=== PATIENT | female | born 1980 | race Caucasian/White ===

== ENCOUNTER 2018-03-28 12:34 | Emergency (ER) | payer MEDICAID, SELFPAY ==
[2018-03-28 12:34] VITALS: BP 166/95; PULSE 84; RESP 18; TEMP 36.6; O2SAT 97; BMI 56.7
--- NOTE | 2018-03-28 13:16 | EKG12_ITS ---
Test Reason : WEAKNESS Blood Pressure : / mmHG Vent. Rate : 070 BPM Atrial Rate : 070 BPM P-R Int : 188 ms QRS Dur : 088 ms QT Int : 402 ms P-R-T Axes : 037 064 043 degrees QTc Int : 434 ms Normal sinus rhythm with sinus arrhythmia Low voltage QRS Borderline ECG Confirmed by KANE CLARKE, JANELL ([id number]), acquisition editor JULIA SEALS ([id number]) on 04/03/2018 10:05:56 AM Referred By: FOREIGN Confirmed By:JAENLL MIDDLETON MD
[2018-03-28 13:47] LABS: Absolute Lymphocyte Count 2.55 X10^3/ul (0.83-4.51); Absolute Neutrophil Count 7.7 X10^3/uL (2.0-7.7); Basophil# 0.05 X10^3/uL; Basophil% 0.4 % (0-1); Eosinophil# 0.13 X10^3/uL; Eosinophils% 1.2 % (0-5); Hematocrit 46.7 % (37-47); Hemoglobin 14.9 g/dl (12.0-15.0); Lymphocyte # 2.55 X10^3/ul (4.0); Lymphocyte % 22.9 % (19-41); Mean Corp Hgb Conc 31.9 g/gl (32-36); Mean Corpuscular Hgb 29.3 pg (27.0-32.0); Mean Corpuscular Volume 91.9 fL (81-99); Mean Platelet Vol. 10.3 fl (6.2-12.0); Monocyte# 0.58 X10^3/uL; Monocyte% 5.2 % (0-10); Neutrophil # 7.74 X10^3/uL (2.7-7.7); Neutrophil % 69.6 % (47-70); Platelet Count 269 K/mm3 (150-450); RBC Distribution Width CV 14.3 % (11.6-14.6); RBC Distribution Width SD 48.2 fl (35.1-43.9); Red Blood Count 5.08 M/mm3 (4.2-5.4); White Blood Count 11.1 K/mm3 (4.4-11.0)
[2018-03-28 13:49] LABS: POSITIVE COUNT NO; POSITIVE DIFFERENTIAL NO; POSITIVE MORPHOLOGY NO
[2018-03-28 14:04] LABS: D-Dimer Quantitative (DVT/PE) 0.52 FEU/ug/m (0.27-0.49)
--- NOTE | 2018-03-28 14:04 | CT_ITS ---
STUDY: CTA CHEST REASON FOR EXAM: Female, 37 years old. RADIATION DOSAGE (If Supplied By Facility): CTDIvol = ( 20.05 ) mGy, DLP = ( 677.05 ) mGycm TECHNIQUE: The examination was performed with the intravenous administration of 100 ml of Isovue 370 contrast material. Post-processing of the angiographic images was performed, with multiplanar reformation and 3D reconstruction. Individualized dose optimization techniques were used for this CT. COMPARISON: None. FINDINGS: Normal enhancement of the main pulmonary artery and right and left pulmonary arteries. Normal enhancement of the bilateral peripheral pulmonary arteries. There is no demonstrated pulmonary embolism. Normal thoracic aorta and visualized great vessels. There is no demonstrated aortic dissection. Normal heart and pericardium. Normal mediastinum. Normal hilar regions. Normal visualized trachea and bronchi. The lungs are well expanded. Normal pulmonary parenchyma. Normal pleura. Normal chest wall structures. Normal osseous structures. Normal visualized upper abdomen. CT/CTA Chest W/WO Contrast IMPRESSION: Normal CTA chest examination, without a demonstrated pulmonary embolism or arterial dissection. Electronically Signed: Jaspreet Beaver, at 16:38 EST Tel , Service support ,
--- NOTE | 2018-03-28 14:07 | ED.RN ---
notified Dr. Thomas of d-dimer 0.52
[2018-03-28 14:12] LABS: Anion Gap 9 (5-15); BUN 11 mg/dL (7-18); BUN/Creat Ratio 10.9 RATIO (10-20); Calcium,Total 8.6 mg/dL (8.5-10.1); Chloride 105 mmol/L (98-107); Creatinine, Serum 1.01 mg/dL (0.55-1.02); EST Glomerular Filtration Rate 65 mL/min (>60); Est Glom Filt Rate - Afr Amer 79 mL/min (>60); Estimated Creatinine Clearance 60.32 ml/min; Glucose 117 mg/dL (74-106); Potassium 3.6 mmol/L (3.5-5.1); Sodium Level 141 mmol/L (136-145)
[2018-03-28 14:15] LABS: BNP,B-Type NATRIURETIC PEPTIDE < 2.0 pg/mL (0-100)
--- NOTE | 2018-03-28 15:10 | ED.VISSUMM ---
- ER Visit Summary Date of Service: 03/28/18 Chief Complaint: [Shortness of breath and generalized weakness] History of Present Illness: The patient is a 37 F [presents to the emergency department with multiple vague complaints that have been going on for several weeks. Patient states that she recently moved back to [facility] [place] and she has run out of her thyroid medication 2 weeks ago. Patient has been quite irritable. Patient also has been complaining of some shortness of breath especially when laying flat. Patient complains of left-sided lung pain posteriorly is worse with deep breath. Patient tells me that she has a history of remote pulmonary embolism but is not on any blood thinners. Patient also without her Wellbutrin and trazodone and BuSpar. She does not have a primary care physician in [facility]. Patient states that she used to see an otolaryngology teacher at [facility] and she believes that she will be able to follow up with them again. Patient had been on levothyroxine but that was switched over to thyroid because they had a hard time normalizing her levels but patient believes it is due to the fact that she was not taking the levothyroxine when she was supposed to be.] Physical Examination: [HEENT-PERRLA, EOMI. Cranial nerves II through XII grossly intact. TMs clear. Mucous membranes moist. No adenopathy. Cardiovascular-regular rate and rhythm without murmur or ectopy Lungs-clear to auscultation, chest wall stable without crepitus or subcu emphysema Abdomen-normoactive bowel sounds, soft, nontender, no rebound or rigidity, no peritoneal signs. Extremities-intact ?4, normal range of motion, normal pulses, atraumatic] Test Results: [EKG obtained on arrival showed a sinus rhythm with a ventricular rate of 70 bpm with occasional PACs noted. CBC with differential obtained showed a white count of 11.1, hemoglobin 15, hematocrit 47, placed 269. Chemistry showed a sodium of 141, potassium 3.6, chloride 105, CO2 27, glucose 117, BUN 11, creatinine 1.01. D-dimer was 0.52. BNP was less than 2. CTA of the chest obtained was negative for PE or dissection.] Emergency Department Course and Treatment: [She was given a dose of levothyroxine 175 mcg.] Treatment Plan: [Will be given a prescription for her levothyroxine as she would prefer this over thyroid medication. Patient also will be given prescriptions for her Wellbutrin, trazodone, and BuSpar. Patient will be given referral to primary care physician locally.] Disposition: [Discharged home in stable condition] Impression: [Hypothyroidism Canary to medication noncompliance Medication refills] This note was generated with wumo dictation software. It may contain incorrect words, spelling, and punctuation that were not noted in review of the chart prior to signing ED Disposition - Plan for ED Patient: Referrals: Natasha Bhat MD [Primary Care Provider] -
--- NOTE | 2018-03-28 15:14 | ED.DCSUM_ITS ---
- ER Visit Summary Date of Service: 03/28/18 Chief Complaint: [Shortness of breath and generalized weakness] History of Present Illness: The patient is a 37 F [presents to the emergency department with multiple vague complaints that have been going on for several weeks. Patient states that she recently moved back to [facility] from [place] and she has run out of her thyroid medication 2 weeks ago. Patient has been quite irritable. Patient also has been complaining of some shortness of breath especially when laying flat. Patient complains of left-sided lung pain posteriorly is worse with deep breath. Patient tells me that she has a history of remote pulmonary embolism but is not on any blood thinners. Patient also without her Wellbutrin and trazodone and BuSpar. She does not have a primary care physician in [facility]. Patient states that she used to see an nurse wound at [facility] and she believes that she will be able to follow up with them again. Patient had been on levothyroxine but that was switched over to thyroid because they had a hard time normalizing her levels but patient believes it is due to the fact that she was not taking the levothyroxine when she was supposed to be.] Physical Examination: [HEENT-PERRLA, EOMI. Cranial nerves II through XII grossly intact. TMs clear. Mucous membranes moist. No adenopathy. Cardiovascular-regular rate and rhythm without murmur or ectopy Lungs-clear to auscultation, chest wall stable without crepitus or subcu emphysema Abdomen-normoactive bowel sounds, soft, nontender, no rebound or rigidity, no peritoneal signs. Extremities-intact ?4, normal range of motion, normal pulses, atraumatic] Test Results: [EKG obtained on arrival showed a sinus rhythm with a ventricular rate of 70 bpm with occasional PACs noted. CBC with differential obtained showed a white count of 11.1, hemoglobin 15, hematocrit 47, placed 269. Chemistry showed a sodium of 141, potassium 3.6, chloride 105, CO2 27, glucose 117, BUN 11, creatinine 1.01. D-dimer was 0.52. BNP was less than 2. CTA of the chest obtained was negative for PE or dissection.] Emergency Department Course and Treatment: [She was given a dose of levothyroxine 175 mcg.] Treatment Plan: [Will be given a prescription for her levothyroxine as she would prefer this over thyroid medication. Patient also will be given prescriptions for her Wellbutrin, trazodone, and BuSpar. Patient will be given referral to primary care physician locally.] Disposition: [Discharged home in stable condition] Impression: [Hypothyroidism Canary to medication noncompliance Medication refills] This note was generated with [employer] dictation software. It may contain incorrect words, spelling, and punctuation that were not noted in review of the chart prior to signing ED Disposition - Plan for ED Patient: Referrals: Natasha Bhat MD [Primary Care Provider] -
--- NOTE | 2018-03-28 15:14 | ED.DEP ---
ED Disposition - Plan for ED Patient: Instructions: ED Hypothyroidism Prescriptions: buPROPion SR [Wellbutrin SR (150mg tablets)] 150 mg PO DAILY #30 tablet.sa Levothyroxine [Synthroid] 175 mcg PO DAILY #30 tab traZODone [Desyrel] 100 mg PO DAILY #30 tab Buspirone HCl [Buspar] 30 mg PO BID #60 tab Referrals: Natasha Bhat MD [Primary Care Provider] - Cuba Smith III, MD [STAFF PHYSICIAN] - 3-5 Days
[2018-03-28 15:34] VITALS: BP 153/109; PULSE 71; RESP 18; O2SAT 97
[2018-03-28] MEDS: Levothyroxine 175 MCG Tablet PO (15:34)
== END 2018-03-28 15:35 | disposition home or self-care (01) ==
LOC: ED 13:39
PROVIDERS: Emergency Provider Emergency Medicine
DX: E03.9 Hypothyroidism, unspecified (principal); Z91.14 Patient's other noncompliance with medication regimen; Z76.0 Encounter for issue of repeat prescription; R06.02 Shortness of breath; R50.9 Fever, unspecified; R05 Cough; I49.1 Atrial premature depolarization; F43.10 Post-traumatic stress disorder, unspecified; F41.9 Anxiety disorder, unspecified; F32.9 Major depressive disorder, single episode, unspecified; Z86.711 Personal history of pulmonary embolism; Z79.899 Other long term (current) drug therapy
CPT/HCPCS: 71275; 80048; 83880; 84443; 85025; 85379; 93005; 99285; Q9967; A4216

== ENCOUNTER 2018-10-06 14:41 | Emergency (ER) | payer MEDICAID, SELFPAY ==
[2018-10-06 14:43] VITALS: BP 161/86; PULSE 82; RESP 16; TEMP 36.7; O2SAT 98; BMI 60.3
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
[2018-10-06] MEDS: Ketorolac 30 MG/ML Syringe IV (15:35)
[2018-10-06] MEDS: 0.9% Normal Saline 1,000 ML 1000 ML IV (15:35)
--- NOTE | 2018-10-06 15:51 | RAD_ITS ---
STUDY: X-RAY - RIGHT KNEE REASON FOR EXAM: Female, 38 years old. Pain. Injury. TECHNIQUE: 4 view(s) of the knee. COMPARISON: None. FINDINGS: Normal visualized distal femur. Normal visualized proximal tibia and fibula. Normal proximal tibiofibular articulation. There is no demonstrated fracture. Normal medial femorotibial compartment. Normal lateral femorotibial compartment. Normal patellofemoral articulation. There is no demonstrated joint effusion. The soft tissue structures are unremarkable. RAD/Knee 4 or More Views IMPRESSION: Normal x-ray examination of the knee. Electronically Signed: Baldomero Gan MD at 16:17 EDT , Service support ,
--- NOTE | 2018-10-06 15:51 | RAD_ITS ---
STUDY: X-RAY - RIGHT ANKLE REASON FOR EXAM: Female, 38 years old. Pain. Previous injury. TECHNIQUE: 3 view(s) of the ankle. COMPARISON: None. FINDINGS: Normal visualized distal tibia and fibula. Normal medial and lateral malleoli. Normal tibiotalar articulation and ankle mortise. Normal visualized talus and calcaneus. The visualized subtalar, talonavicular, calcaneocuboid and tarsal articulations are normal. There is no demonstrated fracture. The soft tissue structures are unremarkable. RAD/Ankle min 3 Views IMPRESSION: No fractures or dislocations are seen. No significant degenerative changes. Electronically Signed: Baldomero Gan MD at 16:16 EDT , Service support ,
--- NOTE | 2018-10-06 15:51 | RAD_ITS ---
STUDY: X-RAY - UNILATERAL RIBS ( LEFT ) WITH CHEST REASON FOR EXAM: Female, 38 years old. Pain. Injury. TECHNIQUE - RIBS: 4 view(s) of the ribs. TECHNIQUE - CHEST: Single AP portable view of the chest. COMPARISON: 11/29/2016. FINDINGS - RIBS: Normal visualized ribs without a demonstrated fracture. FINDINGS - CHEST: The lungs are clear and expanded. There is no demonstrated pleural abnormality. Normal size heart. Normal mediastinum and cm. Normal visualized pulmonary arteries. Normal visualized aortic arch and descending thoracic aorta. There is mild dextroscoliosis of the thoracic spine. Normal visualized ribs, clavicles, and shoulders. There is no demonstrated abnormality of the visualized soft tissue structures of the upper abdomen. RAD/Ribs Uni Min 3V w/PA Chest IMPRESSION: RIBS: Normal x-ray examination of the ribs. CHEST: Normal x-ray examination of the chest. Electronically Signed: Baldomero Gan MD at 16:20 EDT , Service support ,
[2018-10-06 15:53] LABS: Absolute Lymphocyte Count 3.75 X10^3/uL (0.83-4.51); Absolute Neutrophil Count 11.8 X10^3/uL (2.0-7.7); Basophil# 0.11 X10^3/uL; Basophil% 0.6 % (0-1); Eosinophil# 0.14 X10^3/uL; Eosinophils% 0.8 % (0-5); Hematocrit 47.7 % (37-47); Hemoglobin 15.1 g/dL (12.0-15.0); Lymphocyte # 3.75 X10^3/ul (4.0); Mean Corp Hgb Conc 31.7 g/dL (32-36); Mean Corpuscular Hgb 29.3 pg (27.0-32.0); Mean Corpuscular Volume 92.4 fL (81-99); Mean Platelet Vol. 10.1 fl (6.2-12.0); Monocyte# 1.08 X10^3/uL; Monocyte% 6.3 % (0-10); NRBC Flagged by Analyzer 0 % (0-5); Neutrophil # 11.78 X10^3/uL (2.7-7.7); Neutrophil % 69.4 % (47-70); Platelet Count 305 K/mm3 (150-450); RBC Distribution Width CV 13.6 % (11.6-14.6); RBC Distribution Width SD 46.2 fl (35.1-43.9); Red Blood Count 5.16 M/mm3 (4.2-5.4)
[2018-10-06 16:09] LABS: Color, Urine Yellow (Yellow); Glucose, Dipstick Normal (Normal); Ketone-Dipstick 5 mg/dl (Negative); Leukocyte Esterase-Dipstick 500 /ul (Negative); Nitrite-Dipstick Positive (Negative); Occult Blood-Urine 10 /ul (Negative); Protein-Dipstick 15 mg/dl (Negative); Specific Gravity, Urine 1.025 (1.002-1.030); Urine Bilirubin Dipstick Negative (Negative); Urine Clarity Cloudy (Clear); Urine Urobilinogen Normal (Normal)
[2018-10-06 16:16] LABS: Anion Gap 4 (5-15); BUN 17 mg/dL (7-18); BUN/Creat Ratio 18.7 RATIO (10-20); Calcium,Total 9.4 mg/dL (8.5-10.1); Chloride 106 mmol/L (98-107); Creatinine, Serum 0.91 mg/dL (0.55-1.02); EST Glomerular Filtration Rate 73 mL/min (>60); Est Glom Filt Rate - Afr Amer 89 mL/min (>60); Glucose 91 mg/dL (74-106); Internal QC Validated? YES +Cl - CLEAR BKGD; Potassium 4.1 mmol/L (3.5-5.1); Pregnancy, Serum, hCG Quali. NEGATIVE Negative; Sodium Level 141 mmol/L (136-145)
[2018-10-06] MEDS: Levothyroxine 100 MCG Tablet 200 MCG PO (16:36)
[2018-10-06] MEDS: 0.9% Normal Saline 1,000 ML 150 ML IV (16:37)
[2018-10-06 16:39] LABS: Amphetamine Urine VISTA POSITIVE (<1000 ng/mL); Barbiturate Urine VISTA NEGATIVE (< 200 ng/mL); Benzodiazepine Urine VISTA NEGATIVE (< 200 ng/mL); Cocaine Urine VISTA NEGATIVE (< 300 ng/mL); Ecstacy Urine VISTA NEGATIVE (< 500 ng/mL); Methadone Urine VISTA NEGATIVE (< 300 ng/mL); PCP Urine VISTA NEGATIVE (< 25 ng/mL); THC Urine VISTA POSITIVE (< 50 ng/mL); Vista UDS pH Range 5
[2018-10-06 17:06] LABS: Bacteria 4+ /hpf (None Seen); Mucous, Urine 1+ /hpf (<or=2+); Red Blood Cells-Urine 5-10 SEEN /hpf (0-5); Squamous Epithelial Cells - UA 5-10 SEEN /hpf (5-10); White Blood Cells >100 SEEN /hpf (0-5)
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
[2018-10-06] MEDS: Ceftriaxone 1 GM/50 ML BAG IV (17:30)
[2018-10-06 17:33] VITALS: BP 180/100; PULSE 74; RESP 18; O2SAT 99
[2018-10-06 18:10] VITALS: BP 178/97; PULSE 74; RESP 18; O2SAT 99
== END 2018-10-06 18:57 | disposition home or self-care (01) ==
PROVIDERS: Emergency Provider Emergency Medicine
DX: S93.401A Sprain of unspecified ligament of right ankle, initial encounter (principal); E03.9 Hypothyroidism, unspecified; Z91.14 Patient's other noncompliance with medication regimen; N30.90 Cystitis, unspecified without hematuria; S09.90XA Unspecified injury of head, initial encounter; S29.9XXA Unspecified injury of thorax, initial encounter; M25.561 Pain in right knee; Y09 Assault by unspecified means; Y93.9 Activity, unspecified; Y92.9 Unspecified place or not applicable; F32.9 Major depressive disorder, single episode, unspecified; F41.9 Anxiety disorder, unspecified; Z79.899 Other long term (current) drug therapy; Z87.891 Personal history of nicotine dependence
CPT/HCPCS: 70450; 71101; 73564; 73610; 80048; 80307; 81001; 84443; 84703; 85025; 96361; 96365; 96375; 99283; J7030

== ENCOUNTER 2018-10-10 08:30 | Outpatient (RCR) | payer MEDICAID, SELFPAY ==
--- NOTE | 2018-10-10 09:10 | BH.SGPN.GN ---
Behaviors/Verbalizations/Mental Status: [] Eye contact is good. Motor activity is appropriate. Appearance is casual. Speech is Appropriate. Mood is depressed. Affect is flat. Thoughts are linear and logical. No evidence of psychosis. Reviewed daily check in sheet and pt reports 4/5 for suicidal ideations and 1/5 for intent. Therapist to meet with pt to further discuss. Client Response/Progress/Benefit: [] Pt participated at times during group discussion. Today was her first group in IOP. Shared that she is in IOP to work on her depression and anxiety mainly related to recent stressors. Shared that she can relate to the struggles that peers spoke about. Group welcomed her and provided support and encouragement which she benefited from. Will continue in IOP to maintain safety, prevent decompensation, medication mgmt, and to stabilize mood. Narrative Note: []
--- NOTE | 2018-10-10 10:07 | BH.SGPN.GN ---
Behaviors/Verbalizations/Mental Status: []Client alert and oriented, casually dressed and groomed. Eye contact good. Motor activity appropriate. Speech within normal limits. Affect congruent, mood anxious. Thoughts linear, logical, no signs of hallucinations or delusions. Client Response/Progress/Benefit: []Pt receptive to session, provided input and actively listening throughout discussion on stress. Able to brainstorm with the group positive and negative aspects of stress on physical and mental health. She participated in identifying current stressors impacting mental health. Pt's current stressors include: physical health, needing a job, family relationships, her children, poor self-care, not feeling safe at times, and counseling. Pt noted that her most significant stressors are currently physical health, needing a job, and family problems. Appeared to benefit from gaining awareness of own current stressors and learning about the impact stress has on overall wellbeing. Pt's first day in IOP, appeared to connect with others and engaged throughout. Recommend continued IOP tx to improve anxiety and depression symptom management, increase healthy coping, and prevent decompensation. Narrative Note: []
--- NOTE | 2018-10-10 11:09 | BH.SGPN.GN ---
Behaviors/Verbalizations/Mental Status: [Client alert and oriented, casual appearance and appropriate grooming. Eye contact fair to good. Motor activity appropriate. Speech within normal limits. Affect congruent, mood anxious. Thoughts linear, logical, no signs of hallucinations or delusions.] Client Response/Progress/Benefit: [Pt engaged in session as evidenced by pt listening and taking notes, participating in activity, and providing input throughout session. This is progress as it is only pt first day in IOP tx. She worked with the group to complete the challenge activity and did well to remain engaged while being challenged to manage in the moment stressors. Pt was able to identify connections between activity and managing stress in daily life. Pt reported that engaging in the activity despite frustration aided in reducing overall agitation levels. Pt actively listening during discussion about the 4 A's of managing stress. Expressed wanting to utilize alter in order to begin ?actually asking for help with my mental health?. Pt seemed to benefit from increased awareness of the impact of stress on mental health and increasing repertoire of stress management strategies. Pt to continue in IOP to prevent decompensation, continue promote stability, and decrease symptoms of depression.] Narrative Note: []
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
--- NOTE | 2018-10-11 11:08 | BH.DR.ITP ---
Initial Treatment Plan - Patient Information Visit Information: ADMISSION DATE: EXPECTED LOS: 4-6 weeks - Problems/Symptoms Problem #1:: Depression Symptom:: sadness, anhedonia, passive SI, low energy Problem #2:: Psychosis Symptom:: Paranoia, doesnt feel safe Problem #3:: OCD Symptom:: Checking, showering rituals
--- NOTE | 2018-10-12 09:00 | BH.SGPN.GN ---
Behaviors/Verbalizations/Mental Status: [] Eye contact is good. Motor activity is appropriate. Appearance is casual. Speech is Appropriate. Mood is anxious. Affect is congruent. Thoughts are linear and logical. No evidence of psychosis. Reviewed daily check in sheet and pt reports 4/5 for suicidal thoughts and 1/5 for intent. Will complete f2f assessment after group to further evaluate Client Response/Progress/Benefit: [] Pt participated at times. Attentive. The was pt's first group and she briefly introduced herself. Wants to work on her depression and anxiety. States that she is happy to be in the program and can relate to the struggles that other members reported. No progress as this was pt's first day. Will continue in IOP to maintain safety, stabilize mood, prevent decompensation, and improve functioning. Narrative Note: []
--- NOTE | 2018-10-12 14:00 | BH.MDN ---
Multi-Disciplinary Note - Note 60-min Individual Time Started:: 11:05 Date: 10/12/18 Purpose of session/treatment goals addressed:: Reviewed current symptoms and progress in IOP. Pt presented to this therapist and requested session due to increased anxiety and irritability. Reports overwhelming stimuli in group. Eye Contact:: Good Motor Activity:: Appropriate Appearance:: Disheveled Speech:: Rapid Mood:: Anxious, Irritable Affect:: Congruent Thoughts:: Linear, Logical, No evidence of hallucinations/delusions noted Staff Interventions:: Allowed pt to vent. Utilized ME techniques to elicit change behaviors. Provided education on importance of self-care. Provided handouts on mindfulness skills. Client Response:: Pt reports that it was overwhelming in group today. Reports that she did not get much sleep last night and today is very hypervigilant. Was in a hurry this AM, overslept, and didn't have time to fully prepare which appears to have increased stress, irritability, and anxiety. Normalized her emotions. Numerous psychosocial stressors which she vented about including her son who recently left rehab prior to completion, housing situation, and her future. Once she was finsihed venting she reported feeling better and more calm. Insight that she is trying to do to much too soon. Addressed her self-report of suicidal thoughts this AM. Completed CSSR-sreener version in which she is low risk. She identified desire or wishes to be however denies any thoughts of killing herself in the past month. She reports she will often think about stopping her medications (thyroid) with the hopes of dying however again this is not lethal, immenint, and she is currently taking her medications. No hx of attempts. Denies any intent. Furture-oriented (getting a job, moving). Protective factors are her children. Does not present as imminent danger due to no ideations, plan, intent, or hx of attempts. No criteria for involuntary admission or pink slipp. Risks/Concerns:: refer above CSSR completed with low risk Progress Toward Goals/Plan:: Limited progress as this is 2nd day in IOP. Numerous psychosocial stressors which impact MH. Prescibed medications yesterday however has not started. Anxiety continues to be significant and impacting daily functioning. Hypervigilant which is impacting stress, sleep, and daily functioning. Will continue in IOP to maintain safety, stablize mood, and prevent decompensation. Time Stopped:: 12:00
--- NOTE | 2018-10-16 15:55 | BH.COMM_ITS ---
Communication Note - Communication with Client Communication Note: Transportation arrived to pick pt up this AM. Pt informed them that she had arranged for other mode of transportation to [facility]. Pt never showed to [facility].
--- NOTE | 2018-10-16 15:55 | BH.COMM ---
Communication Note - Communication with Client Communication Note: Transportation arrived to pick pt up this AM. Pt informed them that she had arranged for other mode of transportation to [facility]. Pt never showed to [facility].
== END 2018-10-21 23:59 ==
LOC: BHIOP 08:30
PROVIDERS: Referring Provider Psychiatry & Neurology Psychiatry; Visit Provider Psychiatry & Neurology Psychiatry
DX: F31.5 Bipolar disorder, current episode depressed, severe, with psychotic features (principal); F42.9 Obsessive-compulsive disorder, unspecified; F43.10 Post-traumatic stress disorder, unspecified; F12.90 Cannabis use, unspecified, uncomplicated; F10.21 Alcohol dependence, in remission
CPT/HCPCS: 90792; H0035; H2012; H2020; 90832; 90837

== ENCOUNTER 2018-11-21 17:56 | Emergency (ER) | payer MEDICAID, SELFPAY ==
[2018-11-21 17:57] VITALS: BP 153/89; PULSE 94; RESP 22; TEMP 36.8; O2SAT 97; BMI 63.3
--- NOTE | 2018-11-21 18:36 | EKG12_ITS ---
Test Reason : CP Blood Pressure : / mmHG Vent. Rate : 087 BPM Atrial Rate : 087 BPM P-R Int : 174 ms QRS Dur : 090 ms QT Int : 380 ms P-R-T Axes : 043 049 053 degrees QTc Int : 457 ms Normal sinus rhythm Normal ECG Confirmed by GHISLAINE REGAN ([id number]), film and video editor BRIDGETT OCHOA ([id number]) on 11/27/2018 12:11:39 PM Referred By: DANIELE Confirmed By:GHISLAINE REGAN
--- NOTE | 2018-11-21 18:36 | RAD_ITS ---
STUDY: X-RAY CHEST REASON FOR EXAM: Female, 38 years old. Chest pain, dyspnea TECHNIQUE: Frontal and lateral views COMPARISON: October 06, 2018 FINDINGS: The lungs are clear and expanded. There is no demonstrated pleural abnormality. Normal size heart. Normal mediastinum and cm. Normal visualized pulmonary arteries. Normal visualized aortic arch and descending thoracic aorta. Mild degenerative changes of the thoracic spine. Normal visualized ribs, clavicles, and shoulders. There is no demonstrated abnormality of the visualized soft tissue structures of the upper abdomen. RAD/Chest PA and Lateral IMPRESSION: Normal x-ray examination of the chest. Electronically Signed: Raji Leon DO at 19:18 EDT Tel [phone], Service support ,
[2018-11-21 18:55] LABS: Absolute Lymphocyte Count 2.46 X10^3/uL (0.83-4.51); Absolute Neutrophil Count 9.6 X10^3/uL (2.0-7.7); Basophil# 0.08 X10^3/uL; Basophil% 0.6 % (0-1); Eosinophil# 0.11 X10^3/uL; Eosinophils% 0.8 % (0-5); Hematocrit 42.4 % (37-47); Hemoglobin 13.3 g/dL (12.0-15.0); Lymphocyte # 2.46 X10^3/ul (4.0); Mean Corp Hgb Conc 31.4 g/dL (32-36); Mean Corpuscular Hgb 28.5 pg (27.0-32.0); Mean Platelet Vol. 10.3 fl (6.2-12.0); Monocyte# 0.69 X10^3/uL; Monocyte% 5.3 % (0-10); NRBC Flagged by Analyzer 0 % (0-5); Neutrophil # 9.56 X10^3/uL (2.7-7.7); Neutrophil % 73.7 % (47-70); Platelet Count 300 K/mm3 (150-450); RBC Distribution Width CV 13.6 % (11.6-14.6); RBC Distribution Width SD 45.1 fl (35.1-43.9); Red Blood Count 4.66 M/mm3 (4.2-5.4)
[2018-11-21 19:07] LABS: Internal QC Validated? YES +Cl - CLEAR BKGD; Pregnancy, Serum, hCG Quali. NEGATIVE Negative
[2018-11-21 19:09] VITALS: BP 139/95; PULSE 79; RESP 18; O2SAT 96
[2018-11-21 19:11] LABS: Anion Gap 6 (5-15); BUN 18 mg/dL (7-18); BUN/Creat Ratio 18.1 RATIO (10-20); Calcium,Total 8.8 mg/dL (8.5-10.1); Chloride 107 mmol/L (98-107); EST Glomerular Filtration Rate 66 mL/min (>60); Est Glom Filt Rate - Afr Amer 80 mL/min (>60); Estimated Creatinine Clearance 60.33 ml/min; Glucose 143 mg/dL (74-106); Potassium 3.6 mmol/L (3.5-5.1); Sodium Level 140 mmol/L (136-145)
--- NOTE | 2018-11-21 19:40 | CT_ITS ---
STUDY: CTA CHEST REASON FOR EXAM: Female, 38 years old. Chest pain RADIATION DOSAGE (If Supplied By Facility): CTDIvol = ( 17.2 ) mGy, DLP = ( 1618.76 ) mGycm TECHNIQUE: The examination was performed with the intravenous administration of IV Isovue 370 100. Post-processing of the angiographic images was performed, with multiplanar reformation and 3D reconstruction. Individualized dose optimization techniques were used for this CT. COMPARISON: None. FINDINGS: Normal enhancement of the main pulmonary artery and right and left pulmonary arteries. Normal enhancement of the bilateral peripheral pulmonary arteries. There is no demonstrated pulmonary embolism. Normal thoracic aorta and visualized great vessels. There is no demonstrated aortic dissection. Normal heart and pericardium. Normal mediastinum. Normal hilar regions. Normal visualized trachea and bronchi. The lungs are well expanded. Normal pulmonary parenchyma. Normal pleura. Normal chest wall structures. Mild degenerative vertebral changes and scoliosis. Normal visualized upper abdomen. CT/CTA Chest W/WO Contrast IMPRESSION: No demonstrated pulmonary embolism or arterial dissection. Electronically Signed: Raji Leon DO at 20:47 EDT Tel [phone], Service support ,
[2018-11-21] MEDS: Ketorolac 30 MG/ML Syringe IV (19:53)
[2018-11-21 20:02] VITALS: BP 139/92; PULSE 70; RESP 19; O2SAT 95
[2018-11-21 20:05] LABS: Bacteria 0 SEEN /hpf (None Seen)
[2018-11-21 20:08] LABS: Color, Urine Yellow (Yellow); Glucose, Dipstick Normal (Normal); Ketone-Dipstick 5 mg/dl (Negative); Leukocyte Esterase-Dipstick 25 /ul (Negative); Nitrite-Dipstick Negative (Negative); Occult Blood-Urine 150 /ul (Negative); Protein-Dipstick 15 mg/dl (Negative); Urine Bilirubin Dipstick Negative (Negative); Urine Clarity Sl. Cloudy (Clear); Urine Urobilinogen 4 mg/dl (Normal)
[2018-11-21 20:34] LABS: Mucous, Urine RARE /hpf (<or=2+); Red Blood Cells-Urine 10-25 SEEN /hpf (0-5); Squamous Epithelial Cells - UA 0-5 SEEN /hpf (5-10); White Blood Cells 0-5 SEEN /hpf (0-5)
[2018-11-21] MEDS: Acetaminophen 500 MG Tablet 1000 MG PO (20:46)
[2018-11-21] MEDS: Ondansetron 4 MG/2 ML Vial IV (20:47)
--- NOTE | 2018-11-21 21:02 | ED.DCSUM_ITS ---
- ER Visit Summary Date of Service: 11/21/18 Chief Complaint: Chest pain History of Present Illness: The patient is a 38 F who tells me that yesterday she began to have a continuous waxing and waning sharp pain in the left mid chest. She notes nausea headache chills and a rash on her abdomen and leg. She states that her significant other also has a rash very similar to this. She has a history of hypothyroidism. Physical Examination: Afebrile vital signs are stable Gen: Well-nourished well-developed Head: Normocephalic atraumatic Eyes: Perrl EOMI ENT: TMs clear no rhinorrhea moist mucous membranes Neck: Supple no lymphadenopathy no JVD nontender CVS: Regular rate rhythm no murmurs normal S1-S2 Respiratory: No distress clear to auscultation bilaterally chest nontender Abdomen: Soft nontender nondistended normal bowel sounds no masses Back: Nontender Extremity: Nontender no edema Skin: Normal color is a very faint papular rash without erythema located in the abdomen. I do not see any rash on thigh. Neuro: alert orientated ?3 CN II-XII intact normal strength sensation Psych: Normal affect normal mood Test Results: White count 13 glucose 143. Urinalysis 10-25 red blood cells. Troponin negative. EKG sinus at a rate of 87 without ectopy. Chest x-ray negative. Patient also had a CT Ariane of the chest showed no evidence of PE or dissection. Emergency Department Course and Treatment: Patient received Toradol Zofran. At this point I do not see evidence of acute coronary syndrome, dissection, pulmonary embolism, pneumonia or other emergent conditions. Patient be discharged home with supportive care instructions to follow-up I will write for prescription of Zofran. I think at this point given numerous constitutional symptoms this could be viral in nature with Impression: 1. Acute chest pain This note was generated with [employer] dictation software. It may contain incorrect words, spelling, and punctuation that were not noted in review of the chart prior to signing ED Disposition - Plan for ED Patient: Disposition: Home or Assisted Living Instructions: CHEST PAIN, Uncertain Cause Prescriptions: Ondansetron [Zofran Odt] 4 mg PO Q8H PRN PRN #10 tab PRN Reason: Nausea Prescription Printed Referrals: Natasha Bhat MD [Primary Care Provider] - 3-5 Days if not improving
[2018-11-21 21:23] VITALS: BP 139/70; PULSE 71; RESP 16; O2SAT 99
== END 2018-11-21 21:32 | disposition home or self-care (01) ==
PROVIDERS: Emergency Provider Emergency Medicine
DX: R07.9 Chest pain, unspecified (principal); R11.0 Nausea; R68.83 Chills (without fever); R51 Headache; R23.8 Other skin changes; E66.9 Obesity, unspecified; E03.9 Hypothyroidism, unspecified; Z79.899 Other long term (current) drug therapy; Z87.891 Personal history of nicotine dependence
CPT/HCPCS: 71046; 71275; 80048; 81001; 84484; 84703; 85025; 93005; 96374; 96375; 99284; Q9967; A4216; J2405

== ENCOUNTER → 2019-03-22 11:58 | Outpatient (CLI) | payer MEDICAID, SELFPAY ==
--- NOTE | 2019-03-22 13:29 | EKG12_ITS ---
Test Reason : CHF Blood Pressure : / mmHG Vent. Rate : 067 BPM Atrial Rate : 067 BPM P-R Int : 184 ms QRS Dur : 092 ms QT Int : 408 ms P-R-T Axes : 031 050 036 degrees QTc Int : 431 ms Normal sinus rhythm with sinus arrhythmia Low voltage QRS Borderline ECG Confirmed by AMBIKA CLARKE, INNA ([id number]), photographic editor JULIA SEALS ([id number] on 03/23/2019 4:12:51 PM Referred By: GEOVANY ACEVEDO Confirmed By:MIAH APPLE MD
[2019-03-22 13:43] LABS: Absolute Lymphocyte Count 2.25 X10^3/uL (0.83-4.51); Absolute Neutrophil Count 8.9 X10^3/uL (2.0-7.7); Basophil# 0.08 X10^3/uL; Basophil% 0.7 % (0-1); Eosinophil# 0.17 X10^3/uL; Eosinophils% 1.4 % (0-5); Hematocrit 42.5 % (37-47); Hemoglobin 12.8 g/dL (12.0-15.0); Lymphocyte # 2.25 X10^3/ul (4.0); Lymphocyte % 18.6 % (19-41); Mean Corp Hgb Conc 30.1 g/dL (32-36); Mean Corpuscular Hgb 28.1 pg (27.0-32.0); Mean Corpuscular Volume 93.4 fL (81-99); Mean Platelet Vol. 10.5 fl (6.2-12.0); Monocyte# 0.61 X10^3/uL; NRBC Flagged by Analyzer 0 % (0-5); Neutrophil # 8.86 X10^3/uL (2.7-7.7); Neutrophil % 73.3 % (47-70); Platelet Count 259 K/mm3 (150-450); RBC Distribution Width CV 14.5 % (11.6-14.6); RBC Distribution Width SD 50.3 fl (35.1-43.9); Red Blood Count 4.55 M/mm3 (4.2-5.4); White Blood Count 12.1 K/mm3 (4.4-11.0)
[2019-03-22 14:06] LABS: Hemoglobin A1c 6.3 % (4.2-6.3)
[2019-03-22 14:09] LABS: ALB/GLOB Ratio 0.8 RATIO (0.9-2.4); AST(SGOT) 20 U/L (15-37); Alanine Aminotransfer ALT/SGPT 29 U/L (13-56); Albumin, Serum 3.2 g/dL (3.2-5.0); Alkaline Phosphatase 89 U/L (45-117); Anion Gap 4 (5-15); BUN 14 mg/dL (7-18); BUN/Creat Ratio 17.7 RATIO (10-20); Calcium,Total 8.1 mg/dL (8.5-10.1); Chloride 106 mmol/L (98-107); Cholesterol 185 mg/dL (200); Creatinine, Serum 0.79 mg/dL (0.55-1.02); EST Glomerular Filtration Rate 86 mL/min (>60); Est Glom Filt Rate - Afr Amer 104 mL/min (>60); Globulin 3.8 g/dL (2.2-4.2); Glucose 93 mg/dL (74-106); High Density Lipoprotein 39 mg/dL; Potassium 3.6 mmol/L (3.5-5.1); Sodium Level 140 mmol/L (136-145); T4 Free Direct 0.53 ng/dL (0.76-1.46); Triglycerides 110 mg/dL; Very Low Density Lipoprotein 22 mg/dL (5-40)
== END ==
DX: I10 Essential (primary) hypertension (principal); E03.9 Hypothyroidism, unspecified; Z13.6 Encounter for screening for cardiovascular disorders
CPT/HCPCS: 36415; 80053; 80061; 83036; 84439; 84443; 85025; 93005

== ENCOUNTER → 2019-04-17 12:31 | Outpatient (CLI) | payer MEDICAID, SELFPAY | DX: E03.9 Hypothyroidism, unspecified (principal) | CPT/HCPCS: 36415; 84443 ==

== ENCOUNTER 2019-10-31 16:24 | Emergency (ER) | payer MEDICAID, SELFPAY ==
[2019-10-31 16:26] VITALS: BP 154/88; PULSE 96; RESP 18; TEMP 36.4; O2SAT 99; BMI 70.6
--- NOTE | 2019-10-31 16:41 | US_ITS ---
STUDY: VENOUS DOPPLER ULTRASOUND - RIGHT LOWER EXTREMITY REASON FOR EXAM: Female, 39 years old. RT LEG SWELLING TECHNIQUE: Ultrasound evaluation of the deep vein system to include salamanca-scale imaging and compression was performed. Salamanca-scale imaging and Doppler sonographic evaluation, including duplex spectral analysis and qualitative color flow sonography, was performed. COMPARISON: None. FINDINGS: Common Femoral Vein: Normal compression, spontaneity and augmentation. Normal color Doppler. Common Femoral Vein/Greater Saphenous Junction: Normal compression, spontaneity and augmentation. Normal color Doppler. Deep Femoral Vein: Normal compression, spontaneity and augmentation. Normal color Doppler. Femoral Proximal: Normal compression, spontaneity and augmentation. Normal color Doppler. Femoral Middle: Normal compression, spontaneity and augmentation. Normal color Doppler. Femoral Distal: Normal compression, spontaneity and augmentation. Normal color Doppler. Popliteal Vein: Normal compression, spontaneity and augmentation. Normal color Doppler. Posterior Tibial Vein: Normal compression, spontaneity and augmentation. Normal color Doppler. Peroneal Vein: Normal compression, spontaneity and augmentation. Normal color Doppler. US/Venous Duplex Imag/Limited/Uni IMPRESSION: Normal venous Doppler ultrasound of the lower extremity. Electronically Signed: Campbell Echeverria MD at 18:20 EDT , Service support ,
[2019-10-31 17:21] LABS: Anion Gap 6 (5-15); BUN 15 mg/dL (7-18); BUN/Creat Ratio 18.1 RATIO (10-20); Calcium,Total 9.2 mg/dL (8.5-10.1); Chloride 108 mmol/L (98-107); Creatinine, Serum 0.83 mg/dL (0.55-1.02); EST Glomerular Filtration Rate 81 mL/min (>60); Est Glom Filt Rate - Afr Amer 99 mL/min (>60); Estimated Creatinine Clearance 71.97 ml/min; Glucose 114 mg/dL (74-106); Potassium 3.9 mmol/L (3.5-5.1); Sodium Level 141 mmol/L (136-145)
--- NOTE | 2019-10-31 18:41 | ED.DEP ---
ED Disposition - Plan for ED Patient: Instructions: ED Peripheral Edema, Bilateral Prescriptions: Potassium Chloride [K-Dur] 20 meq PO DAILY #10 tab Prescription Printed Furosemide [Lasix] 20 mg PO DAILY #10 tab Prescription Printed Referrals: Loren Allison MD [STAFF PHYSICIAN] -
--- NOTE | 2019-10-31 18:43 | ED.VISSUMM ---
- ER Visit Summary Date of Service: 10/31/19 Chief Complaint: Edema History of Present Illness: The patient is a 39 F presenting with bilateral lower extremity edema. She states that her right leg is worse than the left. This has been ongoing since August. She was concerned today because her right leg is more swollen than the left. She is unable to get into her primary care physician until November. Denies chest pain or shortness of breath. She has anxiety. She denies suicidal ideation. Physical Examination: Vitals are stable. Patient is afebrile. Alert no acute distress. Pulse ox 99% on room air HEENT exam is unremarkable. Neck is supple. Lungs are clear and equal bilaterally. Heart is regular rate and rhythm. Extremities bilateral lower extremity edema, right greater than left. Normal distal pulses. No erythema or warmth. Skin is warm and dry. No focal neurologic deficit. Remainder of exam is unremarkable. Emergency Department Course and Treatment: Venous Doppler right lower extremity shows Normal venous Doppler ultrasound of the lower extremity. Chemistries unremarkable. Patient is given short course of Lasix and K-Dur. She is advised to follow-up with her primary care physician. Advised return to the ED for worsening complaints. Disposition: Discharge home Impression: Peripheral edema This note was generated with [employer] dictation software. It may contain incorrect words, spelling, and punctuation that were not noted in review of the chart prior to signing ED Disposition - Plan for ED Patient: Instructions: ED Peripheral Edema, Bilateral Prescriptions: Potassium Chloride [K-Dur] 20 meq PO DAILY #10 tab Prescription Printed Furosemide [Lasix] 20 mg PO DAILY #10 tab Prescription Printed Referrals: Loren Allison MD [STAFF PHYSICIAN] -
[2019-10-31 18:59] VITALS: BP 145/90; PULSE 84; PULSE 85; RESP 16
== END 2019-10-31 19:01 | disposition home or self-care (01) ==
PROVIDERS: Emergency Provider Emergency Medicine
DX: R60.0 Localized edema (principal); F41.9 Anxiety disorder, unspecified; E03.9 Hypothyroidism, unspecified; Z79.899 Other long term (current) drug therapy
CPT/HCPCS: 80048; 93971; 99282

== ENCOUNTER → 2019-12-14 16:50 | Outpatient (CLI) | payer MEDICAID, SELFPAY | PROVIDERS: Referring Provider Family Medicine; Visit Provider Family Medicine | DX: K52.9 Noninfective gastroenteritis and colitis, unspecified (principal); Z20.828 Contact with and (suspected) exposure to other viral communicable diseases | CPT/HCPCS: 87635; C9803; U0003 ==

== ENCOUNTER → 2020-01-15 14:59 | Outpatient (CLI) | payer MEDICAID, SELFPAY ==
[2020-01-15 13:58] VITALS: BMI 70.2
[2020-01-15 15:14] LABS: Red Blood Cells-Urine 0 SEEN /hpf (0-5)
[2020-01-15 16:50] LABS: Color, Urine Yellow (Yellow); Glucose, Dipstick Normal (Normal); Ketone-Dipstick 5 mg/dl (Negative); Leukocyte Esterase-Dipstick 25 /ul (Negative); Nitrite-Dipstick Negative (Negative); Occult Blood-Urine 10 /ul (Negative); Protein-Dipstick 15 mg/dl (Negative); Specific Gravity, Urine 1.025 (1.002-1.030); Urine Bilirubin Dipstick Negative (Negative); Urine Clarity Clear (Clear); Urine Urobilinogen 1 mg/dl (Normal)
[2020-01-15 16:57] LABS: Bacteria 3+ /hpf (None Seen); Mucous, Urine 4+ /hpf (<or=2+); Squamous Epithelial Cells - UA 5-10 SEEN /hpf (5-10); White Blood Cells 0-5 SEEN /hpf (0-5)
[2020-01-15 16:58] LABS: Absolute Lymphocyte Count 2.88 X10^3/uL (0.83-4.51); Absolute Neutrophil Count 9.2 X10^3/uL (2.0-7.7); Basophil# 0.07 X10^3/uL; Basophil% 0.5 % (0-1); Eosinophil# 0.18 X10^3/uL; Eosinophils% 1.4 % (0-5); Hematocrit 43.7 % (37-47); Hemoglobin 13.1 g/dL (12.0-15.0); Lymphocyte # 2.88 X10^3/ul (4.0); Lymphocyte % 21.7 % (19-41); Mean Corpuscular Hgb 27.1 pg (27.0-32.0); Mean Corpuscular Volume 90.5 fL (81-99); Mean Platelet Vol. 10.2 fl (6.2-12.0); Monocyte# 0.87 X10^3/uL; Monocyte% 6.6 % (0-10); NRBC Flagged by Analyzer 0 % (0-5); Neutrophil # 9.16 X10^3/uL (2.7-7.7); Neutrophil % 68.9 % (47-70); Platelet Count 358 K/mm3 (150-450); RBC Distribution Width CV 13.8 % (11.6-14.6); RBC Distribution Width SD 45.8 fl (35.1-43.9); Red Blood Count 4.83 M/mm3 (4.2-5.4); White Blood Count 13.3 K/mm3 (4.4-11.0)
[2020-01-15 17:07] LABS: Vitamin B12 266 pg/mL (211-911)
[2020-01-15 17:08] LABS: Hemoglobin A1c 6.6 % (3.8-5.6)
[2020-01-15 17:15] LABS: Microalbumin,Random Urine 22.4 mg/L (NO RANGE EST.); Microalbumin:Creatinine Ratio 7.6 mg/g CRE (<30 mg/g CRE)
[2020-01-15 17:16] LABS: ALB/GLOB Ratio 0.8 RATIO (0.9-2.4); AST(SGOT) 19 U/L (15-37); Alanine Aminotransfer ALT/SGPT 33 U/L (13-56); Albumin, Serum 3.4 g/dL (3.2-5.0); Alkaline Phosphatase 102 U/L (45-117); Anion Gap 7 (5-15); BUN 17 mg/dL (7-18); BUN/Creat Ratio 18.6 RATIO (10-20); Calcium,Total 8.8 mg/dL (8.5-10.1); Chloride 105 mmol/L (98-107); Cholesterol 198 mg/dL (200); Creatinine, Serum 0.92 mg/dL (0.55-1.02); EST Glomerular Filtration Rate 73 mL/min (>60); Est Glom Filt Rate - Afr Amer 88 mL/min (>60); Globulin 4.2 g/dL (2.2-4.2); Glucose 111 mg/dL (74-106); High Density Lipoprotein 33 mg/dL; Potassium 3.8 mmol/L (3.5-5.1); Protein, Total 7.6 g/dL (6.4-8.2); Sodium Level 139 mmol/L (136-145); Triglycerides 432 mg/dL
== END ==
PROVIDERS: PCP Internal Medicine; Referring Provider Internal Medicine; Visit Provider Internal Medicine
DX: E03.9 Hypothyroidism, unspecified (principal); I10 Essential (primary) hypertension; E78.5 Hyperlipidemia, unspecified; F32.9 Major depressive disorder, single episode, unspecified; F41.9 Anxiety disorder, unspecified; E11.9 Type 2 diabetes mellitus without complications
CPT/HCPCS: 36415; 80053; 80061; 81001; 82043; 82570; 82607; 83036; 84443; 85025

== ENCOUNTER → 2020-01-25 | Outpatient (CLI) | payer MEDICAID, SELFPAY | END | disposition home or self-care (01) | LOC: LABSPEC 14:07 | PROVIDERS: PCP Internal Medicine; Referring Provider Nurse Practitioner Family; Visit Provider Nurse Practitioner Family | DX: Z20.828 Contact with and (suspected) exposure to other viral communicable diseases (principal) | CPT/HCPCS: 87635; U0003 ==

== ENCOUNTER 2020-08-04 09:00 | Outpatient (RCR) | payer MEDICAID, SELFPAY ==
[2020-07-16 16:39] VITALS: BMI 68.2
--- NOTE | 2020-08-04 11:15 | BH.SGPN.GN ---
Behaviors/Verbalizations/Mental Status: []Client alert and oriented, disheveled appearance. Eye contact good. Motor activity appropriate. Speech within normal limits. Affect constricted, mood anxious. Thoughts linear, logical, no signs of hallucinations or delusions Client Response/Progress/Benefit: []Client responded well to session, taking notes and contributing throughout. Group discussed the different categories of coping skills which included distraction, emotional release, grounding, self-love, and thought challenging. Client participated in creating a coping skills ?menu? from the five categories of coping skills. Client's coping skill menu included: journaling, walking, listening to music, meditating in nature, and using positive affirmations. Appeared to benefit from increasing repertoire of healthy coping skills. Will continue tx to prevent decompensation, increase healthy supports, and gain healthy coping skills. Narrative Note: []
--- NOTE | 2020-08-04 14:26 | BH.MTP_ITS ---
[facility] Treatment Plan - Patient Information Program Physician:: Dr. Caity Cross Primary Therapist:: LEIGH ANN Stephens - Psychiatric Diagnoses Psychiatric Diagnoses:: 1. Bipolar 1 disorder, most recent episode mixed, severe without psychosis (F 31.63). 2. OCD. 3. PTSD. 4. Marijuana use disorder. 5. History of alcohol use disorder. 6. History of polysubstance use disorder. 7. History of bulimia. 8. Borderline personality disorder Diagnosis Code(s):: F31.63 - Estimated LOS Estimated LOS (in weeks):: 6 Problem/Goal #1 - Problem/Goal #1 Stated Goal:: Client will improve mood stability, and decrease isolation and agitation due to Bipolar Disorder through Intensive Outpatient Program. Description of Barriers: Pt's distorted thoughts, hx of poor follow-through, limited support, and limited internal healthy coping skills. Functional Impact: The patient is a 39-year-old single female who was referred to [facility] by her primary care physician for worsening mental health sx. Patient has a history of bipolar disorder, anxiety, OCD, PTSD, polysubstance abuse, and borderline personality disorder. She states that had been sober from all substances except alcohol for 2 years. Reports drinking alcohol 2-3x per week. Client previously started the [facility] program in 2019 but did not complete the program. At time of admission, pt reports that her primary stressors include feeling isolated and lonely due to recent break-up and limited healthy supports, financial stress, anger and sadness related to her son recently overdosing, difficulties in maintaining sobriety, mood dysregulation, and ongoing medical issues causing chronic pain. Pt currently endorsing sx of depression including loneliness, isolation, negative thinking, and guilt. Additionally, endorsing mood swings, irritability, panic, and ruminating thoughts. Goal Relevant Strengths/Supports: Pt reports motivation to change, is intelligent, flexible, open to treatment. - Objectives Objective #1 Stated Objective: Client will learn and utilize 2-3 healthy coping strategies to improve mood stability and better manage mental health symptoms. Interventions: Therapist will help client develop insight into mental health warning signs and triggers for mood dysregulation, as well as help her find strategies to better manage mood and prevent escalation of depressive symptoms. Discharge Criteria: Client will have met this goal when she can use at least 2 healthy coping strategies that effectively regulate mood and manage depressive symptoms. Target Date: 09/15/20 Review Date: 09/01/20 Objective #2 Stated Objective: Pt will decrease depressive and irritability symptoms AEB pt?s score on the DSM 5 cross-cutting measure and improve pt?s daily functioning. Interventions: Through groups and individual therapy, pt will be provided with education on cognitive distortions, mistaken beliefs, and identifying and combating negative self-talk. Therapist will assist pt with getting back into the activities she once enjoyed as well as increasing healthy coping strategies. Discharge Criteria: Pt will have met this goal when pt?s score on the DSM 5 cross cutting measure for depression and irritability has been decreased and per pt?s report daily functioning has improved. Target Date: 09/15/20 Review Date: 09/01/20 Problem/Goal #2 - Problem/Goal #2 Stated Goal:: Stabilize anxiety levels while increasing ability to function on daily basis. Description of Barriers: Pt's distorted thoughts, hx of poor follow-through, limited support, and limited internal healthy coping skills. Functional Impact: The patient is a 39-year-old single female who was referred to [facility] by her primary care physician for worsening mental health sx. Patient has a history of bipolar disorder, anxiety, OCD, PTSD, polysubstance abuse, and borderline personality disorder. She states that had been sober from all substances except alcohol for 2 years. Reports drinking alcohol 2-3x per week. Client previously started the [facility] program in 2019 but did not co mplete the program. At time of admission, pt reports that her primary stressors include feeling isolated and lonely due to recent break-up and limited healthy supports, financial stress, anger and sadness related to her son recently overdosing, difficulties in maintaining sobriety, mood dysregulation, and ongoing medical issues causing chronic pain. Pt currently endorsing sx of depression including loneliness, isolation, negative thinking, and guilt. Additionally, endorsing mood swings, irritability, panic, and ruminating thoughts. Goal Relevant Strengths/Supports: Pt reports motivation to change, is intelligent, flexible, open to treatment. - Objectives Objective #1 Stated Objective: Client will learn and implement 2-3 calming skills to reduce overall anxiety and manage anxiety symptoms. Interventions: Therapist will teach client calming/relaxation skills and how to apply these skills to everyday life to prevent panic escalation. Discharge Criteria: Client will have achieved this goal when can verbalize at least 2 calming strategies and have practiced techniques to help reduce anxiety. Target Date: 09/15/20 Review Date: 09/01/20 Objective #2 Stated Objective: Client will identify 2-3 cognitive distortions or mistaken beliefs that lead to rumination and learn 2-3 ways to manage these thoughts to reduce anxiety. Interventions: Therapist will provide education on the most common cognitive distortions and teach client the connection between thoughts, emotions, and feelings. Therapist will assist client in identifying, challenging, and repl acing dysfunctional thoughts with positive, more realistic thoughts. Therapist will use CBT and DBT techniques to help client gain awareness of thinking errors and learn how to more effectively handle negative thoughts. Therapist will also help client increase his distress tolerance skills. Discharge Criteria: client will have accomplished this goal when can identify at least 2 cognitive distortions and at least 2 coping skills to manage negative thoughts. Target Date: 09/15/20 Review Date: 09/01/20
--- NOTE | 2020-08-05 09:02 | BH.SGPN.GN ---
Behaviors/Verbalizations/Mental Status: [] Pt eye contact good, casually dressed, motor activity appropriate, speech normal rate and tone, mood anxious, congruent affect, thoughts linear and intact, no evidence of delusions or hallucinations. Reviewed client?s symptom tracker, no signs of suicidal ideation, plan, or intent as of today. Client Response/Progress/Benefit: [] Patient responded well to session as evidenced by sharing thoughts and feelings and was not interviewed others. Patient stated yesterday she had a really good time at IOP. Patient reported when she got home it was back to reality. Patient stated she got into an argument with some family that increase her stress level significantly. Patient reported she did spend time rolling coins and spent time on her front porch as well as to cope with her stress. Patient reported additional positive as focusing on her goal of her nutrition tracker. Patient identified feeling anxious and unbalanced. Patient seen to benefit from support from peers and expressing thoughts and feelings. Patient to continue IOP to increase healthy coping, challenged her thoughts, and prevent decompensation. Narrative Note: []
--- NOTE | 2020-08-05 10:08 | BH.SGPN.GN ---
Behaviors/Verbalizations/Mental Status: []Client alert and oriented, casual dress, hygiene tended to. Eye contact good. Motor activity appropriate. Speech within normal limits. Affect congruent, mood anxious and depressed. Thoughts linear, logical, no signs of hallucinations or delusions. Client Response/Progress/Benefit: [] Engaged participant AEB pt providing input throughout session and listening attentively to others. Engaged during psychoeducation portion reviewing fixed mindset. Pt worked with group to identify how a fixed mindset can impact our mental health which included: keeping people stuck, reinforcing fear of failure, giving up, and negative self-talk. Able to identify personal examples of fixed thoughts which included ?I haven?t succeeded yet, so someone else would do it better? and ?This is just how life is and I should just suck it up?. Client shared that she believes these fixed thoughts in part because they are messages she has been told by others for much of her life. Seemed to benefit from group by increasing awareness of how one's mindset impacts mental health. Pt will continue IOP tx this week to reinforce healthy coping skills and continue to improve mental health sx management. Narrative Note: []
--- NOTE | 2020-08-05 11:13 | BH.SGPN.GN ---
Behaviors/Verbalizations/Mental Status: []Client alert and oriented, casually dressed and groomed. Eye contact good. Motor activity appropriate. Speech within normal limits. Affect congruent. mood euthymic. Thoughts linear, logical, no signs of hallucinations or delusions. Client Response/Progress/Benefit: []Client responded well to session, making connections during activity and able to reframe fixed thinking. Client took her fixed thought of ?I?m bipolar and I?ll never get better? and discussed how this thought impacts her mental health. Client was able to use reframing techniques to create a more growth mindset thought of ?with time, skills, and knowledge, it can get better.? Client appeared to benefit from gaining awareness of her fixed thought patterns and practicing reframing techniques with peers. Client started IOP tx yesterday, so no progress to document at this time. Will continue IOP tx to prevent decompensation, gain healthy coping skills, and improve daily functioning. Narrative Note: []
--- NOTE | 2020-08-06 10:15 | BH.SGPN.GN ---
Behaviors/Verbalizations/Mental Status: []Eye contact is good. Motor activity is appropriate. Appearance is casual. Speech is Appropriate. Mood is agitated, depressed. Affect is congruent. Thoughts are linear and logical. No evidence of psychosis. Client Response/Progress/Benefit: []Pt was an active participant in group discussion AEB taking notes and providing input throughout. Attentive during psychoeducation reviewing internal and external obstacles, expressed connecting with externalization and provided examples of how she has avoided addressing internal barriers in the past. Participated in the reflection activity in which clients estephanie pictures depicting their current and desired reality and shared with the group. Current reality involved feeling she is still in the midst of a chaotic storm but is finally taking steps to get out of the storm. Shared she is able to picture where she wants to be but is unable to get there yet. Indicated that her desired reality involves being more stable in her physical, emotional, and mental wellness. As well as learn healthier coping and boundary setting skills. Benefited from group by increasing current awareness and expectations for progress. Will continue in IOP to improve mood stability, continue to promote healthy change behaviors, and further improve thought challenge skills. Narrative Note: []
--- NOTE | 2020-08-06 11:15 | BH.SGPN.GN ---
Behaviors/Verbalizations/Mental Status: []Client alert and oriented, casually dressed and groomed. Eye contact good. Motor activity appropriate. Speech within normal limits. Affect congruent. Mood dysthymic and anxious. Thoughts linear, logical, no signs of hallucinations or delusions. Client Response/Progress/Benefit: []Client engaged during activity and provided ideas on how to cope with internal barriers that keep clients stuck from moving towards goals. Client able to identify barriers to desired reality. Client reported she wants to work on overcoming barrier of catastrophizing. Client reported she will start to overcome this barrier by identifying evidence against anxious thoughts. Additionally stated she wants to work on setting boundaries to decrease financial instability. Benefited from group by identifying obstacles and solutions to desired reality. Will continue IOP tx to prevent decompensation, challenge negative thoughts and increase healthy coping skills. Narrative Note: []
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
--- NOTE | 2020-08-06 12:36 | BH.DR.ITP ---
Initial Treatment Plan Patient Information Visit Information: ADMISSION DATE: EXPECTED LOS: 4-6 weeks Problems/Symptoms Problem #1:: Erratic moods Symptom:: Sadness, depression, irritability, anger outbursts, hopelessness, worthlessness, anhedonia, guilt, passive suicidal ideation, passive thoughts of Problem #2:: Anxiety Symptom:: Worry, rumination, panic feelings, flashbacks, nightmares, avoidance
--- NOTE | 2020-08-07 09:00 | BH.SGPN.GN ---
Behaviors/Verbalizations/Mental Status: [] Eye contact is good. Motor activity is appropriate. Appearance is casual. Speech is Appropriate. Mood is anxious. Affect is congruent. Thoughts are linear and logical. No evidence of psychosis. Reviewed daily check in sheet and no reports of suicidal ideations or intent. Client Response/Progress/Benefit: [] Pt was active participant in group discussion on the role of enchantment in mental health. Mental health win is that she walked yesterday which was her goal. She is also working on improving her nutrition and trying to making healthy changes in her routine hoping this will improve her mental and physical health. She had been crying extensively while alone at night for the past week (6-8 hours) however reports decreased crying. Feels more motivated. Medication compliant. Started new medication. Progress noted per pt report. Benefited from group support, encouragement, and feedback. Will continue in IOP to maintain safety, improve functioning, and stabilize mood. Narrative Note: []
--- NOTE | 2020-08-07 10:15 | BH.SGPN.GN ---
Behaviors/Verbalizations/Mental Status: []Client alert and oriented, casual dress, hygiene tended to. Eye contact fair. Motor activity appropriate. Speech within normal limits. Affect congruent. Mood euthymic. Thoughts linear, logical, no signs of hallucinations or delusions. Client Response/Progress/Benefit: []Pt responded well to session AEB engaging in group discussion and listened attentively to others. Pt assisted group with identifying benefits of emotional health which included: improved relationships, increased patience, improved regulation, and improved communication. Pt engaged in discussion about barriers of improving emotional wellness. Pt stated I've never had emotional stability because even though I want to get better, I keep myself from getting better. Seemed to benefit from increased awareness of importance of improving emotional wellness. Pt to continue IOP to continue use of healthy coping, challenge distorted thoughts and prevent decompensation. Narrative Note: []
--- NOTE | 2020-08-07 11:16 | BH.SGPN.GN ---
Behaviors/Verbalizations/Mental Status: []Client alert and oriented, casually dressed and groomed. Eye contact good. Motor activity appropriate. Speech within normal limits. Affect congruent, mood anxious and depressed. Thoughts linear, logical, no signs of hallucinations or delusions. Client Response/Progress/Benefit: []Client responded well to session, AEB contributing, asking questions, and taking notes throughout. Client engaged in the discussion reviewing the ?10 [place] TIPS for Emotional Wellness?. Discussed feeling she has never truly been emotionally stable in her life. Client worked within a smaller group to identify how each tip could aid in supporting personal emotional wellness and come up with ways to practice each of the tips reviewed. Client shared connecting with the emotional wellness trait of choose to be a good friend to yourself as she has struggled with doing so in the past. Client expressed she would like to further work on this emotion wellness trait in order to improve her sense of self-worth, reduce depression, and continue to make progress in improving mental health stability. Expressed she can practice doing so by continuing to work on setting healthy boundaries and making self-care a priority. Client to continue IOP tx to prevent decompensation, improve sx management, and promote application of healthy coping skills. Narrative Note: []
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
--- NOTE | 2020-08-15 10:19 | BH.DS ---
Discharge Summary - Demographics Date of Admission:: 08/04/20 Discharge Date: 08/15/20 Presenting Problems at Admission:: The patient is a 39-year-old single female who was referred to [facility] by her primary care physician for worsening mental health sx. Patient has a history of bipolar disorder, anxiety, OCD, PTSD, polysubstance abuse, and borderline personality disorder. She states that had been sober from all substances except alcohol for 2 years. Reports drinking alcohol 2-3x per week. Client previously started the [facility] program in 2019 but did not complete the program. At time of admission, pt reports that her primary stressors include feeling isolated and lonely due to recent break-up and limited healthy supports, financial stress, anger and sadness related to her son recently overdosing, difficulties in maintaining sobriety, mood dysregulation, and ongoing medical issues causing chronic pain. Pt currently endorsing sx of depression including loneliness, isolation, negative thinking, and guilt. Additionally, endorsing mood swings, irritability, panic, and ruminating thoughts. Discharge Diagnoses:: 1. Bipolar 1 disorder, most recent episode mixed, severe without psychosis (F 31.63). 2. OCD. 3. PTSD. 4. Marijuana use disorder. 5. History of alcohol use disorder. 6. History of polysubstance use disorder. 7. History of bulimia. 8. Borderline personality disorder Reason for Discharge:: Inconsistent attendance, multiple cancellations and no show appointments. Last attended session was 08/07/20. Pt no call/no showed twice for hospital transportation. Did not return calls to discuss obstacles to participation. - Treatment Progress During Treatment & Response: No progress noted. Only attended 1 week of [facility]. Due to inconsistent attendance was not able to complete treatment goals. Issues Still to be Addressed:: Depression, erratic moods, ruminations causing increased anxiety and panic, unhealthy coping skills, anger, reduce isolation, as well as increase support. Discharge Recommendations/Instructions:: Recommended to follow up with outpatient psychiatrist at [facility]. Pt has been encouraged to continue following up with therapy on an outpatient level as well. AA encouraged. Discharge Handout: Complete Discharge Handout with client on aftercare options and continuity of care.
== END 2020-08-15 10:23 | disposition home or self-care (01) ==
LOC: BHIOP 09:00
PROVIDERS: PCP Internal Medicine; Referring Provider Psychiatry & Neurology Psychiatry; Visit Provider Psychiatry & Neurology Psychiatry
DX: F31.63 Bipolar disorder, current episode mixed, severe, without psychotic features (principal); F42.9 Obsessive-compulsive disorder, unspecified; F43.10 Post-traumatic stress disorder, unspecified; F12.90 Cannabis use, unspecified, uncomplicated; F60.3 Borderline personality disorder
CPT/HCPCS: 90792; H2012; H2020; S9480; 90834

== ENCOUNTER → 2020-09-18 11:19 | Outpatient (CLI) | payer MEDICAID, SELFPAY ==
[2020-09-18 10:24] VITALS: BMI 67.1
[2020-09-18 12:15] LABS: Absolute Lymphocyte Count 2.66 X10^3/uL (0.83-4.51); Absolute Neutrophil Count 8.5 X10^3/uL (2.0-7.7); Basophil# 0.09 X10^3/uL; Basophil% 0.7 % (0-1); Eosinophil# 0.14 X10^3/uL; Eosinophils% 1.2 % (0-5); Hematocrit 42.2 % (37-47); Hemoglobin 12.9 g/dL (12.0-15.0); Lymphocyte # 2.66 X10^3/ul (0.83-4.51); Lymphocyte % 21.9 % (19-41); Mean Corp Hgb Conc 30.6 g/dL (32-36); Mean Corpuscular Volume 91.5 fL (81-99); Mean Platelet Vol. 10.3 fl (6.2-12.0); Monocyte# 0.66 X10^3/uL; Monocyte% 5.4 % (0-10); NRBC Flagged by Analyzer 0 % (0-5); Neutrophil # 8.45 X10^3/uL (2.7-7.7); Neutrophil % 69.6 % (47-70); Platelet Count 368 K/mm3 (150-450); RBC Distribution Width CV 14.4 % (11.6-14.6); RBC Distribution Width SD 48.5 fl (35.1-43.9); Red Blood Count 4.61 M/mm3 (4.2-5.4); White Blood Count 12.1 K/mm3 (4.4-11.0)
[2020-09-18 12:57] LABS: ALB/GLOB Ratio 0.8 RATIO (0.9-2.4); AST(SGOT) 30 U/L (15-37); Alanine Aminotransfer ALT/SGPT 45 U/L (13-56); Albumin, Serum 3.1 g/dL (3.2-5.0); Alkaline Phosphatase 88 U/L (45-117); Anion Gap 8 (5-15); BUN 17 mg/dL (7-18); BUN/Creat Ratio 22.5 RATIO (10-20); Calcium,Total 8.5 mg/dL (8.5-10.1); Chloride 106 mmol/L (98-107); Cholesterol 215 mg/dL (200); Creatinine, Serum 0.76 mg/dL (0.55-1.02); EST Glomerular Filtration Rate 90 mL/min (>60); Est Glom Filt Rate - Afr Amer 109 mL/min (>60); Globulin 3.8 g/dL (2.2-4.2); Glucose 137 mg/dL (74-106); High Density Lipoprotein 34 mg/dL; Potassium 3.9 mmol/L (3.5-5.1); Protein, Total 6.9 g/dL (6.4-8.2); Sodium Level 141 mmol/L (136-145); T4 Free Direct 0.74 ng/dL (0.76-1.46); Thyroid Stim Hormone (TSH) 9.79 uIU/mL (0.358-3.74); Triglycerides 266 mg/dL; Very Low Density Lipoprotein 53 mg/dL (5-40)
== END ==
PROVIDERS: PCP Internal Medicine; Referring Provider Nurse Practitioner Family; Visit Provider Nurse Practitioner Family
DX: E03.9 Hypothyroidism, unspecified (principal); E11.9 Type 2 diabetes mellitus without complications; F32.9 Major depressive disorder, single episode, unspecified; F41.9 Anxiety disorder, unspecified
CPT/HCPCS: 36415; 80053; 80061; 84439; 84443; 85025

== ENCOUNTER → 2020-11-06 10:04 | Outpatient (CLI) | payer MEDICAID, SELFPAY ==
[2020-11-06 13:00] LABS: T4 Free Direct 0.69 ng/dL (0.76-1.46)
== END ==
PROVIDERS: PCP Internal Medicine; Referring Provider Physician Assistant; Visit Provider Physician Assistant
DX: E03.9 Hypothyroidism, unspecified (principal); F31.9 Bipolar disorder, unspecified; F41.9 Anxiety disorder, unspecified
CPT/HCPCS: 36415; 84439; 84443

== ENCOUNTER → 2021-06-15 | Outpatient (CLI) | payer MEDICAID, SELFPAY ==
[2021-06-15 12:52] LABS: Anion Gap 4 (5-15); BUN 14 mg/dL (7-18); BUN/Creat Ratio 18.5 RATIO (10-20); Calcium,Total 9.4 mg/dL (8.5-10.1); Chloride 104 mmol/L (98-107); Creatinine, Serum 0.76 mg/dL (0.55-1.02); EST Glomerular Filtration Rate 90 mL/min (>60); Est Glom Filt Rate - Afr Amer 109 mL/min (>60); Glucose 123 mg/dL (74-106); Potassium 4.6 mmol/L (3.5-5.1); Sodium Level 136 mmol/L (136-145); T4 Free Direct 1.01 ng/dL (0.76-1.46)
[2021-06-15 13:24] LABS: Hemoglobin A1c 6.3 % (3.8-5.6)
== END | disposition home or self-care (01) ==
LOC: BIMLAB 11:10
PROVIDERS: PCP Internal Medicine; Referring Provider Physician Assistant; Visit Provider Physician Assistant
DX: F41.9 Anxiety disorder, unspecified (principal); F31.9 Bipolar disorder, unspecified; E11.9 Type 2 diabetes mellitus without complications; F32.9 Major depressive disorder, single episode, unspecified; E03.9 Hypothyroidism, unspecified
CPT/HCPCS: 36415; 80048; 83036; 84439; 84443

== ENCOUNTER → 2022-03-31 | Outpatient (CLI) | payer MEDICAID, SELFPAY ==
[2022-03-31 17:19] LABS: Anion Gap 6 (5-15); BUN 10 mg/dL (7-18); BUN/Creat Ratio 11.4 RATIO (10-20); Chloride 102 mmol/L (98-107); Creatinine, Serum 0.88 mg/dL (0.55-1.02); EST Glomerular Filtration Rate 75 mL/min (>60); Est Glom Filt Rate - Afr Amer 91 mL/min (>60); Glucose 121 mg/dL (74-106); Sodium Level 138 mmol/L (136-145)
== END | disposition home or self-care (01) ==
LOC: BIMLAB 15:54
PROVIDERS: Physician Assistant; PCP Internal Medicine; Referring Provider Internal Medicine; Visit Provider Internal Medicine
DX: I10 Essential (primary) hypertension (principal); E03.9 Hypothyroidism, unspecified
CPT/HCPCS: 36415; 80048; 84443

== ENCOUNTER 2022-05-30 13:53 | Inpatient (IN) | payer MEDICAID, SELFPAY ==
[2022-05-30 13:54] VITALS: BP 156/115; BP 156/116; PULSE 104; RESP 22; TEMP 36.3; BMI 59.0
--- NOTE | 2022-05-30 14:10 | EX.ED.SAOD ---
HPI History of Present Illness Chief Complaint: ETOH Intox Detail of Chief Complaint: Requesting detox from alcohol Informant: patient Narrative Narrative: Patient presents to the emergency department with request for detox for alcohol. Patient states that she is abusing alcohol for the last month and a half since her friend of an overdose. Patient drinks maybe every other day and normally drinks tequila up to 1/5 a day. Last drink was a few hours ago. Patient states that she drank three fourths of 1/5 of tequila today. Patient also relapsed and used crack cocaine. Patient smokes marijuana daily. She is feeling depressed. Denies feeling suicidal. Patient also currently being evaluated for weight loss bariatric surgery which she has scheduled. Patient would like to be able to pass her drug test. [facility] Medical History (Updated 05/30/22 @ 14:[address] Jorje Thomas, ) Anxiety Bipolar 1 disorder, mixed, severe Bipolar disorder Borderline personality disorder Cannabis use disorder, mild, abuse Depression Diabetes Goiter H/O emotional problems History of alcohol use disorder History of bulimia Hives Hypertension Mass of chest Migraine Muscle spasm OCD (obsessive compulsive disorder) PTSD (post-traumatic stress disorder) Recurrent infections Seasonal allergies Thyroid disease Home Medications blood sugar diagnostic (FreeStyle Lite Strips) #100 ea 01/15/20 [Rx Last Taken Unknown] blood-glucose meter (FreeStyle Lite Meter kit) #1 ea 01/15/20 [Rx Last Taken Unknown] lancets 28 gauge (FreeStyle Lancets) #200 ea 01/15/20 [Rx Last Taken Unknown] diclofenac sodium 1 % topical gel 4 g topical ONCE joint pain #100 grams 09/18/20 [Rx Last Taken Unknown] doxycycline hyclate 100 mg capsule 100 mg PO BID #60 caps 11/06/20 [Rx Last Taken Unknown] clindamycin phosphate 1 % topical gel 1 applic topical BID skin #60 grams 07/06/21 [Rx Last Taken Unknown] metformin 500 mg tablet 500 mg PO DAILY #90 tabs 07/06/21 [Rx Last Taken Unknown] omeprazole 20 mg capsule,delayed release 20 mg PO DAILY #90 caps 07/06/21 [Rx Last Taken Unknown] levothyroxine 200 mcg tablet 200 mcg PO DAILY #90 tabs 04/06/22 [Rx Last Taken Unknown] levothyroxine 25 mcg tablet 25 mcg PO DAILY #90 tabs 04/06/22 [Rx Last Taken Unknown] lisinopril 20 mg-hydrochlorothiazide 25 mg tablet 1 tab PO DAILY #90 tabs 04/06/22 [Rx Last Taken Unknown] semaglutide 0.25 mg or 0.5 mg (2 mg/3 mL) subcutaneous pen injector (Ozempic) 0.25 mg (0.4 mL) subcut QWEEK #3 mL 04/30/22 [Rx Last Taken Unknown] Allergy/AdvReac Type Severity Reaction Status Date / Time walnut Allergy Angioedema Verified 04/06/22 13:55 Yeast Allergy Unknown Verified 04/06/22 13:55 Family History Other Anxiety Cancer Depression Diabetes Mental disorder Myocardial infarction Surgical History H/O thyroidectomy History of D&C History of dental surgery Social History Smoking Status: Former smoker alcohol intake: current alcohol intake frequency: holidays/special occasions only substance use type: marijuana what type of physical activity do you participate in: other details: work/ house work frequency: 5-6 times per week ROS ROS ED Review of Systems ROS Unobtainable: other Constitutional Constitutional ED: Reports lethargy; Denies chills, fever(s), sweats or weight loss Eyes Eyes: Denies blurry vision, change in vision or diplopia ENT ENT ED: Denies rhinorrhea or sore throat Cardiovascular Cardiovascular: Denies chest pain, orthopnea or racing heartbeat Respiratory/Chest Respiratory/Chest: Denies cough, dyspnea, dyspnea on exertion, orthopnea or sputum Gastrointestinal Gastrointestinal: Reports nausea; Denies abdominal pain, diarrhea or vomiting Genitourinary Genitourinary ED: Denies dysuria, hematuria or urinary frequency Musculoskeletal Musculoskeletal: Denies arthralgias, back pain, myalgias or neck pain Integumentary Denies abscess, Abrasions or rash Neurologic Neurologic: Denies headache(s) or weakness Psychiatric Psychiatric: Denies anxiety, depression or suicidal thoughts Endocrine Endocrinology: Denies polydipsia, polyphagia or polyuria Hematologic/Lymphatic Hematologic/Lymphatic: Denies easy bleeding, easy bruising or lymphadenopathy Allergic/Immunologic Allergic/Immunologic ED: Denies mouth swelling, tongue swelling or urticaria EXAM Physical Exam Const Vital Signs: 05/30/22 13:54 05/30/22 13:54 Temperature 97.4 F L 97.4 F L Temperature Source Temporal Temporal Pulse Rate 104 H 104 H Respiratory Rate 22 H 22 H Blood Pressure 156/116 H 156/115 H Blood Pressure Mean 129 128 Positive well nourished and well developed General Appearance ED: well developed and NAD HEENT Reports TM's clear and moist mucous membranes normocephalic and atraumatic; Negative for trauma or tenderness Tympanic Membrane ED: Yes TM's clear Eyes PERRL and EOMs intact bilaterally General Eye ED: Negative for pale conjunctiva or scleral icterus Neck no lymphadenopathy, supple and no JVD General: Negative for tenderness Chest Wall inspection of chest normal and palpation of chest normal Chest: Negative for tenderness Resp normal respiratory effort and clear to auscultation bilaterally Effort and Inspection: Negative for respiratory distress or pain with movement Auscultation: Negative for rhonchi, wheezes or diminished lung sounds Cardio regular rate, regular rhythm, S1 normal heart sound, S2 normal heart sound and no murmurs Peripheral Pulses: pulses 2+ throughout GI normal to inspection, nondistended, normoactive bowel sounds, soft to palpation, non-tender, non-distended and no masses Back/Spine no CVA tenderness and no thoracic nor lumbar tenderness Extremity normal to inspection General Extremety ED: Negative for edema General Extremity: Negative for edema Neuro oriented x3, CN's II-XII intact bilaterally, no sensory deficits noted and gait normal Sensorium / Orientation: awake, alert, oriented to person, oriented to place and oriented to time Motor Exam: strength 5/5 throughout and strength abnormal Psych mental status grossly normal Skin no rashes or lesions noted and no wounds MDM MDM MDM Narrative Medical decision making narrative: Patient presents requesting detox from alcohol. Patient had basic labs ordered including LFTs as well as alcohol level and urine tox screen. Case will be discussed with hospitalist to evaluate patient for admission. Lab Data Attestation: I reviewed the patient's lab results. Discharge Plan Triage Chief Complaint: ETOH Intox ED Provider: Jorje Thomas Dx/Rx/DC Orders Clinical Impression: Alcohol intoxication, Admitted to alcohol detoxification center Prescriptions: No Action (DME) blood-glucose meter [FreeStyle Lite Meter] Kit See Rx Instructions .MEDSUPPLY Qty: 1 0RF Rx Instructions: As directed, check blood glucose daily for type 2 DM (DME) lancets [FreeStyle Lancets] 28 gauge misc See Rx Instructions .MEDSUPPLY Qty: 200 3RF Rx Instructions: check blood glucose daily for type 2 DM (DME) FreeStyle Lite Strips Strip See Rx Instructions .MEDSUPPLY Qty: 100 3RF Rx Instructions: check blood glucose daily for type 2 DM diclofenac sodium 1 % gel 4 g topical ONCE MDD 16 grams Qty: 100 0RF Rx Instructions: apply to single knee, ankle, foot; for foot includes sole/toes/top of foot doxycycline hyclate 100 mg capsule 100 mg PO BID Qty: 60 1RF metformin 500 mg tablet 500 mg PO DAILY Qty: 90 3RF omeprazole 20 mg capsule,delayed release(DR/EC) 20 mg PO DAILY Qty: 90 0RF clindamycin phosphate 1 % gel 1 applic topical BID Qty: 60 0RF levothyroxine 200 mcg tablet 200 mcg PO DAILY Qty: 90 1RF levothyroxine 25 mcg tablet 25 mcg PO DAILY Qty: 90 2RF Rx Instructions: take in conjunction for 225 mg lisinopril-hydrochlorothiazide 20-25 mg tablet 1 tab PO DAILY Qty: 90 1RF Ozempic 0.25 mg or 0.5 mg (2 mg/3 mL) pen injector 0.25 mg subcut QWEEK Qty: 3 1RF Rx Instructions: for 4 weeks Primary Care Provider: Helio Em Referrals: Helio Em MD [Primary Care Provider] - Disposition Disposition: Acute Care Hospital [facility]
[2022-05-30] MEDS: 0.9% Normal Saline 1,000 ML 150 ML IV (14:33)
[2022-05-30] MEDS: Ondansetron 4 MG/2 ML Vial IV (14:34)
[2022-05-30 14:38] LABS: Absolute Lymphocyte Count 2.92 X10^3/uL (0.83-4.51); Absolute Neutrophil Count 15.5 X10^3/uL (2.0-7.7); Basophil# 0.13 X10^3/uL; Basophil% 0.7 % (0-1); Eosinophil# 0.16 X10^3/uL; Eosinophils% 0.8 % (0-5); Hematocrit 50.5 % (37-47); Hemoglobin 15.8 g/dL (12.0-15.0); Lymphocyte # 2.92 X10^3/ul (0.83-4.51); Lymphocyte % 14.7 % (19-41); Mean Corp Hgb Conc 31.3 g/dL (32-36); Mean Corpuscular Hgb 27.8 pg (27.0-32.0); Mean Corpuscular Volume 88.9 fL (81-99); Monocyte# 0.98 X10^3/uL; Monocyte% 4.9 % (0-10); NRBC Flagged by Analyzer 0 % (0-5); Neutrophil # 15.49 X10^3/uL (2.7-7.7); Neutrophil % 78.1 % (47-70); Platelet Count 369 K/mm3 (150-450); Red Blood Count 5.68 M/mm3 (4.2-5.4); White Blood Count 19.8 K/mm3 (4.4-11.0)
[2022-05-30 14:39] VITALS: PULSE 110; RESP 16; TEMP 36.6; O2SAT 98
--- NOTE | 2022-05-30 15:02 | HP.PCM_ITS ---
HPI - General General Date of Admission: 05/30/22 Date of Service: 05/30/22 Chief Complaint: Alcohol withdrawal HPI Narrative The patient is a 41 y/o F w/ PMHx: Morbid Obesity, Former tobacco use, Anxiety and Depression/Bipolar disorder/PTSD/Borderline personality disorder, Allergic rhinitis, Diabetes mellitus type II, Hx thyroidectomy with goiter w/ Hypothyroidism, HTN, EtOH Abuse who presents to the [facility] ED on 05/30/22 with history of ongoing alcohol abuse for at least 1.5 to 2 months since her friend passed from an overdose usually up to 1/5 of tequila potentially day with her last drink 2 to 3 hours prior to ED presentation as well as admitted recent relapse and usage of crack cocaine and daily cannabis usage secondary to depression with denied SI with desired clean and sober status prompting ED evaluation. She also admits that in order to be able to evaluated for weight loss bariatric surgery she has to have a negative urine drug screen. She reports that the most issue she has is discontinuing cannabis usage as she smokes nearly daily. Work-up in the ED includes T97.4, heart rate 104, BP 156/116, respiratory rate 22, 98% room air, CBC with WC 19.8, hemoglobin 15.8, platelet 369 with left shift, CMP pending, ethyl alcohol, UDS, testing upon requested evaluation of patient. She denies any current withdrawal symptoms. Current vital signs include T98.3, heart rate 78, BP 130/78, respiratory rate 18, 98% on room air. [facility] Medical History (Updated 05/30/22 @ 15:[address] Cynthia Shah MD) Anxiety and depression Bipolar disorder Borderline personality disorder Cannabis use disorder, mild, abuse Goiter History of bulimia Hypertension Hypothyroidism Mass of chest Migraine Morbid obesity OCD (obsessive compulsive disorder) Polysubstance abuse PTSD (post-traumatic stress disorder) Seasonal allergies Type 2 diabetes mellitus Home Medications blood sugar diagnostic (FreeStyle Lite Strips) #100 ea 01/15/20 [Rx Last Taken Unknown] blood-glucose meter (FreeStyle Lite Meter kit) #1 ea 01/15/20 [Rx Last Taken Unknown] lancets 28 gauge (FreeStyle Lancets) #200 ea 01/15/20 [Rx Last Taken Unknown] diclofenac sodium 1 % topical gel 4 g topical ONCE joint pain #100 grams 09/18/20 [Rx Last Taken Unknown] doxycycline hyclate 100 mg capsule 100 mg PO BID #60 caps 11/06/20 [Rx Last Taken Unknown] clindamycin phosphate 1 % topical gel 1 applic topical BID skin #60 grams 07/06/21 [Rx Last Taken Unknown] levothyroxine 200 mcg tablet 200 mcg PO DAILY #90 tabs 04/06/22 [Rx Last Taken Unknown] lisinopril 20 mg-hydrochlorothiazide 25 mg tablet 1 tab PO DAILY #90 tabs 04/06/22 [Rx Last Taken Unknown] Allergy/AdvReac Type Severity Reaction Status Date / Time walnut Allergy Angioedema Verified 04/06/22 13:55 Yeast Allergy Unknown Verified 04/06/22 13:55 Family History (Updated 05/30/22 @ 16:[address] Cynthia Shah MD) Mother Hypertension Aunt Cancer Other Anxiety Depression Diabetes Mental disorder Myocardial infarction Surgical History H/O thyroidectomy History of D&C History of dental surgery Social History (Updated 05/30/22 @ 16:[address] Cynthia Shah MD) do you think of yourself as: straight/heterosexual current gender identity: female Smoking Status: Current every day smoker tobacco type: cigars alcohol intake: current alcohol intake frequency: 3 or more drinks per day substance use type: marijuana and crack/cocaine what type of physical activity do you participate in: other details: work/ house work frequency: 5-6 times per week ROS ROS Narrative Admission Review of Systems: CONSTITUTIONAL: No weight loss, fever, chills, + weakness or fatigue. HEENT: Eyes: No visual loss, blurred vision, double vision or yellow sclerae. Ears, Nose, Throat: No hearing loss, sneezing, congestion, runny nose or sore throat. SKIN: No rash or itching, lesions, wounds. CARDIOVASCULAR: No chest pain, chest pressure or chest discomfort, palpitations, edema, orthopnea, syncopal events. RESPIRATORY: No shortness of breath, cough or sputum, wheezing, hemoptysis. GASTROINTESTINAL: No anorexia, nausea, vomiting or diarrhea, abdominal pain, melena, BRBPR. GENITOURINARY: No dysuria, frequency, urgency or retention. NEUROLOGICAL: No headache, dizziness, syncope, paralysis, ataxia, numbness or tingling in the extremities, focal weakness, change in bowel or bladder control, seizure. MUSCULOSKELETAL: + muscle, back pain, joint pain or stiffness. HEMATOLOGIC: No anemia, bleeding or bruising. LYMPHATICS: No enlarged nodes. No history of splenectomy. PSYCHIATRIC: + history of depression or anxiety. ENDOCRINOLOGIC: No reports of sweating, cold or heat intolerance. No polyuria or polydipsia. ALLERGIES: + Hx angioedema. Vital Signs Vital Signs Vital Signs: 05/30/22 13:54 05/30/22 13:54 05/30/22 14:39 Temperature 97.4 F L 97.4 F L 97.9 F Temperature Source Temporal Temporal Oral Pulse Rate 104 H 104 H 110 H Respiratory Rate 22 H 22 H 16 Blood Pressure 156/116 H 156/115 H Blood Pressure Mean 129 128 Pulse Ox 98 Oxygen Delivery Method Room Air Weight Weight: 344 lb Body Mass Index (BMI) 59.0 Physical Exam Narrative Physical Examination: General: Awake, alert, oriented x 3 and cooperative, seated upright in the ED bed, fatigued, currently no withdrawal symptoms as recent intake but seems very eager for sobriety and clean status Skin: Normal color, normal turgor, no icterus, no cyanosis. HEENT: AT/NC, EOMI, PERRLA, MMM, no carotid bruits or JVD noted; however thic kened neck makes evaluation difficult. Lungs: Mildly diminished greater races, appropriate effort, no rales, ronchi or wheezing. Heart: Currently regular rate and rhythm; no gallop, rub audible. Abdomen: Soft, morbidly obese, NTTP, difficult to discern distention and HSM given habitus, distant bowel sounds. Extremities: No cyanosis, clubbing, or edema. Neurological: Patient awake, alert, oriented as noted cognitive function intact; pupils equally reactive to light and accommodation, cranial nerves II-XII grossly normal, moving all 4 extremities, no focal deficits, strength preserved. Psychiatric: Affect appears mildly fatigued otherwise normal, no acute evidence of depressive or anxiety feelings but does have underlying history. Results Lab / Micro Data Result Diagrams: 05/30/22 14:25 05/30/22 14:25 Labs: Laboratory Results - last 24 hr 05/30/22 14:25: WBC 19.8 H, RBC 5.68 H, Hgb 15.8 H, Hct 50.5 H, MCV 88.9, MCH 27.8, MCHC 31.3 L, RDW Std Deviation 49.0 H, RDW Coeff of Daphney 15.0 H, Plt Count 369, MPV 10.0, Immature Gran % (Auto) 0.800, Neut % (Auto) 78.1 H, Lymph % (Auto) 14.7 L, [place] % (Auto) 4.9, Eos % (Auto) 0.8, Baso % (Auto) 0.7, Absolute Neuts (auto) 15.5 H, Absolute Lymphs (auto) 2.92, Nucleated RBC % 0 Assessment & Plan Assessment/Plan (1) Admitted to alcohol detoxification center: PLAN: Plan The patient is a 41 y/o F w/ PMHx: Morbid Obesity, Former tobacco use, Anxiety and Depression/Bipolar disorder/PTSD/Borderline personality disorder, Allergic rhinitis, Diabetes mellitus type II, Hx thyroidectomy with goiter w/ Hypothyroidism, HTN, EtOH Abuse who presents to the [facility] ED on 05/30/22 with history of ongoing alcohol abuse for at least 1.5 to 2 months since her friend passed from an overdose usually up to 1/5 of tequila potentially day with her last drink 2 to 3 hours prior to ED presentation as well as admitted recent relapse and usage of crack cocaine and daily cannabis usage secondary to depression with denied SI with desired clean and sober status prompting ED evaluation. #1. Acute EtOH Withdrawal: Will admit to MS, routine labs obtained in the ED upon presentation and pending upon requested evaluation of patient. Given interest in sobriety, will initiate and continue on protocol with taper course of Phenobarbital, scheduled gabapentin for seizure prophylaxis, as needed Catapres, Bentyl, Vistaril, IV fluids, IV antiemetics, Tylenol as needed for pain. Will consult Case management for assistance for transition to next level of rehabilitation care. Mag, phos pending. Maintain on CIWA protocol concurrently. #2. Polysubstance Abuse: UDS pending upon evaluation however patient admits to not only alcohol abuse but recent relapse with crack cocaine usage, encouraged clean status, will obtain HIV and hepatitis panel to be cautious, case management consulted as noted. #3. Diabetes mellitus type II: Hold oral home regimen, ADA diet, accu checks w/ ISS. #4. Hypertension: Continue home regimen including lisinopril- hydrochlorothiazide, PRN hydralazine. #5. Anxiety and depression/bipolar disorder/PTSD/borderline personality disorder: Current list with no psychiatric medications noted, clarifying, from p radha reports has failed several interventions as well as medications. Case management consulted, pending. #6. Morbid Obesity: Weight loss and lifestyle changes encouraged. #7. Former tobacco use: Encourage continued tobacco cessation. #8. History thyroidectomy with goiter with resulting hypothyroidism: We will continue patient home levothyroxine regimen. #9. DVT prophylaxis: Encourage ambulation, given presentation for withdrawal lower risk. #10. CODE STATUS: Full code. Admission Evaluation Time spent evaluating chart, patient history, patient evaluation, care planning and discussion with specialists: 60 minutes. Charges/Coding Visit Charges Inpatient E&M: 65166 Init Hosp L2
[2022-05-30 15:06] LABS: ALB/GLOB Ratio 0.8 RATIO (0.9-2.4); AST(SGOT) 59 U/L (15-37); Alanine Aminotransfer ALT/SGPT 42 U/L (13-56); Albumin, Serum 3.9 g/dL (3.2-5.0); Alkaline Phosphatase 106 U/L (45-117); Anion Gap 12 (5-15); BUN 16 mg/dL (7-18); Calcium,Total 9.5 mg/dL (8.5-10.1); Chloride 101 mmol/L (98-107); Creatinine, Serum 0.76 mg/dL (0.55-1.02); EST Glomerular Filtration Rate 89 mL/min (>60); Est Glom Filt Rate - Afr Amer 107 mL/min (>60); Estimated Creatinine Clearance 84.12 ml/min; Globulin 4.6 g/dL (2.2-4.2); Glucose 99 mg/dL (74-106); Potassium 4.4 mmol/L (3.5-5.1); Protein, Total 8.5 g/dL (6.4-8.2); Sodium Level 136 mmol/L (136-145)
[2022-05-30 15:08] LABS: Alcohol, Blood (Medical)-Serum < 3.0 mg/dL
--- NOTE | 2022-05-30 15:16 | NURSING ---
MED SURG WHITE CALL INTOXICATION, REQUESTING DETOX FROM ALCOHOL
[2022-05-30 15:19] VITALS: BP 158/74; PULSE 105; RESP 18; TEMP 36.4; O2SAT 96
[2022-05-30 15:19] LABS: Internal QC Validated? YES +Cl - CLEAR BKGD; Pregnancy, Serum, hCG Quali. NEGATIVE Negative
[2022-05-30 15:21] VITALS: BP 138/78; PULSE 78; RESP 18; TEMP 36.8; O2SAT 98
[2022-05-30 15:45] LABS: Magnesium 2.6 mg/dL (1.6-2.6); Phosphorus 4.7 mg/dL (2.5-4.9)
[2022-05-30 15:51] LABS: Amphetamine Urine VISTA NEGATIVE (<1000 ng/mL); Barbiturate Urine VISTA NEGATIVE (< 200 ng/mL); Benzodiazepine Urine VISTA NEGATIVE (< 200 ng/mL); Cocaine Urine VISTA POSITIVE (< 300 ng/mL); Ecstacy Urine VISTA NEGATIVE (< 500 ng/mL); Methadone Urine VISTA NEGATIVE (< 300 ng/mL); PCP Urine VISTA NEGATIVE (< 25 ng/mL); THC Urine VISTA POSITIVE (< 50 ng/mL); Vista UDS pH Range 6
[2022-05-30 16:23] VITALS: BMI 59.0
[2022-05-30 16:48] VITALS: BP 123/60; PULSE 83; RESP 18; TEMP 36.8; O2SAT 96
[2022-05-30 17:36] LABS: Bedside Glucose 96 mg/dL (74-106)
[2022-05-30] MEDS: Lactated Ringers 1,000 ML 125 ML IV (18:12)
[2022-05-30] MEDS: Phenobarbital 32.4 MG Tablet 97.2 MG PO (18:13)
[2022-05-30] MEDS: Ibuprofen 600 MG Tablet PO (18:13)
[2022-05-30] MEDS: Ondansetron 8 MG Tablet PO (18:14)
[2022-05-30 19:07] LABS: HIV - WCH Non-Reactive (Nonreactive); Hepatitis B Surface Antibody Reactive; Hepatitis B Surface Antigen Non-Reactive (Nonreactive); Hepatitis C Antibody Non-Reactive (Nonreactive)
[2022-05-30] MEDS: traZODone 100 MG Tablet PO (19:43)
[2022-05-30] MEDS: hydrOXYzine PAM 25 MG Capsule 50 MG PO (19:43)
[2022-05-30] MEDS: Mag Hydrox/Al Hydrox/Simeth 30 ML UDC PO (19:43)
[2022-05-30 22:00] VITALS: BP 95/55; PULSE 76; RESP 16; TEMP 37.1; O2SAT 93
--- NOTE | 2022-05-30 22:02 | NURSING ---
Patient was snoring just now when this RN entered the room. She awakened easily upon calling. This RN checks HS blood sugar and was wnl. Patient immediately fell back asleep and started snoring. Will wait to give 2200 dose of phenobarb at this time d/t drowsiness.
[2022-05-30 22:20] LABS: Bedside Glucose 105 mg/dL (74-106)
[2022-05-30] MEDS: Doxycycline 100 MG CAPSULE PO (23:43)
[2022-05-31] VITALS (8 sets, daily range): BP systolic 80–116; BP diastolic 34–70; PULSE 69–94; RESP 16–18; TEMP 36.3–37.2; O2SAT 94–100
[2022-05-31] MEDS: Levothyroxine 100 MCG Tablet 200 MCG PO (07:18)
[2022-05-31] MEDS: Phenobarbital 32.4 MG Tablet 97.2 MG PO ×2 (07:18→09:54)
[2022-05-31] MEDS: Thiamine Hydrochloride 100 MG Tablet PO (07:19)
[2022-05-31] MEDS: Folic Acid 1 MG Tablet PO (07:19)
[2022-05-31] MEDS: Ondansetron 8 MG Tablet PO (07:40)
[2022-05-31] MEDS: Acetaminophen 325 MG Tablet 650 MG PO (07:40)
[2022-05-31 07:56] LABS: Bedside Glucose 122 mg/dL (74-106)
[2022-05-31] MEDS: Pantoprazole Sodium 20 MG Tablet PO (09:55)
[2022-05-31] MEDS: Doxycycline 100 MG CAPSULE PO ×2 (09:55→23:20)
[2022-05-31] MEDS: hydroCHLOROthiazide 12.5mg 12.5 MG PO (09:55)
[2022-05-31] MEDS: Lisinopril 20 MG Tablet PO (09:55)
[2022-05-31] MEDS: Insulin Lispro 100 UNIT/ML INSULN.PEN SC (11:00)
[2022-05-31 11:30] LABS: Bedside Glucose 165 mg/dL (74-106)
--- NOTE | 2022-05-31 11:52 | ADDICTION ---
This contract writer met with PT to conduct ASAM, MSE, AUDIT, DUDIT assessments and to plan for d/c. PT A+Ox4 and participated actively. All assessments completed and placed in PT's chart. PT plans to f/u with [facility] at [facility] for follow-up in patient treatment services on Tuesday. [facility] will transport to treatment.
[2022-05-31 16:16] LABS: Bedside Glucose 92 mg/dL (74-106)
--- NOTE | 2022-05-31 16:44 | CHAPLAIN ---
Type of Pastoral Visit _x__ Initial Visit ___ Follow-up Visit ___ On-call Visit ___ General Patient Visit ___ Spiritual Assessment ___ Family Conference ___ Bereavement ___ Rapid Response ___ Code Blue ___ Other (describe below) Pastoral Care Referral From _x__ Patient ___ Family ___ Nurse ___ Physician ___ Viscosity Tester ___ Mds Rn ___ Other (describe below) Sacrament/Intervention _x__ Active listening ___ Anointing ___ Sabianist _x__ Bereavement ___ Communion _x__ Allyson exploration ___ _x__ Life review _x__ Prayer ___ Reconciliation ___ Sacrament of Sick _x__ Supportive presence ___ Wedding ___ Other (describe below) Pastoral Comments patient was welcoming and this visit was more extensive into several areas as patient talks about her life and situation; pt has had a new grief in recent weeks as a dear friend of an overdose; pt talks through some of the grief and pain she is feeling; pt has two sons and she has good relationships with both but she currently lives alone and recognizes that this is not always healthy for her; 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
--- NOTE | 2022-05-31 19:25 | PN.HOSP_ITS ---
Subjective Subjective Was seen and examined today, according to nursing, she has been lethargic today and her phenobarb dose was held today due to concerns because she was lethargic. I have made the decision this afternoon to reduce her phenobarbital to a lower dosage and continue to observe her for withdrawal symptoms. According to a ddiction family welfare social work professor, patient is set up to go to an inpatient detox program on Tuesday of this week. Objective Data Objective Data Vital Signs: Vital Signs Temp Pulse Resp BP Pulse Ox O2 Del Method 97.4 F L 80 16 101/59 L 100 Room Air 05/31/22 17:55 05/31/22 17:55 05/31/22 17:55 05/31/22 17:55 05/31/22 17:55 05/31/22 17:55 Oxygen Delivery Method Room Air Weight: 156.036 kg Body Mass Index (BMI) 59.0 Intake & Output: Intake and Output for Last 24 Hours 05/29/22 05/30/22 05/31/22 23:59 23:59 23:59 Intake Total 1405 / 1405 2277.08 / 2277.08 Balance 1405 / 1405 2277.08 / 2277.08 Lab / Micro Data Result Diagrams: 05/30/22 14:25 05/30/22 14:25 Labs: Laboratory Results - last 24 hr 05/30/22 21:58: POC Glucose 105 05/31/22 07:20: POC Glucose 122 H 05/31/22 10:56: POC Glucose 165 H 05/31/22 15:54: POC Glucose 92 Physical Exam Const alert, oriented x3 and no apparent distress General Appearance: cooperative, well kempt and well developed Orientation / Consciousness: awake, oriented to person, oriented to place and oriented to time HEENT normocephalic, head/scalp atraumatic and moist oral mucous membranes Eyes PERRL, EOMs intact bilaterally and conjunctivae normal Neck supple, no JVD, thyroid normal and no carotid bruits General: trachea midline Resp normal respiratory effort, no retractions, no use of accessory muscles and clear to auscultation bilaterally Auscultation: Negative for rales, rhonchi or wheezes Cardio regular rate, regular rhythm, S1 normal heart sound, S2 normal heart sound, no murmurs, no rub and no gallops GI normal to inspection, nondistended, normoactive bowel sounds, soft to palpation, non-tender and non-distended Extremity no clubbing, cyanosis or edema Skin no rashes or lesions noted General Skin Exam: no breakdown Neuro oriented x3, CN's II-XII intact bilaterally, moves all extremities, no focal motor deficits and no sensory deficits noted Sensorium / Orientation: awake, alert, oriented to person, oriented to place and oriented to time Speech: speech normal Psych affect normal Psych Narrative: Patient does not appear anxious or nervous at this time Assessment & Plan Assessment/Plan (1) Admitted to alcohol detoxification center: PLAN: Plan 1. Acute alcohol withdrawal-again I have made the decision to reduce her dose of phenobarbital and continue to observe her for signs of severe withdrawal. Again patient will be going into an inpatient detox program on Tuesday of this week. #2 hypothyroidism-patient will continue on Synthroid #3 chronic alcoholism-complicates care, medical course, recovery, and prognosis #4 essential hypertension-I have elected to hold the patient's blood pressure medicine for now due to her hypotension today, I will reevaluate her tomorrow and may resume at least her CELSO inhibitor if her blood pressure stabilizes. #5 type 2 diabetes-patient's blood pressure will be monitored, sliding scale insulin will be given as needed #6 bipolar disorder-complicates care, medical course, recovery, and prognosis #7 polysubstance abuse-patient's tox screen was positive for cocaine and cannabinoids, complicates care, medical course, recovery, and prognosis Total clinical time spent by myself addressing the patient's medical issues, reviewing all her data, and collaborating with the patient's care team: 35 minutes Charges/Coding Visit Charges Inpatient E&M: 31448 Subs Hosp L2
[2022-05-31] MEDS: hydrOXYzine PAM 25 MG Capsule 50 MG PO (19:28)
[2022-05-31] MEDS: traZODone 100 MG Tablet PO (23:20)
[2022-05-31 23:40] LABS: Bedside Glucose 131 mg/dL (74-106)
[2022-06-01 04:00] VITALS: BP 120/67; PULSE 69; RESP 18; TEMP 36.6; O2SAT 96
[2022-06-01] MEDS: Levothyroxine 100 MCG Tablet 200 MCG PO (05:02)
[2022-06-01] MEDS: Ibuprofen 600 MG Tablet PO ×2 (05:18→21:50)
[2022-06-01 05:36] LABS: Bedside Glucose 142 mg/dL (74-106)
[2022-06-01 08:58] VITALS: BP 97/48; PULSE 82; RESP 18; TEMP 36.9; O2SAT 95
[2022-06-01] MEDS: Folic Acid 1 MG Tablet PO (09:06)
[2022-06-01] MEDS: Doxycycline 100 MG CAPSULE PO ×2 (09:06→21:46)
[2022-06-01] MEDS: Pantoprazole Sodium 20 MG Tablet PO (09:06)
[2022-06-01] MEDS: Thiamine Hydrochloride 100 MG Tablet PO (09:06)
--- NOTE | 2022-06-01 10:00 | NURSING ---
talked with [employer], product management manager security [place] and primary RN regarding pt's concern that an employee may have snuck visitors including pt's son in to visit pt last night. Aware per that visitors were seen on camera entering through unlocked front doors at 7:30p and seen leaving at 8:12p. aware per primary RN son was planning to bring clothes for patient today in preparation for discharge 06/02. aware primary RN to call son with update/ reminder that visitors are not permitted with [facility] patients.
[2022-06-01 11:02] VITALS: O2SAT 93
[2022-06-01 11:50] LABS: Bedside Glucose 94 mg/dL (74-106)
[2022-06-01 15:47] VITALS: BP 108/44; PULSE 80; RESP 18; TEMP 36.8; O2SAT 98
[2022-06-01 17:20] LABS: Bedside Glucose 141 mg/dL (74-106)
--- NOTE | 2022-06-01 20:48 | PN.HOSP_ITS ---
Subjective Subjective Patient was seen and examined today, she states she feels less sleepy since her phenobarb dose was decreased. Patient's nicotine patch came off in the shower and she requested a new one to be placed, I ordered 1 tonight. Patient is due to be discharged tomorrow to an inpatient detox service, she has no complaints of any anxiety or nervousness at this time. Objective Data Objective Data Vital Signs: Vital Signs Temp Pulse Resp BP Pulse Ox O2 Del Method 98.2 F 80 18 108/44 L 98 Room Air 06/01/22 15:47 06/01/22 15:47 06/01/22 15:47 06/01/22 15:47 06/01/22 15:47 06/01/22 15:47 Oxygen Delivery Method Room Air Weight: 156.036 kg Body Mass Index (BMI) 59.0 Intake & Output: Intake and Output for Last 24 Hours 05/30/22 05/31/22 06/01/22 23:59 23:59 23:59 Intake Total 1405 / 1405 2277.08 / 2277.08 Balance 1405 / 1405 2277.08 / 2277.08 Lab / Micro Data Result Diagrams: 05/30/22 14:25 05/30/22 14:25 Labs: Laboratory Results - last 24 hr 05/31/22 23:19: POC Glucose 131 H 06/01/22 05:08: POC Glucose 142 H 06/01/22 11:25: POC Glucose 94 06/01/22 17:01: POC Glucose 141 H Physical Exam Const alert, oriented x3, no apparent distress and healthy appearing General Appearance: cooperative, well kempt and well developed Orientation / Consciousness: awake, oriented to person, oriented to place and oriented to time HEENT normocephalic and moist oral mucous membranes Eyes PERRL, EOMs intact bilaterally and conjunctivae normal Neck supple, no JVD, thyroid normal and no carotid bruits General: trachea midline Resp normal respiratory effort and clear to auscultation bilaterally Auscultation: Negative for rales, rhonchi or wheezes Cardio regular rate, regular rhythm, no murmurs, no rub and no gallops GI normal to inspection, nondistended, normoactive bowel sounds, soft to palpation, non-tender and non-distended Extremity no clubbing, cyanosis or edema Skin no rashes or lesions noted General Skin Exam: no breakdown Neuro oriented x3, CN's II-XII intact bilaterally, no focal motor deficits and no sensory deficits noted Sensorium / Orientation: awake and alert Speech: speech normal Psych affect normal Assessment & Plan Assessment/Plan (1) Alcohol intoxication: (2) Admitted to alcohol detoxification center: PLAN: Plan 1. Acute alcohol withdrawal-patient has no serious signs of alcohol withdrawal at this time, again patient will be going into an inpatient detox program on Tuesday of this week. #2 hypothyroidism-patient will continue on Synthroid #3 chronic alcoholism-complicates care, medical course, recovery, and prognosis #4 essential hypertension-I have elected to hold the patient's blood pressure medicine for now due to her hypotension today, I will reevaluate her tomorrow an d may resume at least her CELSO inhibitor if her blood pressure stabilizes. #5 type 2 diabetes-patient's blood pressure will be monitored, sliding scale insulin will be given as needed #6 bipolar disorder-complicates care, medical course, recovery, and prognosis #7 polysubstance abuse-patient's tox screen was positive for cocaine and cannabinoids, complicates care, medical course, recovery, and prognosis Total clinical time spent by myself addressing the patient's medical issues, reviewing all her data, and collaborating with the patient's care team: 35 minutes Charges/Coding Visit Charges Inpatient E&M: 93231 Subs Hosp L2
[2022-06-01 21:39] VITALS: BP 114/58; PULSE 75; RESP 14; TEMP 36.4; O2SAT 97
[2022-06-01] MEDS: hydrOXYzine PAM 25 MG Capsule 50 MG PO (21:46)
[2022-06-01] MEDS: traZODone 100 MG Tablet PO (21:46)
[2022-06-01] MEDS: Insulin Lispro 100 UNIT/ML INSULN.PEN SC (21:46)
[2022-06-01 23:05] LABS: Bedside Glucose 180 mg/dL (74-106)
[2022-06-02 03:50] VITALS: BP 109/65; PULSE 66; RESP 14; TEMP 36.6; O2SAT 99
[2022-06-02] MEDS: Levothyroxine 100 MCG Tablet 200 MCG PO (06:25)
[2022-06-02] MEDS: Acetaminophen 325 MG Tablet 650 MG PO (06:25)
[2022-06-02 06:56] LABS: Bedside Glucose 118 mg/dL (74-106)
[2022-06-02 07:08] VITALS: O2SAT 99
--- NOTE | 2022-06-02 07:47 | DCINST_ITS ---
Discharge Instructions Diet Discharge Diet: No restrictions Activity Discharge Activity: Return to Normal Activity Weight Bearing Status: Full weight bearing Follow Up Care Test Results: Test results from this visit will be discussed in further detail at your follow- up appointment, if applicable. Discharge Plan Admission Admit Date/Time: 05/30/22 15:03 Primary Reason for Your Visit: alcohol detox Attending Provider: Steven Elder Primary Care Provider: Helio Em Consulting Providers: Cynthia Shah Discharge Orders/Prescriptions Prescriptions: New nicotine [Nicoderm CQ] 7 mg/24 hr patch 24 hour 1 patch transdermal Q24H Qty: 14 0RF Continued (DME) blood-glucose meter [FreeStyle Lite Meter] Kit See Rx Instructions .MEDSUPPLY Qty: 1 0RF Rx Instructions: As directed, check blood glucose daily for type 2 DM (DME) lancets [FreeStyle Lancets] 28 gauge misc See Rx Instructions .MEDSUPPLY Qty: 200 3RF Rx Instructions: check blood glucose daily for type 2 DM (DME) FreeStyle Lite Strips Strip See Rx Instructions .MEDSUPPLY Qty: 100 3RF Rx Instructions: check blood glucose daily for type 2 DM diclofenac sodium 1 % gel 4 g topical ONCE MDD 16 grams Qty: 100 0RF Rx Instructions: apply to single knee, ankle, foot; for foot includes sole/toes/top of foot doxycycline hyclate 100 mg capsule 100 mg PO BID Qty: 60 1RF clindamycin phosphate 1 % gel 1 applic topical BID Qty: 60 0RF levothyroxine 200 mcg tablet 200 mcg PO DAILY Qty: 90 1RF lisinopril-hydrochlorothiazide 20-25 mg tablet 1 tab PO DAILY Qty: 90 1RF Referrals / Follow Up: Helio Em MD [Primary Care Provider] - Disposition Disposition (needs filled in before D/C Order can be placed): Inpatient Rehab Unit/Facility
--- NOTE | 2022-06-02 09:22 | DS.PCM_ITS ---
Providers Date of Admission: 05/30/22 Date of Discharge: 06/02/22 Primary Care Physician: Dr. Helio Em MD Reason For Visit: EtOH DETOX/WITHDRAWAL Diagnosis Discharge Diagnosis (1) Admitted to alcohol detoxification center: Status: Acute Plan 1. Acute alcohol withdrawal-again I have made the decision to reduce her dose of phenobarbital and continue to observe her for signs of severe withdrawal. Again patient will be going into an inpatient detox program on Tuesday of this week. #2 hypothyroidism-patient will continue on Synthroid #3 chronic alcoholism-complicates care, medical course, recovery, and prognosis #4 essential hypertension-I have elected to hold the patient's blood pressure medicine for now due to her hypotension today, I will reevaluate her tomorrow and may resume at least her CELSO inhibitor if her blood pressure stabilizes. #5 type 2 diabetes-patient's blood pressure will be monitored, sliding scale insulin will be given as needed #6 bipolar disorder-complicates care, medical course, recovery, and prognosis #7 polysubstance abuse-patient's tox screen was positive for cocaine and cannabinoids, complicates care, medical course, recovery, and prognosis #8 morbid obesity-complicates care, medical course, recovery, and prognosis Total clinical time spent by myself addressing the patient's medical issues, reviewing all her data, and collaborating with the patient's care team: 35 minutes Medications at Discharge Home Medications blood sugar diagnostic (FreeStyle Lite Strips) #100 ea 01/15/20 blood-glucose meter (FreeStyle Lite Meter kit) #1 ea 01/15/20 lancets 28 gauge (FreeStyle Lancets) #200 ea 01/15/20 diclofenac sodium 1 % topical gel 4 g topical ONCE joint pain #100 grams 09/18/20 doxycycline hyclate 100 mg capsule 100 mg PO BID #60 caps 11/06/20 clindamycin phosphate 1 % topical gel 1 applic topical BID skin #60 grams 07/06/21 levothyroxine 200 mcg tablet 200 mcg PO DAILY #90 tabs 04/06/22 lisinopril 20 mg-hydrochlorothiazide 25 mg tablet 1 tab PO DAILY #90 tabs 04/06/22 cariprazine 1.5 mg capsule (Vraylar) 1.5 mg PO DAILY #90 caps 06/02/22 nicotine 7 mg/24 hr daily transdermal patch (Nicoderm CQ) 1 patch transdermal Q24H #14 ea 06/02/22 dulaglutide 0.75 mg/0.5 mL subcutaneous pen injector (Trulicity) 0.75 mg (0.5 mL) subcut QWEEK #2 mL 06/04/22 Hospital Course Operations None Procedures None Summary of Care Provided Minutes Spent on Discharge: 31 Hospital Course: This 41-year-old white female was seen in the emergency room at [facility] desiring services for alcohol detox, patient's other medical problems include hypertension bipolar disorder, patient was admitted to [place] [address], she was seen by addiction social science instructor and arrangements were made for her to go to an inpatient detox center. Patient had no serious withdrawal symptoms during her hospital stay and there were no DTs. On 06/02/2022, patient was seen and examined: On examination she appeared in good health and spirits, she does not appear to be in any distress. Patient is morbidly obese. Vital signs as documented. Skin warm and dry and without overt rashes. Neck without JVD, thyroid appears normal, trachea is midline, neck is supple. Lungs clear, normal air movement was noted. Heart exam notable for regular rhythm, normal sounds and absence of murmurs, rubs or gallops. Abdomen unremarkable and without evidence of organomegaly, masses, or abdominal aortic enlargement, bowel sounds are present in all 4 quadrants, no abdominal tendernes s was noted. Extremities nonedematous, no cyanosis was noted, no clubbing was noted. Neuro: Cranial nerves II through XII are grossly intact, no focal motor deficits were noted, sensation to light touch and pinprick is intact, motor exam 5/5 throughout. Psych: Patient is alert and oriented x3, she does not appear anxious or depressed, she does not appear agitated. Weight / BMI Weight Weight: 156.036 kg Body Mass Index (BMI) 59.0 ABG / Lab / Microbiology Data Result Diagrams: 05/30/22 14:25 05/30/22 14:25 Laboratory: Laboratory Results - last 24 hr 06/01/22 11:25: POC Glucose 94 06/01/22 17:01: POC Glucose 141 H 06/01/22 21:44: POC Glucose 180 H 06/02/22 06:27: POC Glucose 118 H D/C Instructions Discharge Diet: No restrictions Weight Bearing Status: Full weight bearing Meaningful Use Info Meaningful Use Diagnoses (Choose all that apply): None applicable Discharge Plan Admission Admit Date/Time: 05/30/22 15:03 Primary Reason for Your Visit: alcohol detox Attending Provider: Steven Elder Primary Care Provider: Helio Em Consulting Providers: Cynthia Shah Discharge Orders/Prescriptions Prescriptions: New nicotine [Nicoderm CQ] 7 mg/24 hr patch 24 hour 1 patch transdermal Q24H Qty: 14 0RF Continued (DME) blood-glucose meter [FreeStyle Lite Meter] Kit See Rx Instructions .MEDSUPPLY Qty: 1 0RF Rx Instructions: As directed, check blood glucose daily for type 2 DM (DME) lancets [FreeStyle Lancets] 28 gauge misc See Rx Instructions .MEDSUPPLY Qty: 200 3RF Rx Instructions: check blood glucose daily for type 2 DM (DME) FreeStyle Lite Strips Strip See Rx Instructions .MEDSUPPLY Qty: 100 3RF Rx Instructions: check blood glucose daily for type 2 DM diclofenac sodium 1 % gel 4 g topical ONCE MDD 16 grams Qty: 100 0RF Rx Instructions: apply to single knee, ankle, foot; for foot includes sole/toes/top of foot doxycycline hyclate 100 mg capsule 100 mg PO BID Qty: 60 1RF clindamycin phosphate 1 % gel 1 applic topical BID Qty: 60 0RF levothyroxine 200 mcg tablet 200 mcg PO DAILY Qty: 90 1RF lisinopril-hydrochlorothiazide 20-25 mg tablet 1 tab PO DAILY Qty: 90 1RF No Action Vraylar 1.5 mg capsule 1.5 mg PO DAILY Qty: 90 3RF Trulicity 0.75 mg/0.5 mL pen injector 0.75 mg subcut QWEEK Qty: 2 1RF Referrals / Follow Up: Helio Em MD [Primary Care Provider] - Disposition Disposition (needs filled in before D/C Order can be placed): Inpatient Rehab Unit/Facility Charges/Coding Visit Charges Inpatient E&M: 78612 Disch Hosp >30min
[2022-06-02] MEDS: Pantoprazole Sodium 20 MG Tablet PO (09:38)
[2022-06-02] MEDS: Folic Acid 1 MG Tablet PO (09:38)
[2022-06-02] MEDS: Thiamine Hydrochloride 100 MG Tablet PO (09:38)
[2022-06-02] MEDS: Doxycycline 100 MG CAPSULE PO (09:38)
[2022-06-02 09:47] VITALS: BP 110/66; PULSE 77; RESP 18; TEMP 36.6; O2SAT 98
--- NOTE | 2022-06-02 10:49 | PHA.DC.MR ---
Pharmacy Service has performed discharge medication reconciliation for this patient. The patient's discharge medication list was reviewed for discrepancies and discrepancies were resolved. Home Medications blood sugar diagnostic (FreeStyle Lite Strips) #100 ea 01/15/20 blood-glucose meter (FreeStyle Lite Meter kit) #1 ea 01/15/20 lancets 28 gauge (FreeStyle Lancets) #200 ea 01/15/20 diclofenac sodium 1 % topical gel 4 g topical ONCE joint pain #100 grams 09/18/20 doxycycline hyclate 100 mg capsule 100 mg PO BID #60 caps 11/06/20 clindamycin phosphate 1 % topical gel 1 applic topical BID skin #60 grams 07/06/21 levothyroxine 200 mcg tablet 200 mcg PO DAILY #90 tabs 04/06/22 lisinopril 20 mg-hydrochlorothiazide 25 mg tablet 1 tab PO DAILY #90 tabs 04/06/22 nicotine 7 mg/24 hr daily transdermal patch (Nicoderm CQ) 1 patch transdermal Q24H #14 ea 06/02/22
== END 2022-06-02 10:45 | DRG 774 ==
LOC: ED 14:54 → MS3 15:25
PROVIDERS: Admitting Provider Family Medicine; Emergency Provider Emergency Medicine; PCP Internal Medicine; Visit Provider Internal Medicine
DX: F10.139 Alcohol abuse with withdrawal, unspecified (principal); F14.90 Cocaine use, unspecified, uncomplicated; Z68.43 Body mass index [BMI] 50.0-59.9, adult; F31.9 Bipolar disorder, unspecified; E11.9 Type 2 diabetes mellitus without complications; E66.01 Morbid (severe) obesity due to excess calories; F10.129 Alcohol abuse with intoxication, unspecified; F60.3 Borderline personality disorder; I10 Essential (primary) hypertension; F12.10 Cannabis abuse, uncomplicated; E89.0 Postprocedural hypothyroidism; Z87.891 Personal history of nicotine dependence; F43.10 Post-traumatic stress disorder, unspecified; Y90.9 Presence of alcohol in blood, level not specified
CPT/HCPCS: 80053; 80307; 82077; 82962; 83735; 84100; 84703; 85025; 86703; 86706; 86803; 87340; 97802; 99284; J7030; J7120; A4216; J2405

== ENCOUNTER 2022-07-29 15:56 | Emergency (ER) | payer MEDICAID, SELFPAY ==
[2022-07-29 15:57] VITALS: BP 151/93; PULSE 105; RESP 24; TEMP 35.7; O2SAT 97; BMI 61.1
--- NOTE | 2022-07-29 16:15 | ED.VIS.FEGU ---
HPI HPI - Female History of Present Illness Chief Complaint: Abd Pain Detail of Chief Complaint: Flank and suprapubic pain medication. Healthy dysuria. Informant: patient Pain Current Severity: Moderate Maximum Severity: Moderate Bleeding Issue: Negative for Vaginal bleeding Associated Symptoms Associated Symptoms: Positive for Dysuria, Frequency and Urgency; Negative for Hematuria Narrative Narrative: 41-year-old female extensive past medical history of bipolar, PTSD, polysubstance abuse, diabetes and hypothyroidism secondary to thyroidectomy. States she had a 4-day history of right flank pain with dysuria. Denies any documented fever or chills. No melena. She is never had a kidney stone. She denies any prior abdominal or gynecological surgeries. Denies any gross hematuria. No abdominal trauma. Prior similar symptoms: Yes Recent Illness/Hospitalization: No PFSH PFSH Medical History Anxiety and depression Bipolar disorder Borderline personality disorder Cannabis use disorder, mild, abuse Goiter History of bulimia Hypertension Hypothyroidism Mass of chest Migraine Morbid obesity OCD (obsessive compulsive disorder) Polysubstance abuse PTSD (post-traumatic stress disorder) Seasonal allergies Type 2 diabetes mellitus Home Medications blood sugar diagnostic (FreeStyle Lite Strips) #100 ea 01/15/20 [Rx Last Taken Unknown] blood-glucose meter (FreeStyle Lite Meter kit) #1 ea 01/15/20 [Rx Last Taken Unknown] lancets 28 gauge (FreeStyle Lancets) #200 ea 01/15/20 [Rx Last Taken Unknown] diclofenac sodium 1 % topical gel 4 g topical ONCE joint pain #100 grams 09/18/20 [Rx Last Taken Unknown] doxycycline hyclate 100 mg capsule 100 mg PO BID #60 caps 11/06/20 [Rx Last Taken Unknown] clindamycin phosphate 1 % topical gel 1 applic topical BID skin #60 grams 07/06/21 [Rx Last Taken Unknown] levothyroxine 200 mcg tablet 200 mcg PO DAILY #90 tabs 04/06/22 [Rx Last Taken Unknown] lisinopril 20 mg-hydrochlorothiazide 25 mg tablet 1 tab PO DAILY #90 tabs 04/06/22 [Rx Last Taken Unknown] cariprazine 1.5 mg capsule (Vraylar) 1.5 mg PO DAILY #90 caps 06/02/22 [Rx Last Taken Unknown] nicotine 7 mg/24 hr daily transdermal patch (Nicoderm CQ) 1 patch transdermal Q24H #14 ea 06/02/22 [Rx Last Taken Unknown] dulaglutide 0.75 mg/0.5 mL subcutaneous pen injector (Trulicity) 0.75 mg (0.5 mL) subcut QWEEK #2 mL 06/04/22 [Rx Last Taken Unknown] aripiprazole 5 mg tablet (Abilify) 5 mg PO QHS #30 tabs 07/28/22 [Rx Last Taken Unknown] cholecalciferol (vitamin D3) 10 mcg (400 unit) capsule 10 mcg PO DAILY #30 caps 07/28/22 [Rx Last Taken Unknown] hydroxyzine HCl 25 mg tablet 25 mg PO BID PRN PRN anxiety #30 tabs 07/28/22 [Rx Last Taken Unknown] prazosin 1 mg capsule 1 mg PO QHS #30 caps 07/28/22 [Rx Last Taken Unknown] spironolactone 100 mg tablet 100 mg PO DAILY #1 TAB 07/28/22 [Rx Last Taken Unknown] cephalexin 500 mg capsule 500 mg PO Q6 7 days #28 CAPSULES 07/29/22 [Rx Last Taken Unknown] Allergy/AdvReac Type Severity Reaction Status Date / Time walnut Allergy Angioedema Verified 07/29/22 15:57 Yeast Allergy Unknown Verified 07/29/22 15:57 Family History Mother Hypertension Aunt Cancer Other Anxiety Depression Diabetes Mental disorder Myocardial infarction Surgical History H/O thyroidectomy History of D&C History of dental surgery Social History Smoking Status: Current every day smoker tobacco type: e-cigarettes alcohol intake: current alcohol intake frequency: 3 or more drinks per day substance use type: marijuana and crack/cocaine what type of physical activity do you participate in: other details: work/ house work frequency: 5-6 times per week ROS ROS ED ROS Narrative Dysuria. Frequency. Cardiac flank pain. Review of Systems ROS Unobtainable: Denies due to encephalopathy Constitutional Constitutional ED: Denies chills or fever(s) Eyes Eyes: Denies blurry vision ENT ENT ED: Denies ear pain Cardiovascular Cardiovascular: Denies chest pain Respiratory/Chest Respiratory/Chest: Denies cough or dyspnea Gastrointestinal Gastrointestinal: Reports abdominal pain; Denies constipation, diarrhea, melena, nausea or vomiting Genitourinary Genitourinary ED: Reports dysuria and urinary frequency; Denies hematuria Musculoskeletal Musculoskeletal: Denies arthralgias Integumentary Denies abscess Neurologic Neurologic: Denies headache(s) Psychiatric Psychiatric: Denies anxiety Endocrine Endocrinology: Denies heat intolerance Hematologic/Lymphatic Hematologic/Lymphatic: Denies easy bleeding or easy bruising Allergic/Immunologic Allergic/Immunologic ED: Denies mouth swelling EXAM Physical Exam Narrative Exam Narrative: 21 old female vital signs are stable and afebrile. The patient does not look septic at time. She is complaining of pain. Vital signs are stable and afebrile. HEENT exam unremarkable. Neck nontender. Lungs are clear. Heart regular rhythm rate about 100 no murmur. Abdomen morbidly obese and soft. Nondistended normal bowel sounds really no peritoneal signs. Mild suprapubic discomfort. No McBurney's point or right upper quadrant tenderness. No hernia. No mass. No obstruction. Moving all 4 extremities. Nontender no edema. Back nontender. No CVA tenderness. She is awake and alert. Patient is emotionally upset animated. Const Vital Signs: 07/29/22 15:57 Temperature 96.3 F L Temperature Source Temporal Pulse Rate 105 H Respiratory Rate 24 H Blood Pressure 151/93 H Blood Pressure Mean 112 Pulse Ox 97 Oxygen Delivery Method Room Air Positive well nourished, well developed and obese; Negative for cachectic, contractures or unkempt General Appearance ED: well developed and other Complaining of pain. ; Negative for unkempt, cachectic, contractures, NAD or pallor Nutritional Appearance: obese; Negative for cachectic HEENT Reports moist mucous membranes Negative for trauma or tenderness Eyes EOMs intact bilaterally General Eye ED: Negative for pale conjunctiva, scleral icterus or other Neck no lymphadenopathy, supple and no JVD General: Negative for other Thyroid: Negative for tender Lymph Lymphatic: Negative for other Chest Wall inspection of chest normal and palpation of chest normal Chest: Negative for other Resp normal respiratory effort and clear to auscultation bilaterally Effort and Inspection: Negative for pain with movement Auscultation: Negative for rales or rhonchi Cardio regular rate, regular rhythm, S1 normal heart sound, no murmurs and no JVD GI normal to inspection, nondistended, normoactive bowel sounds, soft to palpation, non-distended and no masses; Negative for non-tender GI Narrative: Mild suprapubic tenderness only. No peritoneal signs. Auscultation: normoactive bowel sounds Palpation: tender; Negative for guarding, rigid or mass Back/Spine no CVA tenderness General Back: Negative for CVA tenderness Cervical Spine: Negative for cervical spine tenderness Thoracic Spine / Upper Back: Negative for thoracic spinal tenderness Lumbar Spine / Lower Back: Negative for lumbar spinal tenderness Sacrum: Negative for other Extremity normal to inspection and full ROM General Extremety ED: Negative for edema or tenderness General Extremity: Negative for edema Neuro CN's II-XII intact bilaterally Sensorium / Orientation: alert, oriented to person, oriented to place and oriented to time; Negative for confused, lethargic or stuporous Motor Exam: strength 5/5 throughout Psych mental status grossly normal Appearance: Negative for unkempt Attitude: No agitated Speech: No other Mood & Affect: Negative for depressed, anxious or tearful Skin no rashes or lesions noted and no wounds General Skin Exam: Negative for jaundice or pallor Rashes: No rashes noted Trauma: Negative for other MDM MDM MDM Narrative Medical decision making narrative: 41-year-old female complaining of dysuria I believe this to be a UTI possibly at least as #1 on my differential diagnosis. Make sure she is nontender left . I do not believe it to be a kidney stone. Does not appear to be appendicitis or gallbladder. Clinically is not a bowel obstruction. Screening labs will be obtained along with urinalysis. She will be treated with Toradol for pain initially. Repeat exam patient is resting comfortably in bed 625. Abdomen is benign. She and I went over her test results. This appears to be secondary to UTI. Possibly early pyelonephritis but she does not have any CVA tenderness. She and I discussed inpatient versus outpatient treatment. She is comfortable with outpatient treatment. She will be started on Keflex 500 mg 4 times a day for 7 days. Urine culture sent. Follow-up with her primary care physician Dr. Em. Return if worse. History & Record Review Discussion w/independent historian: Patient Lab Data Attestation: I reviewed the patient's lab results. Lab results narrative: CBC shows white count 23,100. H&H of 15 and 48. Platelets are 426. Electrolytes show a gap of 9. Normal BUN and creatinine. Leukos 159. Liver enzymes are normal. test is negative. Urinalysis shows nitrites, 100 cells 1+. Consistent with UTI. Urine culture will be sent. Labs: Laboratory Results - last 24 hr 07/29/22 07/29/22 07/29/22 16:10 16:10 16:10 WBC 23.1 H RBC 5.45 H Hgb 15.3 H Hct 48.3 H MCV 88.6 MCH 28.1 MCHC 31.7 L RDW Std Deviation 45.8 H RDW Coeff of Daphney 14.4 Plt Count 426 MPV 10.0 Immature Gran % (Auto) 1.200 H Neut % (Auto) 74.0 H Lymph % (Auto) 18.2 L [place] % (Auto) 5.3 Eos % (Auto) 0.7 Baso % (Auto) 0.6 Absolute Neuts (auto) 17.1 H Absolute Lymphs (auto) 4.20 Nucleated RBC % 0 Sodium 137 Potassium 4.5 Chloride 103 Carbon Dioxide 25.0 Anion Gap 9 BUN 13 Creatinine 0.97 Estim Creat Clear Calc 65.91 Est GFR (MDRD) Af Amer 81 Est GFR (MDRD) Non-Af 67 BUN/Creatinine Ratio 13.4 Glucose 159 H Calcium 10.2 H Total Bilirubin 0.90 AST 25 ALT 30 Alkaline Phosphatase 93 Total Protein 8.0 Albumin 3.2 Globulin 4.8 H Albumin/Globulin Ratio 0.7 L Serum , Qual NEGATIVE Urine Color Urine Clarity Urine pH Ur Specific Howard Urine Protein Urine Glucose (UA) Urine Ketones Urine Occult Blood Urine Nitrite Urine Bilirubin Urine Urobilinogen Ur Leukocyte Esterase Urine RBC Urine WBC Ur Squamous Epith Cells Urine Bacteria Urine Mucus 07/29/22 16:32 WBC RBC Hgb Hct MCV MCH MCHC RDW Std Deviation RDW Coeff of Daphney Plt Count MPV Immature Gran % (Auto) Neut % (Auto) Lymph % (Auto) [place] % (Auto) Eos % (Auto) Baso % (Auto) Absolute Neuts (auto) Absolute Lymphs (auto) Nucleated RBC % Sodium Potassium Chloride Carbon Dioxide Anion Gap BUN Creatinine Estim Creat Clear Calc Est GFR (MDRD) Af Amer Est GFR (MDRD) Non-Af BUN/Creatinine Ratio Glucose Calcium Total Bilirubin AST ALT Alkaline Phosphatase Total Protein Albumin Globulin Albumin/Globulin Ratio Serum , Qual Urine Color Yellow Urine Clarity Turbid Urine pH 5.0 Ur Specific Howard 1.025 Urine Protein 500 H Urine Glucose (UA) Normal Urine Ketones 5 H Urine Occult Blood 250 H Urine Nitrite Positive H Urine Bilirubin Negative Urine Urobilinogen Normal Ur Leukocyte Esterase 500 H Urine RBC 0 SEEN Urine WBC >100 SEEN Ur Squamous Epith Cells 0 SEEN Urine Bacteria 1+ Urine Mucus 0 SEEN Discharge Plan Triage Chief Complaint: Abd Pain Other Complaint: Flank Pain Complaint Nausea/Vomiting ED Provider: Juan Hartman Dx/Rx/DC Orders Clinical Impression: Urinary tract infection, Leukocytosis, History of diabetes mellitus Instructions: Urinary Tract Infections in Women Prescriptions: New cephalexin 500 mg capsule 500 mg PO Q6 7 Days Qty: 28 0RF No Action (DME) blood-glucose meter [FreeStyle Lite Meter] Kit See Rx Instructions .MEDSUPPLY Qty: 1 0RF Rx Instructions: As directed, check blood glucose daily for type 2 DM (DME) lancets [FreeStyle Lancets] 28 gauge misc See Rx Instructions .MEDSUPPLY Qty: 200 3RF Rx Instructions: check blood glucose daily for type 2 DM (DME) FreeStyle Lite Strips Strip See Rx Instructions .MEDSUPPLY Qty: 100 3RF Rx Instructions: check blood glucose daily for type 2 DM diclofenac sodium 1 % gel 4 g topical ONCE MDD 16 grams Qty: 100 0RF Rx Instructions: apply to single knee, ankle, foot; for foot includes sole/toes/top of foot doxycycline hyclate 100 mg capsule 100 mg PO BID Qty: 60 1RF clindamycin phosphate 1 % gel 1 applic topical BID Qty: 60 0RF levothyroxine 200 mcg tablet 200 mcg PO DAILY Qty: 90 1RF lisinopril-hydrochlorothiazide 20-25 mg tablet 1 tab PO DAILY Qty: 90 1RF nicotine [Nicoderm CQ] 7 mg/24 hr patch 24 hour 1 patch transdermal Q24H Qty: 14 0RF Vraylar 1.5 mg capsule 1.5 mg PO DAILY Qty: 90 3RF Trulicity 0.75 mg/0.5 mL pen injector 0.75 mg subcut QWEEK Qty: 2 1RF spironolactone 100 mg tablet 100 mg PO DAILY Qty: 1 0RF cholecalciferol (vitamin D3) 10 mcg (400 unit) capsule 10 mcg PO DAILY Qty: 30 0RF prazosin 1 mg capsule 1 mg PO QHS Qty: 30 0RF aripiprazole [Abilify] 5 mg tablet 5 mg PO QHS Qty: 30 0RF hydroxyzine HCl 25 mg tablet 25 mg PO BID PRN (Reason: PRN anxiety) Qty: 30 0RF Rx Instructions: PRN anxiety Primary Care Provider: Helio Em Referrals: Helio Em MD [Primary Care Provider] - 3-5 Days Activity Restrictions/Additional Instructions: You have a urinary tract infection. Plenty of fluids and rest. Cranberry juice. The antibiotic Keflex 1 pill 4 times a day for the next 7 days. We sent a urine culture to ensure that the antibiotic matches up with the infection we are treating. Follow-up with your doctor within the next 3 to 5 days to ensure you are improving. Return if you are feeling worse. Motrin and Tylenol for pain. Disposition Disposition: Home, Self Care
[2022-07-29] MEDS: Ketorolac 30 MG/ML Syringe IV (16:29)
[2022-07-29 16:33] LABS: Absolute Neutrophil Count 17.1 X10^3/uL (2.0-7.7); Basophil# 0.13 X10^3/uL; Basophil% 0.6 % (0-1); Eosinophil# 0.17 X10^3/uL; Eosinophils% 0.7 % (0-5); Hematocrit 48.3 % (37-47); Hemoglobin 15.3 g/dL (12.0-15.0); Lymphocyte % 18.2 % (19-41); Mean Corp Hgb Conc 31.7 g/dL (32-36); Mean Corpuscular Hgb 28.1 pg (27.0-32.0); Mean Corpuscular Volume 88.6 fL (81-99); Monocyte# 1.23 X10^3/uL; Monocyte% 5.3 % (0-10); NRBC Flagged by Analyzer 0 % (0-5); Neutrophil # 17.09 X10^3/uL (2.7-7.7); Platelet Count 426 K/mm3 (150-450); RBC Distribution Width CV 14.4 % (11.6-14.6); RBC Distribution Width SD 45.8 fl (35.1-43.9); Red Blood Count 5.45 M/mm3 (4.2-5.4); White Blood Count 23.1 K/mm3 (4.4-11.0)
[2022-07-29 16:35] LABS: Mucous, Urine 0 SEEN /hpf (<or=2+); Red Blood Cells-Urine 0 SEEN /hpf (0-5); Squamous Epithelial Cells - UA 0 SEEN /hpf (5-10)
[2022-07-29 16:37] LABS: Internal QC Validated? YES +Cl - CLEAR BKGD; Pregnancy, Serum, hCG Quali. NEGATIVE Negative
[2022-07-29 16:45] LABS: ALB/GLOB Ratio 0.7 RATIO (0.9-2.4); AST(SGOT) 25 U/L (15-37); Alanine Aminotransfer ALT/SGPT 30 U/L (13-56); Albumin, Serum 3.2 g/dL (3.2-5.0); Alkaline Phosphatase 93 U/L (45-117); Anion Gap 9 (5-15); BUN 13 mg/dL (7-18); BUN/Creat Ratio 13.4 RATIO (10-20); Calcium,Total 10.2 mg/dL (8.5-10.1); Chloride 103 mmol/L (98-107); Creatinine, Serum 0.97 mg/dL (0.55-1.02); EST Glomerular Filtration Rate 67 mL/min (>60); Est Glom Filt Rate - Afr Amer 81 mL/min (>60); Estimated Creatinine Clearance 65.91 ml/min; Globulin 4.8 g/dL (2.2-4.2); Glucose 159 mg/dL (74-106); Potassium 4.5 mmol/L (3.5-5.1); Sodium Level 137 mmol/L (136-145)
[2022-07-29 17:04] LABS: Color, Urine Yellow (Yellow); Glucose, Dipstick Normal (Normal); Ketone-Dipstick 5 mg/dl (Negative); Leukocyte Esterase-Dipstick 500 /ul (Negative); Nitrite-Dipstick Positive (Negative); Occult Blood-Urine 250 /ul (Negative); Protein-Dipstick 500 mg/dl (Negative); Specific Gravity, Urine 1.025 (1.002-1.030); Urine Bilirubin Dipstick Negative (Negative); Urine Clarity Turbid (Clear); Urine Urobilinogen Normal (Normal)
[2022-07-29 17:19] LABS: Bacteria 1+ /hpf (None Seen)
[2022-07-29 17:20] LABS: White Blood Cells >100 SEEN /hpf (0-5)
[2022-07-29] MEDS: Cephalexin 250 MG Capsule 500 MG PO (18:40)
== END 2022-07-29 18:59 | disposition home or self-care (01) ==
PROVIDERS: Emergency Provider Emergency Medicine; PCP Internal Medicine; Visit Provider Emergency Medicine
DX: N39.0 Urinary tract infection, site not specified (principal); E11.9 Type 2 diabetes mellitus without complications; I10 Essential (primary) hypertension; Z79.899 Other long term (current) drug therapy; Z79.85 Long-term (current) use of injectable non-insulin antidiabetic drugs
CPT/HCPCS: 80053; 81001; 84703; 85025; 87077; 87086; 87088; 87186; 96374; 99282; A4216

== ENCOUNTER → 2022-10-01 | Outpatient (CLI) | payer MEDICAID, SELFPAY ==
[2022-10-01 12:10] LABS: Absolute Lymphocyte Count 2.71 X10^3/uL (0.83-4.51); Absolute Neutrophil Count 10.7 X10^3/uL (2.0-7.7); Basophil% 0.7 % (0-1); Eosinophils% 1.4 % (0-5); Hematocrit 44.7 % (37-47); Hemoglobin 13.5 g/dL (12.0-15.0); Lymphocyte # 2.71 X10^3/ul (0.83-4.51); Lymphocyte % 18.8 % (19-41); Mean Corp Hgb Conc 30.2 g/dL (32-36); Mean Corpuscular Hgb 27.6 pg (27.0-32.0); Mean Corpuscular Volume 91.2 fL (81-99); Mean Platelet Vol. 10.4 fl (6.2-12.0); Monocyte% 4.2 % (0-10); NRBC Flagged by Analyzer 0 % (0-5); Neutrophil # 10.67 X10^3/uL (2.7-7.7); Neutrophil % 73.9 % (47-70); Platelet Count 345 K/mm3 (150-450); RBC Distribution Width CV 14.4 % (11.6-14.6); RBC Distribution Width SD 47.7 fl (35.1-43.9); White Blood Count 14.4 K/mm3 (4.4-11.0)
[2022-10-01 12:30] LABS: ALB/GLOB Ratio 0.7 RATIO (0.9-2.4); AST(SGOT) 12 U/L (15-37); Alanine Aminotransfer ALT/SGPT 19 U/L (13-56); Albumin, Serum 2.9 g/dL (3.2-5.0); Alkaline Phosphatase 86 U/L (45-117); Anion Gap 2 (5-15); BUN 15 mg/dL (7-18); BUN/Creat Ratio 19.6 RATIO (10-20); Calcium,Total 8.8 mg/dL (8.5-10.1); Chloride 103 mmol/L (98-107); Creatinine, Serum 0.77 mg/dL (0.55-1.02); EST Glomerular Filtration Rate 88 mL/min (>60); Est Glom Filt Rate - Afr Amer 106 mL/min (>60); Globulin 4.2 g/dL (2.2-4.2); Glucose 209 mg/dL (74-106); Potassium 4.3 mmol/L (3.5-5.1); Protein, Total 7.1 g/dL (6.4-8.2); Sodium Level 135 mmol/L (136-145); Thyroid Stim Hormone (TSH) 5.28 uIU/mL (0.358-3.74)
== END | disposition home or self-care (01) ==
LOC: BIMLAB 10:07
PROVIDERS: PCP Internal Medicine; Referring Provider Internal Medicine; Visit Provider Internal Medicine
DX: L73.2 Hidradenitis suppurativa (principal); E03.9 Hypothyroidism, unspecified; F41.9 Anxiety disorder, unspecified; F32.9 Major depressive disorder, single episode, unspecified
CPT/HCPCS: 36415; 80053; 84443; 85025

== ENCOUNTER 2022-12-04 02:06 | Observation (INO) | payer MEDICAID, SELFPAY ==
[2022-12-04] VITALS (10 sets, daily range): BP systolic 102–158; BP diastolic 61–103; PULSE 70–93; RESP 14–22; TEMP 36.6–37.1; O2SAT 95–98; BMI 65.5; BMI 65.2
--- NOTE | 2022-12-04 02:36 | EKG12_ITS ---
Test Reason : CP Blood Pressure : / mmHG Vent. Rate : 093 BPM Atrial Rate : 093 BPM P-R Int : 182 ms QRS Dur : 086 ms QT Int : 358 ms P-R-T Axes : 050 028 046 degrees QTc Int : 445 ms Normal sinus rhythm Low voltage QRS Borderline ECG Confirmed by KANE CLARKE, JANELL ([id number]), scientific editor BRIDGETT OCHOA ([id number]) on 12/07/2022 7:54:03 AM Referred By: MARIXA Confirmed By:JANELL MIDDLETON MD
[2022-12-04 02:42] LABS: Absolute Lymphocyte Count 2.77 X10^3/uL (0.83-4.51); Absolute Neutrophil Count 14.1 X10^3/uL (2.0-7.7); Basophil# 0.12 X10^3/uL; Basophil% 0.7 % (0-1); Eosinophil# 0.06 X10^3/uL; Eosinophils% 0.3 % (0-5); Hematocrit 45.4 % (37-47); Hemoglobin 13.6 g/dL (12.0-15.0); Lymphocyte # 2.77 X10^3/ul (0.83-4.51); Lymphocyte % 15.3 % (19-41); Mean Corpuscular Hgb 27.1 pg (27.0-32.0); Mean Corpuscular Volume 90.4 fL (81-99); Mean Platelet Vol. 10.2 fl (6.2-12.0); Monocyte# 0.87 X10^3/uL; Monocyte% 4.8 % (0-10); NRBC Flagged by Analyzer 0 % (0-5); Neutrophil # 14.08 X10^3/uL (2.7-7.7); Neutrophil % 77.8 % (47-70); Platelet Count 363 K/mm3 (150-450); RBC Distribution Width CV 14.3 % (11.6-14.6); RBC Distribution Width SD 47.3 fl (35.1-43.9); Red Blood Count 5.02 M/mm3 (4.2-5.4); White Blood Count 18.1 K/mm3 (4.4-11.0)
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
[2022-12-04 02:59] LABS: Anion Gap 5 (5-15); BUN 16 mg/dL (7-18); BUN/Creat Ratio 21.1 RATIO (10-20); Calcium,Total 8.8 mg/dL (8.5-10.1); Chloride 106 mmol/L (98-107); Creatinine, Serum 0.76 mg/dL (0.55-1.02); EST Glomerular Filtration Rate 89 mL/min (>60); Est Glom Filt Rate - Afr Amer 108 mL/min (>60); Estimated Creatinine Clearance 83.27 ml/min; Glucose 146 mg/dL (74-106); Magnesium 2.3 mg/dL (1.6-2.6); Potassium 4.5 mmol/L (3.5-5.1); Sodium Level 135 mmol/L (136-145); Troponin-I HS 6 pg/mL (3.0-54.0)
[2022-12-04] MEDS: LORazepam 2 MG/ML Syringe 1 MG IV (02:59)
[2022-12-04] MEDS: Aspirin 325 MG Tablet PO (02:59)
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
[2022-12-04 04:24] LABS: Alcohol, Blood (Medical)-Serum < 3.0 mg/dL
[2022-12-04 04:52] LABS: Bacteria 0 SEEN /hpf (None Seen); Mucous, Urine 0 SEEN /hpf (<or=2+); Red Blood Cells-Urine 0 SEEN /hpf (0-5); White Blood Cells 0 SEEN /hpf (0-5)
[2022-12-04 04:53] LABS: Glucose, Dipstick Normal (Normal); Ketone-Dipstick Negative (Negative); Leukocyte Esterase-Dipstick Negative /ul (Negative); Nitrite-Dipstick Negative (Negative); Occult Blood-Urine Negative /ul (Negative); Protein-Dipstick Negative (Negative); Urine Bilirubin Dipstick Negative (Negative); Urine Urobilinogen Normal (Normal); Urine pH 6.5 (5.0 - 8.0)
[2022-12-04 05:05] LABS: Color, Urine Yellow (Yellow)
[2022-12-04 05:06] LABS: Urine Clarity Clear (Clear)
[2022-12-04 05:08] LABS: Squamous Epithelial Cells - UA 0-5 SEEN /hpf (5-10)
[2022-12-04 05:27] LABS: Amphetamine Urine VISTA NEGATIVE (<1000 ng/mL); Barbiturate Urine VISTA NEGATIVE (< 200 ng/mL); Benzodiazepine Urine VISTA NEGATIVE (< 200 ng/mL); Cocaine Urine VISTA POSITIVE (< 300 ng/mL); Ecstacy Urine VISTA NEGATIVE (< 500 ng/mL); Methadone Urine VISTA NEGATIVE (< 300 ng/mL); PCP Urine VISTA NEGATIVE (< 25 ng/mL); THC Urine VISTA POSITIVE (< 50 ng/mL); Vista UDS pH Range 7
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
[2022-12-04] MEDS: hydrOXYzine PAM 25 MG Capsule 50 MG PO ×2 (06:34→15:08)
[2022-12-04] MEDS: Phenobarbital 32.4 MG Tablet 64.7999999999999972 MG PO ×5 (06:34→21:47)
[2022-12-04] MEDS: Ondansetron 8 MG Tablet PO (06:34)
[2022-12-04 07:04] LABS: Absolute Lymphocyte Count 3.14 X10^3/uL (0.83-4.51); Absolute Neutrophil Count 11.9 X10^3/uL (2.0-7.7); Basophil# 0.07 X10^3/uL; Basophil% 0.4 % (0-1); Eosinophil# 0.17 X10^3/uL; Hematocrit 40.1 % (37-47); Hemoglobin 12.4 g/dL (12.0-15.0); Lymphocyte # 3.14 X10^3/ul (0.83-4.51); Lymphocyte % 19.2 % (19-41); Mean Corp Hgb Conc 30.9 g/dL (32-36); Mean Corpuscular Hgb 27.1 pg (27.0-32.0); Mean Corpuscular Volume 87.6 fL (81-99); Mean Platelet Vol. 10.1 fl (6.2-12.0); Monocyte# 0.99 X10^3/uL; NRBC Flagged by Analyzer 0 % (0-5); Neutrophil # 11.88 X10^3/uL (2.7-7.7); Neutrophil % 72.7 % (47-70); Platelet Count 334 K/mm3 (150-450); RBC Distribution Width CV 14.5 % (11.6-14.6); RBC Distribution Width SD 45.9 fl (35.1-43.9); Red Blood Count 4.58 M/mm3 (4.2-5.4); White Blood Count 16.4 K/mm3 (4.4-11.0)
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
[2022-12-04 07:44] LABS: Anion Gap 7 (5-15); BUN 14 mg/dL (7-18); Calcium,Total 8.7 mg/dL (8.5-10.1); Chloride 107 mmol/L (98-107); Creatinine, Serum 0.58 mg/dL (0.55-1.02); EST Glomerular Filtration Rate 120 mL/min (>60); Est Glom Filt Rate - Afr Amer 145 mL/min (>60); Estimated Creatinine Clearance 109.11 ml/min; Glucose 130 mg/dL (74-106); Potassium 3.8 mmol/L (3.5-5.1); Sodium Level 140 mmol/L (136-145)
[2022-12-04] MEDS: Thiamine Hydrochloride 100 MG Tablet PO (08:05)
[2022-12-04] MEDS: Folic Acid 1 MG Tablet PO (08:05)
[2022-12-04] MEDS: Influenza Virus Vac Quad 23-24 60 MCG/0.5 ML SYRINGE IM (11:23)
--- NOTE | 2022-12-04 12:23 | ADDICTION ---
Client is a 42 year female who presented to the ER 12/04 for c/o chest pain. While client was in the ER she requested ETOH detox. Client reported to this leader writer she believed her chest pain/anxiety was caused by using crack that evening. Client admits to daily use of Twisted Tea (16 oz) 3-4 daily and occasional crack use. She completed residential treatment at [facility] the end of June. She returned to drinking within a few days of being d/c'd. She reports she was going to outpatient treatment but does not feel comfortable at [facility]-feels she is triggered and doesn't like the groups. Discussed [facility] [place]-client indicates she does not like [facility]. This leader writer attempted to explore further local options with client. She is willing to attend individual sessions at [facility]. She fell asleep during the conversation and started to snore. Client was informed staff will meet with client Wednesday 12/06 to assist with scheduling individual session/assessment at [facility]. Discharge plan placed in front of chart-will need completed.
--- NOTE | 2022-12-04 14:17 | CASEMGMT ---
Social Work SW attempted to meet with patient to complete SDoH. Patient requesting SW come back later as she is too tired to participate currently. Mehnaz Klein MSW, [place]
[2022-12-04] MEDS: Acetaminophen 325 MG Tablet 650 MG PO (15:09)
--- NOTE | 2022-12-04 16:14 | CASEMGMT ---
Social Work SW met with patient and reintroduced self and role as [facility] SW. Patient agreeable to speak with SW although patient is tired and struggling to stay awake during interaction. Patient reports she lives in a home she rents with no concerns, no food concerns nor safety concerns. Patient reports she does not have a vehicle but her friends assist with transportation as needed. Patient denied a need for additional transportation resources but was receptive towards [facility] resource list. Mehnaz Klein [employer] SERVICE [employer] EQUIPMENT OPERATOR, [place]IGH [place]
[2022-12-05 02:13] VITALS: BP 91/56; PULSE 90; RESP 16; TEMP 36.4; O2SAT 98
[2022-12-05] MEDS: Phenobarbital 32.4 MG Tablet 64.7999999999999972 MG PO ×6 (02:15→22:30)
[2022-12-05 06:06] LABS: Absolute Lymphocyte Count 2.66 X10^3/uL (0.83-4.51); Absolute Neutrophil Count 9.9 X10^3/uL (2.0-7.7); Basophil# 0.11 X10^3/uL; Basophil% 0.8 % (0-1); Eosinophil# 0.71 X10^3/uL; Hematocrit 43.8 % (37-47); Lymphocyte # 2.66 X10^3/ul (0.83-4.51); Lymphocyte % 18.6 % (19-41); Mean Corp Hgb Conc 29.7 g/dL (32-36); Mean Corpuscular Hgb 27.1 pg (27.0-32.0); Mean Corpuscular Volume 91.4 fL (81-99); Mean Platelet Vol. 10.3 fl (6.2-12.0); Monocyte# 0.78 X10^3/uL; Monocyte% 5.5 % (0-10); NRBC Flagged by Analyzer 0 % (0-5); Neutrophil # 9.91 X10^3/uL (2.7-7.7); Neutrophil % 69.1 % (47-70); Platelet Count 318 K/mm3 (150-450); RBC Distribution Width CV 14.6 % (11.6-14.6); RBC Distribution Width SD 48.8 fl (35.1-43.9); Red Blood Count 4.79 M/mm3 (4.2-5.4); White Blood Count 14.3 K/mm3 (4.4-11.0)
[2022-12-05 06:27] VITALS: BP 106/61; PULSE 97; RESP 18; TEMP 36.9; O2SAT 99
[2022-12-05] MEDS: Acetaminophen 325 MG Tablet 650 MG PO (06:28)
[2022-12-05] MEDS: Gabapentin 300 MG Capsule PO (06:28)
[2022-12-05 07:37] VITALS: O2SAT 92
[2022-12-05 08:00] VITALS: BP 128/67; PULSE 80; RESP 18; TEMP 36.8; O2SAT 98
[2022-12-05] MEDS: Thiamine Hydrochloride 100 MG Tablet PO (08:22)
[2022-12-05] MEDS: Folic Acid 1 MG Tablet PO (08:22)
--- NOTE | 2022-12-05 10:47 | PCM.PN.HOSP ---
Reason for Visit Reason for Visit: Alcohol detox Subjective Subjective No issues overnight. Patient states he is feeling well and not having any significant withdrawal symptoms. She states she has not decided whether or not she wants to go to an inpatient detox program or outpatient. Objective Data Objective Data Vital Signs: Vital Signs Temp Pulse Resp BP Pulse Ox O2 Del Method 98.5 F 97 18 106/61 92 Room Air 12/05/22 06:27 12/05/22 06:27 12/05/22 06:27 12/05/22 06:27 12/05/22 07:37 12/05/22 07:37 Oxygen Delivery Method Room Air Weight: 173.2 kg Body Mass Index (BMI) 65.2 Intake & Output: Intake and Output for Last 24 Hours 12/03/22 12/04/22 12/05/22 23:59 23:59 23:59 Intake Total 2000 / 2200 800 / 800 Balance 1999 / 2200 800 / 800 Lab / Micro Data 12/05/22 05:00 12/04/22 06:42 Labs: Laboratory Results - last 24 hr 12/05/22 05:00: WBC 14.3 H, RBC 4.79, Hgb 13.0, Hct 43.8, MCV 91.4, MCH 27.1, MCHC 29.7 L, RDW Std Deviation 48.8 H, RDW Coeff of Daphney 14.6, Plt Count 318, MPV 10.3, Immature Gran % (Auto) 1.000 H, Neut % (Auto) 69.1, Lymph % (Auto) 18.6 L, [place] % (Auto) 5.5, Eos % (Auto) 5.0, Baso % (Auto) 0.8, Absolute Neuts (auto) 9.9 H, Absolute Lymphs (auto) 2.66, Nucleated RBC % 0 Physical Exam Narrative Physical exam: General: Super-morbidly obese. Head: Normocephalic, atraumatic, no tenderness Eyes: Vision is grossly intact. EOMI ENT, no trauma, moist mucous membranes, no rhinorrhea Neck: Nontender, No thyromegaly. CVS: Regular rate and rhythm. S1-S2 present. No murmur, gallop or rub. Respiratory : clear to auscultation bilaterally, chest wall nontender Abdomen: Soft, nontender, nondistended, normal bowel sounds, no masses : Deferred Back: Nontender, no CVA tenderness, no midline spinal tenderness, deformities, step-offs Extremities: Nontender full range of motion, no trauma Skin: Normal color, no trauma, abrasions Neuro: Alert, oriented, cranial nerves II through XII grossly intact. Psychiatry: Normal mood. Normal affect. Not depressed. Not anxious. Const alert, oriented x3, no apparent distress and well nourished; Negative for average body habitus or healthy appearing Constitutional Narrative: Morbidly obese, middle-aged, white female, lying in bed, appears comfortable nontoxic, nursing at bedside HEENT head/scalp atraumatic Head and Scalp: normocephalic Neuro oriented x3, moves all extremities and no focal motor deficits Speech: speech normal Psych affect normal Psych Narrative: Eye contact is good patient is pleasant and interacts appropriately Assessment & Plan Assessment/Plan (1) Admitted to alcohol detoxification center: (2) Alcohol abuse: PLAN: Plan Alcohol abuse with pending alcohol withdrawal -Drinks 1-6 tall boys a day in addition to hard liquor which depends on the amount she can afford -Last admission here for detox was in May 2022 -Continue phenobarb taper -Continue thiamine and folate -Continue supportive medications -180 consultation--> patient was sleeping yesterday Leukocytosis -Suspect reactive -We will repeat CBC in a.m. Polysubstance abuse -Toxicology screen was also positive for cocaine and THC -Alcohol level was negative -Recommend complete cessation of substances -It appears that cocaine and marijuana have been problematic for her previously as well DM-2 -Hold home Trulicity -SSI -Accu-Cheks as ordered -Cardiac/carb controlled diet Hypertension -Continue home lisinopril hydrochlorothiazide -Continue home Azasan and Bipolar disorder/PTSD/borderline personality disorder/depression/anxiety -Continue all home medications Hypothyroidism -Continue home levothyroxine -Status post thyroidectomy for goiter DVT prophylaxis -Lovenox 40 twice daily with complicated medical history CODE STATUS Full code Charges/Coding Visit Charges Inpatient E&M: 91144 Subs Hosp L1
[2022-12-05 16:24] VITALS: BP 122/75; PULSE 78; RESP 18; TEMP 37.2; O2SAT 98
[2022-12-05 20:30] VITALS: BP 140/70; PULSE 80; RESP 18; TEMP 37.1; O2SAT 95
[2022-12-06] MEDS: Phenobarbital 32.4 MG Tablet 64.7999999999999972 MG PO ×4 (02:40→13:52)
[2022-12-06 02:43] VITALS: BP 152/84; PULSE 80; RESP 18; TEMP 36.9; O2SAT 97
[2022-12-06] MEDS: Acetaminophen 325 MG Tablet 650 MG PO (06:30)
[2022-12-06] MEDS: Thiamine Hydrochloride 100 MG Tablet PO (07:50)
[2022-12-06] MEDS: Folic Acid 1 MG Tablet PO (07:50)
[2022-12-06 08:09] VITALS: O2SAT 93
[2022-12-06 08:15] VITALS: BP 106/77; PULSE 86; RESP 16; TEMP 36.9; O2SAT 100
--- NOTE | 2022-12-06 11:06 | PN_ITS ---
Subjective Subjective Patient seen and examined. She had no active complaints. Review of systems is otherwise negative. He has remained hemodyncmai Objective Data Objective Data Vital Signs: Vital Signs Temp Pulse Resp BP Pulse Ox O2 Del Method 98.4 F 86 16 106/77 100 Room Air 12/06/22 08:15 12/06/22 08:15 12/06/22 08:15 12/06/22 08:15 12/06/22 08:15 12/06/22 08:15 Oxygen Delivery Method Room Air Weight: 381 lb 13.45 oz Body Mass Index (BMI) 65.2 Intake & Output: Intake and Output for Last 24 Hours 12/04/22 12/05/22 12/06/22 23:59 23:59 23:59 Intake Total 2000 / 2200 2800 / 3400 600 / 600 Balance 2000 / 2200 2800 / 3400 600 / 600 Lab / Micro Data 12/05/22 05:00 12/04/22 06:42
--- NOTE | 2022-12-06 11:06 | PCM.PROGNOTE ---
Subjective Subjective Patient seen and examined. She had no active complaints. Review of systems is otherwise negative. She has remained hemodynamically stable. Objective Data Objective Data Vital Signs: Vital Signs Temp Pulse Resp BP Pulse Ox O2 Del Method 98.4 F 86 16 106/77 100 Room Air 12/06/22 08:15 12/06/22 08:15 12/06/22 08:15 12/06/22 08:15 12/06/22 08:15 12/06/22 08:15 Oxygen Delivery Method Room Air Weight: 381 lb 13.45 oz Body Mass Index (BMI) 65.2 Intake & Output: Intake and Output for Last 24 Hours 12/04/22 12/05/22 12/06/22 23:59 23:59 23:59 Intake Total 1999 / 2200 2800 / 3400 600 / 600 Balance 1999 / 2200 2800 / 3400 600 / 600 Lab / Micro Data 12/05/22 05:00 12/04/22 06:42 Physical Exam Const alert, oriented x3, no apparent distress and well nourished Constitutional Narrative: super morbid obesity General Appearance: cooperative and well developed HEENT normocephalic, head/scalp atraumatic, moist oral mucous membranes and oropharynx normal Eyes PERRL and EOMs intact bilaterally Neck no lymphadenopathy and supple Lymph Lymphatic: no lymphadenopathy noted and no lymphedema noted Resp normal respiratory effort, normal air movement and clear to auscultation bilaterally Cardio regular rate, regular rhythm, S1 normal heart sound, S2 normal heart sound and no murmurs GI normal to inspection, nondistended, normoactive bowel sounds, soft to palpation, non-tender and non-distended Extremity normal capillary refill, no clubbing, cyanosis or edema and no calf tenderness General Extremity: no tenderness to palpation of joints or extremities Skin General Skin Exam: no breakdown Neuro CN's II-XII intact bilaterally, no focal motor deficits and deep tendon reflexes 2+ bilaterally Motor Exam: strength 5/5 throughout and general weakness Psych thought process normal and affect normal Appearance: appropriate Assessment & Plan Assessment/Plan (1) Alcohol abuse: PLAN: Plan #Alcohol use disorder with desire for detoxification on alcohol withdrawal protocol with phenobarbital on thiamine, folic acid and multivite adjunctive meds for symptomatic relief monitor CIWA score #Nicotine dependence: counseled to quit. Nicotine patch 2mg daily. #Super morbid obesity: BMI is 65.2. Complicates acute care, expected recovery and prognosis. DVT prophylaxis: lovenox Disposition:for DC tomorrow when medically stable. Charges/Coding Visit Charges Inpatient E&M: 94346 Subs Hosp L2
--- NOTE | 2022-12-06 11:13 | ADDICTION ---
Pt plans to follow up with Jihan. She reports that she will go in for a walk-in assessment.
[2022-12-06 12:02] VITALS: BP 163/105; PULSE 79; RESP 20; TEMP 36.8; O2SAT 97
[2022-12-06 13:59] VITALS: BP 130/83; PULSE 91; RESP 16; TEMP 36.6; O2SAT 99
[2022-12-06 14:01] VITALS: BP 130/83; PULSE 91; RESP 16; TEMP 36.6; O2SAT 99
[2022-12-06] MEDS: hydrOXYzine PAM 25 MG Capsule 50 MG PO (14:49)
--- NOTE | 2022-12-06 15:27 | NURSING ---
pt stated she doesn't feel safe here and wants to leave. pt signed ama papers
--- NOTE | 2022-12-06 16:11 | DS.PCM_ITS ---
Providers Date of Admission: 12/04/22 Date of Discharge: 12/06/22 Primary Care Physician: Dr. Helio Em MD Reason For Visit: DESIRE FOR ALCOHOL DETOXIFICATION Diagnosis Discharge Diagnosis (1) Alcohol abuse: Status: Acute Code(s): F10.10 - Alcohol abuse, uncomplicated Plan #Alcohol use disorder with desire for detoxification * on alcohol withdrawal protocol with phenobarbital * on thiamine, folic acid and multivite * adjunctive meds for symptomatic relief * monitor CIWA score * #Nicotine dependence: counseled to quit. Nicotine patch 2mg daily. #Super morbid obesity: BMI is 65.2. Complicates acute care, expected recovery and prognosis. DVT prophylaxis: lovenox Disposition:for DC tomorrow when medically stable. Medications at Discharge Home Medications blood sugar diagnostic (FreeStyle Lite Strips) #100 ea 01/15/20 blood-glucose meter (FreeStyle Lite Meter kit) #1 ea 01/15/20 lancets 28 gauge (FreeStyle Lancets) #200 ea 01/15/20 diclofenac sodium 1 % topical gel 4 g topical ONCE joint pain #100 grams 09/18/20 hydroxyzine HCl 25 mg tablet 25 mg PO BID PRN PRN anxiety #30 tabs 07/28/22 levothyroxine 200 mcg tablet 200 mcg PO DAILY thyroid #90 tabs 09/14/22 cariprazine 1.5 mg capsule (Vraylar) 1.5 mg PO DAILY antidepressant #90 caps 10/01/22 cephalexin 500 mg capsule 500 mg PO TID #21 caps 10/01/22 clindamycin phosphate 1 % topical gel 1 applic topical BID skin #60 grams 10/01/22 doxycycline monohydrate 100 mg capsule 100 mg PO BID #14 caps 10/01/22 dulaglutide 1.5 mg/0.5 mL subcutaneous pen injector 1.5 mg (0.5 mL) subcut QWEEK 3 months #6.5 mL 10/01/22 lisinopril 20 mg-hydrochlorothiazide 25 mg tablet 1 tab PO DAILY blood pressure #90 tabs 10/01/22 ondansetron 8 mg disintegrating tablet 8 mg PO Q8H 10/01/22 prazosin 1 mg capsule 1 mg PO QHS #90 caps 10/01/22 cholecalciferol (vitamin D3) 10 mcg (400 unit) capsule 10 mcg PO DAILY supplement #90 caps 10/05/22 mecobalamin (vitamin B12) 500 mcg chewable tablet 500 mcg PO DAILY supplement #90 tabs 10/05/22 Hospital Course Operations None Procedures None Summary of Care Provided Minutes Spent on Discharge: 55 Hospital Course: Patient is a 42-year-old female with an extensive past medical history as outlined which includes morbid obesity. She was admitted through the ED on 12/04/2022 with a complaint of chest pain. She also had a history of alcohol use disorder and wanted to undergo detox from alcohol. Chest pain work-up in the ED was negative. He was being discharged from the ED but requested admission for alcohol detox. She drank about 1-6 tall boys of beer daily and also drank a pint of liquor daily. She had been drinking since the age of 13 to 14 years. She was admitted and managed for alcohol use disorder with request for detoxification. She was placed on alcohol withdrawal protocol. She tolerated the alcohol detox protocol with phenobarbital. She tolerated 2 days of the detox process and signed out on 12/06/2022. She was initially agreeable to staying for 1 more day but this hospitalist was subsequently notified that patient had signed out AMA. Patient seen and examined prior to discharge. She had no complaints. Review of systems was otherwise negative. Labs and vitals reviewed. Home meds reviewed and reconciled. Physical Exam Const alert, oriented x3, no apparent distress and well nourished; Negative for average body habitus or healthy appearing Constitutional Narrative: super morbid obesity General Appearance: cooperative, comfortable and well developed HEENT normocephalic, head/scalp atraumatic, hearing grossly normal bilaterally, moist oral mucous membranes and oropharynx normal Mouth: oral and palatal mucosa normal Eyes PERRL and EOMs intact bilaterally Neck no lymphadenopathy and supple Lymph Lymphatic: no lymphadenopathy noted and no lymphedema noted Resp normal respiratory effort, normal air movement and clear to auscultation bilaterally Cardio regular rate, regular rhythm, S1 normal heart sound, S2 normal heart sound and no murmurs GI normal to inspection, nondistended, normoactive bowel sounds, soft to palpation, non-tender and non-distended Extremity normal to inspection, full ROM, normal capillary refill, no clubbing, cyanosis or edema and no calf tenderness General Extremity: no tenderness to palpation of joints or extremities Skin no rashes or lesions noted General Skin Exam: no breakdown Neuro oriented x3, CN's II-XII intact bilaterally, moves all extremities, no focal motor deficits and deep tendon reflexes 2+ bilaterally Speech: speech normal Motor Exam: strength 5/5 throughout and general weakness Psych thought process normal and affect normal Psych Narrative: Eye contact is good patient is pleasant and interacts appropriately Appearance: appropriate Weight / BMI Weight Weight: 381 lb 13.45 oz Body Mass Index (BMI) 65.2 ABG / Lab / Microbiology Data 12/05/22 05:00 12/04/22 06:42 D/C Instructions Discharge Diet: No restrictions Discharge Activity: Return to Normal Activity Weight Bearing Status: Weight bearing as tolerated Call your doctor if you observe: Fever of 101 or Higher, Shortness of breath and Swelling in the ankles Meaningful Use Info Meaningful Use Diagnoses (Choose all that apply): None applicable Discharge Plan Admission Admit Date/Time: 12/04/22 05:08 Primary Reason for Your Visit: chest pain, acute alcohol detox Attending Provider: Lenore Song Primary Care Provider: Helio Em Consulting Providers: Cesar Jamison; Luda Hyde Discharge Orders/Prescriptions Prescriptions: No Action (DME) blood-glucose meter [FreeStyle Lite Meter] Kit See Rx Instructions .MEDSUPPLY Qty: 1 0RF Rx Instructions: As directed, check blood glucose daily for type 2 DM (DME) lancets [FreeStyle Lancets] 28 gauge misc See Rx Instructions .MEDSUPPLY Qty: 200 3RF Rx Instructions: check blood glucose daily for type 2 DM (DME) FreeStyle Lite Strips Strip See Rx Instructions .MEDSUPPLY Qty: 100 3RF Rx Instructions: check blood glucose daily for type 2 DM diclofenac sodium 1 % gel 4 g topical ONCE MDD 16 grams Qty: 100 0RF Rx Instructions: apply to single knee, ankle, foot; for foot includes sole/toes/top of foot ondansetron 8 mg tablet,disintegrating 8 mg PO Q8H Vraylar 1.5 mg capsule 1.5 mg PO DAILY Qty: 90 3RF lisinopril-hydrochlorothiazide 20-25 mg tablet 1 tab PO DAILY Qty: 90 1RF prazosin 1 mg capsule 1 mg PO QHS Qty: 90 1RF Trulicity 1.5 mg/0.5 mL pen injector 1.5 mg subcut QWEEK 90 Days Qty: 6.5 1RF clindamycin phosphate 1 % gel 1 applic topical BID Qty: 60 3RF cephalexin 500 mg capsule 500 mg PO TID Qty: 21 0RF doxycycline monohydrate 100 mg capsule 100 mg PO BID Qty: 14 0RF hydroxyzine HCl 25 mg tablet 25 mg PO BID PRN (Reason: PRN anxiety) Qty: 30 0RF Rx Instructions: PRN anxiety levothyroxine 200 mcg tablet 200 mcg PO DAILY Qty: 90 1RF cholecalciferol (vitamin D3) 10 mcg (400 unit) capsule 10 mcg PO DAILY Qty: 90 3RF mecobalamin (vitamin B12) 500 mcg tablet,chewable 500 mcg PO DAILY Qty: 90 3RF Referrals / Follow Up: Helio Em MD [Primary Care Provider] - Disposition Disposition (needs filled in before D/C Order can be placed): Against Medical Advice Charges/Coding Visit Charges Inpatient E&M: 68420 Disch Hosp >30min
== END 2022-12-06 15:32 | disposition left against medical advice (07) | DRG 770 ==
LOC: ED 05:07 → MS3 05:50
PROVIDERS: Internal Medicine; Admitting Provider Hospitalist; Emergency Provider Emergency Medicine; PCP Internal Medicine; Visit Provider Student in an Organized Health Care Education/Training Program
DX: F10.239 Alcohol dependence with withdrawal, unspecified (principal); F14.19 Cocaine abuse with unspecified cocaine-induced disorder; F31.9 Bipolar disorder, unspecified; F60.3 Borderline personality disorder; Z68.44 Body mass index [BMI] 60.0-69.9, adult; E66.01 Morbid (severe) obesity due to excess calories; E11.9 Type 2 diabetes mellitus without complications; E04.9 Nontoxic goiter, unspecified; E89.0 Postprocedural hypothyroidism; I10 Essential (primary) hypertension; F41.9 Anxiety disorder, unspecified; F17.210 Nicotine dependence, cigarettes, uncomplicated; F43.10 Post-traumatic stress disorder, unspecified; V89.2XXS Person injured in unspecified motor-vehicle accident, traffic, sequela; Y90.9 Presence of alcohol in blood, level not specified; F17.290 Nicotine dependence, other tobacco product, uncomplicated; R07.9 Chest pain, unspecified; F12.10 Cannabis abuse, uncomplicated; Z23 Encounter for immunization
CPT/HCPCS: 90686; 36415; 71046; 80048; 80307; 80320; 81001; 83735; 84484; 85025; 93005; 96374; 99221; 99285; A4216; G0378; G0480

== ENCOUNTER → 2022-12-20 | Outpatient (CLI) | payer MEDICAID, SELFPAY ==
[2022-12-20 12:59] LABS: Thyroid Stim Hormone (TSH) 8.55 uIU/mL (0.358-3.74)
[2022-12-20 13:50] LABS: Hemoglobin A1c 6.9 % (3.8-5.6)
[2022-12-20 14:45] LABS: Vitamin B12 260 pg/mL (211-911); Vitamin D,25 Hydroxy 20.7 ng/mL
== END | disposition home or self-care (01) ==
LOC: BIMLAB 11:19
PROVIDERS: Internal Medicine; PCP Internal Medicine; Visit Provider Internal Medicine
DX: F31.9 Bipolar disorder, unspecified (principal); E11.9 Type 2 diabetes mellitus without complications; E03.9 Hypothyroidism, unspecified; E56.9 Vitamin deficiency, unspecified
CPT/HCPCS: 36415; 82306; 82607; 83036; 84443

== ENCOUNTER 2023-07-05 22:30 | Emergency (ER) | payer MEDICAID, SELFPAY ==
[2023-07-05 22:30] VITALS: BP 141/108; PULSE 95; RESP 18; TEMP 35.7; O2SAT 96
--- NOTE | 2023-07-05 23:09 | RAD_ITS ---
EXAM: XR CHEST, 2 VIEWS CLINICAL INDICATION: cough sob TECHNIQUE: Frontal and lateral views of the chest. COMPARISON: No relevant prior studies available. FINDINGS: LUNGS AND PLEURAL SPACES: Unremarkable. No consolidation or edema. No pneumothorax. No effusion. HEART: Unremarkable. Cardiac silhouette not enlarged. MEDIASTINUM: Central airways and mediastinal contour are unremarkable. BONES/JOINTS: Unremarkable. No acute fracture. SOFT TISSUES: Unremarkable. RAD/Chest PA and Lateral IMPRESSION: No radiographic evidence of acute cardiopulmonary disease. Electronically Signed: Campos Bhardwaj MD at 23:53 EDT ,
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
[2023-07-05 23:32] VITALS: BMI 59.8
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
[2023-07-06 01:02] LABS: ALB/GLOB Ratio 0.9 RATIO (0.9-2.4); AST(SGOT) 16 U/L (15-37); Alanine Aminotransfer ALT/SGPT 23 U/L (13-56); Albumin, Serum 3.5 g/dL (3.2-5.0); Alkaline Phosphatase 91 U/L (45-117); Anion Gap 5 (5-15); BUN 19 mg/dL (7-18); BUN/Creat Ratio 22.5 RATIO (10-20); CPK Total, Creatine Kinase 122 U/L (26-192); Calcium,Total 9.3 mg/dL (8.5-10.1); Chloride 105 mmol/L (98-107); Creatinine, Serum 0.85 mg/dL (0.55-1.02); EST Glomerular Filtration Rate 78 mL/min (>60); Est Glom Filt Rate - Afr Amer 95 mL/min (>60); Estimated Creatinine Clearance 130.75 ml/min; Globulin 3.9 g/dL (2.2-4.2); Glucose 116 mg/dL (74-106); Potassium 4.2 mmol/L (3.5-5.1); Protein, Total 7.4 g/dL (6.4-8.2); Sodium Level 138 mmol/L (136-145)
[2023-07-06 01:12] LABS: Internal QC Validated? YES +Cl - CLEAR BKGD; Monotest Negative (Negative)
[2023-07-06 01:13] LABS: Record Kit Lot#, Mono 13241033
[2023-07-06 01:18] LABS: Absolute Lymphocyte Count 4.15 X10^3/uL (0.83-4.51); Absolute Neutrophil Count 15.6 X10^3/uL (2.0-7.7); Basophil# 0.16 X10^3/uL; Basophil% 0.7 % (0-1); Eosinophil# 0.23 X10^3/uL; Eosinophils% 1.1 % (0-5); Hematocrit 46.3 % (37-47); Hemoglobin 14.4 g/dL (12.0-15.0); Lymphocyte # 4.15 X10^3/ul (0.83-4.51); Lymphocyte % 19.2 % (19-41); Mean Corp Hgb Conc 31.1 g/dL (32-36); Mean Corpuscular Hgb 27.4 pg (27.0-32.0); Mean Corpuscular Volume 88.2 fL (81-99); Mean Platelet Vol. 10.1 fl (6.2-12.0); Monocyte# 1.26 X10^3/uL; Monocyte% 5.8 % (0-10); NRBC Flagged by Analyzer 0 % (0-5); Neutrophil # 15.63 X10^3/uL (2.7-7.7); Neutrophil % 72.2 % (47-70); POSITIVE MORPHOLOGY YES; Platelet Count 398 K/mm3 (150-450); RBC Distribution Width SD 44.9 fl (35.1-43.9); Red Blood Count 5.25 M/mm3 (4.2-5.4); White Blood Count 21.6 K/mm3 (4.4-11.0)
[2023-07-06 01:19] LABS: Differential Indicated SCAN CRITERIA MET
[2023-07-06 01:20] LABS: Differential Comment SCANNED
[2023-07-06] MEDS: 0.9% Normal Saline (500mL Bag) 500 ML 999 ML IV (02:20)
[2023-07-06 02:30] VITALS: BP 136/83; PULSE 82; RESP 17; O2SAT 98
[2023-07-06] MEDS: Vancomycin HCl 2,000 MG in 0.9% Normal Saline (500mL Bag) 500 ML 250 MG IV (02:37)
[2023-07-06 02:40] LABS: Color, Urine Brown (Yellow); Glucose, Dipstick Normal (Normal); Ketone-Dipstick 5 mg/dl (Negative); Leukocyte Esterase-Dipstick 100 /ul (Negative); Nitrite-Dipstick Positive (Negative); Occult Blood-Urine 250 /ul (Negative); Protein-Dipstick 100 mg/dl (Negative); Specific Gravity, Urine 1.025 (1.002-1.030); Urine Clarity Turbid (Clear); Urine Urobilinogen 4 mg/dl (Normal)
[2023-07-06 02:46] LABS: Bacteria 2+ /hpf (None Seen); Red Blood Cells-Urine 25-50 SEEN /hpf (0-5); Squamous Epithelial Cells - UA 10-25 SEEN /hpf (5-10); Urine Bilirubin Dipstick 1 mg/dL (Negative); White Blood Cells 25-50 SEEN /hpf (0-5)
[2023-07-06 02:47] LABS: Coarse Granular Cast 0-5 SEEN /lpf (0-5 /lpf); Fine Granular Cast- Urine 0-5 SEEN /lpf (0-5); Hyaline Cast 5-10 SEEN /lpf (0-5); Mucous, Urine 3+ /hpf (<or=2+)
[2023-07-06 04:02] LABS: Amphetamine Urine VISTA POSITIVE (<1000 ng/mL); Barbiturate Urine VISTA NEGATIVE (< 200 ng/mL); Benzodiazepine Urine VISTA NEGATIVE (< 200 ng/mL); Cocaine Urine VISTA POSITIVE (< 300 ng/mL); Ecstacy Urine VISTA NEGATIVE (< 500 ng/mL); Methadone Urine VISTA NEGATIVE (< 300 ng/mL); PCP Urine VISTA NEGATIVE (< 25 ng/mL); THC Urine VISTA POSITIVE (< 50 ng/mL); Vista UDS pH Range 5
[2023-07-06 05:23] VITALS: BP 131/79; PULSE 78; RESP 16; TEMP 36.6; O2SAT 95
== END 2023-07-06 05:26 | disposition home or self-care (01) ==
PROVIDERS: Emergency Provider Emergency Medicine; PCP Internal Medicine; Visit Provider Emergency Medicine
DX: L73.2 Hidradenitis suppurativa (principal); F14.19 Cocaine abuse with unspecified cocaine-induced disorder; F15.10 Other stimulant abuse, uncomplicated; E11.9 Type 2 diabetes mellitus without complications; N39.0 Urinary tract infection, site not specified; I10 Essential (primary) hypertension; E03.9 Hypothyroidism, unspecified; Z79.899 Other long term (current) drug therapy; F17.210 Nicotine dependence, cigarettes, uncomplicated; F17.290 Nicotine dependence, other tobacco product, uncomplicated
CPT/HCPCS: 71046; 80053; 80307; 81001; 82550; 85025; 86308; 87040; 87086; 87088; 87186; 87631; 96365; 96366; 99282; J7040; J7050; A4216

== ENCOUNTER 2023-07-21 18:29 | Emergency (ER) | payer MEDICAID, SELFPAY ==
[2023-07-21 18:29] VITALS: BP 153/95; PULSE 84; RESP 17; TEMP 36.7; O2SAT 98
--- NOTE | 2023-07-21 19:02 | RAD_ITS ---
INDICATION: injury EXAMINATION/TECHNIQUE: X-RAY - XR Chest 2 Views COMPARISON: July 05, 2023. FINDINGS: LINES/DEVICES: None. LUNGS: No consolidation, edema or effusion. No pneumothorax. MEDIASTINUM AND CARDIOVASCULAR STRUCTURES: Cardiac silhouette not enlarged. . BONES AND SOFT TISSUES: Unremarkable. Left neck surgical changes. RAD/Chest PA and Lateral IMPRESSION: No radiographic evidence of acute cardiopulmonary disease. Electronically Signed: Bill Broderick MD at 19:45 EDT ,
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
[2023-07-21] MEDS: Albuterol Sulfate 8 gm Inhaler (60 puffs) 2 PUFF INHALATION (19:26)
[2023-07-21 19:27] VITALS: PULSE 82
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
[2023-07-21 20:19] VITALS: BP 145/80; PULSE 77; RESP 16; TEMP 36.8; O2SAT 98
[2023-07-21 20:26] LABS: Bedside Glucose 118 mg/dL (74-106)
[2023-07-21 20:29] VITALS: BP 132/65; PULSE 66; RESP 18; O2SAT 99
== END 2023-07-21 21:24 | disposition home or self-care (01) ==
PROVIDERS: Emergency Provider Emergency Medicine; PCP Internal Medicine; Visit Provider Emergency Medicine
DX: R06.02 Shortness of breath (principal); F31.9 Bipolar disorder, unspecified; E11.9 Type 2 diabetes mellitus without complications; J45.909 Unspecified asthma, uncomplicated; S29.009A Unspecified injury of muscle and tendon of unspecified wall of thorax, initial encounter; I10 Essential (primary) hypertension; E03.9 Hypothyroidism, unspecified; Z79.899 Other long term (current) drug therapy; F41.8 Other specified anxiety disorders; F17.210 Nicotine dependence, cigarettes, uncomplicated; F17.290 Nicotine dependence, other tobacco product, uncomplicated; X58.XXXA Exposure to other specified factors, initial encounter
CPT/HCPCS: 71046; 82962; 94640; 99283

== ENCOUNTER 2023-07-28 22:04 | Emergency (ER) | payer MEDICAID, SELFPAY ==
[2023-07-28 22:07] VITALS: BP 188/111; PULSE 118; RESP 22; TEMP 36.1; O2SAT 99; BMI 63.8
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
[2023-07-28 22:41] VITALS: BP 188/97; PULSE 84; RESP 18; TEMP 37; O2SAT 99
== END 2023-07-28 22:41 | disposition home or self-care (01) ==
PROVIDERS: Emergency Provider Emergency Medicine; PCP Internal Medicine; Visit Provider Emergency Medicine
DX: F41.9 Anxiety disorder, unspecified (principal); E11.9 Type 2 diabetes mellitus without complications; I10 Essential (primary) hypertension; Z79.899 Other long term (current) drug therapy; F17.210 Nicotine dependence, cigarettes, uncomplicated; F17.290 Nicotine dependence, other tobacco product, uncomplicated
CPT/HCPCS: 99282

== ENCOUNTER 2023-08-02 05:34 | Emergency (ER) | payer MEDICAID, SELFPAY ==
[2023-08-02 05:36] VITALS: BP 149/99; PULSE 80; RESP 16; TEMP 35.8; O2SAT 96; BMI 26.0
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
== END 2023-08-02 06:23 | disposition home or self-care (01) ==
PROVIDERS: Emergency Provider Emergency Medicine; PCP Internal Medicine; Visit Provider Emergency Medicine
DX: F41.0 Panic disorder [episodic paroxysmal anxiety] (principal); F31.9 Bipolar disorder, unspecified; E11.9 Type 2 diabetes mellitus without complications; F17.200 Nicotine dependence, unspecified, uncomplicated; E03.9 Hypothyroidism, unspecified; Z79.899 Other long term (current) drug therapy
CPT/HCPCS: 99282

== ENCOUNTER 2023-08-03 05:04 | Emergency (ER) | payer MEDICAID, SELFPAY ==
[2023-08-03 05:05] VITALS: BP 140/78; PULSE 73; RESP 18; TEMP 36.5; O2SAT 99; BMI 63.7
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
[2023-08-03] MEDS: DiphenhydrAMINE 25 MG Capsule 50 MG PO (05:45)
[2023-08-03] MEDS: LORazepam 1 MG Tablet PO (05:46)
[2023-08-03] MEDS: Famotidine 20 MG Tablet 40 MG PO (05:46)
[2023-08-03 06:00] VITALS: BP 130/78; PULSE 73; RESP 18; TEMP 36.6; O2SAT 99
== END 2023-08-03 06:00 | disposition home or self-care (01) ==
PROVIDERS: Emergency Provider Emergency Medicine; PCP Internal Medicine; Visit Provider Emergency Medicine
DX: F41.9 Anxiety disorder, unspecified (principal); F31.9 Bipolar disorder, unspecified; E11.9 Type 2 diabetes mellitus without complications; L73.2 Hidradenitis suppurativa; F17.200 Nicotine dependence, unspecified, uncomplicated; T78.40XA Allergy, unspecified, initial encounter; E03.9 Hypothyroidism, unspecified; I10 Essential (primary) hypertension
CPT/HCPCS: 99284

== ENCOUNTER 2023-11-06 20:03 | Emergency (ER) | payer MEDICAID, SELFPAY ==
[2023-11-06 20:04] VITALS: BP 138/85; PULSE 95; RESP 16; TEMP 36.8; O2SAT 98; BMI 61.2
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
[2023-11-06 21:04] LABS: Mucous, Urine 0 SEEN /hpf (<or=2+); Red Blood Cells-Urine 0 SEEN /hpf (0-5)
[2023-11-06 21:14] LABS: Color, Urine Yellow (Yellow); Glucose, Dipstick Normal (Normal); Ketone-Dipstick Negative (Negative); Leukocyte Esterase-Dipstick 100 /ul (Negative); Nitrite-Dipstick Negative (Negative); Occult Blood-Urine 10 /ul (Negative); Protein-Dipstick 30 mg/dl (Negative); Specific Gravity, Urine 1.015 (1.002-1.030); Urine Bilirubin Dipstick Negative (Negative); Urine Clarity Cloudy (Clear); Urine Urobilinogen 1 mg/dl (Normal)
[2023-11-06 21:24] LABS: Bacteria 3+ /hpf (None Seen); Squamous Epithelial Cells - UA 10-25 SEEN /hpf (5-10); White Blood Cells 5-10 SEEN /hpf (0-5)
[2023-11-06 22:03] VITALS: BP 131/67; PULSE 68; RESP 18; O2SAT 97
--- NOTE | 2023-11-06 22:52 | ED.RN ---
she needed to leave due to ride being here and did not want to wait.
== END 2023-11-06 22:54 | disposition home or self-care (01) ==
PROVIDERS: Emergency Provider Emergency Medicine; Visit Provider Emergency Medicine
DX: N30.00 Acute cystitis without hematuria (principal); F31.9 Bipolar disorder, unspecified; E11.9 Type 2 diabetes mellitus without complications; Z91.148 Patient's other noncompliance with medication regimen for other reason; F17.200 Nicotine dependence, unspecified, uncomplicated; I10 Essential (primary) hypertension; Z79.890 Hormone replacement therapy; E03.9 Hypothyroidism, unspecified; F41.8 Other specified anxiety disorders; Z76.0 Encounter for issue of repeat prescription
CPT/HCPCS: 81001; 87077; 87086; 87088; 87186; 99283

== ENCOUNTER 2023-12-27 06:12 | Emergency (ER) | payer MEDICAID, SELFPAY ==
[2023-12-27 06:13] VITALS: BP 151/92; PULSE 84; RESP 20; TEMP 36.6; O2SAT 96; BMI 65.8
--- NOTE | 2023-12-27 06:32 | EKG12_ITS ---
Test Reason : CP Blood Pressure : */* mmHG Vent. Rate : 86 BPM Atrial Rate : 86 BPM P-R Int : 186 ms QRS Dur : 90 ms QT Int : 390 ms P-R-T Axes : 50 37 42 degrees QTcB Int : 466 ms Normal sinus rhythm Normal ECG Confirmed by Campos Weldon ([id number]), market editor MARK GUILLEN ([id number]) on 12/28/2023 11:38:39 AM Referred By: TL Confirmed By: Campos Weldon
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
[2023-12-27 06:47] LABS: Absolute Lymphocyte Count 3.91 X10^3/uL (0.83-4.51); Basophil# 0.15 X10^3/uL; Basophil% 0.9 % (0-1); Eosinophil# 0.16 X10^3/uL; Eosinophils% 0.9 % (0-5); Hematocrit 41.8 % (37-47); Hemoglobin 13.3 g/dL (12.0-15.0); Lymphocyte # 3.91 X10^3/ul (0.83-4.51); Lymphocyte % 22.4 % (19-41); Mean Corp Hgb Conc 31.8 g/dL (32-36); Mean Corpuscular Hgb 27.1 pg (27.0-32.0); Mean Corpuscular Volume 85.3 fL (81-99); Mean Platelet Vol. 9.8 fl (6.2-12.0); Monocyte# 1.06 X10^3/uL; Monocyte% 6.1 % (0-10); NRBC Flagged by Analyzer 0 % (0-5); Neutrophil # 12.01 X10^3/uL (2.7-7.7); Platelet Count 387 K/mm3 (150-450); RBC Distribution Width CV 13.8 % (11.6-14.6); RBC Distribution Width SD 42.5 fl (35.1-43.9); White Blood Count 17.4 K/mm3 (4.4-11.0)
[2023-12-27 07:06] LABS: Internal QC Validated? YES +Cl - CLEAR BKGD; Pregnancy, Urine Negative Negative
[2023-12-27 07:08] LABS: Alcohol, Blood (Medical)-Serum < 3.0 mg/dL
--- NOTE | 2023-12-27 07:10 | RAD_ITS ---
EXAM: XR CHEST, 2 VIEWS CLINICAL INDICATION: chest pain TECHNIQUE: Frontal and lateral views of the chest. COMPARISON: 07/21/2023. FINDINGS: LUNGS AND PLEURAL SPACES: Unremarkable. No consolidation or edema. No pneumothorax. No effusion. HEART: Unremarkable. Cardiac silhouette not enlarged. MEDIASTINUM: Central airways and mediastinal contour are unremarkable. BONES/JOINTS: Unremarkable. No acute fracture. SOFT TISSUES: Unremarkable. RAD/Chest PA and Lateral IMPRESSION: No acute cardiopulmonary abnormality. Electronically Signed: Campos Bhardwaj MD at 7:41 EST ,
[2023-12-27 07:14] LABS: Anion Gap 9 (5-15); BUN 15 mg/dL (7-18); Chloride 105 mmol/L (98-107); Creatinine, Serum 0.88 mg/dL (0.55-1.02); EST Glomerular Filtration Rate 74 mL/min (>60); Est Glom Filt Rate - Afr Amer 90 mL/min (>60); Estimated Creatinine Clearance 124.12 ml/min; Glucose 125 mg/dL (74-106); Potassium 3.9 mmol/L (3.5-5.1); Sodium Level 141 mmol/L (136-145); Troponin-I HS 5 pg/mL (3.0-54.0)
[2023-12-27] MEDS: hydrOXYzine PAM 25 MG Capsule 50 MG PO (07:25)
[2023-12-27 07:34] VITALS: BP 150/80; PULSE 77; RESP 19; TEMP 36.8; O2SAT 97
[2023-12-27 08:00] LABS: Amphetamine Urine VISTA POSITIVE (<1000 ng/mL); Barbiturate Urine VISTA NEGATIVE (< 200 ng/mL); Benzodiazepine Urine VISTA NEGATIVE (< 200 ng/mL); Cocaine Urine VISTA NEGATIVE (< 300 ng/mL); Ecstacy Urine VISTA POSITIVE (< 500 ng/mL); Methadone Urine VISTA NEGATIVE (< 300 ng/mL); PCP Urine VISTA NEGATIVE (< 25 ng/mL); THC Urine VISTA POSITIVE (< 50 ng/mL); Vista UDS pH Range 5
== END 2023-12-27 07:37 | disposition home or self-care (01) ==
PROVIDERS: Emergency Provider Emergency Medicine; Visit Provider Emergency Medicine
DX: R07.9 Chest pain, unspecified (principal); F31.9 Bipolar disorder, unspecified; I10 Essential (primary) hypertension; Z76.0 Encounter for issue of repeat prescription; Z79.890 Hormone replacement therapy; L73.2 Hidradenitis suppurativa; F17.290 Nicotine dependence, other tobacco product, uncomplicated; E03.9 Hypothyroidism, unspecified; Z79.899 Other long term (current) drug therapy; F41.8 Other specified anxiety disorders
CPT/HCPCS: 71046; 80048; 80307; 81025; 82077; 84484; 85025; 93005; 99283

== ENCOUNTER → 2024-01-03 | Outpatient (CLI) | payer MEDICAID, SELFPAY ==
[2024-01-03 13:00] LABS: Erythrocyte Sedimentation Rate 30 mm/hr (0-30)
[2024-01-03 13:24] LABS: ALB/GLOB Ratio 0.8 RATIO (0.9-2.4); AST(SGOT) 17 U/L (15-37); Alanine Aminotransfer ALT/SGPT 24 U/L (13-56); Albumin, Serum 3.1 g/dL (3.2-5.0); Alkaline Phosphatase 97 U/L (45-117); Anion Gap 7 (5-15); BUN 20 mg/dL (7-18); BUN/Creat Ratio 23.3 RATIO (10-20); Calcium,Total 8.6 mg/dL (8.5-10.1); Chloride 105 mmol/L (98-107); Cholesterol 206 mg/dL (200); Creatinine, Serum 0.86 mg/dL (0.55-1.02); EST Glomerular Filtration Rate 76 mL/min (>60); Est Glom Filt Rate - Afr Amer 93 mL/min (>60); Ferritin 20 ng/mL (8-252); Globulin 3.9 g/dL (2.2-4.2); Glucose 138 mg/dL (74-106); High Density Lipoprotein 47 mg/dL; Sodium Level 136 mmol/L (136-145); Triglycerides 254 mg/dL; Very Low Density Lipoprotein 51 mg/dL (5-40)
[2024-01-03 13:29] LABS: Microalbumin,Random Urine 9.7 mg/L (NO RANGE EST.)
[2024-01-03 13:49] LABS: Vitamin B12 237 pg/mL (211-911); Vitamin D,25 Hydroxy 16.6 ng/mL
[2024-01-04 14:10] LABS: CCP IgG Antibodies 8 units (0-19)
[2024-01-04 15:09] LABS: ANTINUCLEAR ANTIBODIES DIRECT Negative (Negative)
== END | disposition home or self-care (01) ==
LOC: VSLAB 11:35
PROVIDERS: PCP Family Medicine; Visit Provider Family Medicine
DX: E11.69 Type 2 diabetes mellitus with other specified complication (principal); R20.0 Anesthesia of skin; M19.90 Unspecified osteoarthritis, unspecified site
CPT/HCPCS: 36415; 80053; 80061; 82043; 82306; 82607; 82728; 83735; 84443; 85652; 86038; 86140; 86200

== ENCOUNTER 2024-01-23 11:10 | Emergency (ER) | payer MEDICAID, SELFPAY ==
[2024-01-23 11:11] VITALS: BP 148/92; PULSE 90; RESP 18; TEMP 36.8; O2SAT 97; BMI 59.8
[2024-01-23 11:21] VITALS: O2SAT 91
--- NOTE | 2024-01-23 12:32 | RAD_ITS ---
EXAM: XR CHEST, 2 VIEWS CLINICAL INDICATION: cough TECHNIQUE: Frontal and lateral views of the chest. COMPARISON: XR Chest dated 12/27/2023 FINDINGS: LUNGS AND PLEURAL SPACES: Normal. No consolidation or edema. No pneumothorax. No effusion. HEART: Normal heart size. MEDIASTINUM: No mediastinal or hilar mass. BONES/JOINTS: No acute abnormality. RAD/Chest PA and Lateral IMPRESSION: No acute cardiopulmonary abnormality. No interval change. Electronically Signed: Alex Macias MD at 13:13 EST ,
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
[2024-01-23] MEDS: predniSONE 20 MG Tablet 60 MG PO (12:47)
[2024-01-23] MEDS: Ipratropium/Albuterol Sulfate 3 ML AMPUL.NEB INHALATION (13:13)
[2024-01-23 13:17] VITALS: PULSE 85; RESP 16; O2SAT 98
== END 2024-01-23 14:40 | disposition home or self-care (01) ==
PROVIDERS: Emergency Provider Emergency Medicine; PCP Family Medicine; Visit Provider Emergency Medicine
DX: J06.9 Acute upper respiratory infection, unspecified (principal); F31.9 Bipolar disorder, unspecified; E11.9 Type 2 diabetes mellitus without complications; I10 Essential (primary) hypertension; Z79.899 Other long term (current) drug therapy; E03.9 Hypothyroidism, unspecified; Z79.890 Hormone replacement therapy; F41.8 Other specified anxiety disorders; F17.200 Nicotine dependence, unspecified, uncomplicated
CPT/HCPCS: 71046; 87631; 94640; 99284

== ENCOUNTER 2024-04-21 22:05 | Emergency (ER) | payer MEDICAID, SELFPAY ==
[2024-04-21 22:06] VITALS: BP 125/100; PULSE 81; RESP 15; TEMP 35.5; O2SAT 100; BMI 64.0
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
--- NOTE | 2024-04-21 23:12 | ED.RN ---
Pt comes to desk and states she has to work in the morning so she is not going to wait. Left without testing or I&D.
== END 2024-04-21 23:15 | disposition left against medical advice (07) ==
LOC: ED 22:22
PROVIDERS: Emergency Provider Emergency Medicine; PCP Family Medicine; Visit Provider Emergency Medicine
DX: R10.9 Unspecified abdominal pain (principal); F31.9 Bipolar disorder, unspecified; E11.9 Type 2 diabetes mellitus without complications; L02.211 Cutaneous abscess of abdominal wall; I10 Essential (primary) hypertension; L73.2 Hidradenitis suppurativa; R10.2 Pelvic and perineal pain; F41.9 Anxiety disorder, unspecified; E03.9 Hypothyroidism, unspecified; Z79.899 Other long term (current) drug therapy; Z79.890 Hormone replacement therapy; F17.200 Nicotine dependence, unspecified, uncomplicated
CPT/HCPCS: 99282

== ENCOUNTER → 2024-10-16 | Outpatient (CLI) | payer MEDICAID, SELFPAY ==
[2024-10-16 12:40] LABS: Hematocrit 45.4 % (37-47); Hemoglobin 14.1 g/dL (12.0-15.0); Immature Granulocytes Count 0.070 X10^3/uL (0.0-0.0); Mean Corp Hgb Conc 31.1 g/dL (32-36); Mean Corpuscular Volume 83.3 fL (81-99); Mean Platelet Vol. 10.3 fl (6.2-12.0); NRBC Flagged by Analyzer 0 % (0-5); Platelet Count 427 K/mm3 (150-450); RBC Distribution Width CV 14.5 % (11.6-14.6); RBC Distribution Width SD 43.6 fl (35.1-43.9); Red Blood Count 5.45 M/mm3 (4.2-5.4); White Blood Count 14.0 K/mm3 (4.4-11.0)
[2024-10-16 13:42] LABS: AST(SGOT) 21 U/L (<=31); Alanine Aminotransfer ALT/SGPT 22 U/L (<=34); Albumin, Serum 4.2 g/dL (3.5-5.0); Alkaline Phosphatase 95 U/L (35-104); Anion Gap 15 (5-15); BUN 13 mg/dL (4-19); BUN/Creat Ratio 17.7 RATIO (10-20); CRP 21.10 mg/L (0.0-3.0); Calcium,Total 9.3 mg/dL (7.6-11.0); Carbon Dioxide 22.3 mmol/L (21.0-32.0); Chloride 103 mmol/L (98-108); Cholesterol 215 mg/dL (<=200); Globulin 3.4 g/dL (2.2-4.2); Glucose 116 mg/dL (70-99); Low Density Lipoprotein Calc. 141 mg/dL; Magnesium 2.1 mg/dL (1.5-2.2); Potassium 4.0 mmol/L (3.3-5.1); Triglycerides 166 mg/dL; Very Low Density Lipoprotein 33 mg/dL (5-40); Vitamin B12 437 pg/mL (180-914); Vitamin D,25 Hydroxy 31.4 ng/mL (30-100); cholesterol:hdl ratio screen 5.23
--- OUTSIDE RECORDS SUMMARY | 2024-10-16 19:38 | XMS RPT_ITS | CCD ---
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 mecobalamin (vitamin B12) 1,000 1,000 mcg PO DAILY 12/24/22 Unknown History mcg chewable tablet levothyroxine 200 mcg tablet 200 mcg PO DAILY thyroid #30 tabs 06/23/23 Unknown Rx lisinopril 10 mg tablet 10 mg PO DAILY blood pressure 07/06/23 Unknown History sulfamethoxazole 800 1 tab PO BID #20 TABLETS 07/06/23 Unknown Rx mg-trimethoprim 160 mg tablet Allergy/AdvReac Type Severity Reaction Status Date / Time walnut Allergy Angioedema Verified 07/05/23 22:36 Yeast Allergy Unknown Verified 07/05/23 22:36 Family History Mother Hypertension Aunt Cancer Other Anxiety Depression Diabetes Mental disorder Myocardial infarction Surgical History History of dental surgery History of D C H/O thyroidectomy Social History Smoking Status: Current every day smoker tobacco type: cigarettes and e-cigarettes alcohol intake: current alcohol intake frequency: 3 or more drinks per day substance use type: marijuana and crack/cocaine what type of physical activity do you participate in: other details: work/ house work frequency: 5-6 times per week ROS ROS ED Constitutional Constitutional ED: Reports fatigue; Denies chills or fever(s) Eyes Eyes: Denies change in vision or diplopia ENT ENT ED: Reports nasal congestion, rhinorrhea and sore throat Cardiovascular Cardiovascular: Denies chest pain or palpitations Respiratory/Chest Respiratory/Chest: Reports cough, dyspnea and wheezing; Denies sputum Gastrointestinal Gastrointestinal: Denies abdominal pain, diarrhea, nausea or vomiting Genitourinary Genitourinary ED: Denies dysuria or hematuria Musculoskeletal Musculoskeletal: Reports back pain and myalgias; Denies neck pain Integumentary Reports wounds; Denies abscess or rash Neurologic Neurologic: Denies paresthesias or weakness Psychiatric Psychiatric: Reports anxiety; Denies suicidal thoughts EXAM Physical Exam Const Vital Signs: 07/05/23 22:30 07/06/23 00:13 07/06/23 02:30 Temperature 96.3 F L Temperature Source Temporal Pulse Rate 95 82 Respiratory Rate 18 17 Respiratory Effort Normal Non-Labored Respiratory Pattern Normal Blood Pressure 141/108 H 136/83 H Blood Pressure Mean 119 100 Pulse Ox 96 98 (more content not included)... Normal [facility] [place] 07-05-2023 INTERNAL QC OK? Normal [facility] Comment on above: Result Comment: This specimen has been REJECTED due to Laboratory criteria: Hemolyzed. [email or web address] has been notified of need of recollection. 07/05/23 2348 Rachel Howard Performed By: #### L 700.5500, L100.0100, L500.4050 #### [facility] [address] [place], [address] MONO Normal Negative [facility] Comment on above: Result Comment: This specimen has been REJECTED due to Laboratory criteria: Hemolyzed. [email or web address] has been notified of need of recollection. 07/05/23 2348 Rachel Howard Performed By: #### L 700.5500, L100.0100, L500.4050 #### [facility] [address] [place], [address] RECORD KIT LOT# Normal [facility] Comment on above: Result Comment: This specimen has been REJECTED due to Laboratory criteria: Hemolyzed. [email or web address] has been notified of need of recollection. 07/05/238 Rachel Howard Performed By: #### L 700.5500, L100.0100, L500.4050 #### [facility] [address] [place], [address] CVFLURVon 05-01-2023 FLU A PCR Negative Normal Negative [facility] ([place]) Comment on above: Result Comment: Note s [id number] Performed By: ###Rasheed CALLE #### [facility] [address] [place] [address] FLU B PCR Negative Normal Negative [facility] ([place]) Comment on above: Result Comment: Note s [id number] Performed By: #### Mishel CALLE #### [facility] [address] [place] [address] RSV PCR Negative Normal Negative [facility] ([place]) Comment on above: Result Comment: Note s [id number] Performed By: #### Mishel CALLE #### [facility] [address] [place], [place] [address] SARS-CoV-2 (COVID-19) RNA WES+probe Ql (Unsp spec) Negative Normal Negative [facility] ([place]) Comment on above: Result Comment: Note s [id number] This test has been authorized by FDA under an EUA for use by authorized laboratories and has not been FDA cleared or approved. Results from the Xpert Xpress SARS-CoV-2/Flu/RSV or Xpert Xpress SARS-CoV-2 only test should be correlated with the clinical history, epidemiological data, and other data available to the clinician evaluating the patient. Performance of the Xpert Xpress SARS-CoV-2/Flu/RSV or Xpert Xpress SARS-CoV-2 only test has only been established in nasopharyngeal swab specimens. Erroneous test results might occur from improper specimen collection; failure to follow the recommended sample collection, handling, and storage procedures; technical error; or sample mix-up.False negative results may occur if virus is present at levels below the analytical limit of detection. Viral nucleic acid may persist in vivo, independent of virus viability. Detection of analyte target(s) does not imply that the corresponding virus(es) are infectious or are the causative agents for clinical symptoms.Recent patient exposure to FluMist or other live attenuated influenza vaccines may cause inaccurate positive results. Performed By: #### D RUGU #### [facility] [address] [place] [address] DRUGSon 05-01-2023 Acetaminophen [Mass/Vol] ug/mL Low 10.0-20.0 [facility] ([place]) Comment on above: Performed By: #### D RUGS ####[address] [address] Ethanol Level <10.0 Normal [facility] ([place]) Comment on above: Performed By: #### D RUGS ####[place] [id number] [place] [address] Salicylate Lvl (ds) <3.0 Low 10.0-25.0 [facility] ([place]) Comment on above: Performed By: #### D RUGS ####[address] [address] Serum Drugs screened: See Below Normal [facility] ([place]) Comment on above: Result Comment: This drug screen is a presumptive screening only. No confirmation will be performed unless requested. Drugs included in the ER serum drug screen are: Threshold Ethanol 10.0 mg/dL Salicylate 2.0 mg/dl Acetaminophen 2.0 mcg/mL Testing has been performed FOR MEDICAL PURPOSES ONLY. Performed By: #### D DELORES ####[address] [address] .Auto Diffon 04-30-2023 Basophil, Absolute 0.2 10 3/mcL Normal 0.0-0.3 [facility] ([place]) Comment on above: Performed By: #### C MP, ANEU, LIP, CBC, MDW, GFR, ADIFF ####[address] [address] Basophils/100 WBC (Bld) 1.2 % Normal 0.0-2.5 [facility] ([place]) Comment on above: Performed By: #### C MP, ANEU, LIP, CBC, MDW, GFR, ADIFF ####[address] [address] Eosinophil, Absolute 0.2 10 3/mcL Normal 0.0-0.7 [facility] ([place]) Comment on above: Performed By: #### C MP, ANEU, LIP, CBC, MDW, GFR, ADIFF ####[address] [address] Eosinophils/100 WBC (Bld) 1.4 % Normal 0.0-6.0 [facility] ([place]) Comment on above: Performed By: #### C MP, ANEU, LIP, CBC, MDW, GFR, ADIFF ####[address] [address] Lymphocyte, Absolute 2.9 10 3/mcL Normal 0.9-4.3 [facility] ([place]) Comment on above: Performed By: #### C MP, ANEU, LIP, CBC, MDW, GFR, ADIFF ####[address] [address] Lymphocytes/100 WBC (Bld) 21.5 % Normal 20.0-40.0 [facility] ([place]) Comment on above: Performed By: #### C MP, ANEU, LIP, CBC, MDW, GFR, ADIFF ####[address] [address] Monocyte, Absolute 0.9 10 3/mcL Normal 0.1-1.4 [facility] ([place]) Comment on above: Performed By: #### C MP, ANEU, LIP, CBC, MDW, GFR, ADIFF ####[address] [address] Monocytes/100 WBC (Bld) 6.4 % Normal 2.0-13.0 [facility] ([place]) Comment on above: Performed By: #### C MP, ANEU, LIP, CBC, MDW, GFR, ADIFF ####[address] [address] Neutrophils/100 WBC (Bld) 69.5 % Normal 50.0-75.0 [facility] ([place]) Comment on above: Performed By: #### C MP, ANEU, LIP, CBC, MDW, GFR, ADIFF ####[place] [address] .GFRon 04-30-2023 GFR >60 Normal [facility] ([place]) Comment on above: Result Comment: GFR Population mean for , Non- Americans Ages 20-29 = 116 mL/min/1.73 sq.m. Ages 30-39 = 107 mL/min/1.73 sq.m. Ages 40-49 = 99 mL/min/1.73 sq.m. Ages 50-59 = 93 mL/min/1.73 sq.m. Ages 60-69 = 85 mL/min/1.73 sq.m. Ages 70+ = 75 mL/min/1.73 sq.m. Chronic Kidney Disease: Less than 60 mL/min/1.73 square meters End Stage Renal Disease: Less than 15 mL/min/1.73 square meters Performed By: #### C MP, ANEU, LIP, CBC, MDW, GFR, ADIFF ####[address] [address] GFR Non- >60 Normal [facility] ([place]) Comment on above: Result Comment: GFR Population mean for , Non- Americans Ages 20-29 = 116 mL/min/1.73 sq.m. Ages 30-39 = 107 mL/min/1.73 sq.m. Ages 40-49 = 99 mL/min/1.73 sq.m. Ages 50-59 = 93 mL/min/1.73 sq.m. Ages 60-69 = 85 mL/min/1.73 sq.m. Ages 70+ = 75 mL/min/1.73 sq.m. Chronic Kidney Disease: Less than 60 mL/min/1.73 square meters End Stage Renal Disease: Less than 15 mL/min/1.73 square meters Performed By: #### C MP, ANEU, LIP, CBC, MDW, GFR, ADIFF ####[place] [address] .MDWon 04-30-2023 Monocyte Distribution Width 17.44 Normal 0.00-20.00 [facility] ([place]) Comment on above: Result Comment: For ED adult patients suspected of sepsis, MDW<=20.0 does not rule out sepsis or risk of sepsis Performed By: #### C MP, ANEU, LIP, CBC, MDW, GFR, ADIFF ####[place] [address] .NEUABSon 04-30-2023 Neutrophil, Absolute 9.5 10 3/mcL High 2.3-8.1 [facility] ([place]) Comment on above: Performed By: #### C MP, ANEU, LIP, CBC, MDW, GFR, ADIFF ####[place] [address] CBCon 04-30-2023 Erythrocyte distribution width (RBC) [Ratio] 15.5 % Normal 11.5-15.5 [facility] ([place]) Comment on above: Performed By: #### C MP, ANEU, LIP, CBC, MDW, GFR, ADIFF ####[place] [address] Hematocrit (Bld) [Volume fraction] 41.9 % Normal 34.0-46.0 [facility] ([place]) Comment on above: Performed By: #### C MP, ANEU, LIP, CBC, MDW, GFR, ADIFF ####[place] [address] Hgb 13.6 G/dL Normal 12.0-16.0 [facility] ([place]) Comment on above: Performed By: #### C MP, ANEU, LIP, CBC, MDW, GFR, ADIFF ####[place] [address] MCH (RBC) [Entitic mass] 28.2 pg Normal 27.0-33.0 [facility] ([place]) Comment on above: Performed By: #### C MP, ANEU, LIP, CBC, MDW, GFR, ADIFF ####[place] [address] MCHC 32.6 G/dL Normal 32.0-36.0 [facility] ([place]) Comment on above: Performed By: #### C MP, ANEU, LIP, CBC, MDW, GFR, ADIFF ####[place] [address] MCV (RBC) [Entitic vol] 86.6 fL Normal 80.0-99.0 [facility] ([place]) Comment on above: Performed By: #### C MP, ANEU, LIP, CBC, MDW, GFR, ADIFF ####[place] [address] Platelet 342 10 3/mcL Normal 150-450 [facility] ([place]) Comment on above: Performed By: #### C MP, ANEU, LIP, CBC, MDW, GFR, ADIFF ####[place] [address] Platelet mean volume (Bld) [Entitic vol] 8.5 fL Normal 6.6-10.5 [facility] ([place]) Comment on above: Performed By: #### C MP, ANEU, LIP, CBC, MDW, GFR, ADIFF ####[place] [address] RBC 4.84 10 6/mcL Normal 4.10-5.30 [facility] ([place]) Comment on above: Performed By: #### C MP, ANEU, LIP, CBC, MDW, GFR, ADIFF ####[address] [address] WBC 13.7 10 3/mcL High 4.5-10.8 [facility] ([place]) Comment on above: Performed By: #### C MP, ANEU, LIP, CBC, MDW, GFR, ADIFF ####[address] [address] CMPon 04-30-2023 Albumin Level 3.7 G/dL Normal 3.2-4.8 [facility] ([place]) Comment on above: Performed By: #### C MP, ANEU, LIP, CBC, MDW, GFR, ADIFF ####[place] [id number] Albumin/Globulin [Mass ratio] 1.1 {ratio} Normal 0.9-1.6 [facility] ([place]) Comment on above: Performed By: #### C MP, ANEU, LIP, CBC, MDW, GFR, ADIFF ####[place] [address] ALP [Catalytic activity/Vol] 90 U/L Normal 38-126 [facility] ([place]) Comment on above: Performed By: #### C MP, ANEU, LIP, CBC, MDW, GFR, ADIFF ####[address] [address] ALT [Catalytic activity/Vol] 65 U/L High 10-49 [facility] ([place]) Comment on above: Performed By: #### C MP, ANEU, LIP, CBC, MDW, GFR, ADIFF ####[address] [address] AST [Catalytic activity/Vol] 61 U/L High 8-34 [facility] ([place]) Comment on above: Performed By: #### C MP, ANEU, LIP, CBC, MDW, GFR, ADIFF ####[address] [address] Bili Total 0.80 mg/dL Normal 0.20-1.20 [facility] ([place]) Comment on above: Result Comment: Use of this assay is not recommended for patients undergoing treatment with eltrombopag due to the potential for falsely elevated results. Performed By: #### C MP, ANEU, LIP, CBC, MDW, GFR, ADIFF ####[address] [address] BUN/Creatinine Ratio 10.7 ratio Normal 10.0-22.0 [facility] ([place]) Comment on above: Performed By: #### C MP, ANEU, LIP, CBC, MDW, GFR, ADIFF ####[place] [id number] Calcium [Mass/Vol] 9.3 mg/dL Normal 8.7-10.4 [facility] ([place]) Comment on above: Performed By: #### C MP, ANEU, LIP, CBC, MDW, GFR, ADIFF ####[place] [id number] Chloride [Moles/Vol] 105 mmol/L Normal 98-110 [facility] ([place]) Comment on above: Performed By: #### C MP, ANEU, LIP, CBC, MDW, GFR, ADIFF ####[place] [id number] CO2 [Moles/Vol] 30 mmol/L Normal 22-32 [facility] ([place]) Comment on above: Performed By: #### C MP, ANEU, LIP, CBC, MDW, GFR, ADIFF ####[place] [id number] Creatinine [Mass/Vol] 0.75 mg/dL Normal 0.50-1.20 [facility] ([place]) Comment on above: Performed By: #### C MP, ANEU, LIP, CBC, MDW, GFR, ADIFF ####[place] [id number] Electrolyte Balance 6.0 mEq/L Normal 4.0-15.0 [facility] ([place]) Comment on above: Performed By: #### C MP, ANEU, LIP, CBC, MDW, GFR, ADIFF ####[address] [address] Globulin 3.3 G/dL Normal 1.5-3.8 [facility] ([place]) Comment on above: Performed By: #### C MP, ANEU, LIP, CBC, MDW, GFR, ADIFF ####[address] [address] Glucose [Mass/Vol] 107 mg/dL Normal 70-110 [facility] ([place]) Comment on above: Performed By: #### C MP, ANEU, LIP, CBC, MDW, GFR, ADIFF ####[address] [address] Potassium [Moles/Vol] 3.6 mmol/L Normal 3.5-5.0 [facility] ([place]) Comment on above: Performed By: #### C MP, ANEU, LIP, CBC, MDW, GFR, ADIFF ####[address] [address] Sodium [Moles/Vol] 141 mmol/L Normal 136-145 [facility] ([place]) Comment on above: Performed By: #### C MP, ANEU, LIP, CBC, MDW, GFR, ADIFF ####[address] [address] Total Protein 7.0 G/dL Normal 5.7-8.2 [facility] ([place]) Comment on above: Result Comment: No te - New Reference Range in effect 19 Performed By: #### C MP, ANEU, LIP, CBC, MDW, GFR, ADIFF ####[address] [address] Urea nitrogen [Mass/Vol] 8.0 mg/dL Normal 8.0-22.0 [facility] ([place]) Comment on above: Performed By: #### C MP, ANEU, LIP, CBC, MDW, GFR, ADIFF ####[address] [address] DRUGUon 04-30-2023 Amphetamine (u) Positive Abnormal Negative [facility] ([place]) Comment on above: Performed By: #### D RUGU #### [address] [address] Cannabinoid (u) Positive Abnormal Negative [facility] ([place]) Comment on above: Performed By: #### Mishel RUGU #### [facility] [address] [place], [place] [id number] Barbiturate (u) Negative Normal Negative [facility] ([place]) Comment on above: Performed By: #### Mishel RUGU #### [address] [address] Benzodiazepine (u) Negative Normal Negative [facility] ([place]) Comment on above: Performed By: #### Mishel RUGU #### [address] [address] Cocaine Ql (U) Negative Normal Negative [facility] ([place]) Comment on above: Performed By: #### Mishel RUGU #### [place] [id number] Fentanyl (u) Negative Normal Negative [facility] ([place]) Comment on above: Result Comment: Test ing has been performed FOR MEDICAL PURPOSES ONLY. Performed By: #### Mishel RUGU #### [place] [address] Methadone Ql (U) Negative Normal Negative [facility] ([place]) Comment on above: Performed By: #### Mishel RUGU #### [place] [id number] Opiate (u) Negative Normal Negative [facility] ([place]) Comment on above: Performed By: #### Mishel RUGU #### [address] [address] Oxycodone (u) Negative Normal Negative [facility] ([place]) Comment on above: Result Comment: Test ing has been performed FOR MEDICAL PURPOSES ONLY. Performed By: #### Mishel RUGU #### [address] [address] PCP (u) Negative Normal Negative [facility] ([place]) Comment on above: Performed By: #### D RUGU #### [address] [address] Propoxyphene (u) Negative Normal Negative [facility] ([place]) Comment on above: Performed By: #### Mishel RUGU #### [place] [id number] U pH Drug Scrn 7.0 Normal 5.0-8.0 [facility] ([place]) Comment on above: Performed By: #### D LUC #### [place] [id number] Urine Drugs screened: See Below Normal [facility] ([place]) Comment on above: Result Comment: This drug screen is a presumptive screening only. No confirmation will be performed unless requested. Drugs screened include: Threshold Amphetamines/Methamphetamines 1,000 ng/mL Barbiturates 200 ng/mL Benzodiazepine metabolites 200 ng/mL Cannabinoids (THC metabolites) 50 ng/mL Benzoylecognine (Cocaine metab) 300 ng/mL Opiates 300 ng/mL Phencyclidine (PCP) 25 ng/mL Methadone 300 ng/mL Propoxyphene 300 ng/mL Fentanyl 1.0 ng/mL Oxycodone 100 ng/mL Testing has been performed FOR MEDICAL PURPOSES ONLY. Performed By: #### D LUC #### [place] [address] LABORATORYOrdered By: Sawyer Cohen on 04-30-2023 Acetaminophen [Mass/Vol] mcg/mL Low 10.0 - 20.0 mcg/mL AH ADM SS Ethanol [Mass/Vol] mg/dL Invalid Interpretation Code AH ADM SS Salicylates [Mass/Vol] mg/dL Low 10.0 - 25.0 mg/dL AH ADM SS Serum Drugs screened: See Below 7 (04/30/23 9:55 PM) Normal AH Chemistry S Comment on above: Interpretive Data: T his drug screen is a presumptive screening only. No confirmation will be performed unless requested. Drugs included in the ER serum drug screen are: Threshold Ethanol 10.0 mg/dL Salicylate 2.0 mg/dl Acetaminophen 2.0 mcg/mL Testing has been performed FOR MEDICAL PURPOSES ONLY. LABORATORYOrdered By: Chely Ley on 04-30-2023 FLUAV RNA WES+probe Ql (Resp) Negative 11 (04/30/23 9:22 PM) Normal Negative AH Auto Viro/Sero SS Comment on above: Result Comment: [place] [id number] FLUBV RNA WES+probe Ql (Resp) Negative 12 (04/30/23 9:22 PM) Normal Negative AH Auto Viro/Sero SS Comment on above: Result [place]: [place] [id number] RSV PCR Negative 13 (04/30/23 9:22 PM) Normal Negative AH Auto Viro/Sero SS Comment on above: Result Comment: [place] [id number] SARS-CoV-2 (COVID-19) RNA WES+probe Ql (Resp) Negative 9, 10 (04/30/23 9:22 PM) Normal Negative AH Auto Viro/Sero SS Comment on above: Result Comment: Note s [id number] Interpretive Data: T his test has been authorized by FDA under an EUA for use by authorized laboratories and has not been FDA cleared or approved. Results from the Xpert Xpress SARS-CoV-2/Flu/RSV or Xpert Xpress SARS-CoV-2 only test should be correlated with the clinical history, epidemiological data, and other data available to the clinician evaluating the patient. Performance of the Xpert Xpress SARS-CoV-2/Flu/RSV or Xpert Xpress SARS-CoV-2 only test has only been established in nasopharyngeal swab specimens. Erroneous test results might occur from improper specimen collection; failure to follow the recommended sample collection, handling, and storage procedures; technical error; or sample mix-up.False negative results may occur if virus is present at levels below the analytical limit of detection. Viral nucleic acid may persist in vivo, independent of virus viability. Detection of analyte target(s) does not imply that the corresponding virus(es) are infectious or are the causative agents for clinical symptoms.Recent patient exposure to FluMist or other live attenuated influenza vaccines may cause inaccurate positive results. LABORATORYOrdered By: Amanda Lemos on 04-30-2023 Amphetamines Screen Ql (U) Positive *ABN* (04/30/23 7:42 PM) Invalid Interpretation Code Negative AH ADM SS Barbiturates Screen Ql (U) Negative *NA* (04/30/23 7:42 PM) Invalid Interpretation Code Negative AH ADM SS Benzodiazepines Ql (U) Negative *NA* (04/30/23 7:42 PM) Invalid Interpretation Code Negative AH ADM SS Benzoylecgonine Screen Ql (U) Negative *NA* (04/30/23 7:42 PM) Invalid Interpretation Code Negative AH ADM SS Cannabinoids Screen Ql (U) Positive *ABN* (04/30/23 7:42 PM) Invalid Interpretation Code Negative AH ADM SS fentaNYL Screen Ql (U) Negative 2 *NA* (04/30/23 7:42 PM) Invalid Interpretation Code Negative AH ADM SS Comment on above: Interpretive Data: T esting has been performed FOR MEDICAL PURPOSES ONLY. Methadone Screen Ql (U) Negative *NA* (04/30/23 7:42 PM) Invalid Interpretation Code Negative AH ADM SS Opiates Screen Ql (U) Negative *NA* (04/30/23 7:42 PM) Invalid Interpretation Code Negative AH ADM SS oxyCODONE Ql (U) Negative 3 *NA* (04/30/23 7:42 PM) Invalid Interpretation Code Negative AH ADM SS Comment on above: Interpretive Data: T esting has been performed FOR MEDICAL PURPOSES ONLY. pH (U) 7.0 [pH] Normal 5.0 - 8.0 AH Chemistry S Phencyclidine Ql (U) Negative *NA* (04/30/23 7:42 PM) Invalid Interpretation Code Negative AH ADM SS Propoxyphene Screen Ql (U) Negative *NA* (04/30/23 7:42 PM) Invalid Interpretation Code Negative AH ADM SS Urine Drugs screened: See Below 8 (04/30/23 7:42 PM) Normal Chemistry S Comment on above: Interpretive Data: T his drug screen is a presumptive screening only. No confirmation will be performed unless requested. Drugs screened include: Threshold Amphetamines/Methamphetamines 1,000 ng/mL Barbiturates 200 ng/mL Benzodiazepine metabolites 200 ng/mL Cannabinoids (THC metabolites) 50 ng/mL Benzoylecognine (Cocaine metab) 300 ng/mL Opiates 300 ng/mL Phencyclidine (PCP) 25 ng/mL Methadone 300 ng/mL Propoxyphene 300 ng/mL Fentanyl 1.0 ng/mL Oxycodone 100 ng/mL Testing has been performed FOR MEDICAL PURPOSES ONLY. LABORATORYOrdered By: SYSTEM SYSTEM on 04-30-2023 Albumin BCP dye [Mass/Vol] 3.7 G/dL Normal 3.2 - 4.8 G/dL AH ADM SS Albumin/Globulin [Mass ratio] 1.1 {ratio} Normal 0.9 - 1.6 ratio AH ADM SS ALP [Catalytic activity/Vol] 90 U/L Normal 38 - 126 U/L AH ADM SS ALT No additional P-5'-P [Catalytic activity/Vol] 65 U/L High 10 - 49 U/L AH ADM SS AST [Catalytic activity/Vol] 61 U/L High 8 - 34 U/L AH ADM SS Basophils (Bld) [#/Vol] 0.2 103/mcL Normal 0.0 - 0.3 10^3/mcL AH Workflow SS Basophils/100 WBC (Bld) 1.2 % Normal 0.0 - 2.5 % AH Workflow SS Bilirubin [Mass/Vol] 0.80 mg/dL Normal 0.20 - 1.20 mg/dL ADM SS Comment on above: Interpretive Data: U se of this assay is not recommended for patients undergoing treatment with eltrombopag due to the potential for falsely elevated results. Calcium [Mass/Vol] 9.3 mg/dL Normal 8.7 - 10. 4 mg/dL AH ADM SS Chloride [Moles/Vol] 105 mmol/L Normal 98 - 11 0 mEq/L ADM SS CO2 [Moles/Vol] 30 mmol/L Normal 22 - 32 mEq/L ADM SS Creatinine [Mass/Vol] 0.75 mg/dL Normal 0.50 - 1.20 mg/dL AH ADM SS Electrolyte Balance 6.0 mEq/L Normal 4.0 - 15 .0 mEq/L AH ADM SS Eosinophils (Bld) [#/Vol] 0.2 103/mcL Normal 0.0 - 0.7 10^3/mcL AH Workflow SS Eosinophils/100 WBC (Bld) 1.4 % Normal 0.0 - 6.0 % Workflow SS Erythrocyte distribution width (RBC) [Ratio] 15.5 % Normal 11.5 - 15.5 % Workflow SS GFR/1.73 sq M.predicted among blacks MDRD (S/P/Bld) [Vol rate/Area] ml/min/1.73sqm Invalid Interpretation Code ADM SS Comment on above: Interpretive Data: GFR Population mean for , Non- Americans Ages 20-29 = 116 mL/min/1.73 sq.m. Ages 30-39 = 107 mL/min/1.73 sq.m. Ages 40-49 = 99 mL/min/1.73 sq.m. Ages 50-59 = 93 mL/min/1.73 sq.m. Ages 60-69 = 85 mL/min/1.73 sq.m. Ages 70+ = 75 mL/min/1.73 sq.m. Chronic Kidney Disease: Less than 60 mL/min/1.73 square meters End Stage Renal Disease: Less than 15 mL/min/1.73 square meters GFR/1.73 sq M.predicted among non-blacks MDRD (S/P/Bld) [Vol rate/Area] ml/min/1.73sqm Invalid Interpretation Code ADM SS Comment on above: Interpretive Data: GFR Population mean for , Non- Americans Ages 20-29 = 116 mL/min/1.73 sq.m. Ages 30-39 = 107 mL/min/1.73 sq.m. Ages 40-49 = 99 mL/min/1.73 sq.m. Ages 50-59 = 93 mL/min/1.73 sq.m. Ages 60-69 = 85 mL/min/1.73 sq.m. Ages 70+ = 75 mL/min/1.73 sq.m. Chronic Kidney Disease: Less than 60 mL/min/1.73 square meters End Stage Renal Disease: Less than 15 mL/min/1.73 square meters Globulin 3.3 G/dL Normal 1.5 - 3.8 G/dL ADM SS Glucose [Mass/Vol] 107 mg/dL Normal 70 - 110 mg/dL ADM SS Hematocrit (Bld) [Volume fraction] 41.9 % Normal 34.0 - 46.0 % Workflow SS Hemoglobin (Bld) [Mass/Vol] 13.6 G/dL Normal 12.0 - 16.0 G/dL Workflow SS Lipase [Catalytic activity/Vol] 33 U/L Normal 12 - 53 U/L ADM Comment on above: Interpretive Data: * *Note - New Reference Range in effect 19 Lymphocytes (Bld) [#/Vol] 2.9 103/mcL Normal 0.9 - 4.3 10^3/mcL Workflow SS Lymphocytes/100 WBC (Bld) 21.5 % Normal 20.0 - 40.0 % Workflow SS MCH (RBC) [Entitic mass] 28.2 pg Normal 27.0 - 33.0 pg Workflow SS MCHC 32.6 G/dL Normal 32.0 - 36.0 G/dL Workflow SS MCV (RBC) [Entitic vol] 86.6 fL Normal 80.0 - 99.0 fL AH Workflow SS Monocyte distribution width Auto (Bld) [Entitic vol] 17.44 1 Normal 0.00 - 20.00 AH Workflow SS Comment on above: Result Comment: For ED adult patients suspected of sepsis, MDW<=20.0 does not rule out sepsis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 information without the specific, written, and informed release of the individual to whom it pertains or as otherwise permitted by state law. A general authorization for the release of medical or other information is not sufficient for the purpose of the release of HIV test results or diagnoses. Performed By: #### 5 195-3, 36434-7, 48898-7 #### [facility] CLIA [id number] [address] [place] [address] [place] HSV PCR, MISCELLANEOUS SPECI MEN TYPESon 06-22-2022 HERPES SIMPLEX VIRUS SOURCE Serum Normal [facility] Comment on above: Order Comment: Speci men Type: BLOOD SPECIMEN Ordering Facility: [facility] Address: [address] [place] [address] Performed By: #### P CRHSV #### [facility] CLIA [id number] [address] [place] [address] HSV 1 SUBTYPE BY PCR Not detected Normal [facility] Comment on above: Order Comment: Speci men Type: BLOOD SPECIMEN Ordering Facility: [facility] Address: [address] [place] [address] Performed By: #### P CRHSV #### [facility] CLIA [id number] [address] [place] [address] HSV 2 SUBTYPE BY PCR Not detected Normal [facility] Comment on above: Order Comment: Speci men Type: BLOOD SPECIMEN Ordering Facility: [facility] Address: [address] [place] [address] Result Comment: INTE RPRETIVE INFORMATION: HSV-1 and HSV-2 Subtype by PCR A negative result does not rule out the presence of PCR inhibitors in the patient specimen or test-specific nucleic acid in concentrations below the level of detection by this test. This test was developed and its performance characteristics determined by [employer]. It has not been cleared or approved by the [place] Food and Drug Administration. This test was performed in a CLIA certified laboratory and is intended for clinical purposes. Performed by [facility], [address] [place] [id number] [email or web address] Serenity Lucas MD, PHD, Lab. Director Performed By: #### P CRHSV #### [facility] CLIA [id number] [address] [place] [address] RPR Ser Qlon 06-22-2022 Reagin Ab RPR Ql (S) Non-Reactive Normal Nonreactive [facility] Comment on above: Order Comment: Speci men Type: BLOOD SPECIMEN Ordering Facility: [facility] Address: [address] [place] [address] Result Comment: Rapi d plasma reagin (RPR) test detects non-treponemal antibodies. RPR may be reactive in a variety of infectious and non-infectious conditions. Correlation with clinical picture and with treponemal antibody results is required for final interpretation. Performed By: #### 2 0507-0 #### [facility] CLIA [id number] [address] [place] [address] [place] HPV W/GENOTYPE THIN PREPon 0 06-21-2022 HPV 16 Ag Ql (Unsp spec) Negative Normal Negative for HPV DNA high risk type 16 by PCR [facility] Comment on above: Order Comment: Speci men Type: FLUID SPECIMEN Ordering Facility: [facility] Address: [address] [place] [address] Performed By: #### H PVHRT #### [facility] CLIA [id number] [address] [place] [address] [place] HPV 18 Ag Ql (Unsp spec) Negative Normal Negative for HPV DNA high risk type 18 by PCR [facility] Comment on above: Order Comment: Speci men Type: FLUID SPECIMEN Ordering Facility: [facility] Address: [address] [place] [address], [place] [address] Performed By: #### H PVHRT #### [facility] CLIA [id number] [address] [place] [address] [place] HPV 31+33+35+39+45+51+52+ 56+58+59+66+68 DNA WES+probe Ql (Cvx) Negative for HPV DNA high risk types: 31,33,35,39,45,51,52,56 ,58,59,66,68 by PCR. Normal Negative for HPV DNA high risk types: 31,33,35,39,4 5,51,52,56,58 ,59,66,68 by PCR. [facility] Comment on above: Order Comment: Speci men Type: FLUID SPECIMEN Ordering Facility: [facility] Address: [address] [place] [address], [place] [address] Performed By: #### H PVHRT #### [facility] CLIA [id number] [address] [place] [address] [place] PAP TESTon 06-21-2022 CASE REPORT Normal [facility] Comment on above: Order Comment: Speci men Type: FLUID SPECIMEN Ordering Facility: [facility] Address: [address] [place] [address] Result Comment: Gyne cologic Cytology Report Case: [id number] Authorizing Provider: Rocío Lyon CNP Collected: 06/21/2022 02:00 PM Ordering Location: [facility] Received: 06/23/2022 03:05 PM First Screen: Danya Smith, CT, ASCP Specimen: Pap Test, ThinPrep, Cervix Performed By: #### L [id number] #### [facility] CLIA [id number] [address] [id number] [address] [place] CLINICAL HISTORY, CYTOLOGY, BILL DISTRIBUTOR Routine Exam Normal [facility] Comment on above: Order Comment: Speci men Type: FLUID SPECIMEN Ordering Facility: [facility] Address: [address] [place] [address], [place] [address] Performed By: #### L [id number] #### [facility] CLIA [id number] [facility] [place] [id number] [place] CYTOLOGY INTERPRETATION PAP Normal [facility] Comment on above: Order Comment: Speci men Type: FLUID SPECIMEN Ordering Facility: [facility] Address: [address] [place] [address], [place] [address] Result Comment: Nega tive for Intraepithelial lesion or malignancy. Performed By: #### L [id number] #### [facility] CLIA [id number] [address] [place] [address] STATES [place] [facility] FINAL DIAGNOSIS A - Cervix Normal [facility] Comment on above: Order Comment: Speci men Type: FLUID SPECIMEN Ordering Facility: [facility] Address: [address] [place] [address], [place] [address] Result Comment: Sati sfactory for interpretation Negative for Intraepithelial lesion or malignancy. Predominance of coccobacilli consistent with shift in vaginal shereen Performed By: #### L [id number] #### [facility] CLIA [id number] [facility] [place] [id number] [place] FINAL PERFORMING LAB Normal [facility] Comment on above: Order Comment: Speci men Type: FLUID SPECIMEN Ordering Facility: [facility] Address: [address] [facility], [place] [address] Result Comment: Tech nical component, quality control specialist screening performed at [facility], [address] [place] [facility] [address] CLIA# [id number] Diagnostic interpretation performed at [facility], [address] [place] [address] CLIA# [id number] Childhood Teacher: Yrn Zamora M.D. Performed By: #### L [id number] #### [facility] CLIA [id number] [address] [place] [address] [place] HPV REFLEX Auto HPV Normal [facility] Comment on above: Order Comment: Speci men Type: FLUID SPECIMEN Ordering Facility: [facility] Address: [address] [place] [address] Performed By: #### L [id number] #### [facility] CLIA [id number] [address] [place] [address] [place] LMP 05/22/2022 Normal [facility] Comment on above: Order Comment: Speci men Type: FLUID SPECIMEN Ordering Facility: [facility] Address: [address] [place] [address] Performed By: #### L [id number] #### [facility] CLIA [id number] [address] [place] [address] [place] PAP DISCLAIMER COMMENT The Pap Smear is a screening test for cervical cancer. False negative results occur with all screening tests, emphasizing the need for rescreening at recommended intervals, and clinical correlation. Normal [facility] Comment on above: Order Comment: Speci men Type: FLUID SPECIMEN Ordering Facility: [facility] Address: [address] [place] [address] Performed By: #### L [id number] #### [facility] CLIA [id number] [address] [place] [address] [place] Office Visiton 04-08-2022 Follow-up visit [id number] Mansoor Carrasco i 1980 F Date Provider Department Center 04/08/2022 [id number]-PMYHYIDKFMEHRAN BUSH [facility] None Family History Problem Relation Age of Onset Hypertension Mother Family Status - Relation Status Age at Mother Alive Father Alive Level of Service:02624 ME OFFICE/OUTPATIENT NEW MODERATE MDM 45-59 MINUTES Reason for Visit and Comments: New Patient [542] Pre-op Exam [857450] Sleep Apnea [348] Normal [facility] Progress Noteon 04-08-2022 Progress Note [facility]- Pulmonary and Sleep Medicine NEW PATIENT VISIT-PULMONARY 04/08/2022 REFERRING PHYSICIAN: Otilio Cheng APRN - [employer] [address] [facility] [place] [address] CHIEF COMPLAINT/REASON FOR REFERRAL: Chief Complaint Patient presents with New Patient Pre-op Exam Sleep Apnea Assessment and Plan: Prebariatric surgery assessment Dyspnea on exertion History of tobacco use disorder Sleep disordered breathing BMI 61 Given significant tobacco smoking history and reports of dyspnea, will assess with PFTs--pre and postbronchodilator However, dyspnea is likely MAC multifactorial with deconditioning and obesity being big contributors For likely sleep disordered breathing with her symptoms of frequent nocturnal awakenings and gasp/snort arousals and witnessed apneic episodes and STOP-BANG score of 5, pretest probability is high. We will proceed with in lab polysomnography. Polysomnography ordered as a split-night study and the patient is to be initiated on PAP therapy if AHI is greater than 15. Otherwise, patient's ARISCAT score is 15 and she overall falls into the low risk category of perioperative pulmonary complications. She is cleared to proceed to surgery after her polysomnogram is performed. Orders Placed This Encounter Procedures Complete PFT pre and post bronchodilator Polysomnography Mehran Bush MD Pulmonary, Critical Care, and Sleep Medicine Portions of the information within this encounter were entered using an electronic dictation system. Best attempts were made to edit/proofread the information prior to note completion. Despite the review of information, some errors may remain. If there are questions related to the information contained within the note please contact the signing physician directly. History of Present Illness: Marielle Carrasco is a 41 y.o. female who presents today for pre-bariatric surgery evaluation and assessment for sleep difficulties. The patient has a medical history notable for BMI 61, hypertension, GERD, hypothyroidism after thyroidectomy in 2008 and now on synthroid replacement. She has a significant smoking history, smoking 3-5 cigars per day for 25 years. She also smokes marijuana dialy. She also picked vaping, she estimates once a week, mainly vaping THC, but stopped that. Currently she has stopped all substance use 2 weeks ago. She does note chronic dyspnea, mainly with exertion. She reports occasional wheezing. She is not currently prescribed any inhalers. She has not had any hospitalizations for respiratory issues. No prior formal diagnoses of COPD or asthma or any other respiratory condition. Grade of dyspnea Description of breathlessness mMRC grade 0 I only get breathless with strenuous exercise mMRC grade 1 I get short of breath when hurrying on level ground or walking up a slight hill mMRC grade 2 On level ground, I walk slower than people of the same age because of breathlessness, or I have to stop for breath when walking at my own pace on level ground mMRC grade 3 I stop for breath after walking about 100 yards or after a few minutes on level ground mMRC grade 4 I am too breathless to leave the house or I am breathless when dressing Regarding her sleep, the patient reports that her primary issue is loud snoring and all sleep positions with frequent awakenings at night. She says she wakes up often snorting/gasping and feeling like she cannot breathe. She also wakes up for nocturia at least twice nightly. This results in daytime fatigue and sleepiness. She occasionally has morning headaches and consistently has morning dry mouth. She is on treatment for hypertension. She does not take any sleep aids to help fall asleep or stay asleep. She estimates 112 ounce can of soda per day for caffeine intake. No coffee or energy drinks.. She drinks 2 alcoholic drinks per month. She has had prior thyroidectomy 2008. Otherwise no upper airway surgeries. She has never previously had a sleep study. Sleep history is otherwise negative for restless legs, sleep paralysis, cataplexy, hypnagogic/hypnopompic hallucinations, or any signs of parasomnias. STOP-BAN (loud snoring, daytime fatigue, witnessed apneas, hypertension, BMI greater than 35) [place] Sleepiness Scale How likely are you to doze off or fall asleep in the following situations? 0 = never, 1 = slight chance, 2 = moderate chance, 3 = high chance Sitting and reading 0 Watching TV 1 Sitting inactive in a public place 0 As a passenger in a car for an hour without a break 1 Lying down to rest in the afternoon when circumstances permit 1 Sitting and talking to someone 0 Sitting quietly after lunch without alcohol 1 In a car, while stopped in traffic for a few minutes 0 Total 4 PastMedical History Past Medical History: Diagnosis Date Circulation problem GERD (gastroesophageal reflux disease) HTN (hypertension) Hypothyroid Joint pain, kn (more content not included)... Normal [facility] 36on 03-26-2022 36 DOS 03/26/2022 @ 10:40 GWENDOLYN w / Dr. Brumfield. Informed pt's preparations for surgery in [place], answered all questions. Normal [facility] Laboratory - Chemistry and C hemistry - challengeOrdered By: Miya Cowart on 03-26-2022 Beta HCG ( test) Ql Negative Negative [facility] Comment on above: Please note: Very di lute urine specimens, as indicated by a low specific gravity, may not contain sales representative leather goods levels of hCG. If is still suspected, a first morning urine specimen should be collected 48 hours later and tested. Beta HCG ( test) Ql (U) is the most common reason for HCG in urine, although choriocarcinoma, hydatidiform mole, and certain nontrophoblastic malignancies also result in detectable urinary HCG levels. Sensitivity = 20mIU/mL. [facility] No Panel InformationOrdered By: Miya Cowart on 03-26-2022 [facility] 36on 03-25-2022 36 Authorization for Testing Initiated. Company Name & Number Contacted for Auth: [employer] Name of Turning Sander Operator: ONLINE PORTAL Name of Procedure: EGD W/BX Cpt Code: 34087 Diagnosis Code: DYSPEPSIA Location of Procedure: [facility] Is Auth Required: NO Call Reference #: NA Pending Case #: NA Clinical Reviewer: NA Additional Info if given: NA Approved Case reference: NA Date Range for Approved Auth: NA Normal [facility] 36on 03-22-2022 36 Pt read Tube[employer]one message. Pt to follow up with PCP regarding TSH, lipids. Pt to add 500 mcg vitamin B12 every day and 4,000 international units vitamin D every day. Med list updated. Will recheck levels once pt is established. Normal [facility] 36 Noted thank you. Normal [facility] 36 NICOTINE RESULT: Component Ref Range & Units 6 d ago NICOTINE, BLOOD ng/mL <2 COTININE, BLOOD ng/mL 16 5-OS-EDODGTST, BLOOD ng/mL 4 Comment: Spoke to pt. She quit nicotine 25 days ago, but during that time would still have a cigarette on occasion. She is also exposed to a lot of second hand smoke. Reviewed importance of cessation. Advised to contact PCP for potential meds to help w nicotine cessation. Will need another level in 4 weeks. Voiced understanding. Normal [facility] ECG 12 lead - CLINIC PERFORM EDon 03-22-2022 Sinus Rhythm Low voltage in precordial leads. ABNORMAL [facility] Office Visiton 03-22-2022 Follow-up visit [id number] Mansoor Carrasco i 1980 F Date Provider Department Center 03/22/2022 [id number] WATTERS [facility] [address] Family History Problem Relation Age of Onset Hypertension Mother Family Status - Relation Status Age at Mother Alive Father Alive Level of Service:31893 ME OFFICE/OUTPATIENT NEW LOW MDM 30-44 MINUTES Reason for Visit and Comments: New Patient [542] Cardiac Clearance [882] - Bariatric clearance-Dr Brumfield Normal [facility] PATINSon 03-22-2022 PATINS Follow up with PCP about your blood pressure Low risk for surgery Normal [facility] Progress Noteon 03-22-2022 Progress Note Agree with weight lo ss efforts Normal [facility] Progress Note Poorly controlled. Advised to follow up with PCP office, consider increasing her hydrochlorothiazide/lis inopril medication with lab follow up - Discussed lifestyle changes, smoking cessation, weight loss Normal [facility] Progress Note [facility] [address] [facility] [address] Dept: [phone] Dept Loc: [phone] Visit type: New patient Reason for Visit: New Patient and Cardiac Clearance (Bariatric clearance-Dr Brumfield) Assessment and Plan 1. Pre-op examination Assessment & Plan: Pre-Operative Risk assessment using 2014 ACC/AHA guidelines Emergent procedure No Active Cardiac Condition none (decompensated HF, Arrhythmia, DE <3 weeks, severe valve disease) Risk Level of Procedure Intermediate Revised Cardiac Risk Index Risk factors: No Measurement of Exercise Tolerance before Surgery: >4 METS? Yes According to the 2014 ACC/AHA pre-operative risk assessment guidelines Marielle Carrasco is a low risk for major cardiac complications during an intermediate procedure and may continue as planned without further cardiac testing. The patient was advised that although they are low risk for cardiac complication that no one has 0% risk. 2. Morbid obesity due to excess calories (HCC) Assessment & Plan: Agree with weight loss efforts Orders: - Ambulatory referral to Cardiology - ECG 12 lead - CLINIC PERFORMED 3. Primary hypertension Assessment & Plan: Poorly controlled. Advised to follow up with PCP office, consider increasing her hydrochlorothiazide/lis inopril medication with lab follow up - Discussed lifestyle changes, smoking cessation, weight loss Follow up if symptoms worsen or fail to improve. Subjective HPI 41 yo who presents for cardiac risk assessment prior to bariatric surgery. She denies any history of myocardial infarction, congestive heart failure, cardiac arrhythmia, CVA or TIA, diabetes with insulin use, or CKD. Overall she denies any specific cardiovascular complaints. She smokes cigars almost daily as well as occasional marijuana. She does state that she is having some increased headaches recently. She does not check her blood pressure routinely at home. She states she can climb a flight of stairs without any chest pain, excessive breathlessness, palpitations, syncope. She does occasional low-level exercise with walking, she denies any cardiovascular complaints during this exercise. She had thyroidectomy in 2008 without any complications from surgery or general anesthesia. Review of Systems All other review of systems negative except per HPI. No Known Allergies Current Outpatient Medications Medication Instructions BENZAC AC WASH 10 % external wash Begin washing the body once daily cetirizine (ZYRTEC) 10 mg, Oral, Daily PRN clindamycin (Clindagel) 1 % gel 1 application, Topical, 2 times daily doxycycline (Monodox) 100 MG capsule 2 times daily PRN Emollient (Cetaphil) cream Apply to the body after every shower hydroCHLOROthiazide (HYDRODIURIL) 12.5 mg, Oral, Daily PRN levothyroxine (SYNTHROID, LEVOXYL) 175 mcg, Oral, Daily lisinopril-hydroCHLOROt hiazide 20-12.5 MG tablet 1 tablet, Oral, Daily Past Medical History: Diagnosis Date Circulation problem GERD (gastroesophageal reflux disease) HTN (hypertension) Hypothyroid Joint pain, knee Morbid obesity due to excess calories (HCC) 12/26/2020 Pre-diabetes Snoring SOBOE (shortness of breath on exertion) Social History Tobacco Use Smoking status: Some Days Types: Cigars Smokeless tobacco: Never Substance Use Topics Alcohol use: Not Currently Alcohol/week: 1.0 standard drink Types: 1 Standard drinks or equivalent per week Comment: intermittently Past Surgical History: Procedure Laterality Date DILATION AND CURETTAGE OF UTERUS 2011 [facility] THYROIDECTOMY 2008 [facility] Family History Problem Relation Name Age of Onset Hypertension Mother Objective BP (!) 168/62 (BP Location: Right arm, Patient Position: Sitting, BP Cuff Size: Adult) Pulse 84 Ht 5' 4 (1.626 m) Wt (!) 357 lb (162 kg) SpO2 97% BMI 61.28 kg/m? Constitutional: [see vitals above] patient with no acute distress, resting comfortably, well groomed, appears stated age ENMT: External ears and nose normal appearing, no xanthomas, normal lips Neck: No JVD, JVP ~5 cmH2O, s/p thyroidectomy -- well healed scar over anterior neck Respiratory: Normal effort, lungs CTAB CV: Normal rate, regular rhythm, normal S1/S2, no S3/S4, no murmurs, trace to 1+ edema in left LE, no varicose veins Skin: Warm, dry, intact, + major scars (anterior neck) -- well healed Psych: Oriented to person, place, and time, normal mood and affect, appropriate insight Data Reviewed and Summarized Review of tests/labs done/ordered within my specialty: EKG in office: NSR, no q-waves Review of tests/labs done/ordered outside my specialty: Independent interpretation of tests: Serenity Watters MD Department of Cardiovascular Disease, Division of Heart Failure [facility] [place] 9:53 AM 03/22/22 Normal [facility] US Abdomenon 02-17-2022 Normal sonographic appearance of the gallbladder. Fatty infiltration of the liver. Suboptimal visualization of the distal pancreas due to overlying bowel gas. Small left renal cyst. Report Dictated on Electronically Signed By: Serenity Cadet Electronically Signed Date/Time: 02/17/2022 11:57 AM [facility] [email or web address] Patient Name: MARIELLE CARRASCO Exam Date/Time: 02/17/2022 09:59 Procedure: US ABDOMEN COMPLETE Ordering Provider: CHENG LEISA Reason For Exam: ABDOMEN ULTRASOUND (COMPLETE) CLINICAL INDICATION: Abdominal pain Multiple sonographic images of the abdomen were obtained. COMPARISON: None FINDINGS: The gallbladder is unremarkable in appearance. No gallstones, gallbladder wall thickening, or pericholecystic fluid is identified. Sonographic Velasco's sign is negative. The liver is normal in size. Parenchymal echotexture is diffusely increased. No focal hepatic lesions are seen. There is no intrahepatic or extrahepatic biliary dilatation. The common bile duct is normal, measuring 3 mm. The pancreas appears grossly normal, however the distal pancreas is not well visualized due to overlying bowel gas. The spleen measures 11.7 cm in longitudinal dimension, without focal lesion. The right kidney measures 12.1 cm in longitudinal dimension. Parenchymal echotexture is normal. No focal lesions are seen. There is no evidence of hydronephrosis or renal calculus. The left kidney measures 11.5 cm in longitudinal dimension. Parenchymal echotexture is normal. There is a 1.2 cm cyst within the interpolar region of the left kidney. There is no evidence of hydronephrosis or renal calculus. No mass or fluid collection is seen adjacent to the kidneys. Limited views of the IVC and aorta are unremarkable. [facility] Serenity Cadet MD - 02/17/2022 Patient Name: MARIELLE CARRASCO Exam Date/Time: 02/17/2022 09:59 Procedure: US ABDOMEN COMPLETE Ordering Provider: CHENG LEISA Reason For Exam: ABDOMEN ULTRASOUND (COMPLETE) CLINICAL INDICATION: Abdominal pain Multiple sonographic images of the abdomen were obtained. COMPARISON: None FINDINGS: The gallbladder is unremarkable in appearance. No gallstones, gallbladder wall thickening, or pericholecystic fluid is identified. Sonographic Velasco's sign is negative. The liver is normal in size. Parenchymal echotexture is diffusely increased. No focal hepatic lesions are seen. There is no intrahepatic or extrahepatic biliary dilatation. The common bile duct is normal, measuring 3 mm. The pancreas appears grossly normal, however the distal pancreas is not well visualized due to overlying bowel gas. The spleen measures 11.7 cm in longitudinal dimension, without focal lesion. The right kidney measures 12.1 cm in longitudinal dimension. Parenchymal echotexture is normal. No focal lesions are seen. There is no evidence of hydronephrosis or renal calculus. The left kidney measures 11.5 cm in longitudinal dimension. Parenchymal echotexture is normal. There is a 1.2 cm cyst within the interpolar region of the left kidney. There is no evidence of hydronephrosis or renal calculus. No mass or fluid collection is seen adjacent to the kidneys. Limited views of the IVC and aorta are unremarkable. IMPRESSION: Normal sonographic appearance of the gallbladder. Fatty infiltration of the liver. Suboptimal visualization of the distal pancreas due to overlying bowel gas. Small left renal cyst. Report Dictated on Electronically Signed By: Serenity Cadet Electronically Signed Date/Time: 02/17/2022 11:57 AM EST [facility] Study observation (narrative) [facility] US AbdomenOrdered By: Yovani Cadet on 02-17-2022 [facility] XR Abdomen and RF Gastrointe stinal tract upper W contrast Paul 02-17-2022 Unremarkable UGI series. Report Dictated on Electronically Signed By: Len Lane Electronically Signed Date/Time: 02/17/2022 2:37 PM [facility] [email or web address] Patient Name: MARIELLE CARRASCO Exam Date/Time: 02/17/2022 09:50 Procedure: FL UPPER GI WITH KUB Ordering Provider: CHENG LEISA Reason For Exam: AIR CONTRAST UGI SERIES CLINICAL INDICATIONS: Heartburn COMPARISON: None FLUOROSCOPY TIME: 3 minutes and 32 seconds FLUOROSCOPIC EXPOSURES: 20 spot fluoroscopic images and 9 fluoroscopic cine loops. TECHNIQUE: Biphasic exam was performed with barium and air. FINDINGS: Barium and air are administered. The esophagus is studied in the upright as well as the horizontal positions. The esophagus is normal in course and caliber. There is no hiatal hernia. No free gastroesophageal reflux is seen at this time. Barium flows freely from the esophagus into the stomach. The stomach and duodenum show normal mucosal pattern, with no discrete ulcer or mass. Barium tablet passed freely into the stomach. The visualized proximal jejunum is unremarkable. [facility] [employer] Len Lane MD - 02/17/2022 Patient Name: MARIELLE CARRASCO Exam Date/Time: 02/17/2022 09:50 Procedure: FL UPPER GI WITH KUB Ordering Provider: CHENG LEISA Reason For Exam: AIR CONTRAST UGI SERIES CLINICAL INDICATIONS: Heartburn COMPARISON: None FLUOROSCOPY TIME: 3 minutes and 32 seconds FLUOROSCOPIC EXPOSURES: 20 spot fluoroscopic images and 9 fluoroscopic cine loops. TECHNIQUE: Biphasic exam was performed with barium and air. FINDINGS: Barium and air are administered. The esophagus is studied in the upright as well as the horizontal positions. The esophagus is normal in course and caliber. There is no hiatal hernia. No free gastroesophageal reflux is seen at this time. Barium flows freely from the esophagus into the stomach. The stomach and duodenum show normal mucosal pattern, with no discrete ulcer or mass. Barium tablet passed freely into the stomach. The visualized proximal jejunum is unremarkable. IMPRESSION: Unremarkable UGI series. Report Dictated on Electronically Signed By: Len Lane Electronically Signed Date/Time: 02/17/2022 2:37 PM EST [facility] Radiology Study observation (narrative) [facility] XR Abdomen and RF Gastrointe stinal tract upper W contrast POOrdered By: Len Lane on 02-17-2022 [facility] Work Phone: Free T4on 03-08-2019 Free T4 [Mass/Vol] 0.24 ng/dL Low 0.93-1.7 [facility] Comment on above: Performed By: #### L 304.0140, L304.0162 #### [facility] [address] [place] [id number] TSHon 03-08-2019 TSH Qn 30.85 uIU/mL High 0.27-4.20 [facility] Comment on above: Performed By: #### L 304.0140, L304.0162 #### [facility] [address] [place] [id number] Vital Signs Date Time Vital Sign Value Performing Clinician Facility 05-01-2023 01:09-0500 Diastolic Blood Pressure Non-Invasive 104 mm[Hg] GHISLAINE JOHNSON MD [facility] 05-01-2023 01:09-0500 Heart rate 100 /min GHISLAINE JOHNSON MD [facility] 05-01-2023 01:09-0500 Respiratory rate 20 /min GHISLAINE JOHNSON MD [facility] 05-01-2023 01:09-0500 Systolic Blood Pressure Non-Invasive 157 mm[Hg] GHISLAINE JOHNSON MD [facility] 05-01-2023 00:09-0500 Body weight 166.9 kg GHISLAINE JOHNSON MD [address] [place] [address] 04-30-2023 18:20-0500 Diastolic Blood Pressure Non-Invasive 88 mm[Hg] GHISLAINE JOHNSON MD [address] [place] [address] 04-30-2023 18:20-0500 Heart rate 74 /min GHISLAINE JOHNSON MD [address] [place] [address] 04-30-2023 18:20-0500 Respiratory rate 17 /min GHISLAINE JOHNSON MD [facility] 04-30-2023 18:20-0500 Systolic Blood Pressure Non-Invasive 164 mm[Hg] GHISLAINE JOHNSON MD [facility] 04-30-2023 17:25-0500 Diastolic Blood Pressure Non-Invasive 114 mm[Hg] GHISLAINE JOHNSON MD [address] [place] [address] 04-30-2023 17:25-0500 Heart rate 95 /min GHISLAINE JOHNSON MD [address] [place] [address] 04-30-2023 17:25-0500 Respiratory rate 20 /min GHISLAINE JOHNSON MD [address] [place] [address] 04-30-2023 17:25-0500 Systolic Blood Pressure Non-Invasive 160 mm[Hg] GHISLAINE JOHNSON MD [address] [place] [address] 04-30-2023 17:11-0500 Body temperature 97.52 [degF] GHISLAINE JOHNSON MD [address] [place] [address] 04-30-2023 17:11-0500 Heart rate 89 /min GHISLAINE JOHNSON MD [facility] 04-08-2023 06:32-0500 Body temperature 97.34 [degF] LEONID MAYORGA MD [facility] 04-08-2023 06:32-0500 Body weight 166.8 kg LEONID MAYORGA MD [facility] 04-08-2023 06:32-0500 Diastolic Blood Pressure Non-Invasive 110 mm[Hg] LEONID MAYORGA MD [facility] 04-08-2023 06:32-0500 Heart rate 103 /min LEONID MAYORGA MD [facility] 04-08-2023 06:32-0500 Respiratory rate 20 /min LEONID MAYORGA MD [facility] 04-08-2023 06:32-0500 Systolic Blood Pressure Non-Invasive 162 mm[Hg] LEONID MAYORGA MD [facility] 11-22-2022 11:46-0400 Body temperature 98.06 [degF] DR KEMAL REYES MD [facility] 11-22-2022 11:46-0400 Diastolic Blood Pressure Non-Invasive [address] KEMAL REYES MD [facility] 11-22-2022 11:46-0400 Heart rate 88 /min DR KEMAL REYES MD [facility] 11-22-2022 11:46-0400 Respiratory rate 18 /min DR KEMAL REYES MD [facility] 11-22-2022 11:46-0400 Systolic Blood Pressure Non-Invasive [address] KEMAL REYES MD [facility] 04-08-2022 10:19-0500 Body height 162.6 cm Mehran Bush MD Work Phone: [facility] 04-08-2022 10:19-0500 Body mass index (BMI) [Ratio] 61.42 kg/m2 Mehran Bush MD Work Phone: [facility] 04-08-2022 10:19-0500 Body weight 162.39 kg Mehran Bush MD Work Phone: [facility] 04-08-2022 10:19-0500 Diastolic blood pressure 68 mm[Hg] Mehran Bush MD Work Phone: [facility] 04-08-2022 10:19-0500 Heart rate 98 /min Mehran Bush MD Work Phone: [facility] 04-08-2022 10:19-0500 Respiratory rate 14 /min Mehran Bush MD Work Phone: [facility] 04-08-2022 10:19-0500 SaO2% (BldA) [Mass fraction] 97 % Mehran Bush MD Work Phone: [facility] Comment on above: RA 04-08-2022 10:19-0500 Systolic blood pressure 122 mm[Hg] Mehran Bush MD Work Phone: [facility] 03-26-2022 13:09-0500 Diastolic blood pressure 77 mm[Hg] Gonsalo Brumfield MD Work Phone: [facility] 03-26-2022 13:09-0500 Heart rate 81 /min Gonsalo Brumfield MD Work Phone: [facility] 03-26-2022 13:09-0500 Respiratory rate 16 /min Gonsalo Brumfield MD Work Phone: [facility] 03-26-2022 13:09-0500 SaO2% (BldA) [Mass fraction] 100 % Gnosalo Brumfield MD Work Phone: [facility] 03-26-2022 13:09-0500 Systolic blood pressure 122 mm[Hg] Gonsalo Brumfield MD Work Phone: [facility] 03-26-2022 12:49-0500 Body temperature 98.8 [degF] Gonsalo Brumfield MD Work Phone: [facility] 03-26-2022 12:18-0500 Body height 162.6 cm Gonsalo Brumfield MD Work Phone: [facility] 03-26-2022 12:18-0500 Body mass index (BMI) [Ratio] 60.76 kg/m2 Gonsalo Brumfield MD Work Phone: [facility] 03-26-2022 12:18-0500 Body weight 160.57 kg Gonsalo Brumfield MD Work Phone: [facility] 03-22-2022 09:16-0500 Body height 162.6 cm Serenity Watters MD Work Phone: [facility] 03-22-2022 09:16-0500 Body mass index (BMI) [Ratio] 61.28 kg/m2 Serenity Watters MD Work Phone: [facility] 03-22-2022 09:16-0500 Body weight 161.93 kg Serenity Watters MD Work Phone: [facility] 03-22-2022 09:16-0500 Diastolic blood pressure 62 mm[Hg] Serenity Watters MD Work Phone: [facility] 03-22-2022 09:16-0500 Heart rate 84 /min Serenity Watters MD Work Phone: [facility] 03-22-2022 09:16-0500 SaO2% (BldA) [Mass fraction] 97 % Serenity Watters MD Work Phone: [facility] 03-22-2022 09:16-0500 Systolic blood pressure 168 mm[Hg] Serenity Watters MD Work Phone: [facility] 11-08-2021 11:48-0400 Body temperature 98.24 [degF] ROSE MARY BEST MD [facility] 11-08-2021 11:48-0400 Diastolic blood pressure 98 mm[Hg] ROSE MARY BEST MD [facility] 11-08-2021 11:48-0400 Heart rate 99 /min ROSE MARY BEST MD [facility] 11-08-2021 11:48-0400 Respiratory rate 18 /min ROSE MARY BEST MD [facility] 11-08-2021 11:48-0400 Systolic blood pressure 137 mm[Hg] ROSE MARY BEST MD [facility] Encounters Encounter Date Encounter Type Care Provider Facility Start: 04-21-2024 End: 04-21-2024 Emergency department patient visit Too Perez Facility:[facility] Start: 01-23-2024 End: 01-23-2024 Emergency department patient visit Gonsalo Niño Facility:[facility] Start: 01-03-2024 End: 01-03-2024 ambulatory Angie POLLARD Facility:[facility] Start: 12-27-2023 End: 12-27-2023 Emergency department patient visit Tay Hinton Facility:[facility] Start: 11-06-2023 End: 11-06-2023 Emergency department patient visit No Primary Care Physician Facility:[facility] Start: 08-03-2023 End: 08-03-2023 Emergency department patient visit Virgilio Smith Facility:[facility] Start: 08-02-2023 ambulatory Lupe Iveyo Facility: [facility] Start: 08-02-2023 End: 08-02-2023 Emergency department patient visit Helio Em Facility:[facility] Start: 07-29-2023 ambulatory Lupe Iveyo Facility: [facility] Start: 07-28-2023 End: 07-28-2023 Emergency department patient visit Too Perez Facility:[facility] Start: 07-21-2023 End: 07-21-2023 Emergency department patient visit Belkys Damon Facility:[facility] Start: 07-05-2023 End: 07-06-2023 Emergency department patient visit Too Perez Facility:[facility] Start: 04-30-2023 End: 05-01-2023 Emergency department patient visit PATIENT UNSURE PHYSICIAN Facility:A Start: 04-30-2023 End: 05-01-2023 Emergency department patient visit GHISLAINE JOHNSON MD [facility] Start: 04-08-2023 End: 04-08-2023 Emergency department patient visit NONE PHYSICIAN Facility:A Start: 04-08-2023 End: 04-08-2023 Emergency department patient visit LEONID MAYORGA MD [facility] Start: 11-22-2022 End: 11-22-2022 Emergency department patient visit DR KEMAL REYES MD Facility:A Start: 11-22-2022 End: 11-22-2022 Emergency department patient visit DR KEMAL REYES MD [facility] Start: 04-08-2022 End: 04-08-2022 ambulatory [facility] Start: 04-08-2022 End: 04-08-2022 Encounter for preprocedural laboratory examination [facility] Start: 04-08-2022 End: 04-08-2022 Office outpatient new 45 minutes Mehran Bush MD Work Phone: [facility] Comment on above: TRANG (obstructive sle ep apnea) (Primary Dx); Pre-diabetes; Morbid obesity due to excess calories (HCC); GERD without esophagitis; Pre-operative laboratory examination; Shortness of breath; Tobacco use disorder Start: 04-08-2022 End: 04-08-2022 Patient encounter status [facility] Bsuh MD [facility] Start: 03-26-2022 End: 03-26-2022 ambulatory [facility] Start: 03-26-2022 End: 03-26-2022 Subsequent hospital visit by physician Gonsalo Brumfield MD Work Phone: [facility] Endoscopy Comment on above: Dyspepsia Start: 03-22-2022 Telephone encounter 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 [employer] Work Phone: [facility] Comment on above: Results Start: 03-22-2022 End: 03-22-2022 ambulatory OTILIO CHENG [facility] Start: 03-22-2022 End: 03-22-2022 Office outpatient new 30 minutes Serenity Watters MD Work Phone: [facility] Comment on above: Pre-op examination ( Primary Dx); Morbid obesity due to excess calories (HCC); Primary hypertension Start: 03-22-2022 End: 03-22-2022 Preprocedural examination done Serenity Watters MD Work Phone: [facility] Work Phone: Start: 03-17-2022 Telephone encounter Scarlett fragoso RD Work Phone: [facility] Comment on above: Abnormal Lab (Low vi tamin D, low normal vitamin B12, elevated TSH, abnormal lipid panel) Start: 03-16-2022 Telephone encounter Carly Driscoll [facility] Comment on above: OTHER Start: 03-15-2022 Telephone encounter Gonsalo wheat MD Work Phone: [facility] Advanced Laproscopic Surgery Comment on above: Appointment Request Start: 02-22-2022 ambulatory Radha ECKERT Work Phone: [facility] Start: 01-22-2022 Documentation procedure Cristal driscoll [facility] [place] Comment on above: Test Scheduling (EGD ) Start: 01-22-2022 Patient encounter status Otilio Cheng 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 AND PRESIDENT [employer] Work Phone: [facility] Start: 01-22-2022 Telephone encounter 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 [employer] Work Phone: [facility] Comment on above: OTHER (INITIAL SCHED ULING-NEW Epic ) Start: 12-23-2021 ambulatory Vivian Bartholomew [facility] Start: 12-22-2021 ambulatory [facility] Start: 12-07-2021 ambulatory UNKNOWN PROVIDER [facility] Start: 11-08-2021 End: 11-08-2021 Emergency department patient visit ROSE MARY BEST MD [facility] Start: 11-06-2021 ambulatory PCP No [facility] Start: 10-21-2021 ambulatory PCP No [facility] Start: 10-21-2021 End: 10-21-2021 Subsequent hospital visit by physician An Jacobson MD Work Phone: [facility] Start: 08-21-2021 ambulatory PCP No [facility] Start: 08-12-2021 ambulatory PCP No [facility] Start: 08-12-2021 ambulatory Vivian [facility] Start: 08-12-2021 ambulatory Vivian [facility] Start: 07-15-2021 [facility] Start: 07-15-2021 End: 07-15-2021 Subsequent hospital visit by physician An Jacobson MD Work Phone: [facility] [place] [facility] Start: 06-17-2021 ambulatory An Kavon [facility] Start: 06-17-2021 End: 06-17-2021 Subsequent hospital visit by physician An Jacobson MD Work Phone: [facility] [place] [facility] Start: 05-15-2021 ambulatory An Kavon [facility] Start: 04-17-2021 ambulatory An Kavon [facility] Start: 03-13-2021 ambulatory PCP No [facility] Start: 02-11-2021 ambulatory PCP No [facility] Start: 02-06-2021 ambulatory UNKNOWN PROVIDER [facility] Start: 01-14-2021 ambulatory UNKNOWN PROVIDER [facility] Start: 12-30-2020 ambulatory PCP No [facility] Start: 12-30-2020 End: 12-30-2020 Subsequent hospital visit by physician Gonsalo Brumfield MD Work Phone: [facility] Dept Procedures Date Procedure Procedure Detail Performing Clinician Start: 06-21-2022 Microscopic observat ion [Identifier] in Cervix by Cyto stain Otilio Cheng APRN - [employer] Work Phone: Start: 03-26-2022 Urine test visual color cmprsn meths Gonsalo Brumfield MD Work Phone: Start: 03-22-2022 Ecg routine ecg w/le ast 12 lds w/i&r Serenity Watters MD Work Phone: Start: 03-16-2022 Lipid 1996 panel - S annette or Plasma Cristal Warren [facility] Start: 03-16-2022 Thyrotropin [Units/v olume] in Serum or Plasma Cristal Warren [facility] Start: 12-24-2021 Adult depression scr eening assessment Otilio Cheng APRN - [employer] Work Phone: None (qualifier value) LAURA BEST MD Plan of Treatment Date Care Activity Detail Author Start: 2040 RSV Immunization aged 60 or older (1 - 1-dose 60+ series) RSV Immunization aged 60 or older (1 - 1-dose 60+ series) [facility] Start: 2030 Zoster Vaccines (1 of 2) Zoster Vaccines (1 of 2) [facility] Start: 03-16-2027 Lipid panel Lipid Panel [facility] Start: 06-21-2025 Screening for malignant neoplasm of cervix [facility] Start: 03-16-2025 Diabetes mellitus screening Diabetes Screening [facility] Start: 05-15-2024 DTaP/Tdap/Td vaccine (2 - Td or Tdap) DTaP/Tdap/Td vaccine (2 - Td or Tdap) [facility] Start: 03-16-2023 Thyroid stimulating hormone measurement TSH Level [facility] Start: 12-24-2022 Depression Screening Depression Screening [facility] Start: 10-22-2022 Influenza vaccination Influenza Vaccine (#1) [facility] Start: 04-20-2022 End: 03-22-2023 Nicotine, Blood Nicotine, Blood Lab Routine Nicotine use Expected: 04/20/2022 (Approximate), Expires: 03/22/2023 [facility] Work Phone: Comment on above: Expected: 04/20/2022 (Approximate), Expi res: 03/22/2023 Start: 04-08-2022 End: 04-08-2023 Complete PFT pre and post bronchodilator Complete PFT pre and post bronchodilator PFT Routine Tobacco use disorder Expected: 04/08/2022 (Approximate), Expires: 04/08/2023 [facility] Work Phone: Comment on above: Expected: 04/08/2022 (Approximate), Expi res: 04/08/2023 Start: 04-08-2022 End: 04-08-2023 Polysomnography [facility] Routine TRANG (obstructive sleep apnea) Expected: 04/08/2022 (Approximate), Expires: 04/08/2023 [facility] Comment on above: Expected: 04/08/2022 (Approximate), Expi res: 04/08/2023 Start: 04-08-2022 End: 04-08-2022 Patient encounter procedure 04/08/2022 Office Visit Pulmonology Mehran Bush MD [address] [place] [address] [facility] Start: 03-26-2022 End: 03-26-2022 Admission to same day surgery center 03/26/2022 Surgery Gastroenterology Gonsalo Brumfield MD [address] [place] [address] EGD WITH BIOPSY [72001 (CPT )] [facility] Endoscopy Comment on above: EGD WITH BIOPSY [70887 (CPT )] Start: 03-26-2022 End: 03-26-2022 Egd transoral biopsy single/multiple [facility] Gastroenterology Start: 03-26-2022 Subsequent hospital visit by physician 03/26/2022 Hospital Encounter Gastroenterology Gonsalo Brumfield MD [address] [place] [address] [facility] Start: 03-22-2022 End: 03-22-2022 Patient encounter procedure 03/22/2022 Office Visit Cardiology Serenity Watters MD [address] [place] [address] [facility] Start: 02-26-2022 End: 02-26-2022 Admission to same day surgery center 02/26/2022 Surgery Gastroenterology Gonsalo Brumfield MD [address] [place] [address] EGD WITH BIOPSY [02630 (CPT )] [facility] Endoscopy Comment on above: EGD WITH BIOPSY [50771 (CPT )] Start: 02-26-2022 End: 02-26-2022 Egd transoral biopsy single/multiple EGD WITH BIOPSY Dyspepsia 02/26/2022 1:30 PM EST [facility] Gastroenterology Start: 02-26-2022 Subsequent hospital visit by physician 02/26/2022 Hospital Encounter Gastroenterology Gonsalo Brumfield MD [address] [place] [address] [facility] Endoscopy Start: 02-26-2022 End: 02-26-2022 Patient encounter procedure 02/26/2022 Office Visit Pulmonology Mehran Bush MD [address] [place] [address] [facility] Start: 01-25-2022 End: 01-22-2023 25-hydroxyvitamin D3 [Mass/volume] in Serum or Plasma Vitamin D 25 hydroxy Lab Routine Pre-diabetes Morbid obesity due to excess calories (HCC) GERD without esophagitis Pre-operative laboratory examination Expected: 01/25/2022, Expires: 01/22/2023 [facility] Comment on above: Expected: 01/25/2022, Expires: Start: 01-25-2022 End: 01-22-2023 CBC panel - Blood by Automated count CBC Lab Routine Pre-diabetes Morbid obesity due to excess calories (HCC) GERD without esophagitis Pre-operative laboratory examination Expected: 01/25/2022, Expires: 01/22/2023 [email or web address] Comment on above: Expected: 01/25/2022, Expires: 3 Start: 01-25-2022 End: 01-22-2023 Cobalamin (Vitamin B12) [Mass/volume] in Serum or Plasma Vitamin B12 Lab Routine Pre-diabetes Morbid obesity due to excess calories (HCC) GERD without esophagitis Pre-operative laboratory examination Expected: 01/25/2022, Expires: 01/22/2023 [email or web address] Comment on above: Expected: 01/25/2022, Expires: 3 Start: 01-25-2022 End: 01-22-2023 Comprehensive metabolic 1998 panel - Serum or Plasma Comprehensive metabolic panel Lab Routine Pre-diabetes Morbid obesity due to excess calories (HCC) GERD without esophagitis Pre-operative laboratory examination Expected: 01/25/2022, Expires: 01/22/2023 [email or web address] Comment on above: Expected: 01/25/2022, Expires: 3 Start: 01-25-2022 End: 01-22-2023 Ferritin [Mass/volume] in Serum or Plasma Ferritin Lab Routine Pre-diabetes Morbid obesity due to excess calories (HCC) GERD without esophagitis Pre-operative laboratory examination Expected: 01/25/2022, Expires: 01/22/2023 [facility] Comment on above: Expected: 01/25/2022, Expires: 3 Start: 01-25-2022 End: 01-22-2023 Folate [Mass/volume] in Serum or Plasma Folate Lab Routine Pre-diabetes Morbid obesity due to excess calories (HCC) GERD without esophagitis Pre-operative laboratory examination Expected: 01/25/2022, Expires: 01/22/2023 [email or web address] Comment on above: Expected: 01/25/2022, Expires: 3 Start: 01-25-2022 End: 01-22-2023 Hemoglobin A1c measurement Hemoglobin A1c Lab Routine Pre-diabetes Morbid obesity due to excess calories (HCC) GERD without esophagitis Pre-operative laboratory examination Expected: 01/25/2022, Expires: 01/22/2023 [facility] Work Phone: Comment on above: Expected: 01/25/2022, Expires: 3 Start: 01-25-2022 End: 01-22-2023 Iron and Iron binding capacity panel - Serum or Plasma Iron Lab Routine Pre-diabetes Morbid obesity due to excess calories (HCC) GERD without esophagitis Pre-operative laboratory examination Expected: 01/25/2022, Expires: 01/22/2023 [email or web address] Comment on above: Expected: 01/25/2022, Expires: 3 Start: 01-25-2022 End: 01-22-2023 Lipid 1996 panel - Serum or Plasma Lipid panel Lab Routine Pre-diabetes Morbid obesity due to excess calories (HCC) GERD without esophagitis Pre-operative laboratory examination Expected: 01/25/2022, Expires: 01/22/2023 [email or web address] Comment on above: Expected: 01/25/2022, Expires: Start: 01-25-2022 End: 01-22-2023 Magnesium [Mass/volume] in Serum or Plasma Magnesium Lab Routine Pre-diabetes Morbid obesity due to excess calories (HCC) GERD without esophagitis Pre-operative laboratory examination Expected: 01/25/2022, Expires: 01/22/2023 [email or web address] Comment on above: Expected: 01/25/2022, Expires: 3 Start: 01-25-2022 End: 01-22-2023 MEDICATION ASSISTED TREATMENT PANEL MEDICATION ASSISTED TREATMENT PANEL Lab Routine Pre-diabetes Morbid obesity due to excess calories (HCC) GERD without esophagitis Pre-operative laboratory examination Expected: 01/25/2022, Expires: 01/22/2023 [email or web address] Comment on above: Expected: 01/25/2022, Expires: 3 Start: 01-25-2022 End: 01-22-2023 Nicotine, Blood Nicotine, Blood Lab Routine Pre-diabetes Morbid obesity due to excess calories (HCC) GERD without esophagitis Pre-operative laboratory examination Expected: 01/25/2022, Expires: 01/22/2023 [email or web address] Comment on above: Expected: 01/25/2022, Expires: 3 Start: 01-25-2022 End: 01-22-2023 Thyrotropin [Units/volume] in Serum or Plasma TSH Lab Routine Pre-diabetes Morbid obesity due to excess calories (HCC) GERD without esophagitis Pre-operative laboratory examination Expected: 01/25/2022, Expires: 01/22/2023 [email or web address] Comment on above: Expected: 01/25/2022, Expires: 3 Start: 01-25-2022 End: 01-22-2023 Vitamin B1, whole blood Vitamin B1, whole blood Lab Routine Pre-diabetes Morbid obesity due to excess calories (HCC) GERD without esophagitis Pre-operative laboratory examination Expected: 01/25/2022, Expires: 01/22/2023 [email or web address] Comment on above: Expected: 01/25/2022, Expires: 3 Start: 01-25-2022 End: 01-22-2023 Zinc Zinc Lab Routine Pre-diabetes Morbid obesity due to excess calories (HCC) GERD without esophagitis Pre-operative laboratory examination Expected: 01/25/2022, Expires: 01/22/2023 [email or web address] Comment on above: Expected: 01/25/2022, Expires: 3 Start: 11-06-2021 End: 11-06-2021 Patient encounter procedure 11/06/2021 Office Visit Weight Management An Jacobson MD [address] [place], [place] [id number] [facility] Start: 10-22-2021 Influenza vaccination [facility] Start: 08-21-2021 End: 08-21-2021 Patient encounter procedure 08/21/2021 Appointment IP Unit Gonsalo Brumfield MD [address] [place] [address] [facility] Start: 08-12-2021 End: 08-12-2021 Patient encounter procedure 08/12/2021 Office Visit Weight Management An Jacobson MD [address] [place], [place] [id number] [facility] Start: 07-15-2021 End: 07-15-2021 Patient encounter procedure [facility] Start: 02-11-2021 End: 02-11-2021 Patient encounter procedure 02/11/2021 Office Visit Weight Management An Jacobson MD [address] [place] [address] [facility] Start: 01-14-2021 End: 01-14-2021 ambulatory 01/14/2021 Virtual Visit Bariatrics Scarlett Garcia RD, LD [address] [place] [address] B[facility]ric [facility] Start: 10-22-2020 Influenza vaccination Flu vaccine (#1) [facility] Start: 2020 Lipid panel [facility] Start: 2020 Screening for malignant neoplasm of breast Mammogram [facility] Start: 2010 Screening for malignant neoplasm of cervix [facility] Start: 2001 Screening for malignant neoplasm of cervix Pap smear [facility] Start: 09-12-1999 DTaP/Tdap/Td Vaccines (1 - Tdap) DTaP/Tdap/Td Vaccines (1 - Tdap) [facility] Start: 1998 Creatinine measurement Creatinine [facility] Start: 1998 Diabetes mellitus screening Diabetes Screening [facility] Start: 1998 Hepatitis C screening [facility] Start: 1998 Potassium [Moles/volume] in Serum or Plasma Potassium [facility] Start: 1998 Thyroid stimulating hormone measurement TSH [facility] Start: 09-12-1995 HIV screening HIV screen [facility] Start: 1992 COVID-19 Vaccine (1) COVID-19 Vaccine (1) [facility] Start: 1992 Depression Screen Depression Screen [facility] Start: 1990 Hemoglobin A1c measurement A1C test (Diabetic or Prediabetic) [facility] Start: 1986 Pneumococcal 0-64 years Vaccine (1 - PCV) Pneumococcal 0-64 years Vaccine (1 - PCV) [facility] Start: 1986 Pneumococcal Vaccine: Pediatrics (0 to 5 Years) and At-Risk Patients (6 to 64 Years) (1 - PCV) Pneumococcal Vaccine: Pediatrics (0 to 5 Years) and At-Risk Patients (6 to 64 Years) (1 - PCV) [facility] Start: 1986 Pneumococcal Vaccine: Pediatrics (0 to 5 Years) and At-Risk Patients (6 to 64 Years) (1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 History: Family History Problem Relation Name Age of Onset ? Hypertension Mother Screening: unknown Clinical information reviewed: Tobacco Allergies Meds Med Hx Surg Hx OB Status Fam Hx Soc Hx Physical Exam Airway Mallampati: II TM distance: >3 FB Neck ROM: full Mouth Open: normalendotracheal tube not in place Cardiovascular - normal exam Dental Pulmonary - normal exam Abdominal Anesthesia Plan ASA 3 TIVA The patient is not a current smoker. Patient was not previously instructed to abstain from smoking on day of procedure. Patient did not smoke on day of procedure. Anesthetic plan and risks discussed with patient. patient is NPO TRANG Screening Labs: Lab Results Component Value Date WBC 13.9 (H) 03/16/2022 HGB 14.1 03/16/2022 HCT 43.7 03/16/2022 MCV 87.5 03/16/2022 PLT 296 03/16/2022 Lab Results Component Value Date NA 137 03/16/2022 K 4.0 03/16/2022 CL 103 03/16/2022 CO2 23 03/16/2022 BUN 14 03/16/2022 CREATININE 0.64 03/16/2022 GLUCOSE 96 03/16/2022 CALCIUM 8.6 03/16/2022 PROT 7.4 03/16/2022 ALKPHOS 117 03/16/2022 AST 49 (H) 03/16/2022 ALT 31 03/16/2022 EGFR >90.0 03/16/2022 No echocardiogram results found for the past 14 days 03/22/22 ECG 12-LEAD 03/22/2022 9:33 AM (Final) Narrative Sinus Rhythm Low voltage in precordial leads. ABNORMAL Signed by: Serenity Watters MD on 03/22/2022 9:33 AM [facility] 03-26-2022 Note Endoscopy History an d Physical HPI: Marielle Carrasco is a 41 y.o. female who presents with dyspepsia and is undergoing preoperative workup for weight reduction surgery. BMI is There is no height or weight on file to calculate BMI. PMHx: Past Medical History: Diagnosis Date Circulation problem GERD (gastroesophageal reflux disease) HTN (hypertension) Hypothyroid Joint pain, knee Morbid obesity due to excess calories (HCC) 12/26/2020 Pre-diabetes Snoring SOBOE (shortness of breath on exertion) PSHx: Past Surgical History: Procedure Laterality Date DILATION AND CURETTAGE OF UTERUS 2011 [facility] THYROIDECTOMY 2008 [facility] PFMHx: Family History Problem Relation Name Age of Onset Hypertension Mother ALL: No Known Allergies MEDS: @MEDCMED@ SOCIAL Hx: Social History Socioeconomic History Marital status: Spouse name: Not on file Number of children: Not on file Years of education: Not on file Highest education level: Not on file Occupational History Not on file Tobacco Use Smoking status: Some Days Types: Cigars Smokeless tobacco: Never Vaping Use Vaping Use: Never used Substance and Sexual Activity Alcohol use: Not Currently Alcohol/week: 1.0 standard drink Types: 1 Standard drinks or equivalent per week Comment: intermittently Drug use: Yes Types: Marijuana Comment: smoke marijuana. caffeine 12-32 oz daily Sexual activity: Not on file Other Topics Concern Not on file Social History Narrative Not on file Social Determinants of Health Financial Resource Strain: Not on file Food Insecurity: Not on file Transportation Needs: Not on file Physical Activity: Not on file Stress: Not on file Social Connections: Not on file Intimate Partner Violence: Not on file Housing Stability: Not on file Review of Systems: I personally reviewed the patient intake form with the patient. The ROS is negative except for what is listed in HPI. Physical Examination: LMP 03/23/2022 She stands @FLOWAMB(11)@ tall with a weight of @FLOWAMB(14)@ , resulting in a BMI of There is no height or weight on file to calculate BMI.. General: The patient is awake, alert, and oriented, and is in no apparent distress. Normal affect. Head and Neck: Normocephalic and atraumatic. Supple, no thyromegaly. Cardiac: Regular rate and rhythm without evidence of murmur. No obvious carotid bruits. Respiratory: Clear to auscultation bilaterally. Good inspiratory effort. Abdomen: Soft, non tender, non distended Extremities: Ambulatory without assistance. Neurological: Intact sensation in 4 extremities, no focal deficits notes. Skin: No rashes or lesions noted. Warm and dry. Rectal: Not done. Hernia: no hernias found on exam Assessment and Plan Active Problems: There are no active Hospital Problems. Plan: 41 y.o. female who presents with dyspepsia Morbid obesity with There is no height or weight on file to calculate BMI.. EGD with biopsy Patient counseled on risks, benefits, and alternatives of treatment plan at length. Patient states an understanding and willingness to proceed with plan. [facility] 03-26-2022 Note Formatting of this n ote might be different from the original. [facility] [place] [facility] Name: Marielle Carrasco Procedure Date: 03/26/2022 12:27 PM Gender: Female Date of : 1980 Age: 41 Admit Type: Outpatient Note Status: Finalized Endoscopist: Gonsalo Brumfield MD Procedure: Upper GI endoscopy Indications: Functional Dyspepsia Findings: Mild inflammation was found in the gastric antrum. Biopsies were taken with a cold forceps for Helicobacter pylori testing. A medium-sized hiatal hernia was present. Impression: - Gastritis. Biopsied. - Medium-sized hiatal hernia. Recommendation: - Patient has a contact number available for emergencies. The signs and symptoms of potential delayed complications were discussed with the patient. Return to normal activities tomorrow. Written discharge instructions were provided to the patient. - Resume previous diet. - Continue present medications. - Await pathology results. Medicines: Monitored Anesthesia Care Procedure: Pre-Anesthesia Assessment: - Prior to the procedure, a History and Physical was performed, and patient medications and allergies were reviewed. The patient's tolerance of previous anesthesia was also reviewed. The risks and benefits of the procedure and the sedation options and risks were discussed with the patient. All questions were answered, and informed consent was obtained. Prior Anticoagulants: The patient has taken no anticoagulant or antiplatelet agents. ASA Grade Assessment: per anesthesia endoscopic documentation. After reviewing the risks and benefits, the patient was deemed in satisfactory condition to undergo the procedure. - The anesthesia plan was to use monitored anesthesia care (MAC). - Immediately prior to administration of medications, the patient was re-assessed for adequacy to receive sedatives. - Sedation was administered by an endoscopy nurse. The sedation level attained was moderate. After obtaining informed consent, the endoscope was passed under direct vision. Throughout the procedure, the patient's blood pressure, pulse, and oxygen saturations were monitored continuously. The Endoscope was introduced through the mouth, and advanced to the second part of duodenum. The upper GI endoscopy was accomplished without difficulty. The patient tolerated the procedure well. Complications: No immediate complications. Procedure Code(s): --- Professional --- 84372, Esophagogastroduodenoscopy, flexible, transoral; with biopsy, single or multiple --- Technical --- 50340, Esophagogastroduodenoscopy, flexible, transoral; with biopsy, single or multiple Diagnosis Code(s): --- Professional --- K29.70, Gastritis, unspecified, without bleeding K44.9, Diaphragmatic hernia without obstruction or gangrene K30, Functional dyspepsia --- Technical --- K29.70, Gastritis, unspecified, without bleeding K44.9, Diaphragmatic hernia without obstruction or gangrene K30, Functional dyspepsia CPT copyright 2020 [employer]. All rights reserved. The codes documented in this report are preliminary and upon public defender review may be revised to meet current compliance requirements. Attending Participation: I personally performed the entire procedure. Gonsalo Brumfield MD. Gonsalo Brumfield MD 03/26/2022 12:43:49 PM This report has been signed electronically. Number of Addenda: 0 Note Initiated On: 03/26/2022 12:[address] [facility] 03-26-2022 Note Formatting of this n ote might be different from the original. [facility] [place] [facility] Name: Marielle Carrasco Procedure Date: 03/26/2022 12:27 PM Gender: Female Date of : 1980 Age: 41 Admit Type: Outpatient Note Status: Finalized Endoscopist: Gonsalo Brumfield MD Procedure: Upper GI endoscopy Indications: Functional Dyspepsia Findings: Mild inflammation was found in the gastric antrum. Biopsies were taken with a cold forceps for Helicobacter pylori testing. A medium-sized hiatal hernia was present. Impression: - Gastritis. Biopsied. - Medium-sized hiatal hernia. Recommendation: - Patient has a contact number available for emergencies. The signs and symptoms of potential delayed complications were discussed with the patient. Return to normal activities tomorrow. Written discharge instructions were provided to the patient. - Resume previous diet. - Continue present medications. - Await pathology results. Medicines: Monitored Anesthesia Care Procedure: Pre-Anesthesia Assessment: - Prior to the procedure, a History and Physical was performed, and patient medications and allergies were reviewed. The patient's tolerance of previous anesthesia was also reviewed. The risks and benefits of the procedure and the sedation options and risks were discussed with the patient. All questions were answered, and informed consent was obtained. Prior Anticoagulants: The patient has taken no anticoagulant or antiplatelet agents. ASA Grade Assessment: per anesthesia endoscopic documentation. After reviewing the risks and benefits, the patient was deemed in satisfactory condition to undergo the procedure. - The anesthesia plan was to use monitored anesthesia care (MAC). - Immediately prior to administration of medications, the patient was re-assessed for adequacy to receive sedatives. - Sedation was administered by an endoscopy nurse. The sedation level attained was moderate. After obtaining informed consent, the endoscope was passed under direct vision. Throughout the procedure, the patient's blood pressure, pulse, and oxygen saturations were monitored continuously. The Endoscope was introduced through the mouth, and advanced to the second part of duodenum. The upper GI endoscopy was accomplished without difficulty. The patient tolerated the procedure well. Complications: No immediate complications. Procedure Code(s): --- Professional --- 75971, Esophagogastroduodenoscopy, flexible, transoral; with biopsy, single or multiple --- Technical --- 52810, Esophagogastroduodenoscopy, flexible, transoral; with biopsy, single or multiple Diagnosis Code(s): --- Professional --- K29.70, Gastritis, unspecified, without bleeding K44.9, Diaphragmatic hernia without obstruction or gangrene K30, Functional dyspepsia --- Technical --- K29.70, Gastritis, unspecified, without bleeding K44.9, Diaphragmatic hernia without obstruction or gangrene K30, Functional dyspepsia CPT copyright 2020 [employer]. All rights reserved. The codes documented in this report are preliminary and upon public defender review may be revised to meet current compliance requirements. Attending Participation: I personally performed the entire procedure. Gonsalo Brumfield MD. Gonsalo Brumfield MD 03/26/2022 12:43:49 PM This report has been signed electronically. Number of Addenda: 0 Note Initiated On: 03/26/2022 12:[address] [facility] 03-26-2022 Miscellaneous Notes [facility] [place] Patient Name: Marielle Carrasco Procedure Date: 03/26/2022 12:27 PM Gender: Female Date of : 1980 Age: 41 Admit Type: Outpatient Note Status: Finalized Endoscopist: Gonsalo Brumfield MD Procedure: Upper GI endoscopy Indications: Functional Dyspepsia Findings: Mild inflammation was found in the gastric antrum. Biopsies were taken with a cold forceps for Helicobacter pylori testing. A medium-sized hiatal hernia was present. Impression: - Gastritis. Biopsied. - Medium-sized hiatal hernia. Recommendation: - Patient has a contact number available for emergencies. The signs and symptoms of potential delayed complications were discussed with the patient. Return to normal activities tomorrow. Written discharge instructions were provided to the patient. - Resume previous diet. - Continue present medications. - Await pathology results. Medicines: Monitored Anesthesia Care Procedure: Pre-Anesthesia Assessment: - Prior to the procedure, a History and Physical was performed, and patient medications and allergies were reviewed. The patient's tolerance of previous anesthesia was also reviewed. The risks and benefits of the procedure and the sedation options and risks were discussed with the patient. All questions were answered, and informed consent was obtained. Prior Anticoagulants: The patient has taken no anticoagulant or antiplatelet agents. ASA Grade Assessment: per anesthesia endoscopic documentation. After reviewing the risks and benefits, the patient was deemed in satisfactory condition to undergo the procedure. - The anesthesia plan was to use monitored anesthesia care (MAC). - Immediately prior to administration of medications, the patient was re-assessed for adequacy to receive sedatives. - Sedation was administered by an endoscopy nurse. The sedation level attained was moderate. After obtaining informed consent, the endoscope was passed under direct vision. Throughout the procedure, the patient's blood pressure, pulse, and oxygen saturations were monitored continuously. The Endoscope was introduced through the mouth, and advanced to the second part of duodenum. The upper GI endoscopy was accomplished without difficulty. The patient tolerated the procedure well. Complications: No immediate complications. Procedure Code(s): --- Professional --- 21052, Esophagogastroduodenoscopy, flexible, transoral; with biopsy, single or multiple --- Technical --- 15003, Esophagogastroduodenoscopy, flexible, transoral; with biopsy, single or multiple Diagnosis Code(s): --- Professional --- K29.70, Gastritis, unspecified, without bleeding K44.9, Diaphragmatic hernia without obstruction or gangrene K30, Functional dyspepsia --- Technical --- K29.70, Gastritis, unspecified, without bleeding K44.9, Diaphragmatic hernia without obstruction or gangrene K30, Functional dyspepsia CPT copyright 2020 [employer]. All rights reserved. The codes documented in this report are preliminary and upon public defender review may be revised to meet current compliance requirements. Attending Participation: I personally performed the entire procedure. Gonsalo Brumfield MD. Gonsalo Brumfield MD 03/26/2022 12:43:49 PM This report has been signed electronically. Number of Addenda: 0 Note Initiated On: 03/26/2022 12:27 PM documented in this encounter [facility] 03-26-2022 History and physical note Images from the original note were not included. Endoscopy History and Physical HPI: Marielle Carrasco is a 41 y.o. female who presents with dyspepsia and is undergoing preoperative workup for weight reduction surgery. BMI is There is no height or weight on file to calculate BMI. PMHx: Past Medical History: Diagnosis Date Circulation problem GERD (gastroesophageal reflux disease) HTN (hypertension) Hypothyroid Joint pain, knee Morbid obesity due to excess calories (HCC) 12/26/2020 Pre-diabetes Snoring SOBOE (shortness of breath on exertion) PSHx: Past Surgical History: Procedure Laterality Date DILATION AND CURETTAGE OF UTERUS 2011 [facility] THYROIDECTOMY 2008 [facility] PFMHx: Family History Problem Relation Name Age of Onset Hypertension Mother ALL: No Known Allergies MEDS: @MEDCMED@ SOCIAL Hx: Social History Socioeconomic History Marital status: Spouse name: Not on file Number of children: Not on file Years of education: Not on file Highest education level: Not on file Occupational History Not on file Tobacco Use Smoking status: Some Days Types: Cigars Smokeless tobacco: Never Vaping Use Vaping Use: Never used Substance and Sexual Activity Alcohol use: Not Currently Alcohol/week: 1.0 standard drink Types: 1 Standard drinks or equivalent per week Comment: intermittently Drug use: Yes Types: Marijuana Comment: smoke marijuana. caffeine 12-32 oz daily Sexual activity: Not on file Other Topics Concern Not on file Social History Narrative Not on file Social Determinants of Health Financial Resource Strain: Not on file Food Insecurity: Not on file Transportation Needs: Not on file Physical Activity: Not on file Stress: Not on file Social Connections: Not on file Intimate Partner Violence: Not on file Housing Stability: Not on file Review of Systems: I personally reviewed the patient intake form with the patient. The ROS is negative except for what is listed in HPI. Physical Examination: LMP 03/23/2022 She stands @FLOWAMB(11)@ tall with a weight of @FLOWAMB(14)@ , resulting in a BMI of There is no height or weight on file to calculate BMI.. General: The patient is awake, alert, and oriented, and is in no apparent distress. Normal affect. Head and Neck: Normocephalic and atraumatic. Supple, no thyromegaly. Cardiac: Regular rate and rhythm without evidence of murmur. No obvious carotid bruits. Respiratory: Clear to auscultation bilaterally. Good inspiratory effort. Abdomen: Soft, non tender, non distended Extremities: Ambulatory without assistance. Neurological: Intact sensation in 4 extremities, no focal deficits notes. Skin: No rashes or lesions noted. Warm and dry. Rectal: Not done. Hernia: no hernias found on exam Assessment and Plan Active Problems: There are no active Hospital Problems. Plan: 41 y.o. female who presents with dyspepsia Morbid obesity with There is no height or weight on file to calculate BMI.. EGD with biopsy Patient counseled on risks, benefits, and alternatives of treatment plan at length. Patient states an understanding and willingness to proceed with plan. [facility] Work Phone: 03-26-2022 History and physical note Images from the original note were not included. Endoscopy History and Physical HPI: Marielle Carrasco is a 41 y.o. female who presents with dyspepsia and is undergoing preoperative workup for weight reduction surgery. BMI is There is no height or weight on file to calculate BMI. PMHx: Past Medical History: Diagnosis Date Circulation problem GERD (gastroesophageal reflux disease) HTN (hypertension) Hypothyroid Joint pain, knee Morbid obesity due to excess calories (HCC) 12/26/2020 Pre-diabetes Snoring SOBOE (shortness of breath on exertion) PSHx: Past Surgical History: Procedure Laterality Date DILATION AND CURETTAGE OF UTERUS 2011 [facility] THYROIDECTOMY 2008 [facility] PFMHx: Family History Problem Relation Name Age of Onset Hypertension Mother ALL: No Known Allergies MEDS: @MEDCMED@ SOCIAL Hx: Social History Socioeconomic History Marital status: Spouse name: Not on file Number of children: Not on file Years of education: Not on file Highest education level: Not on file Occupational History Not on file Tobacco Use Smoking status: Some Days Types: Cigars Smokeless tobacco: Never Vaping Use Vaping Use: Never used Substance and Sexual Activity Alcohol use: Not Currently Alcohol/week: 1.0 standard drink Types: 1 Standard drinks or equivalent per week Comment: intermittently Drug use: Yes Types: Marijuana Comment: smoke marijuana. caffeine 12-32 oz daily Sexual activity: Not on file Other Topics Concern Not on file Social History Narrative Not on file Social Determinants of Health Financial Resource Strain: Not on file Food Insecurity: Not on file Transportation Needs: Not on file Physical Activity: Not on file Stress: Not on file Social Connections: Not on file Intimate Partner Violence: Not on file Housing Stability: Not on file Review of Systems: I personally reviewed the patient intake form with the patient. The ROS is negative except for what is listed in HPI. Physical Examination: LMP 03/23/2022 She stands @FLOWAMB(11)@ tall with a weight of @FLOWAMB(14)@ , resulting in a BMI of There is no height or weight on file to calculate BMI.. General: The patient is awake, alert, and oriented, and is in no apparent distress. Normal affect. Head and Neck: Normocephalic and atraumatic. Supple, no thyromegaly. Cardiac: Regular rate and rhythm without evidence of murmur. No obvious carotid bruits. Respiratory: Clear to auscultation bilaterally. Good inspiratory effort. Abdomen: Soft, non tender, non distended Extremities: Ambulatory without assistance. Neurological: Intact sensation in 4 extremities, no focal deficits notes. Skin: No rashes or lesions noted. Warm and dry. Rectal: Not done. Hernia: no hernias found on exam Assessment and Plan Active Problems: There are no active Hospital Problems. Plan: 41 y.o. female who presents with dyspepsia Morbid obesity with There is no height or weight on file to calculate BMI.. EGD with biopsy Patient counseled on risks, benefits, and alternatives of treatment plan at length. Patient states an understanding and willingness to proceed with plan. documented in this encounter [facility] 03-22-2022 Telephone encounter Note Pt read [employer] message. Pt to follow up with PCP regarding TSH, lipids. Pt to add 500 mcg vitamin B12 every day and 4,000 international units vitamin D every day. Med list updated. Will recheck levels once pt is established. [facility] 03-22-2022 Miscellaneous Notes Pt read [employer] message. Pt to follow up with PCP regarding TSH, lipids. Pt to add 500 mcg vitamin B12 every day and 4,000 international units vitamin D every day. Med list updated. Will recheck levels once pt is established. Vitamin B12: 272 Vitamin D: 14 (L) Lipids, TSH - PCP ----- Message from IRENE Roe CNP sent at 03/16/2022 8:34 PM EST ----- Babar florentino. Defer tsh and cholpanel to pcp please. documented in this encounter [facility] 03-22-2022 Note Pre-Operative Risk a ssessment using 2014 ACC/AHA guidelines Emergent procedure No Active Cardiac Condition none (decompensated HF, Arrhythmia, DE <3 weeks, severe valve disease) Risk Level of Procedure Intermediate Revised Cardiac Risk Index Risk factors: No Measurement of Exercise Tolerance before Surgery: >4 METS? Yes According to the 2014 ACC/AHA pre-operative risk assessment guidelines Marielle Carrasco is a low risk for major cardiac complications during an intermediate procedure and may continue as planned without further cardiac testing. The patient was advised that although they are low risk for cardiac complication that no one has 0% risk. [facility] 03-22-2022 Telephone encounter Note Noted thank you. [facility] 03-22-2022 Miscellaneous Notes Noted thank you. NICOTINE RESULT: Component Ref Range & Units 6 d ago NICOTINE, BLOOD ng/mL <2 COTININE, BLOOD ng/mL 16 [id number], BLOOD ng/mL 4 Comment: Spoke to pt. She quit nicotine 25 days ago, but during that time would still have a cigarette on occasion. She is also exposed to a lot of second hand smoke. Reviewed importance of cessation. Advised to contact PCP for potential meds to help w nicotine cessation. Will need another level in 4 weeks. Voiced understanding. documented in this encounter [facility] 03-22-2022 Evaluation + Plan note Associated Problem(s): Pre-op examination Pre-Operative Risk assessment using 2014 ACC/AHA guidelines Emergent procedure No Active Cardiac Condition none (decompensated HF, Arrhythmia, DE <3 weeks, severe valve disease) Risk Level of Procedure Intermediate Revised Cardiac Risk Index Risk factors: No Measurement of Exercise Tolerance before Surgery: >4 METS? Yes According to the 2014 ACC/AHA pre-operative risk assessment guidelines Marielle Carrasco is a low risk for major cardiac complications during an intermediate procedure and may continue as planned without further cardiac testing. The patient was advised that although they are low risk for cardiac complication that no one has 0% risk. [facility] 03-22-2022 Evaluation + Plan note Associated Problem(s): Morbid obesity due to excess calories (HCC) Agree with weight loss efforts [facility] 03-22-2022 Miscellaneous Notes Associated Problem(s): Pre-op examination Pre-Operative Risk assessment using 2014 ACC/AHA guidelines Emergent procedure No Active Cardiac Condition none (decompensated HF, Arrhythmia, DE <3 weeks, severe valve disease) Risk Level of Procedure Intermediate Revised Cardiac Risk Index Risk factors: No Measurement of Exercise Tolerance before Surgery: >4 METS? Yes According to the 2014 ACC/AHA pre-operative risk assessment guidelines Marielle Carrasco is a low risk for major cardiac complications during an intermediate procedure and may continue as planned without further cardiac testing. The patient was advised that although they are low risk for cardiac complication that no one has 0% risk. Associated Problem(s): Morbid obesity due to excess calories (HCC) Agree with weight loss efforts Associated Problem(s): HTN (hypertension) Poorly controlled. Advised to follow up with PCP office, consider increasing her hydrochlorothiazide/lisinopril medication with lab follow up - Discussed lifestyle changes, smoking cessation, weight loss documented in this encounter [facility] 03-22-2022 Evaluation + Plan note Associated Problem(s): HTN (hypertension) Poorly controlled. Advised to follow up with PCP office, consider increasing her hydrochlorothiazide/lisinopril medication with lab follow up - Discussed lifestyle changes, smoking cessation, weight loss [facility] 03-22-2022 Telephone encounter Note NICOTINE RESULT: Component Ref Range & Units 6 d ago NICOTINE, BLOOD ng/mL <2 COTININE, BLOOD ng/mL 16 [id number], BLOOD ng/mL 4 Comment: Spoke to pt. She quit nicotine 25 days ago, but during that time would still have a cigarette on occasion. She is also exposed to a lot of second hand smoke. Reviewed importance of cessation. Advised to contact PCP for potential meds to help w nicotine cessation. Will need another level in 4 weeks. Voiced understanding. c[facility] Work Phone: 03-22-2022 History of Presen t illness Narrative Images from the original note were not included. [facility] [address] [address] Dept: [phone] Dept Loc: [phone] Visit type: New patient Reason for Visit: New Patient and Cardiac Clearance (Bariatric clearance-Dr Brumfield) Assessment and Plan 1. Pre-op examination Assessment & Plan: Pre-Operative Risk assessment using 2014 ACC/AHA guidelines Emergent procedure No Active Cardiac Condition none (decompensated HF, Arrhythmia, DE <3 weeks, severe valve disease) Risk Level of Procedure Intermediate Revised Cardiac Risk Index Risk factors: No Measurement of Exercise Tolerance before Surgery: >4 METS? Yes According to the 2014 ACC/AHA pre-operative risk assessment guidelines Marielle Carrasco is a low risk for major cardiac complications during an intermediate procedure and may continue as planned without further cardiac testing. The patient was advised that although they are low risk for cardiac complication that no one has 0% risk. 2. Morbid obesity due to excess calories (HCC) Assessment & Plan: Agree with weight loss efforts Orders: - Ambulatory referral to Cardiology - ECG 12 lead - CLINIC PERFORMED 3. Primary hypertension Assessment & Plan: Poorly controlled. Advised to follow up with PCP office, consider increasing her hydrochlorothiazide/lisinopril medication with lab follow up - Discussed lifestyle changes, smoking cessation, weight loss Follow up if symptoms worsen or fail to improve. Subjective HPI 41 yo who presents for cardiac risk assessment prior to bariatric surgery. She denies any history of myocardial infarction, congestive heart failure, cardiac arrhythmia, CVA or TIA, diabetes with insulin use, or CKD. Overall she denies any specific cardiovascular complaints. She smokes cigars almost daily as well as occasional marijuana. She does state that she is having some increased headaches recently. She does not check her blood pressure routinely at home. She states she can climb a flight of stairs without any chest pain, excessive breathlessness, palpitations, syncope. She does occasional low-level exercise with walking, she denies any cardiovascular complaints during this exercise. She had thyroidectomy in 2008 without any complications from surgery or general anesthesia. Review of Systems All other review of systems negative except per HPI. No Known Allergies Current Outpatient Medications Medication Instructions BENZAC AC WASH 10 % external wash Begin washing the body once daily cetirizine (ZYRTEC) 10 mg, Oral, Daily PRN clindamycin (Clindagel) 1 % gel 1 application, Topical, 2 times daily doxycycline (Monodox) 100 MG capsule 2 times daily PRN Emollient (Cetaphil) cream Apply to the body after every shower hydroCHLOROthiazide (HYDRODIURIL) 12.5 mg, Oral, Daily PRN levothyroxine (SYNTHROID, LEVOXYL) 175 mcg, Oral, Daily lisinopril-hydroCHLOROthiazide 20-12.5 MG tablet 1 tablet, Oral, Daily Past Medical History: Diagnosis Date Circulation problem GERD (gastroesophageal reflux disease) HTN (hypertension) Hypothyroid Joint pain, knee Morbid obesity due to excess calories (HCC) 12/26/2020 Pre-diabetes Snoring SOBOE (shortness of breath on exertion) Social History Tobacco Use Smoking status: Some Days Types: Cigars Smokeless tobacco: Never Substance Use Topics Alcohol use: Not Currently Alcohol/week: 1.0 standard drink Types: 1 Standard drinks or equivalent per week Comment: intermittently Past Surgical History: Procedure Laterality Date DILATION AND CURETTAGE OF UTERUS 2011 [facility] THYROIDECTOMY 2008 [facility] Family History Problem Relation Name Age of Onset Hypertension Mother Objective BP (!) 168/62 (BP Location: Right arm, Patient Position: Sitting, BP Cuff Size: Adult) Pulse 84 Ht 5' 4 (1.626 m) Wt (!) 357 lb (162 kg) SpO2 97% BMI 61.28 kg/m Constitutional: [see vitals above] patient with no acute distress, resting comfortably, well groomed, appears stated age ENMT: External ears and nose normal appearing, no xanthomas, normal lips Neck: No JVD, JVP ~5 cmH2O, s/p thyroidectomy -- well healed scar over anterior neck Respiratory: Normal effort, lungs CTAB CV: Normal rate, regular rhythm, normal S1/S2, no S3/S4, no murmurs, trace to 1+ edema in left LE, no varicose veins Skin: Warm, dry, intact, + major scars (anterior neck) -- well healed Psych: Oriented to person, place, and time, normal mood and affect, appropriate insight Data Reviewed and Summarized Review of tests/labs done/ordered within my specialty: EKG in office: NSR, no q-waves Review of tests/labs done/ordered outside my specialty: Independent interpretation of tests: Serenity Watters MD Department of Cardiovascular Disease, Division of Heart Failure [facility] [place] 9:53 AM 03/22/22 documented in this encounter [facility] 03-22-2022 Instructions Serenity Watters MD - 03/22/2022 9:00 AM EST Follow up with PCP about your blood pressure Low risk for surgery documented in this encounter [facility] 03-17-2022 Telephone encounter Note Vitamin B12: 272 Vitamin D: 14 (L) Lipids, TSH - PCP [facility] 03-17-2022 Telephone encounter Note ----- Message from Otilio Cheng APRN - BELL [employer]ER sent at 03/16/2022 8:34 PM EST ----- Vit d. Defer tsh and cholpanel to pcp please. [facility] 03-16-2022 Telephone encounter Note Pt scheduled Tuesday03/26/22 at 10:40 [facility] 03-16-2022 Miscellaneous Notes Pt scheduled Tuesday03/26/22 at 10:40 [facility] Patient called in wanting to reschedule her EGD that was on 02/26/[address] Brumfield as she did not have a ride that day. DP documented in this encounter [facility] 03-16-2022 Telephone encounter Note Patient called in wanting to reschedule her EGD that was on 02/26/[address] Brumfield as she did not have a ride that day. DP [facility] 03-15-2022 Telephone encounter Note Name of caller: Marielle Contact phone number: [phone] Relationship to Patient: patient Provider: Octaviano Practice: [facility] Chief Complaint/Reason for Call: Pt. Needs a call back to reschedule surgery appointment. Best time of day caller can be reached: Any Patient advised that office/PCP has 24-48 business hours to return their call: No [facility] 03-15-2022 Miscellaneous Notes Name of caller: Marielle Contact phone number: [phone] Relationship to Patient: patient Provider: Octaviano Practice: [facility] Chief Complaint/Reason for Call: Pt. Needs a call back to reschedule surgery appointment. Best time of day caller can be reached: Any Patient advised that office/PCP has 24-48 business hours to return their call: No documented in this encounter [facility] 01-22-2022 History of Presen t illness Narrative ENDOSCOPY ORDERS To be scheduled with: Dr. Brumfield Patient is: Pre-op/Pre-Bariatric Surgery CPT code: EGD with biopsy- CPT 13274 Diagnosis: Dyspepsia- K30 If pre-op, Diet & Exercise Requirements are, and started/scheduled on : 6 months FINISHED Home O2: No Known Difficult Intubation: No Pt scheduled 02/26/21 1:[address] [facility] Printed No auth per Care source Pt rescheduled 03/26/[address] [facility] Pt also wanted to tell me about some bloodwork with off the chart numbers. Advised patient to call your office directly but wanted to note that in here as well Printed. Lab values were drawn today and all have not resulted at this time documented in this encounter [facility] 01-22-2022 Telephone encounter Note Signed. [facility] Work Phone: 11-08-2021 Hospital Discharg e instructions Patient Education 11/08/2021 12:38:47 Hypertension, To Be Confirmed High Blood Pressure, To Be Confirmed, No Treatment Your blood pressure today was higher than normal. Sometimes anxiety or pain can cause a temporary rise in blood pressure. It later returns to normal. Blood pressure that is high only one time doesn t mean that you have high blood pressure (hypertension). High blood pressure is a chronic illness. But you should have your blood pressure measured again within the next few days to find out if it s still high. Blood pressure measurements are given as 2 numbers. Systolic blood pressure is the upper number. This is the pressure when the heart contracts. Diastolic blood pressure is the lower number. This is the pressure when the heart relaxes between beats. You will see your blood pressure readings written together. For example, a person with a systolic pressure of 118 and a diastolic pressure of 78 will have 118/78 written in the medical record. Blood pressure is categorized as normal, elevated, or stage 1 or stage 2 high blood pressure: Normal blood pressure is systolic of less than 120 and diastolic of less than 80 (120/80) Elevated blood pressure is systolic of 120 to 129 and diastolic less than 80 Stage 1 high blood pressure is systolic is 130 to 139 or diastolic between 80 to 89 Stage 2 high blood pressure is when systolic is 140 or higher or the diastolic is 90 or higher Lifestyle changes such as weight loss, exercise, and quitting smoking, can help manage your blood pressure. Have your blood pressure checked regularly to be sure it is under control. Home care To track your blood pressure, your provider may ask you to come into the office at different times and on different days. If your healthcare provider asks you to check your readings at home, ask him or her what times of the day to test and for how many days. Before you leave the office, ask your provider to show you how to take your blood pressure and be sure to ask questions if you don't understand something. Consider buying an automatic blood pressure monitor. Ask your provider for a recommendation as well as the proper size cuff to fit your arm. You can buy blood pressure monitors at most pharmacies. The [place] [employer] recommends the following guidelines for home blood pressure monitoring: Don't smoke or drink coffee or other caffeinated drinks for 30 minutes before taking your blood pressure. Go to the bathroom before the test. Relax for 5 minutes before taking the measurement. Sit with your back supported (don't sit on a couch or soft chair); keep your feet on the floor uncrossed. Place your arm on a solid flat surface (like a table) with the upper part of the arm at heart level. Place the middle of the cuff directly above the bend of the elbow. Check the monitor's instruction manual for an illustration. Take multiple readings. When you measure, take 2 to 3 readings one minute apart and record all of the results. Take your blood pressure at the same time every day, or as your healthcare provider recommends. Record the date, time, and blood pressure reading. Take the record with you to your next medical appointment. If your blood pressure monitor has a built-in memory, simply take the monitor with you to your next appointment. Call your provider if you have several high readings. Don't be frightened by a single high blood pressure reading, but if you get several high readings, check in with your healthcare provider. Note: When blood pressure reaches a systolic (top number) of 180 or higher OR diastolic (bottom number) of 110 or higher, seek emergency medical treatment. Follow-up care Keep all of your follow up appointments. If your blood pressure is more than 120 over 80 on 2 out of 3 days, you will need to follow up with your healthcare provider for more evaluation and treatment. Don t put this off! High blood pressure can be treated. High blood pressure that s not treated raises your risk for heart attack, heart failure, and stroke. When to seek medical advice Call your healthcare provider right away if any of these occur: Blood pressure reaches a systolic (top number) of 180 or higher, OR diastolic (bottom number) of 110 or higher Chest pain or shortness of breath Severe headache Throbbing or rushing sound in the ears Nosebleed Sudden severe pain in your belly (abdomen) Extreme drowsiness, confusion, or fainting Dizziness or dizziness with spinning sensation (vertigo) Weakness of an arm or leg or one side of the face You have problems speaking or seeing [employer]. [address] [place] [address]. All rights reserved. This information is not intended as a substitute for professional medical care. Always follow your healthcare professional's instructions. 11/08/2021 12:38:43 Arthralgia Arthralgia Arthralgia is the term for pain in or around the joint. It is a symptom, not a disease. This pain may involve one or more joints. In some cases, the pain moves from joint to joint. There are many causes for joint pain. These include: Injury Osteoarthritis (wearing out of the joint surface) Gout (inflammation of the joint due to crystals in the joint fluid) Infection inside the joint Bursitis (inflammation of the fluid-filled sacs around the joint) Autoimmune disorders such as rheumatoid arthritis or lupus Tendonitis (inflammation of chords that attach muscle to bone) Home care Rest the involved joint(s) until your symptoms improve. You may be prescribed pain medicine. If none is prescribed, you may use acetaminophen or ibuprofen to control pain and inflammation. Follow-up care Follow up with your healthcare provider or as advised. When to seek medical advice Contact your healthcare provider right away if any of the following occurs: Pain, swelling, or redness of joint increases Pain worsens or recurs after a period of improvement Pain moves to other joints You cannot bear weight on the affected joint You cannot move the affected joint Joint appears deformed New rash appears Fever of 100.4 F (38 C) or higher, or as directed by your healthcare provider [employer] [address] [place] [address]392. All rights reserved. This information is not intended as a substitute for professional medical care. Always follow your healthcare professional's instructions. Follow Up Care 11/08/2021 11:41:33 With:ANDREEA REYES Address: [address] [place] [phone] Business (1) When:2-4 days Comments:Schedule appointment as soon as possibleReturn to ED if symptoms worsenFollow up for recheck, blood pressure and possible rheumatologic labs.Return for any signs of infection. Range of motion daily but avoid active use x 2 days. Use 2 citrucel tabs 2x/day if using hydrocodone With:NONE PHYSICIAN Address:Unknown [facility]:2-4 days [facility] Emergency department Discharge summary Discharge Instructions Thank you for allowing [facility] to assist you with your healthcare needs. The following is important discharge information regarding your hospital visit. Diagnosis from Today's Visit Arthralgia Hypertension Finger pain-swelling What to Do Next Instructions from Your Care Team Discharge Return to Work, School, or Sports (Return to Work, School, or Sports) - Ordered -- 11/11/21, May return to: work, 11/08/21 12:40:00 EDT Post Acute Orders No qualifying data available. You Need to Schedule the Following Appointments Follow Up with ANDREEA REYES When Within 2-4 days Why: Schedule appointment as soon as possible Return to ED if symptoms worsen Follow up for recheck, blood pressure and possible rheumatologic labs. Return for any signs of infection. Range of motion daily but avoid active use x 2 days. Use 2 citrucel tabs 2x/day if using hydrocodone Where: [address] [place] [address]- [phone] Business (1) Follow Up with NONE PHYSICIAN When Within 2-4 days Allergies No Known Medication Allergies Medications Please ask your primary doctor or pharmacist before taking any other medication not listed, including over the counter drugs, herbal medications, vitamins and or supplements as they may interact with your home medications. What How Much When Why Instructions Last Dose New acetaminophen-hydrocodone (acetaminophen-hydrocodone 325 mg-5 mg oral tablet) 1 tab(s) by mouth Every 6 hours as needed for for pain Arthralgia Hypertension Duration: 3 Days with food Printed Prescription New predniSONE (predniSONE 10 mg oral tablet) 3 by mouth Two (2) times a day Arthralgia Hypertension 6 po 1st dose then 3 po q12 Printed Prescription Please take this list to your next doctor s visit. Bring all medications you take, including over the counter medications, herbals and other supplements with you to your doctor s visit. Patients and families are reminded to discard old lists and to update any records with all medication providers or retail pharmacies. Education Materials High Blood Pressure, To Be Confirmed, No Treatment Your blood pressure today was higher than normal. Sometimes anxiety or pain can cause a temporary rise in blood pressure. It later returns to normal. Blood pressure that is high only one time doesn t mean that you have high blood pressure (hypertension). High blood pressure is a chronic illness. But you should have your blood pressure measured again within the next few days to find out if it s still high. Blood pressure measurements are given as 2 numbers. Systolic blood pressure is the upper number. This is the pressure when the heart contracts. Diastolic blood pressure is the lower number. This is the pressure when the heart relaxes between beats. You will see your blood pressure readings written together. For example, a person with a systolic pressure of 118 and a diastolic pressure of 78 will have 118/78 written in the medical record. Blood pressure is categorized as normal, elevated, or stage 1 or stage 2 high blood pressure: Normal blood pressure is systolic of less than 120 and diastolic of less than 80 (120/80) Elevated blood pressure is systolic of 120 to 129 and diastolic less than 80 Stage 1 high blood pressure is systolic is 130 to 139 or diastolic between 80 to 89 Stage 2 high blood pressure is when systolic is 140 or higher or the diastolic is 90 or higher Lifestyle changes such as weight loss, exercise, and quitting smoking, can help manage your blood pressure. Have your blood pressure checked regularly to be sure it is under control. Home care To track your blood pressure, your provider may ask you to come into the office at different times and on different days. If your healthcare provider asks you to check your readings at home, ask him or her what times of the day to test and for how many days. Before you leave the office, ask your provider to show you how to take your blood pressure and be sure to ask questions if you don't understand something. Consider buying an automatic blood pressure monitor. Ask your provider for a recommendation as well as the proper size cuff to fit your arm. You can buy blood pressure monitors at most pharmacies. The [place] [employer] recommends the following guidelines for home blood pressure monitoring: Don't smoke or drink coffee or other caffeinated drinks for 30 minutes before taking your blood pressure. Go to the bathroom before the test. Relax for 5 minutes before taking the measurement. Sit with your back supported (don't sit on a couch or soft chair); keep your feet on the floor uncrossed. Place your arm on a solid flat surface (like a table) with the upper part of the arm at heart level. Place the middle of the cuff directly above the bend of the elbow. Check the monitor's instruction manual for an illustration. Take multiple readings. When you measure, take 2 to 3 readings one minute apart and record all of the results. Take your blood pressure at the same time every day, or as your healthcare provider recommends. Record the date, time, and blood pressure reading. Take the record with you to your next medical appointment. If your blood pressure monitor has a built-in memory, simply take the monitor with you to your next appointment. Call your provider if you have several high readings. Don't be frightened by a single high blood pressure reading, but if you get several high readings, check in with your healthcare provider. Note: When blood pressure reaches a systolic (top number) of 180 or higher OR diastolic (bottom number) of 110 or higher, seek emergency medical treatment. Follow-up care Keep all of your follow up appointments. If your blood pressure is more than 120 over 80 on 2 out of 3 days, you will need to follow up with your healthcare provider for more evaluation and treatment. Don t put this off! High blood pressure can be treated. High blood pressure that s not treated raises your risk for heart attack, heart failure, and stroke. When to seek medical advice Call your healthcare provider right away if any of these occur: Blood pressure reaches a systolic (top number) of 180 or higher, OR diastolic (bottom number) of 110 or higher Chest pain or shortness of breath Severe headache Throbbing or rushing sound in the ears Nosebleed Sudden severe pain in your belly (abdomen) Extreme drowsiness, confusion, or fainting Dizziness or dizziness with spinning sensation (vertigo) Weakness of an arm or leg or one side of the face You have problems speaking or seeing [id number] [employer] [place] [address], [place] [address]. All rights reserved. This information is not intended as a substitute for professional medical care. Always follow your healthcare professional's instructions. Arthralgia Arthralgia is the term for pain in or around the joint. It is a symptom, not a disease. This pain may involve one or more joints. In some cases, the pain moves from joint to joint. There are many causes for joint pain. These include: Injury Osteoarthritis (wearing out of the joint surface) Gout (inflammation of the joint due to crystals in the joint fluid) Infection inside the joint Bursitis (inflammation of the fluid-filled sacs around the joint) Autoimmune disorders such as rheumatoid arthritis or lupus Tendonitis (inflammation of chords that attach muscle to bone) Home care Rest the involved joint(s) until your symptoms improve. You may be prescribed pain medicine. If none is prescribed, you may use acetaminophen or ibuprofen to control pain and inflammation. Follow-up care Follow up with your healthcare provider or as advised. When to seek medical advice Contact your healthcare provider right away if any of the following occurs: Pain, swelling, or redness of joint increases Pain worsens or recurs after a period of improvement Pain moves to other joints You cannot bear weight on the affected joint You cannot move the affected joint Joint appears deformed New rash appears Fever of 100.4 F (38 C) or higher, or as directed by your healthcare provider [id number] [employer] [place] [address]. All rights reserved. This information is not intended as a substitute for professional medical care. Always follow your healthcare professional's instructions. Additional Information VACCINATE! IT SAVES LIVES! Members of the community who have not yet received the COVID-19 vaccine and would like to receive it can visit one of [facility] vaccine clinics. There are many vaccine clinic locations within the [facility]. For locations and available times, please visit [email or web address]. It is important to note that some COVID mobile vaccine clinics are held outdoors and may be canceled in rainy or stormy conditions. To learn more about pediatric vaccinations (ages 5-11), we invite you to visit the [facility] webpage. [email or web address] To learn more about the COVID-19 vaccine, we invite you to visit the [employer] website for a list of frequently asked questions. [email or web address] [email or web address] [facility] Patient Portal Access Instructions: Stay connected with your healthcare team and access your personal medical information anytime with the [facility] Patient Portal. If you would like a full copy of your medical records please contact the [facility] Medical Records Department Tuesday through Tuesday between 8a.m. and 4:30p.m. Please follow the directions below to access the portal: 1.Access the email account you provided upon registration to the [facility].2.Look for an invitation email from [facility].3.Open the email and access the invitation link: Accept Invitation to [facility]4.Fill in the required hatch to create your account. Sign into [email or web address] with your username and password that you created in the above steps to stay up to date. You can then view a summary of results, a summary of your visits, and the ability to download your summaries to your computer or send the information securely to a physician. Remember that your healthcare information is confidential, so carefully consider who you will allow to register on the [facility] Patient Portal for access to your information. You can also access the [facility] Patient Portal on the [employer]. Simply click on Health Records under Health Data and then click on the [facility] logo. HOW TO SAFELY DISPOSE OF PRESCRIPTION MEDICATIONS Please use one of the following methods to safely dispose of your unused medications. 1.Use a drug disposal kit: the drug disposal pouch allows you to safely discard your old and unused drugs. Ask your nurse to give you one when you are discharged.2.Visit a local take-back location: Many local pharmacies and police departments have programs that collect old and unwanted prescription drugs. Call your local pharmacy or go to http://Panelfly.BigTeams/5P3Kc2n to find one close to you.3.Make use of household items: Use cat litter or old coffee grounds to dispose medications if other options are not available. Mix your drugs with these household products, seal them in an airtight container and throw it into the garbage. Call [facility]: [phone] to be sure your drugs can be disposed of in this way. Some medicines may require a different approach.4.Never flush your medications down the toilet. IF YOU HAVE BEEN PRESCRIBED AN OPIOIDS FOR PAIN If you have been prescribed an opioid (such as hydrocodone, oxycodone or morphine), it is critical to understand the possible side effects and risks of opioid pain medications. Even when taken as directed, opioids can have several side effects including: Tolerance, meaning you might need to take more of a medication for the same pain relief. Nausea, vomiting and/or constipation. Sleepiness, dizziness, dry mouth, confusion, depression or itching. Physical dependence, meaning you have withdrawal symptoms when a medication is stopped ? this can develop within a few days. KNOW YOUR RESPONSIBILITIES It is important to know exactly how much and how often to take the opioid pain medications you are prescribed. Never take opioids in higher amounts or more often than prescribed. Do not combine opioids with alcohol or other drugs that cause drowsiness, such as benzodiazepines, also known as benzos, including diazepam and alprazolam, muscle relaxants or sleep aids. Never sell or share prescription opioids. This is illegal. Store opioids in a secure place and out of reach of others (including children, family, friends and visitors). The last page(s) of this document has been signed and retained as a CHART COPY Signatures Patient Education Materials Hypertension, To Be Confirmed Arthralgia Medication Leaflets My discharge plan and instructions have been reviewed and explained to me and I,MARIELLE CARRASCO understand my current condition and have read and understand these discharge instructions. I have received a written copy of the plan/instructions. If I have questions, I am aware that I should contact my doctor. 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 HISTORY: ORDERING SYSTEM PROVIDED HISTORY: Reason for Exam: pain FINDINGS: There is no acute fracture. The bones are in anatomic alignment. The joint spaces are maintained. There is no radiopaque foreign body. IMPRESSION: No acute osseous abnormality. Interpreted by: Jose Earl MD Preliminary Report By: Jose Earl MD Electronically signed By Jose Earl MD Dictated Date: 11/08/2021 12:24:09 PM Prelim Date: 11/08/2021 12:25:22 PM Sign Date: 11/08/2021 12:25:22 PM Ordering Provider: ROSE MARY [facility] 11-08-2021 Note ORIGINAL EXAMINATION: THREE XRAY VIEWS OF THE RIGHT HAND 11/08/2021 12:13 pm COMPARISON: None. HISTORY: ORDERING SYSTEM PROVIDED HISTORY: Reason for Exam: pain FINDINGS: There is no acute fracture. The bones are in anatomic alignment. The joint spaces are maintained. There is no radiopaque foreign body. IMPRESSION: No acute osseous abnormality. Interpreted by: Jose Earl MD Preliminary Report By: Jose Earl MD Electronically signed By Jose Earl MD Dictated Date: 11/08/2021 12:24:09 PM Prelim Date: 11/08/2021 12:25:22 PM Sign Date: 11/08/2021 12:25:22 PM Ordering Provider: [facility] Evaluation + Plan note No data available for this section [facility] Evaluation note Diagnosis Gastroesophageal reflux disease with esophagitis, unspecified whether hemorrhage Pre-diabetes Other abnormal glucose Morbid obesity due to excess calories (HCC) GERD without esophagitis Esophageal reflux Pre-operative laboratory examination Pre-procedural laboratory examination Pre-diabetes Other abnormal glucose Morbid obesity due to excess calories (HCC) GERD without esophagitis Esophageal reflux Pre-operative laboratory examination Pre-procedural laboratory examination Pre-diabetes Other abnormal glucose Morbid obesity due to excess calories (HCC) GERD without esophagitis Esophageal reflux Pre-operative laboratory examination Pre-procedural laboratory examination [facility] Gastroesophageal reflux disease with esophagitis, unspecified whether hemorrhage Pre-diabetes Other abnormal glucose Morbid obesity due to excess calories (HCC) GERD without esophagitis Esophageal reflux Pre-operative laboratory examination Pre-procedural laboratory examination Pre-diabetes Other abnormal glucose Morbid obesity due to excess calories (HCC) GERD without esophagitis Esophageal reflux Pre-operative laboratory examination Pre-procedural laboratory examination Pre-diabetes Other abnormal glucose Morbid obesity due to excess calories (HCC) GERD without esophagitis Esophageal reflux Pre-operative laboratory examination Pre-procedural laboratory examination [facility] Diagnosis Pre-op examination- Primary Morbid obesity due to excess calories (HCC) Primary hypertension Unspecified essential hypertension Dyspepsia Dyspepsia and other specified disorders of function of stomach [facility]* Diagnosis Dyspepsia Dyspepsia and other specified disorders of function of stomach [facility]* Diagnosis TRANG (obstructive sleep apnea)- Primary Obstructive sleep apnea (adult) (pediatric) Pre-diabetes Other abnormal glucose Morbid obesity due to excess calories (HCC) GERD without esophagitis Esophageal reflux Pre-operative laboratory examination Pre-procedural laboratory examination Shortness of breath Tobacco use disorder documented in this encounter [facility] note* Diagnosis Nicotine use- Primary documented in this encounter [facility] Discharge instructions No data available for this section [facility] Discharge instructions* Attachments The following attachments cannot be sent through Care Everywhere. * Upper GI Endoscopy Discharge Instructions ([place]) [facility] No data available for this section [facility] Reason for referral (narrative)* Consultation (Elective) - Closed Specialty Diagnoses / Procedures Referred By Amrita rios Referred To Contact Cardiology Diagnoses Pre-diabetes Morbid obesity due to excess calories (HCC) GERD without esophagitis Pre-operative laboratory examination Procedures ME OFFICE/OUTPATIENT [facility] 60-74 MINUTES Otilio Cheng APRN - CNP [address] [facility] [address] [place] [address] [facility] [address] [place] [address] Referral ID Status Reason Start Date Expiration Date V isits Requested Visits Authorized [id number] Closed Specialty Services Required 01/22/2022 07/21/2022 1 1 * Consultation (Routine) - Closed Specialty Diagnoses / Procedures Referred By Amrita t Referred To Contact Pulmonary Disease / Pulmonology Diagnoses Pre-diabetes Morbid obesity due to excess calories (HCC) GERD without esophagitis Pre-operative laboratory examination Procedures ME OFFICE/OUTPATIENT NEW HIGH MDM 60-74 MINUTES Otilio Cheng, IRENE Shukla CNP [address] [place] [address] [facility] [address] [place] [address] Referral ID Status Reason Start Date Expiration Date V isits Requested Visits Authorized [id number] Closed Specialty Services Required 01/22/2022 07/21/2022 1 1 [facility] Summary Purpose Family History No Family History Records FoundNo Family History Records FoundNo Family History Records FoundNo Family History Records Found No data available for this section No Family History Records Found No data available for this section No data available for this section No Family History Records FoundNo Family History Records Found Advance Directives No Advanced Directives Records FoundLatest Code Status on File Code Status Date Activated Date Inactivated Comments Full Code 03/26/2022 11:34 AM 03/26/2022 3:20 PM Latest Code Status on File Code Status Date Activated Date Inactivated Comments Full Code 03/26/2022 11:34 AM 03/26/2022 3:20 PM Reason for Referral Specialty Diagnoses / Procedures Referred By Amrita rios Referred To Contact Sleep Medicine Diagnoses TRANG (obstructive sleep apnea) Procedures Polysomnography Mehran Bush MD [address] [place] [address] Referral ID Status Reason Start Date Expiration Date V isits Requested Visits Authorized [id number] Pending Review 04/08/2022 10/05/2022 1 1 Specialty Diagnoses / Procedures Referred By Amrita t Referred To Contact Diagnoses Tobacco use disorder Procedures Complete PFT pre and post bronchodilator Mehran Bush MD [address] [place] [address] Referral ID Status Reason Start Date Expiration Date V isits Requested Visits Authorized [id number] Incomplete 04/08/2022 10/05/2022 1 1 Additional Source Comments INFORMATION SOURCE (unrecogn ized section and content) DATE CREATED AUTHOR 03/19/2019 [facility] DATE CREATED AUTHOR AUTHOR'S ORGANIZ ATION 11/21/2021 [facility] DATE CREATED AUTHOR AUTHOR'S ORGANIZ ATION 12/12/2021 [facility] DATE CREATED AUTHOR AUTHOR'S ORGANIZ ATION 06/26/2022 [facility] DATE CREATED AUTHOR AUTHOR'S ORGANIZ ATION 03/18/2023 [facility] DATE CREATED AUTHOR AUTHOR'S ORGANIZ ATION 05/19/2023 [facility] ([place]) DATE CREATED AUTHOR AUTHOR'S ORGANIZ ATION 05/06/2024 [facility] Care Teams (unrecognized sec tion and content) Welfare Eligibility Interviewer Relationship Specialty Start Date End Date CuevasCamrynmaria de jesus [address] [place] [address] PCP - General 02/04/21 Welfare Eligibility Interviewer Relationship Specialty Start Date End Date CuevasCamrynmaria de jesus [address] [place], [place] [id number] PCP - General 02/04/21 Welfare Eligibility Interviewer Relationship Specialty Start Date End Date CuevasCamrynmaria de jesus [address] [place], [place] [address] PCP - General 02/04/21 Welfare Eligibility Interviewer Relationship Specialty Start Date End Date ConsueloCamrynmaria de jesus [address] [facility] [address] [place] [address] PCP - General 02/04/21 Welfare Eligibility Interviewer Relationship Specialty Start Date End Date Camryn Cuevasmaria de jesus [address] [facility] [address] [place] [address] PCP - General 02/04/21 Welfare Eligibility Interviewer Relationship Specialty Start Date End Date Camryn Cuevasmaria de jesus [address] [facility] [address] [place], [place] [address] PCP - General 02/04/21 Welfare Eligibility Interviewer Relationship Specialty Start Date End Date Alton Cuevas [address] [place] [id number] PCP - General 02/04/21 Welfare Eligibility Interviewer Relationship Specialty Start Date End Date Camryn Cuevas[address] [address] PCP - General 02/04/21 Welfare Eligibility Interviewer Relationship Specialty Start Date End Date Camryn Cuevas[address] [id number] PCP - General 02/04/21 Welfare Eligibility Interviewer Relationship Specialty Start Date End Date Camryn Cuevas[address] [address] PCP - General 02/04/21 Welfare Eligibility Interviewer Relationship Specialty Start Date End Date Camryn Cuevas[address] [address] PCP - General 02/04/21 Welfare Eligibility Interviewer Relationship Specialty Start Date End Date Camryn Cuevas[address] [id number] PCP - General 02/04/21 Welfare Eligibility Interviewer Relationship Specialty Start Date End Date Alton Cuevas [address] [place] [phone] PCP - General 02/04/21 Reason for Visit (unrecogniz ed section and content) Reason Onset Date Comments Appointment Request 03/15/2022 Reason Onset Date Comments OTHER 01/22/2022 INITIAL SCHEDULI NG-NEW Epic Reason Onset Date Comments OTHER 03/16/2022 Reason Comments Test Scheduling EGD Reason Comments New Patient Cardiac Clearance Bariatric clearance- Dr Brumfield Specialty Diagnoses / Procedures Referred By Amrita rios Referred To Contact Cardiology Diagnoses Pre-diabetes Morbid obesity due to excess calories (HCC) GERD without esophagitis Pre-operative laboratory examination Procedures ME OFFICE/OUTPATIENT NEW HIGH MDM 60-74 MINUTES Otilio Cehng, FOUNDER AND PRESIDENT - BELL RINGER [address] [facility] [address] [place] [address] [facility] [address] [place] [address] Referral ID Status Reason Start Date Expiration Date V isits Requested Visits Authorized [id number] Closed Specialty Services Required 01/22/2022 07/21/2022 1 1 Reason Onset Date Comments Abnormal Lab 03/17/2022 Low vitamin D, l ow normal vitamin B12, elevated TSH, abnormal lipid panel Specialty Diagnoses / Procedures Referred By Contac t Referred To Contact Diagnoses Dyspepsia Dyspepsia [R10.13] Procedures ME EGD TRANSORAL BIOPSY SINGLE/MULTIPLE EGD WITH BIOPSY Gonsalo Brumfield MD [address] [place] [address] [facility] End[facility] [address] [place] [address] Referral ID Status Reason Start Date Expiration Date Visits Re quested Visits Authorized [id number] 1 1 Reason Comments New Patient Pre-op Exam Sleep Apnea Specialty Diagnoses / Procedures Referred By Amrita t Referred To Contact Pulmonary Disease / Pulmonology Diagnoses Pre-diabetes Morbid obesity due to excess calories (HCC) GERD without esophagitis Pre-operative laboratory examination Procedures ME OFFICE/OUTPATIENT NEW HIGH MDM 60-74 MINUTES Otilio Cheng R, FOUNDER AND PRESIDENT - [employer]ER [address] [place] [address] [facility] [address] [place] [address] Referral ID Status Reason Start Date Expiration Date Visits Requested Visits Authorized [id number] Pending Review Specialty Services Required 01/22/2022 07/21/2022 1 1 Reason Onset Date Comments Results 03/22/2022 Continuous Active and Recently Administ ered Medications (unrecognized section and content) Medication Order 03/24/2022 03/25/2022 03/26/2022 sodium chloride 0.9 % infusion 50 mL/hr, IntraVENous, Continuous, Starting on Tue03/26/22 at 1145, Preprocedure 1217 (New Bag - Prov ider: Sohan Galarza RN)1300 (Stopped - Provider: Laverne Cordova RN) FOR RECORDS PERTAINING TO PATIENTS WHO ARE OR HAVE BEEN ENROLLED IN A CHEMICAL DEPENDENCY/SUBSTANCEABUSE PROGRAM, SOME INFORMATION MAY BE OMITTED. This clinical summary was aggregated from multiple sources. Caution should be exercised in using it in the provision of clinical care. This summary normalizes information from multiple sources, and as a consequence, information in this document may materially change the coding, format and clinical context of patient data. In addition, data may be omitted in some cases. CLINICAL DECISIONS SHOULD BE BASED ON THE PRIMARY CLINICAL RECORDS. [facility] [employer] [facility]. provides no warranty or guarantee of the accuracy or completeness of information in this document.
[2024-10-17 15:09] LABS: ANTINUCLEAR ANTIBODIES DIRECT Negative (Negative)
== END | disposition home or self-care (01) ==
PROVIDERS: PCP Family Medicine; Referring Provider Family Medicine; Visit Provider Family Medicine
DX: R42 Dizziness and giddiness (principal)
CPT/HCPCS: 36415; 80053; 80061; 82306; 82607; 83036; 83735; 84439; 84443; 85025; 85652; 86038; 86140

== ENCOUNTER 2024-11-04 20:11 | Emergency (ER) | payer MEDICAID, SELFPAY ==
[2024-11-04 20:12] VITALS: BP 157/91; PULSE 92; RESP 18; TEMP 36.7; O2SAT 97; BMI 62.1
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
--- NOTE | 2024-11-04 20:17 | EKG12_ITS ---
Test Reason : CHEST TIGHTNESS Blood Pressure : */* mmHG Vent. Rate : 92 BPM Atrial Rate : 92 BPM P-R Int : 188 ms QRS Dur : 86 ms QT Int : 364 ms P-R-T Axes : 24 16 29 degrees QTcB Int : 450 ms Sinus rhythm with Premature atrial complexes Otherwise normal ECG Confirmed by Campos Weldon ([id number]), visual effects editor TAMIKA ARREOLA ([id number]) on 11/05/2024 1:23:30 PM Referred By: ALLYSSA Confirmed By: Campos Weldon
--- NOTE | 2024-11-04 20:43 | RAD_ITS ---
PROCEDURE: CHEST 1 VIEW (PORTABLE) 11/04/2024 REASON FOR EXAM: CHEST PAIN TECHNIQUE: Frontal view of the chest. COMPARISON: 01/23/2024 FINDINGS: LUNGS AND PLEURA: Focal opacity in the right upper lung. There is right inferolateral pleural thickening, new since the prior study. Minimal curvilinear right mid lung atelectasis/scarring. No pneumothorax or left pleural effusion. HEART AND MEDIASTINUM: The cardiac silhouette is mildly enlarged. The mediastinal contour is normal. BONES: No acute osseous abnormality. OTHER: Persistent right hemidiaphragm elevation. RAD/Chest 1 View (Portable) IMPRESSION: 1. Right upper lung opacity, possibly infectious in etiology. Follow-up imagi ng recommended until resolved. 2. Right inferolateral pleural thickening, likely small pleural effusion or pl eural scarring. This is new since the prior study. Reading Location: [id number]
--- OUTSIDE RECORDS SUMMARY | 2024-11-04 20:59 | XMS RPT_ITS | CCD ---
Author Organization [facility] Care Team Providers Care Resource Agent Name Role Phone Unavailable Primary Care Provider [...] Primary Care Unavailable PROVIDER, UNKNOWN Referring Unavailable Saragosa, Gonsalo Attending Unavailable PROVIDER, UNKNOWN Referring Unavailable Octaviano, Gonsalo Attending Unavailable No, PCP Primary Care Unavailable PROVIDER, UNKNOWN Referring Unavailable Saragosa, Gonsalo Attending Unavailable No, PCP Primary Care Unavailable Alton Cuevas Primary Care Provider Alton Cuevas Primary Care Provider SKYLAR, OTILIO R Referring Unavailable ALTON CUEVAS Primary Care Unavailable SERENITY WATTERS Attending Unavailable ALTON CUEVAS Primary Care Unavailable MEHRAN BUSH Attending Unavailable BRIDMATY, OTILIO R Referring Unavailable ALTON CUEVAS Primary Care Unavailable OCTAVIANO, GONSALO Admitting Unavailable OCTAVIANO, GONSALO Attending Unavailable PHYSICIAN, PATIENT UNSURE Primary Care Physician Unavailable PHYSICIAN, PATIENT UNSURE Primary Care Unabeth JOHNSON MD, GHISLAINE Attending Unavailable PHYSICIAN, NONE Primary Care Unavailable XIMENA ANDREWS PA-C Attending Unavaila stefania REYES MD, DR KEMAL Mccarty Attending Unabeth rudloph PHYSICIAN, NONE Primary Care Unavailable Bib VSC, Angie Primary Care Unavailable Bib VSC, Angie Attending Unavailable Gonsalo Niño Attending Unavailable Bib VSC, Angie Primary Care Unavailable Mariel Tran Attending Unavailable Bib VSC, Angie Primary Care Unavailable Care Physician, No Primary Primary Care Unava ilable Tay Hinton Attending Unavailable Care Physician, No Primary Primary Care Unava ilable Idris Brown Attending Unavailable Bib VSC, Angie Attending Unavailable Bib VSC, Angie Primary Care Unavailable Too Perez Attending Unavailable Bib VSC, Angie Primary Care Unavailable Bib VSC, Angie Primary Care Unavailable Bib VSC, Angie Attending Unavailable Bib VSC, Angie Referring Unavailable Allergies Allergy Classification Reported Allergen(s) Allergy Type Date of Onset Reaction(s) Facility (1 source) Manda albicans allergenic extract Drug Allergy 04-21-2024 [facility] Repository (1 source) walnut Drug allergy (disorder) 04-21-2024 [facility] Medications Current Medications Medication Drug [...] Problem Classification Problem Date Documented Date Episodic/Chronic Conditions associated with dizziness or vertigo (1 source) Dizziness and giddiness; Translations: [Dizziness and giddiness] Onset: 10-23-2024 Episodic Diabetes mellitus with complications (1 source) Type [...] unspecified; Translations: [Obesity, unspecified] Onset: 12-07-2021 Chronic Residual codes; unclassified (2 sources) Obstructive sleep [...] Classification Problem Date Documented Da te Episodic/Chronic Abdominal pain (5 sources) Epigastric pain; Translations: [Indigestion] Onset: 03-26-2022 Episodic Diabetes mellitus without complication (20 sources) Prediabetes; Translations: [Prediabetes] Onset: 12-30-2020 12-30-2020 Episodic Nonspecific chest pain (1 source) Chest pain, unspecified; Translations: [Chest pain, unspecified] Onset: 01-18-2024 Episodic Other lower respiratory disease (2 sources) Shortness of breath; Translations: [Shortness of breath] Onset: 04-08-2022 Episodic Other lower respiratory disease (1 source) Dyspnea; Translations: [Shortness of breath] Episodic Other upper respiratory infections (1 source) Acute upper respiratory infection, unspecified; Translations: [Acute upper respiratory infection, unspecified] Onset: 02-23-2024 Episodic Residual codes; unclassified (1 source) Nicotine user; Translations: [Tobacco use] Episodic Urinary tract infections (1 source) Acute cystitis without hematuria; Translations: [Acute cystitis without hematuria] Onset: 11-29-2023 Episodic Results Test Name Value Interpretation Reference Range Facility ANTINUCLEAR ANTIBODIES [facility] 10-17-2024 JERRY,DIRECT Negative Normal Negative [facility] Comment on above: Result Comment: Perf ormed at: [facility] [address] [id number] Physical Education Teacher: Addy Hidalgo PhD, Phone: [phone] Performed By: #### L 400.9618 #### [facility] [address] [place], [address] CBC W/Diff, Automatedon 09-22 Absolute Lymph 3.12 X10 3/uL Normal 0.83-4.51 [facility] Comment on above: Performed By: #### L 505.5000, L501.9100 #### [facility] [address] [facility] [place], [address] Absolute Neut 9.8 X10 3/uL High 2.0-7.7 [facility] Comment on above: Performed By: #### L 505.5000, L501.9100 #### [facility] [address] [facility] [place], [address] Basophils/100 WBC (Bld) 0.8 % Normal 0-1 [facility] Comment on above: Performed By: #### L 505.5000, L501.9100 #### [facility] [address] [facility] [place], [address] Eosinophils/100 WBC (Bld) 1.1 % Normal 0-5 [facility] Comment on above: Performed By: #### L 505.5000, L501.9100 #### [facility] [address] [facility], [address] Erythrocyte distribution width (RBC) [Ratio] 14.5 % Normal 11.6-14.6 [facility] Comment on above: Performed By: #### L 505.5000, L501.9100 #### [facility] [address] [place], [address] Hematocrit (Bld) [Volume fraction] 45.4 % Normal 37-47 [facility] Comment on above: Performed By: #### L 505.5000, L501.9100 #### [facility] [address] [place], [address] Hemoglobin (Bld) [Mass/Vol] 14.1 g/dL Normal 12.0-15.0 [facility] Comment on above: Performed By: #### L 505.5000, L501.9100 #### [facility] [address] [place], [address] IG% 0.500 Normal 0.0-0.9 [facility] Comment on above: Result Comment: IG% - Immature Granulocytes (promyelocytes, myelocytes and metamyelocytes) > 1% indicates that a LEFT SHIFT is Present. Performed By: #### L 505.5000, L501.9100 #### [facility] [address] [place], [address] Lymphocytes/100 WBC (Bld) 22.3 % Normal 19-41 [facility] Comment on above: Performed By: #### L 505.5000, L501.9100 #### [facility] [address] [place], [address] MCH (RBC) [Entitic mass] 25.9 pg Low 27.0-32.0 [facility] Comment on above: Performed By: #### L 505.5000, L501.9100 #### [facility] [address] [place], [address] MCHC (RBC) [Mass/Vol] 31.1 g/dL Low 32-36 [facility] Comment on above: Performed By: #### L 505.5000, L501.9100 #### [facility] [address] [place], [address] MCV (RBC) [Entitic vol] 83.3 fL Normal 81-99 [facility] Comment on above: Performed By: #### L 505.5000, L501.9100 #### [facility] [address] [place], [address] Monocytes/100 WBC (Bld) 5.1 % Normal 0-10 [facility] Comment on above: Performed By: #### L 505.5000, L501.9100 #### [facility] [address] [place], [address] Neutrophils/100 WBC (Bld) 70.2 % High 47-70 [facility] Comment on above: Performed By: #### L 505.5000, L501.9100 #### [facility] [address] [place], [address] Nucleated RBC (Bld) [#/Vol] 0 10*3/uL Normal 0-5 [facility] Comment on above: Performed By: #### L 505.5000, L501.9100 #### [facility] [address] [place], [address] Platelet mean volume (Bld) [Entitic vol] 10.3 fL Normal 6.2-12.0 [facility] Comment on above: Performed By: #### L 505.5000, L501.9100 #### [facility] [address] [place], [address] Platelets (Bld) [#/Vol] 427 10*3/uL Normal 150-450 [facility] Comment on above: Performed By: #### L 505.5000, L501.9100 #### [facility] [address] [place], [address] RBC (Bld) [#/Vol] 5.45 10*6/uL High 4.2-5.4 [facility] Comment on above: Performed By: #### L 505.5000, L501.9100 #### [facility] [address] [place], [address] RDW SD 43.6 fl Normal 35.1-43.9 [facility] Comment on above: Performed By: #### L 505.5000, L501.9100 #### [facility] [address] [place], [address] WBC (Bld) [#/Vol] 14.0 10*3/uL High 4.4-11.0 [facility] Comment on above: Performed By: #### L 505.5000, L501.9100 #### [facility] [address] [place], [address] CRPon 10-16-2024 C-REACTIVE PROT 21.10 mg/L High 0.0-3.0 [facility] Comment on above: Performed By: #### L 505.5000, L501.9100 #### [facility] [address] [place], [address] Comprehensive Metabolic Prof ilon 10-16-2024 Albumin [Mass/Vol] 4.2 g/dL Normal 3.5-5.0 [facility] Comment on above: Performed By: #### L 505.5000, L501.9100 #### [facility] [address] [place], [address] Albumin/Globulin [Mass ratio] 1.2 {ratio} Normal 0.9-2.4 [facility] Comment on above: Performed By: #### L 505.5000, L501.9100 #### [facility] [address] [place], [address] ALK PHOS 95 U/L Normal 35-104 [facility] Comment on above: Performed By: #### L 505.5000, L501.9100 #### [facility] [address] [place], [address] ALT [Catalytic activity/Vol] 22 U/L Normal <=34 [facility] Comment on above: Performed By: #### L 505.5000, L501.9100 #### [facility] [address] [place], [address] AST [Catalytic activity/Vol] 21 U/L Normal <=31 [facility] Comment on above: Performed By: #### L 505.5000, L501.9100 #### [facility] [address] [place], [address] Bilirubin [Mass/Vol] 0.64 mg/dL Normal 0.00-1.30 [facility] Comment on above: Performed By: #### L 505.5000, L501.9100 #### [facility] [address] [place], [address] BUN/CRE 17.7 RATIO Normal 10-20 [facility] Comment on above: Performed By: #### L 505.5000, L501.9100 #### [facility] [address] [place], [address] Calcium [Mass/Vol] 9.3 mg/dL Normal 7.6-11.0 [facility] Comment on above: Performed By: #### L 505.5000, L501.9100 #### [facility] [address] [place], [address] Chloride [Moles/Vol] 103 mmol/L Normal 98-108 [facility] Comment on above: Performed By: #### L 505.5000, L501.9100 #### [facility] [address] [place], [address] CO2 [Moles/Vol] 22.3 mmol/L Normal 21.0-32.0 [facility] Comment on above: Performed By: #### L 505.5000, L501.9100 #### [facility] [address] [place], [address] Creatinine [Mass/Vol] 0.71 mg/dL Normal 0.70-1.20 [facility] Comment on above: Performed By: #### L 505.5000, L501.9100 #### [facility] [address] [place], [address] GAP 15 Normal 5-15 [facility] Comment on above: Performed By: #### L 505.5000, L501.9100 #### [facility] [address] [place], [address] GFR/1.73 sq M.predicted among non-blacks MDRD (S/P/Bld) [Vol rate/Area] 108 mL/min/{1.73_m2} Normal >60 [facility] Comment on above: Result Comment: mL/m in/1.73m2 CKD-EPI Creatinine Equation (2020) Performed By: #### L 505.5000, L501.9100 #### [facility] [address] [place], [address] Globulin (S) [Mass/Vol] 3.4 g/dL Normal 2.2-4.2 [facility] Comment on above: Performed By: #### L 505.5000, L501.9100 #### [facility] [address] [place], [address] Glucose [Mass/Vol] 116 mg/dL High 70-99 [facility] Comment on above: Performed By: #### L 505.5000, L501.9100 #### [facility] [address] [place], [address] Potassium [Moles/Vol] 4.0 mmol/L Normal 3.3-5.1 [facility] Comment on above: Performed By: #### L 505.5000, L501.9100 #### [facility] [address] [place], [address] Sodium [Moles/Vol] 140 mmol/L Normal 133-145 [facility] Comment on above: Performed By: #### L 505.5000, L501.9100 #### [facility] [address] [place], [address] T PROT 7.6 g/dL Normal 5.9-8.4 [facility] Comment on above: Performed By: #### L 505.5000, L501.9100 #### [facility] [address] [place], [address] Urea nitrogen [Mass/Vol] 13 mg/dL Normal 4-19 [facility] Comment on above: Performed By: #### L 505.5000, L501.9100 #### [facility] [address] [place], [address] Erythrocyte Sed Rateon 10-16 SED RATE 37 mm/hr High 0-30 [facility] Comment on above: Performed By: #### L 505.5000, L501.9100 #### [facility] [address] [place], [address] Hemoglobin A1con 10-16-2024 HbA1c (Bld) [Mass fraction] 6.7 % High <=5.6 [facility] Comment on above: Result Comment: Norm al < 5.7 % Prediabetic 5.7 - 6.4 % Diabetic >or= 6.5 % Please note range changes. Performed By: #### L 505.5000, L501.9100 #### [facility] [address] [place], [address] Lipid Profileon 10-16-2024 CHOL:HDL 5.[address] [facility] Comment on above: Performed By: #### L 505.5000, L501.00 #### [facility] [address] [place], [address] Cholesterol [Mass/Vol] 215 mg/dL High <=200 [facility] Comment on above: Result Comment: Chol esterol level, Desirable <200 mg/dL Borderline high cholesterol 200-239 mg/dL High cholesterol >=240 mg/dL Recommendations of the NCEP Adult Treatment Panel for the following risk-cutoff thresholds for the [place] population. Performed By: #### L 505.5000, L501.00 #### [facility] [address] [place], [address] Cholesterol in HDL [Mass/Vol] 41 mg/dL Normal [facility] Comment on above: Result Comment: Rosa Elena onal Cholesterol Education Program (NCEP) guidelines: <40 mg/dL: Low HDL-cholesterol (major risk factor for CHD) >= 60 mg/dL: High HDL-cholesterol (negative risk factor for CHD) HDL-cholesterol is affected by a number of factors, e.g. smoking, exercise, hormones, sex and age. Performed By: #### L 505.5000, L501.00 #### [facility] [address] [place], [address] Cholesterol in LDL [Mass/Vol] 141 mg/dL Normal [facility] Comment on above: Result Comment: Bord osfswa=159-468 mg/dL Higher Gpat=445 mg/dL or greater Friedwald Equation for LDL-C Performed By: #### L 505.5000, L501.9100 #### [facility] [address] [place], [address] Cholesterol in VLDL [Mass/Vol] 33 mg/dL Normal 5-40 [facility] Comment on above: Performed By: #### L 505.5000, L501.9100 #### [facility] [address] [place], [address] Triglyceride [Mass/Vol] 166 mg/dL Normal [facility] Comment on above: Result Comment: The drugs N-Acetylcysteine and Metamizole may falsely depress this assay. Normal range: <150 mg/dL Borderline High: 150-199 mg/dL High: 200-499 mg/dL Very High: >500 mg/dL Performed By: #### L 505.5000, L501.9100 #### [facility] [address] [place], [address] Magnesiumon 10-16-2024 Magnesium [Mass/Vol] 2.1 mg/dL Normal 1.5-2.2 [facility] Comment on above: Performed By: #### L 505.5000, L501.9100 #### [facility] [address] [place], [address] T4 Free Directon 10-16-2024 T4 FREE DIRECT 0.90 ng/dL Normal 0.76-1.46 [facility] Comment on above: Performed By: #### L 400.7600 #### [facility] [address] [place], [address] Thyroid Stim Hormone (TSH)on 10-16-2024 TSH 8.240 uIU/mL High 0.300-4.200 [facility] Comment on above: Performed By: #### L 505.5000, L501.9100 #### [facility] [address] [place], [address] Vitamin B12on 10-16-2024 Cobalamin (Vitamin B12) [Mass/Vol] 437 pg/mL Normal 180-914 [facility] Comment on above: Performed By: #### L 400.7600 #### [facility] [address] [place], [address] Vitamin D,25 Hydroxyon 10-16 Vitamin D 25-OH 31.4 ng/mL Normal 30-100 [facility] Comment on above: Result Comment: Laureen min D Status Deficiency: <20 ng/mL (50nmol/L) Insufficiency: 20-30 ng/mL (50-75 nmol/L) Sufficiency: 30-100 ng/mL (75-250 nmol/L) Toxicity: >100 ng/mL (>250 nmol/L) Performed By: #### L 400.7600 #### [facility] [address] [place], [address] Chlamydia/GC WES aptimaon CHLAMY,NUC ACID Normal [facility] Comment on above: Result Comment: PT D ISCHARGED Performed By: #### L 7000.1800 #### [facility] [address] [place], [address] GC BY NUC ACID Normal [facility] Comment on above: Result Comment: PT D ISCHARGED Performed By: #### L 7000.1800 #### [facility] [address] [place], [place], [address] Emergency Department Summary on 04-21-2024 Emergency Department Summary [facility] Medical Records Department [address] [facility] [place] [address] Emergency Department Summary 04/21/24 MR#: [id number] Acct: [id number] Name: MARIELLE HAWKINS Rep #: [id number] : 1980 43 From: Too Perez MD [...] denies any acute systemic symptoms right now. [facility] Medical History Substance abuse Alcohol abuse Motor [...] 1 - 2 puff inhalation Q4H PRN MN N 08/03/23 Unknown Rx aerosol inhaler (Ventolin HFA) Wheezing/SOB #1 device aripiprazole 5 mg tablet (Abilify) 5 mg PO QHS #14 tabs 08/03/23 Un known Rx bupropion HCl 150 mg 24 hr tablet, 150 mg PO DAILY #14 tabs 06/12/2 4 Unknown Rx extended release (Wellbutrin XL) [...] History Hi (more content not included)... Normal [facility] Urinalysis, Completeon 04-21 BACTERIA Normal None Seen [facility] Comment on above: Order Comment: IRENA CTOR TO SPECIFY Result Comment: PT D ISCHARGED Performed By: #### L 400.0001 #### [facility] [address] [place], [address] BILIRUBIN URINE Normal Negative [facility] Comment on above: Order Comment: COLLE CTOR TO SPECIFY Result Comment: PT D ISCHARGED Performed By: #### L 400.0001 #### [facility] [address] [place], [address] Clarity (U) Normal Clear [facility] Comment on above: Order Comment: IRENA CTOR TO SPECIFY Result Comment: PT D ISCHARGED Performed By: #### L 400.0001 #### [facility] [address] [place], [address] Color (U) Normal Yellow [facility] Comment on above: Order Comment: IRENA CTOR TO SPECIFY Result Comment: PT D ISCHARGED Performed By: #### L 400.0001 #### [facility] [address] [place], [address] EPI,SQUAMOUS Normal 5-10 [facility] Comment on above: Order Comment: IRENA CTOR TO SPECIFY Result Comment: PT D ISCHARGED Performed By: #### L 400.0001 #### [facility] [address] [place], [address] GLUCOSE, UR Normal Normal [facility] Comment on above: Order Comment: IRENA CTOR TO SPECIFY Result Comment: PT D ISCHARGED Performed By: #### L 400.0001 #### [facility] [address] [place], [address] KETONE UR Normal Negative [facility] Comment on above: Order Comment: COLLE CTOR TO SPECIFY Result Comment: PT D ISCHARGED Performed By: #### L 400.0001 #### [facility] [address] [place], [address] LEUK ESTERASE Normal Negative [facility] Comment on above: Order Comment: IRENA CTOR TO SPECIFY Result Comment: PT D ISCHARGED Performed By: #### L 400.0001 #### [facility] [address] [place], [address] Mucus Ql (Urine sed) Normal [facility] Comment on above: Order Comment: COLLE CTOR TO SPECIFY Result Comment: PT D ISCHARGED Performed By: #### L 400.0001 #### [facility] [address] [place], [address] Nitrite Ql (U) Normal Negative [facility] Comment on above: Order Comment: COLLE CTOR TO SPECIFY Result Comment: PT D ISCHARGED Performed By: #### L 400.0001 #### [facility] [address] [place], [address] OCCULT BLOOD-UR Normal Negative [facility] Comment on above: Order Comment: IRENA CTOR TO SPECIFY Result Comment: PT D ISCHARGED Performed By: #### L 400.0001 #### [facility] [address] [place], [address] pH UR Normal 5.0 - 8.0 [facility] Comment on above: Order Comment: IRENA CTOR TO SPECIFY Result Comment: PT D ISCHARGED Performed By: #### L 400.0001 #### [facility] [address] [place], [address] PROT DIPSTX Normal Negative [facility] Comment on above: Order Comment: IRENA CTOR TO SPECIFY Result Comment: PT D ISCHARGED Performed By: #### L 400.0001 #### [facility] [address] [place], [address] RBC Normal 0-5 [facility] Comment on above: Order Comment: COLLE CTOR TO SPECIFY Result Comment: PT D ISCHARGED Performed By: #### L 400.0001 #### [facility] [address] [place], [address] SP.GR. DIPSTX Normal 1.002-1.030 [facility] Comment on above: Order Comment: COLLE CTOR TO SPECIFY Result Comment: PT D ISCHARGED Performed By: #### L 400.0001 #### [facility] [address] [place], [address] [facility] Comment on above: Order Comment: COLLE CTOR TO SPECIFY Result Comment: PT D ISCHARGED Performed By: #### L 400.0001 #### [facility] [address] [place], [address] Normal Normal [facility] Comment on above: Order Comment: COLLE CTOR TO SPECIFY Result Comment: PT D ISCHARGED Performed By: #### L 400.0001 #### [facility] [address] [place], [address] WBC Normal 0-5 [facility] Comment on above: Order Comment: COLLE CTOR TO SPECIFY Result Comment: PT D ISCHARGED Performed By: #### L 400.0001 #### [facility] [address] [place], [address] Chest PA and Lateralon 01-22 Chest PA and Lateral [facility] Imaging Services [address] [place] [address] Chest PA and Lateral MR#: [id number] Acct: [id number] Name: MARIELLE HAWKINS Rep #: [id number] : 1980 F 43 From: Alex Macias MD PCP: Angie Mccartney DO Status: REG ER Study: Chest PA and Lateral Date of Exam: 01/23/24 Exam# [id number] Ordering Dr: Gonsalo [place]ño [place] [id number] EXAM: XR CHEST, 2 VIEWS CLINICAL INDICATION: [...] Signed: Alex Macias MD at 13:13 EST Reading Location ID and State: [address] [place] [address] Tel , Service support , CC: Dr. Gonsalo Niño DO; Angie Mccartney DO [employer] Supervisor: Signed Normal [facility] Emergency Department Summary on 01-23-2024 Emergency Department Summary [facility] Medical Records Department [address] [place] [address] Emergency Department Summary 01/23/24 MR#: [id number] Acct: [id number] Name: MARIELLE HAWKINS Rep #: [id number] : 1980 43 From: Gonsalo Niño DO [...] She states that she has tried several [id number]-nbl-mysxcxk medications without any symptomatic relief and notes that her inhalers at home were not helping her therefore she came here for further evaluation management. [facility] Medical History Substance abuse Alcohol abuse Motor [...] use type (more content not included)... Normal [facility] M100.678on 01-23-2024 M100.678 Pending SARS-CoV-2 (COVID 19) Negative INFLUENZA A Negative INFLUENZA B Negative RSV PCR Negative Normal [facility] Comment on above: Performed By: #### L 105.2742 #### [facility] [place], [address] ANTINUCLEAR ANTIBODIES DIREC Ton 01-04-2024 JERRY,DIRECT Negative Normal Negative [facility] Comment on above: Result Comment: Perf ormed at: - [address] [id number] Physical Education Teacher: Addy Hidalgo PhD, Phone: [phone] Performed By: #### L 505.5000, L501.9100 #### [facility] [address] [place], [place], [address] CCP IgG Antibodieson 024 CCP IgG Ab. 8 units Normal 0-19 [facility] Comment on above: Result Comment: Nega tive <20 Weak positive 20 - 39 Moderate positive 40 - 59 Strong positive >59 Performed at: [facility] [address] [id number] Physical Education Teacher: Addy Hidalgo PhD, Phone: [phone] Performed By: #### L 505.5000, L5.9100 #### [facility] [address] [place], [place], [id number] CRPon 01-03-2024 C-REACTIVE PROT 22.80 mg/L High 0.0-3.0 [facility] Comment on above: Result Comment: C-Re active Protein (CRP) provides useful information for the diagnosis, therapy and monitoring of inflammatory processes and associated diseases. For the evaluation of Relative Risk for Cardiovascular Disease, a High Sensitivity CRP (HSCRP) should be ordered. Performed By: #### L 505.5000, L501.9100 #### [facility] [address] [place], [place], [id number] Comprehensive Metabolic Prof ilon 01-03-2024 Albumin [Mass/Vol] 3.1 g/dL Low 3.2-5.0 [facility] Comment on above: Performed By: #### L 505.5000, L501.9100 #### [facility] [address] [place], [place], [address] Albumin/Globulin [Mass ratio] 0.8 {ratio} Low 0.9-2.4 [facility] Comment on above: Performed By: #### L 505.5000, L501.9100 #### [facility] [address] [place], [address] ALK P 97 U/L Normal 45-117 [facility] Comment on above: Performed By: #### L 505.5000, L501.9100 #### [facility] [address] [place], [address] ALT [Catalytic activity/Vol] 24 U/L Normal 13-56 [facility] Comment on above: Performed By: #### L 505.5000, L501.9100 #### [facility] [address] [place], [address] AST [Catalytic activity/Vol] 17 U/L Normal 15-37 [facility] Comment on above: Result Comment: Slig ht Hemolysis, Result may be falsely increased. Performed By: #### L 505.5000, L501.9100 #### [facility] [address] [place], [address] Bilirubin [Mass/Vol] 0.50 mg/dL Normal 0.20-1.00 [facility] Comment on above: Result Comment: For patients on eltrombopag therapy, use of Dimension Williams TBIL is not recommended. Performed By: #### L 505.5000, L501.9100 #### [facility] [address] [place], [address] BUN/CRE 23.3 RATIO High 10-20 [facility] Comment on above: Performed By: #### L 505.5000, L501.9100 #### [facility] [address] [place], [address] CA,Total 8.6 mg/dL Normal 8.5-10.1 [facility] Comment on above: Performed By: #### L 505.5000, L501.9100 #### [facility] [address] [place], [address] Chloride [Moles/Vol] 105 mmol/L Normal 98-107 [facility] Comment on above: Performed By: #### L 505.5000, L501.9100 #### [facility] [address] [place], [address] CO2 [Moles/Vol] 25.0 mmol/L Normal 21.0-32.0 [facility] Comment on above: Performed By: #### L 505.5000, L501.9100 #### [facility] [address] [place], [address] Creatinine [Mass/Vol] 0.86 mg/dL Normal 0.55-1.02 [facility] Comment on above: Result Comment: The validity of the calculated GFR GFRAA in patients over 70 years has not been determined. Clinical correlation is essential. Performed By: #### L 505.5000, L501.9100 #### [facility] [address] [place], [address] EST GFR - AA 93 mL/min Normal >60 [facility] Comment on above: Result Comment: Afri can Martiniquais GFR Calc Performed By: #### L 505.5000, L501.9100 #### [facility] [address] [place], [address] GAP 7 Normal 5-15 [facility] Comment on above: Performed By: #### L 505.5000, L501.9100 #### [facility] [address] [place], [address] GFR/1.73 sq M.predicted among non-blacks MDRD (S/P/Bld) [Vol rate/Area] 76 mL/min/{1.73_m2} Normal >60 [facility] Comment on above: Result Comment: Non- GFR Calc Performed By: #### L 505.5000, L501.9100 #### [facility] [address] [place], [address] Globulin (S) [Mass/Vol] 3.9 g/dL Normal 2.2-4.2 [facility] Comment on above: Performed By: #### L 505.5000, L501.9100 #### [facility] [address] [place], [address] Glucose [Mass/Vol] 138 mg/dL High 74-106 [facility] Comment on above: Result Comment: Fast ing Glucose result greater than or equal to 126 mg/dL suggests DIABETES MELLITUS per A.D.A. criteria. Performed By: #### L 505.5000, L501.9100 #### [facility] [address] [place], [address] Potassium [Moles/Vol] 4.0 mmol/L Normal 3.5-5.1 [facility] Comment on above: Result Comment: Slig ht Hemolysis, Result may be falsely increased. Performed By: #### L 505.5000, L501.9100 #### [facility] [address] [place], [address] Sodium [Moles/Vol] 136 mmol/L Normal 136-145 [facility] Comment on above: Performed By: #### L 505.5000, L501.9100 #### [facility] [address] [place], [address] T PROT 7.0 g/dL Normal 6.4-8.2 [facility] Comment on above: Performed By: #### L 505.5000, L501.9100 #### [facility] [address] [place], [address] Urea nitrogen [Mass/Vol] 20 mg/dL High 7-18 [facility] Comment on above: Performed By: #### L 505.5000, L501.9100 #### [facility] [address] [place], [address] Erythrocyte Sed Rateon 01-02 SED RATE 30 mm/hr Normal 0-30 [facility] Comment on above: Performed By: #### L 505.5000, L501.00 #### [facility] [address] [place], [address] Ferritinon 01-03-2024 Ferritin [Mass/Vol] 20 ng/mL Normal 8-252 [facility] Comment on above: Performed By: #### L 505.5000, L501.9100 #### [facility] [address] [place], [address] Lipid Profileon 01-03-2024 Cholesterol [Mass/Vol] 206 mg/dL High 200 [facility] Comment on above: Result Comment: <200 mg/dL Desirable 200-240 mg/dL Borderline >240 mg/dL High Risk Performed By: #### L 505.5000, L501.9100 #### [facility] [address] [place], [address] Cholesterol in HDL [Mass/Vol] 47 mg/dL Normal [facility] Comment on above: Result Comment: The drugs N-Acetylcysteine and Metamizole may falsely depress this assay. Reference Range HDL <40 mg/dL Low HDL Cholesterol HDL >or= 60 mg/dL High HDL Cholesterol Performed By: #### L 505.5000, L501.9100 #### [facility] [address] [place], [address] Cholesterol in LDL [Mass/Vol] 108 mg/dL Normal 0-130 [facility] Comment on above: Performed By: #### L 505.5000, L501.9100 #### [facility] [address] [place], [address] Cholesterol in VLDL [Mass/Vol] 51 mg/dL High 5-40 [facility] Comment on above: Performed By: #### L 505.5000, L501.9100 #### [facility] [address] [place], [address] Triglyceride [Mass/Vol] 254 mg/dL High [facility] Comment on above: Result Comment: The drugs N-Acetylcysteine and Metamizole may falsely depress this assay. Serum Triglycerides Reference Interval Normal <150 mg/dL Borderline high 150 - 199 mg/dL High 200 - 499 mg/dL Very High > or = 500 mg/dL Performed By: #### L 505.5000, L501.9100 #### [facility] [address] [place], [address] Magnesiumon 01-03-2024 Magnesium [Mass/Vol] 2.0 mg/dL Normal 1.6-2.6 [facility] Comment on above: Result Comment: Slig ht Hemolysis, Result may be falsely increased. Performed By: #### L 505.5000, L501.9100 #### [facility] [address] [place], [address] Microalbumin,Random Urineon 01-03-2024 MICROALBUMIN,UR 9.7 mg/L Normal NO RANGE EST. [facility] Comment on above: Performed By: #### L 505.5000, L501.9100 #### [facility] [address] [place], [address] Thyroid Stim Hormone (TSH)on 01-03-2024 TSH 14.300 uIU/mL High 0.358-3.740 [facility] Comment on above: Performed By: #### L 505.5000, L501.9100 #### [facility] [address] [place], [address] Vitamin B12on 01-03-2024 Cobalamin (Vitamin B12) [Mass/Vol] 237 pg/mL Normal 211-911 [facility] Comment on above: Performed By: #### L 505.5000, L501.9100 #### [facility] [address] [place], [address] Vitamin D,25 Hydroxyon 01-02 Vitamin D 25-OH 16.6 ng/mL Normal [facility] Comment on above: Result Comment: Laureen min D 25(OH) Status Range Deficiency <20 ng/mL (50nmol/L) Insufficiency 20 - 30 ng/mL (50 - 75 nmol/L) Sufficiency 30 - 100 ng/mL (75 - 250 nmol/L) Toxicity >100 ng/mL (>250 nmol/L) Performed By: #### L 505.5000, L501.9100 #### [facility] [address] [place], [address] 12 Lead EKGon 12-27-2023 12 Lead EKG [facility] Cardiovascular Services [address] [place] [address] 12 Lead EKG 12/27/23 0620 MR#: [id number] Acct: [id number] Name: MARIELLE HAWKINS Rep #: [id number] : 1980 43 From: Campos Weldon MD [...] rhythm Normal ECG Confirmed by Campos Weldon ([id number]), society editor MARK GUILLEN ([id number]) on 12/28/2023 11:38:39 AM Referred By: TL Confirmed By: Campos Weldon 12/28/23 1138 Date Campos Weldon MD CC: Dr. Tay Hinton DO; No Primary Care Physician Signed Normal [facility] Alcohol, Blood (Medical)-Ser umon 12-27-2023 SERUM ETOH < 3.[address] [facility] Comment on above: Result Comment: The serum:whole blood ethanol ratio is approximately 1.14 and varies slightly with hematocrit. Medical Alcohol reference interval and critical value in non-tolerant individuals; 50 - 100 Impairment 100 Intoxication 100 - 250 Severe Poisoning 250 - 400 Deep/possible fatal coma Performed By: #### L 505.5000, L501.9100 #### [facility] [address] [place], [address] Basic Metabolic Profile (BMP )on 12-27-2023 BUN/CRE 17.0 RATIO Normal 10-20 [facility] Comment on above: Order Comment: 'TROP ' Serial specimen #1, #2 or #3: 1 Performed By: #### L 100.0100, L500.2500, L501.4020 #### [facility] [address] [place], [address] CA,Total 9.0 mg/dL Normal 8.5-10.1 [facility] Comment on above: Order Comment: 'TROP ' Serial specimen #1, #2 or #3: 1 Performed By: #### L 100.0100, L500.2500, L501.4020 #### [facility] [address] [place], [address] Chloride [Moles/Vol] 105 mmol/L Normal 98-107 [facility] Comment on above: Order Comment: 'TROP ' Serial specimen #1, #2 or #3: 1 Performed By: #### L 100.0100, L500.2500, L501.4020 #### [facility] [address] [place], [address] CO2 [Moles/Vol] 27.0 mmol/L Normal 21.0-32.0 [facility] Comment on above: Order Comment: 'TROP ' Serial specimen #1, #2 or #3: 1 Performed By: #### L 100.0100, L500.2500, L501.4020 #### [facility] [address] [place], [address] Creatinine [Mass/Vol] 0.88 mg/dL Normal 0.55-1.02 [facility] Comment on above: Order Comment: 'TROP ' Serial specimen #1, #2 or #3: 1 Result Comment: The validity of the calculated GFR GFRAA in patients over 70 years has not been determined. Clinical correlation is essential. Performed By: #### L 100.0100, L500.2500, L501.4020 #### [facility] [address] [place], [address] ECRCL 124.12 ml/min Normal [facility] Comment on above: Order Comment: 'TROP ' Serial specimen #1, #2 or #3: 1 Performed By: #### L 100.0100, L500.2500, L501.4020 #### [facility] [address] [place], [address] EST GFR - AA 90 mL/min Normal >60 [facility] Comment on above: Order Comment: 'TROP ' Serial specimen #1, #2 or #3: 1 Result Comment: Afri can Martiniquais GFR Calc Performed By: #### L 100.0100, L500.2500, L501.4020 #### [facility] [address] [place], [address] GAP 9 Normal 5-15 [facility] Comment on above: Order Comment: 'TROP ' Serial specimen #1, #2 or #3: 1 Performed By: #### L 100.0100, L500.2500, L501.4020 #### [facility] [address] [place], [address] GFR/1.73 sq M.predicted among non-blacks MDRD (S/P/Bld) [Vol rate/Area] 74 mL/min/{1.73_m2} Normal >60 [facility] Comment on above: Order Comment: 'TROP ' Serial specimen #1, #2 or #3: 1 Result Comment: Non- GFR Calc Performed By: #### L 100.0100, L500.2500, L501.4020 #### [facility] [address] [place], [address] Glucose [Mass/Vol] 125 mg/dL High 74-106 [facility] Comment on above: Order Comment: 'TROP ' Serial specimen #1, #2 or #3: 1 Result Comment: Fast ing Glucose result from 100 to 125 mg/dL suggests IMPAIRED HOMEOSTASIS per A.D.A. criteria. Performed By: #### L 100.0100, L500.2500, L501.4020 #### [facility] [address] [place], [address] Potassium [Moles/Vol] 3.9 mmol/L Normal 3.5-5.1 [facility] Comment on above: Order Comment: 'TROP ' Serial specimen #1, #2 or #3: 1 Performed By: #### L 100.0100, L500.2500, L501.4020 #### [facility] [address] [place], [address] Sodium [Moles/Vol] 141 mmol/L Normal 136-145 [facility] Comment on above: Order Comment: 'TROP ' Serial specimen #1, #2 or #3: 1 Performed By: #### L 100.0100, L500.2500, L501.4020 #### [facility] [address] [place], [address] Urea nitrogen [Mass/Vol] 15 mg/dL Normal 7-18 [facility] Comment on above: Order Comment: 'TROP ' Serial specimen #1, #2 or #3: 1 Performed By: #### L 100.0100, L500.2500, L501.4020 #### [facility] [address] [place], [address] CBC W/Diff, Automatedon 11-0 5-2023 Absolute Lymph 3.91 X10 3/uL Normal 0.83-4.51 [facility] Comment on above: Performed By: #### L 100.0100, L500.2500, L501.4020 #### [facility] [address] [place], [address] Absolute Neut 12.0 X10 3/uL High 2.0-7.7 [facility] Comment on above: Performed By: #### L 100.0100, L500.2500, L501.4020 #### [facility] [address] [place], [address] Basophils/100 WBC (Bld) 0.9 % Normal 0-1 [facility] Comment on above: Performed By: #### L 100.0100, L500.2500, L501.4020 #### [facility] [address] [place], [address] Eosinophils/100 WBC (Bld) 0.9 % Normal 0-5 [facility] Comment on above: Performed By: #### L 100.0100, L500.2500, L501.4020 #### [facility] [address] [place], [address] Erythrocyte distribution width (RBC) [Ratio] 13.8 % Normal 11.6-14.6 [facility] Comment on above: Performed By: #### L 100.0100, L500.2500, L501.4020 #### [facility] [address] [place], [address] Hematocrit (Bld) [Volume fraction] 41.8 % Normal 37-47 [facility] Comment on above: Performed By: #### L 100.0100, L500.2500, L501.4020 #### [facility] [address] [place], [address] Hemoglobin (Bld) [Mass/Vol] 13.3 g/dL Normal 12.0-15.0 [facility] Comment on above: Performed By: #### L 100.0100, L500.2500, L501.4020 #### [facility] [address] [place], [address] IG% 0.700 Normal 0.0-0.9 [facility] Comment on above: Result Comment: IG% - Immature Granulocytes (promyelocytes, myelocytes and metamyelocytes) > 1% indicates that a LEFT SHIFT is Present. Performed By: #### L 100.0100, L500.2500, L501.4020 #### [facility] [address] [place], [address] Lymphocytes/100 WBC (Bld) 22.4 % Normal 19-41 [facility] Comment on above: Performed By: #### L 100.0100, L500.2500, L501.4020 #### [facility] [address] [place], [address] MCH (RBC) [Entitic mass] 27.1 pg Normal 27.0-32.0 [facility] Comment on above: Performed By: #### L 100.0100, L500.2500, L501.4020 #### [facility] [address] [place], [address] MCHC (RBC) [Mass/Vol] 31.8 g/dL Low 32-36 [facility] Comment on above: Performed By: #### L 100.0100, L500.2500, L501.4020 #### [facility] [address] [place], [address] MCV (RBC) [Entitic vol] 85.3 fL Normal 81-99 [facility] Comment on above: Performed By: #### L 100.0100, L500.2500, L501.4020 #### [facility] [address] [place], [address] Monocytes/100 WBC (Bld) 6.1 % Normal 0-10 [facility] Comment on above: Performed By: #### L 100.0100, L500.2500, L501.4020 #### [facility] [address] [place], [address] Neutrophils/100 WBC (Bld) 69.0 % Normal 47-70 [facility] Comment on above: Performed By: #### L 100.0100, L500.2500, L501.4020 #### [facility] [address] [place], [address] Nucleated RBC (Bld) [#/Vol] 0 10*3/uL Normal 0-5 [facility] Comment on above: Performed By: #### L 100.0100, L500.2500, L501.4020 #### [facility] [address] [place], [address] Platelet mean volume (Bld) [Entitic vol] 9.8 fL Normal 6.2-12.0 [facility] Comment on above: Performed By: #### L 100.0100, L500.2500, L501.4020 #### [facility] [address] [place], [address] Platelets (Bld) [#/Vol] 387 10*3/uL Normal 150-450 [facility] Comment on above: Performed By: #### L 100.0100, L500.2500, L501.4020 #### [facility] [address] [place], [address] RBC (Bld) [#/Vol] 4.90 10*6/uL Normal 4.2-5.4 [facility] Comment on above: Performed By: #### L 100.0100, L500.2500, L501.4020 #### [facility] [address] [place], [address] RDW SD 42.5 fl Normal 35.1-43.9 [facility] Comment on above: Performed By: #### L 100.0100, L500.2500, L501.4020 #### [facility] [address] [place], [address] WBC (Bld) [#/Vol] 17.4 10*3/uL High 4.4-11.0 [facility] Comment on above: Performed By: #### L 100.0100, L500.2500, L501.4020 #### [facility] [address] [place], [address] Chest PA and Lateralon 12-26 Chest PA and Lateral [facility] Imaging Services [address] [place] [address] Chest PA and Lateral MR#: [id number] Acct: [id number] Name: MARIELLE HAWKINS Rep #: [id number] : 1980 F 43 From: Campos Florentino PCP: Care Physician,No Primary Status: [facility] ER Study: Chest PA and Lateral Date of Exam: 12/27/23 Exam# [id number] Ordering [place]: [place] [id number] EXAM: XR CHEST, 2 VIEWS CLINICAL INDICATION: [...] Tay Hinton DO; No Primary Care Physician [employer] Supervisor: Signed Normal [facility] Emergency Department Summary on 12-27-[address] [facility] Medical Records Department [address] [place] [address] Emergency Department Summary 12/27/23 MR#: [id number] Acct: [id number] Name: MARIELLE HAWKINS Rep #: [id number] : 1980 43 From: Tay Banda PCP: Care Physician,No Primary Status:DEP ER Location: ED HPI History of Present Illness Chief Complaint: Chest Pain Informant: patient Narrative Narrative: History of bipolar, depression, panic attacks, hypertension, prediabetes reported presents being dropped off by [facility] staff to ED for evaluation. Patient states last 2 months staying at the [facility] care home. Reports has been off her medications. She left her home out of fear when her system other of 20 years was put in detention. She reports he was involved in trafficking [...] hallucinations. She states his evening walk to [place] beverages she sat down and she got [...] or OCP + Smoking + >/=35 PFSH [facility] Medical History Substance abuse Alcohol abuse Motor [...] History (Revi (more content not included)... Normal [facility] L501.4020on 12-27-2023 TROPONIN-I HS 5 pg/mL Normal 3.0-54.0 [facility] Comment on above: Order Comment: 'TROP ' Serial specimen #1, #2 or #3: 1 Result Comment: Padma collins Note: New Test Units and Gender Specific Reference Ranges. For more information see Policy Stat Procedure Williams High Sensitivity Troponin (TNIH) and attachments. Performed By: #### L 100.0100, L500.2500, L501.4020 #### [facility] [address] [place], [place], [id number] ,Urineon 12-27-2023 Beta HCG ( test) Ql (U) Negative Normal [facility] Comment on above: Result Comment: Very dilute urine specimens, as indicated by a low specific gravity, may not contain passenger relations representative levels of hCG. If is still suspected, a first morning urine specimen should be collected 48 hours later and tested. Performed By: #### L 400.7600 #### [facility] [address] [place], [place], [id number] Urine Drug Screen (VISTA)on 12-27-2023 AMPHETAMINES Positive Abnormal <1000 ng/mL [facility] Comment on above: Performed By: #### L 505.5000, L501.9100 #### [facility] [address] [place], [address] BARBITIURATES Negative Normal < 200 ng/mL [facility] Comment on above: Performed By: #### L 505.5000, L501.9100 #### [facility] [address] [place], [address] BENZODIAZIPINE Negative Normal < 200 ng/mL [facility] Comment on above: Performed By: #### L 505.5000, L501.9100 #### [facility] [address] [place], [address] COCAINE Negative Normal < 300 ng/mL [facility] Comment on above: Performed By: #### L 505.5000, L501.9100 #### [facility] [address] [place], [address] ECSTACY Positive Abnormal < 500 ng/mL [facility] Comment on above: Performed By: #### L 505.5000, L501.9100 #### [facility] [address] [place], [address] METHADONE Negative Normal < 300 ng/mL [facility] Comment on above: Performed By: #### L 505.5000, L501.9100 #### [facility] [address] [place], [address] OPIATES Negative Normal < 300 ng/mL [facility] Comment on above: Performed By: #### L 505.5000, L501.9100 #### [facility] [address] [place], [address] PCP Negative Normal < 25 ng/mL [facility] Comment on above: Performed By: #### L 505.5000, L501.9100 #### [facility] [address] [place], [address] THC Positive Abnormal < 50 ng/mL [facility] Comment on above: Performed By: #### L 505.5000, L501.9100 #### [facility] [address] [place], [address] VISTA UDS PH [address] [facility] Comment on above: Performed By: #### L 505.5000, L501.9100 #### [facility] [address] [place], [address] Urine Cultureon 11-08-2023 [facility] Escherichia coli [place] Count >100,000 Escherichia coli: REACTION Ampicillin Islt [...] TMP SMX Islt ANTON <=[address] [facility] Comment on above: Performed By: #### L 400.0001 #### [facility] [address] [place], [address] Emergency Department Summary on 11-06-2023 Emergency Department Summary [facility] Medical Records Department [address] [place] [address] Emergency Department Summary 11/06/23 MR#: [id number] Acct: [id number] Name: MARIELLE HAWKINS Rep #: [id number] : 1980 43 From: Idris Brown DO [...] pain, abdo (more content not included)... Normal [facility] Urinalysis, Completeon 11-05 BACTERIA 3+ /hpf Normal None Seen [facility] Comment on above: Order Comment: CLEAN CATCH Performed By: #### L 400.0001 #### [facility] [address] [place], [address] EPI,SQUAMOUS 10-25 SEEN Normal 5-10 [facility] Comment on above: Order Comment: CLEAN CATCH Performed By: #### L 400.0001 #### [facility] [address] [place], [address] WBC 5-10 SEEN Normal 0-5 [facility] Comment on above: Order Comment: CLEAN CATCH Performed By: #### L 400.0001 #### [facility] [address] [place], [address] Mucus Ql (Urine sed) 0 SEEN Normal [facility] Comment on above: Order Comment: CLEAN CATCH Performed By: #### L 400.0001 #### [facility] [address] [place], [address] RBC 0 SEEN Normal 0-5 [facility] Comment on above: Order Comment: CLEAN CATCH Performed By: #### L 400.0001 #### [facility] [address] [place], [address] CVFLURVon 05-01-2023 FLU A PCR Negative Normal Negative [facility] ([place]) Comment on above: Result Comment: Note s [id number] Performed By: #### Mishel CALLE #### [address] [address] FLU B PCR Negative Normal Negative [facility] ([place]) Comment on above: Result Comment: Note s [id number] Performed By: #### Mishel CALLE #### [facility] [address] [place] [address] RSV PCR Negative Normal Negative [facility] ([place]) Comment on above: Result Comment: Note s [id number] Performed By: #### Mishel CALLE #### [facility] [address] [place] [address] SARS-CoV-2 (COVID-19) RNA WES+probe Ql (Unsp spec) Negative Normal Negative [facility] ([place]) Comment on above: Result Comment: Note s [id number] This test has been authorized by FDA [...] results. Performed By: #### D RUGU #### [place] [address] DRUGSon 05-01-2023 Acetaminophen [Mass/Vol] ug/mL Low 10.0-20.0 [facility] ([place]) Comment on above: Performed By: #### Mishel RUGS ####[place] [address] Ethanol Level <10.0 Normal [facility] ([place]) Comment on above: Performed By: #### Mishel RUGS ####[place] [address] Salicylate Lvl (ds) <3.0 Low 10.0-25.0 [facility] ([place]) Comment on above: Performed By: #### D RUGS ####[place] [address] Serum Drugs screened: See Below Normal l [facility] ([place]) Comment on above: Result Comment: This drug screen is a presumptive screening only. No confirmation will be performed unless requested. Drugs included in the ER serum drug screen are: Threshold Ethanol 10.0 mg/dL Salicylate 2.0 mg/dl Acetaminophen 2.0 mcg/mL Testing has been performed FOR MEDICAL PURPOSES ONLY. Performed By: #### D RUGRadha ####[address] [address] .Auto Diffon 04-30-2023 Basophil, Absolute 0.2 10 3/mcL Normal 0.0-0.3 [facility] ([place]) Comment on above: Performed By: #### C MP, ANEU, LIP, CBC, MDW, GFR, ADIFF ####[address] [address] Basophils/100 WBC (Bld) 1.2 % Normal 0.0-2.5 [facility] ([place]) Comment on above: Performed By: #### C MP, ANEU, LIP, CBC, MDW, GFR, ADIFF ####[address] [address] Eosinophil, Absolute 0.2 10 3/mcL Normal 0.0-0.7 [facility] ([place]) Comment on above: Performed By: #### C MP, ANEU, LIP, CBC, MDW, GFR, ADIFF ####[address] [address] Eosinophils/100 WBC (Bld) 1.4 % Normal 0.0-6.0 [facility] ([place]) Comment on above: Performed By: #### C MP, ANEU, LIP, CBC, MDW, GFR, ADIFF ####[address] [address] Lymphocyte, Absolute 2.9 10 3/mcL Normal 0.9-4.3 [facility] ([place] Comment on above: Performed By: #### C MP, ANEU, LIP, CBC, MDW, GFR, ADIFF ####[address] [address] Lymphocytes/100 WBC (Bld) 21.5 % Normal 20.0-40.0 [facility] ([place] Comment on above: Performed By: #### C MP, ANEU, LIP, CBC, MDW, GFR, ADIFF ####[address] [address] Monocyte, Absolute 0.9 10 3/mcL Normal 0.1-1.4 [facility] ([place] Comment on above: Performed By: #### C MP, ANEU, LIP, CBC, MDW, GFR, ADIFF ####[place] [address] [place] [address] Monocytes/100 WBC (Bld) 6.4 % Normal 2.0-13.0 [facility] ([place]) Comment on above: Performed By: #### C MP, ANEU, LIP, CBC, MDW, GFR, ADIFF ####[place] [address] [place] [address] Neutrophils/100 WBC (Bld) 69.5 % Normal 50.0-75.0 [facility] ([place] Comment on above: Performed By: #### C MP, ANEU, LIP, CBC, MDW, GFR, ADIFF ####[address] [address] .GFRon 04-30-2023 GFR >60 Normal [facility] ([place] Comment on above: Result Comment: GFR Population [...] MP, ANEU, LIP, CBC, MDW, GFR, ADIFF ####[address] [address] GFR Non- >60 Normal [facility] ([place] Comment on above: Result Comment: GFR Population [...] MP, ANEU, LIP, CBC, MDW, GFR, ADIFF ####[place] [address] .MDWon 04-30-2023 Monocyte Distribution Width 17.44 Normal 0.00-20.00 [facility] ([place] Comment on above: Result Comment: For ED adult patients suspected of sepsis, MDW<=20.0 does not rule out sepsis or risk of sepsis Performed By: #### C MP, ANEU, LIP, CBC, MDW, GFR, ADIFF ####[place] [address] .NEUABSon 04-30-2023 Neutrophil, Absolute 9.5 10 3/mcL High 2.3-8.1 [facility] ([place] Comment on above: Performed By: #### C MP, ANEU, LIP, CBC, MDW, GFR, ADIFF ####[place] [address] CBCon 04-30-2023 Erythrocyte distribution width (RBC) [Ratio] 15.5 % Normal 11.5-15.5 [facility] ([place] Comment on above: Performed By: #### C MP, ANEU, LIP, CBC, MDW, GFR, ADIFF ####[place] [address] Hematocrit (Bld) [Volume fraction] 41.9 % Normal 34.0-46.0 [facility] ([place] Comment on above: Performed By: #### C MP, ANEU, LIP, CBC, MDW, GFR, ADIFF ####[place] [address] Hgb 13.6 G/dL Normal 12.0-16.0 [facility] ([place] Comment on above: Performed By: #### C MP, ANEU, LIP, CBC, MDW, GFR, ADIFF ####[place] [address] MCH (RBC) [Entitic mass] 28.2 pg Normal 27.0-33.0 [facility] ([place] Comment on above: Performed By: #### C MP, ANEU, LIP, CBC, MDW, GFR, ADIFF ####[place] [address] MCHC 32.6 G/dL Normal 32.0-36.0 [facility] ([place] Comment on above: Performed By: #### C MP, ANEU, LIP, CBC, MDW, GFR, ADIFF ####[place] [address] MCV (RBC) [Entitic vol] 86.6 fL Normal 80.0-99.0 [facility] ([place] Comment on above: Performed By: #### C MP, ANEU, LIP, CBC, MDW, GFR, ADIFF ####[place] [address] Platelet 342 10 3/mcL Normal 150-450 [facility] ([place] Comment on above: Performed By: #### C MP, ANEU, LIP, CBC, MDW, GFR, ADIFF ####[place] [address] Platelet mean volume (Bld) [Entitic vol] 8.5 fL Normal 6.6-10.5 [facility] ([place] Comment on above: Performed By: #### C MP, ANEU, LIP, CBC, MDW, GFR, ADIFF ####[place] [address] RBC 4.84 10 6/mcL Normal 4.10-5.30 [facility] ([place] Comment on above: Performed By: #### C MP, ANEU, LIP, CBC, MDW, GFR, ADIFF ####[place] [address] WBC 13.7 10 3/mcL High 4.5-10.8 [facility] ([place] Comment on above: Performed By: #### C MP, ANEU, LIP, CBC, MDW, GFR, ADIFF ####[address] [address] CMPon 04-30-2023 Albumin Level 3.7 G/dL Normal 3.2-4.8 [facility] ([place] Comment on above: Performed By: #### C MP, ANEU, LIP, CBC, MDW, GFR, ADIFF ####[place] [address] Albumin/Globulin [Mass ratio] 1.1 {ratio} Normal 0.9-1.6 [facility] ([place] Comment on above: Performed By: #### C MP, ANEU, LIP, CBC, MDW, GFR, ADIFF ####[place] [address] ALP [Catalytic activity/Vol] 90 U/L Normal 38-126 [facility] ([place] Comment on above: Performed By: #### C MP, ANEU, LIP, CBC, MDW, GFR, ADIFF ####[address] [address] ALT [Catalytic activity/Vol] 65 U/L High 10-49 [facility] ([place] Comment on above: Performed By: #### C MP, ANEU, LIP, CBC, MDW, GFR, ADIFF ####[address] [address] AST [Catalytic activity/Vol] 61 U/L High 8-34 [facility] ([place] Comment on above: Performed By: #### C MP, ANEU, LIP, CBC, MDW, GFR, ADIFF ####[place] [id number] Bili Total 0.80 mg/dL Normal 0.20-1.20 [facility] ([place]) Comment on above: Result Comment: Use of this assay is not recommended for patients undergoing treatment with eltrombopag due to the potential for falsely elevated results. Performed By: #### C MP, ANEU, LIP, CBC, MDW, GFR, ADIFF ####[place] [address] BUN/Creatinine Ratio 10.7 ratio Normal 10.0-22.0 [facility] ([place]) Comment on above: Performed By: #### C MP, ANEU, LIP, CBC, MDW, GFR, ADIFF ####[address] [address] Calcium [Mass/Vol] 9.3 mg/dL Normal 8.7-10.4 [facility] ([place] Comment on above: Performed By: #### C MP, ANEU, LIP, CBC, MDW, GFR, ADIFF ####[place] [address] Chloride [Moles/Vol] 105 mmol/L Normal 98-110 [facility] ([place] Comment on above: Performed By: #### C MP, ANEU, LIP, CBC, MDW, GFR, ADIFF ####[place] [id number] CO2 [Moles/Vol] 30 mmol/L Normal 22-32 [facility] ([place] Comment on above: Performed By: #### C MP, ANEU, LIP, CBC, MDW, GFR, ADIFF ####[place] [address] Creatinine [Mass/Vol] 0.75 mg/dL Normal 0.50-1.20 [facility] ([place]) Comment on above: Performed By: #### C MP, ANEU, LIP, CBC, MDW, GFR, ADIFF ####[place] [address] Electrolyte Balance 6.0 mEq/L Normal 4.0-15.0 [facility] ([place]) Comment on above: Performed By: #### C MP, ANEU, LIP, CBC, MDW, GFR, ADIFF ####[place] [address] Globulin 3.3 G/dL Normal 1.5-3.8 [facility] ([place] Comment on above: Performed By: #### C MP, ANEU, LIP, CBC, MDW, GFR, ADIFF ####[address] [address] Glucose [Mass/Vol] 107 mg/dL Normal 70-110 [facility] [place] Comment on above: Performed By: #### C MP, ANEU, LIP, CBC, MDW, GFR, ADIFF ####[address] [address] Potassium [Moles/Vol] 3.6 mmol/L Normal 3.5-5.0 [facility] ([place]) Comment on above: Performed By: #### C MP, ANEU, LIP, CBC, MDW, GFR, ADIFF ####[address] [address] Sodium [Moles/Vol] 141 mmol/L Normal 136-145 [facility] [place] Comment on above: Performed By: #### C MP, ANEU, LIP, CBC, MDW, GFR, ADIFF ####[place] [id number] Total Protein 7.0 G/dL Normal 5.7-8.2 [facility] ([place]) Comment on above: Result Comment: No te - New Reference Range in effect 19 Performed By: #### C MP, ANEU, LIP, CBC, MDW, GFR, ADIFF ####[address] [address] Urea nitrogen [Mass/Vol] 8.0 mg/dL Normal 8.0-22.0 [facility] ([place] Comment on above: Performed By: #### C MP, ANEU, LIP, CBC, MDW, GFR, ADIFF ####[address] [address] DRUGUon 04-30-2023 Amphetamine (u) Positive Abnormal Negative [facility] ([place] Comment on above: Performed By: #### D LUC #### [address] [address] Cannabinoid (u) Positive Abnormal Negative [facility] ([place]) Comment on above: Performed By: #### D ABRAMU #### [address] [address] Barbiturate (u) Negative Normal Negative [facility] ([place]) Comment on above: Performed By: #### Mishel RUGU #### [address] [address] Benzodiazepine (u) Negative Normal Negative [facility] ([place]) Comment on above: Performed By: #### Mishel RUGU #### [place] [phone] Cocaine Ql (U) Negative Normal Negative [facility] ([place]) Comment on above: Performed By: #### Mishel RUGU #### [place] [phone] Fentanyl (u) Negative Normal Negative [facility] ([place]) Comment on above: Result Comment: Test ing has been performed FOR MEDICAL PURPOSES ONLY. Performed By: #### Mishel RUGU #### [place] [phone] Methadone Ql (U) Negative Normal Negative [facility] ([place]) Comment on above: Performed By: #### Mishel RUGU #### [place] [phone] Opiate (u) Negative Normal Negative [facility] ([place]) Comment on above: Performed By: #### Mishel RUGU #### [place] [phone] Oxycodone (u) Negative Normal Negative [facility] ([place]) Comment on above: Result Comment: Test ing has been performed FOR MEDICAL PURPOSES ONLY. Performed By: #### Mishel RUGU #### [place] [phone] PCP (u) Negative Normal Negative [facility] ([place]) Comment on above: Performed By: #### Mishel RUGU #### [place] [phone] Propoxyphene (u) Negative Normal Negative [facility] ([place]) Comment on above: Performed By: #### Mishel RUGU #### [place] [phone] U pH Drug Scrn 7.0 Normal 5.0-8.0 [facility] ([place]) Comment on above: Performed By: #### D RUGU #### [address] [address] Urine Drugs screened: See Below Normal [facility]) Comment on above: Result Comment: This drug [...] MEDICAL PURPOSES ONLY. Performed By: #### D RUGU #### [address] [address] LABORATORYOrdered By: Sawyer Cohen on 04-30-2023 Acetaminophen [...] Comment on above: Result Comment: [place] [id number] FLUBV RNA WES+probe Ql (Resp) Negative 12 (04/30/23 9:22 PM) Normal Negative AH Auto Viro/Sero SS Comment on above: [place] [id number] RSV PCR Negative 13 (04/30/23 9:22 PM) Normal Negative AH Auto Viro/Sero SS Comment on above: Result Comment: Note s [id number] SARS-CoV-2 (COVID-19) RNA WES+probe Ql (Resp) Negative 9, 10 (04/30/23 9:22 PM) Normal Negative AH Auto Viro/Sero SS Comment on above: Result Comment: [place] [id number] Interpretive Data: T his test has been [...] 1.2 % Normal 0.0 - 2.5 % Workflow SS Bilirubin [Mass/Vol] 0.80 mg/dL Normal 0.20 - 1.20 mg/dL ADM SS Comment on above: Interpretive Data: U se of this assay is not recommended for patients undergoing treatment with eltrombopag due to the potential for falsely elevated results. Calcium [Mass/Vol] 9.3 mg/dL Normal 8.7 - 10. 4 mg/dL ADM SS Chloride [Moles/Vol] 105 mmol/L Normal 98 - 11 0 mEq/L ADM SS CO2 [Moles/Vol] 30 mmol/L Normal 22 - 32 mEq/L ADM SS Creatinine [Mass/Vol] 0.75 mg/dL Normal 0.50 - 1.20 mg/dL ADM SS Electrolyte Balance 6.0 mEq/L Normal 4.0 - 15 .0 mEq/L ADM SS Eosinophils (Bld) [#/Vol] 0.2 103/mcL Normal 0.0 - 0.7 10^3/mcL Workflow SS Eosinophils/100 WBC (Bld) 1.4 % [...] [Vol rate/Area] ml/min/1.73sqm Invalid Interpretation Code ADM Comment on above: Interpretive Data: GFR Population [...] 33 U/L Normal 12 - 53 U/L [facility] Comment on above: Interpretive Data: * *Note [...] 86.6 fL Normal 80.0 - 99.0 fL Workflow SS Monocyte distribution width Auto (Bld) [...] test) Ql (U) Negative (04/30/23 5:57 PM) [facility] Work Phone: LABORATORYOrdered By: Gene Espinoza on 04-30-2023 Appearance (U) Clear (04/30/23 5:41 PM) Normal Clear Auto Urine SS Bilirubin Ql (U) Negative (04/30/23 5:41 PM) Normal Neg-Trace AH Auto Urine SS Color (U) Yellow (04/30/23 5:41 PM) Normal AH Auto Urine SS Glucose Test strip (U) [Mass/Vol] Negative Normal Negative Auto Urine SS Hemoglobin Auto test strip (U) [Mass/Vol] Negative (04/30/23 5:41 PM) Normal Neg-Trace AH Auto Urine SS Ketones Ql (U) Negative Normal Neg-Trace AH Auto Urine SS UA Leuk Est Negative (04/30/23 5:41 PM) Normal Negative Auto Urine SS UA Nitrite Negative (04/30/23 5:41 PM) Normal Negative Auto Urine SS UA pH 7.0 (04/30/23 5:41 PM) Normal 5.0 - 8.0 AH Auto Urine SS UA Protein Negative Normal Negative Auto Urine SS UA Spec Grav 1.015 (04/30/23 5:41 PM) Normal 1.006-1.029 Auto Urine SS UA Specimen Type Not Given (04/30/23 5:41 PM) Normal Auto Urine SS UA Urobilinogen 1.0 E.U./dL Normal 0.2-1.0 Auto Urine SS LIPon 04-30-2023 Lipase Level 33 U/L Normal 12-53 [facility] ([place]) Comment on above: Result Comment: No te - New Reference Range in effect 19 Performed By: #### C MP, ANEU, LIP, CBC, MDW, GFR, ADIFF ####[address] [address] UAon 04-30-2023 Color (U) Yellow Normal [facility] ([place] Comment on above: Performed By: #### U A ####[place] [address] [place] [address] Glucose (U) [Mass/Vol] Negative Normal Negative [facility] ([place] Comment on above: Performed By: #### U A ####[address] [address] Ketones Ql (U) Negative Normal Neg-Trace [facility] ([place] Comment on above: Performed By: #### U A ####[place] [address] UA Appear Clear Normal Clear [facility] ([place] Comment on above: Performed By: #### U A ####[place] [address] UA Blood Negative Normal Neg-Trace [facility] ([place] Comment on above: Performed By: #### U A ####[place] [address] UA Leuk Est Negative Normal Negative [facility] ([place] Comment on above: Performed By: #### U A ####[place] [address] UA Nitrite Negative Normal Negative [facility] ([place] Comment on above: Performed By: #### U A ####[place] [address] UA pH 7.0 Normal 5.0 - 8.0 [facility] ([place] Comment on above: Performed By: #### U A ####[place] [address] UA Protein Negative Normal Negative [facility] ([place] Comment on above: Performed By: #### U A ####[place] [address] UA Spec Grav 1.015 Normal 1.006-1.029 [facility] ([place] Comment on above: Performed By: #### U A ####[place] [address] UA Specimen Type Not Given Normal [facility] ([place] Comment on above: Performed By: #### U A ####[place] [address] UA Urobilinogen 1.0 E.U./dL Normal 0.2-1.0 [facility] ([place] Comment on above: Performed By: #### U A ####[place] [address] Urobilinogen (U) [Mass/Vol] Negative Normal Neg-Trace [facility] ([place]) Comment on above: Performed By: #### U A ####[address] [address] .Auto Diffon 04-08-2023 Basophil, Absolute 0.1 10 3/mcL Normal 0.0-0.3 [facility] ([place]) Comment on above: Performed By: #### A DIFF, TROPHS, MDW, BMP, GFR, CBC, ANEU #### [address] [address] Basophils/100 WBC (Bld) 0.7 % Normal 0.0-2.5 [facility] ([place]) Comment on above: Performed By: #### A DIFF, TROPHS, MDW, BMP, GFR, CBC, ANEU #### [address] [address] Eosinophil, Absolute 0.2 10 3/mcL Normal 0.0-0.7 [facility] ([place]) Comment on above: Performed By: #### A DIFF, TROPHS, MDW, BMP, GFR, CBC, ANEU #### [address] [address] Eosinophils/100 WBC (Bld) 1.1 % Normal 0.0-6.0 [facility] ([place]) Comment on above: Performed By: #### A DIFF, TROPHS, MDW, BMP, GFR, CBC, ANEU #### [address] [address] Lymphocyte, Absolute 2.8 10 3/mcL Normal 0.9-4.3 [facility] ([place]) Comment on above: Performed By: #### A DIFF, TROPHS, MDW, BMP, GFR, CBC, ANEU #### [address] [address] Lymphocytes/100 WBC (Bld) 15.8 % Low 20.0-40.0 [facility] ([place]) Comment on above: Performed By: #### A DIFF, TROPHS, MDW, BMP, GFR, CBC, ANEU #### [address] [address] Monocyte, Absolute 0.8 10 3/mcL Normal 0.1-1.4 [facility] ([place]) Comment on above: Performed By: #### A CHELLY, ANA THOMAS, BMP, GFR, CBC, ANEU #### [address] [address] Monocytes/100 WBC (Bld) 4.3 % Normal 2.0-13.0 [facility] ([place] Comment on above: Performed By: #### A CHELLY, ANA THOMAS, BMP, GFR, CBC, ANEU #### [address] [address] Neutrophils/100 WBC (Bld) 78.1 % High 50.0-75.0 [facility] ([place] Comment on above: Performed By: #### A WILLIAM SPAULDING MDW, BMP, GFR, CBC, ANEU #### [address] [address] .GFRon 04-08-2023 GFR >60 Normal [facility] ([place] Comment on above: Result Comment: GFR Population [...] WILLIAM SPAULDING MDW, BMP, GFR, CBC, ANEU ####[address] [address] GFR Non- >60 Normal [facility] ([place] Comment on above: Result Comment: GFR Population [...] WILLIAM SPAULDING MDW, BMP, GFR, CBC, ANEU ####[address] [address] .MDWon 04-08-2023 Monocyte Distribution Width 18.88 Normal 0.00-20.00 [facility] ([place] Comment on above: Result Comment: For ED adult patients suspected of sepsis, MDW<=20.0 does not rule out sepsis or risk of sepsis Performed By: #### A WILLIAM SPAULDING MDW, BMP, GFR, CBC, ANEU #### [place] [address] .NEUABSon 04-08-2023 Neutrophil, Absolute 14.0 10 3/mcL High 2.3-8.1 A [facility] ([place]) Comment on above: Performed By: #### A WILLIAM SPAULDING MDW, BMP, GFR, CBC, ANEU #### [place] [address] BMPon 04-08-2023 BUN/Creatinine Ratio 19.0 ratio Normal 10.0-22.0 [facility] ([place] Comment on above: Performed By: #### A WILLIAM SPAULDING MDW, BMP, GFR, CBC, ANEU #### [place] [address] Calcium [Mass/Vol] 8.9 mg/dL Normal 8.7-10.4 [facility] [place] Comment on above: Performed By: #### A WILLIAM SPAULDING MDW, BMP, GFR, CBC, ANEU #### [place] [phone] Chloride [Moles/Vol] 106 mmol/L Normal 98-110 [facility] ([place] Comment on above: Performed By: #### A WILLIAM SPAULDING MDW, BMP, GFR, CBC, ANEU #### [address] [address] CO2 [Moles/Vol] 26 mmol/L Normal 22-32 [facility] ([place] Comment on above: Performed By: #### A WILLIAM SPAULDING MDW, BMP, GFR, CBC, ANEU #### [address] [address] Creatinine [Mass/Vol] 0.63 mg/dL Normal 0.50-1.20 [facility] ([place]) Comment on above: Performed By: #### A CHELLY, ANA THOMAS, BMP, GFR, CBC, ANEU #### [place] [phone] Electrolyte Balance 5.0 mEq/L Normal 4.0-15.0 [facility] ([place]) Comment on above: Performed By: #### A WILLIAM SPAULDING MDW, BMP, GFR, CBC, ANEU #### [place] [phone] Glucose [Mass/Vol] 154 mg/dL High 70-110 [facility] [place] Comment on above: Performed By: #### A WILLIAM SPAULDING MDW, BMP, GFR, CBC, ANEU #### [address] [address] Potassium [Moles/Vol] 4.2 mmol/L Normal 3.5-5.0 [facility] ([place]) Comment on above: Result Comment: Spec imen slightly hemolyzed. Performed By: #### A WILLIAM SPAULDING MDW, BMP, GFR, CBC, ANEU #### [address] [address] Sodium [Moles/Vol] 137 mmol/L Normal 136-145 [facility] [place] Comment on above: Performed By: #### A WILLIAM SPAULDING MDW, BMP, GFR, CBC, ANEU #### [address] [address] Urea nitrogen [Mass/Vol] 12.0 mg/dL Normal 8.0-22.0 [facility] ([place] Comment on above: Performed By: #### A DIFF, ANA THOMAS, BMP, GFR, CBC, ANEU #### [address] [address] CBCon 04-08-2023 Erythrocyte distribution width (RBC) [Ratio] 15.6 % High 11.5-15.5 [facility] ([place] Comment on above: Performed By: #### A DIFF, MD WILLIAMW, BMP, GFR, CBC, ANEU #### [place] [address] Hematocrit (Bld) [Volume fraction] 45.1 % Normal 34.0-46.0 [facility] ([place] Comment on above: Performed By: #### A DIFF, ANA THOMAS, BMP, GFR, CBC, ANEU #### [place] [address] Hgb 14.8 G/dL Normal 12.0-16.0 [facility] ([place] Comment on above: Performed By: #### A DIFF, ANA THOMAS, BMP, GFR, CBC, ANEU #### [place] [phone] MCH (RBC) [Entitic mass] 27.8 pg Normal 27.0-33.0 [facility] ([place] Comment on above: Performed By: #### A DIFF, ANA THOMAS, BMP, GFR, CBC, ANEU #### [place] [phone] MCHC 32.8 G/dL Normal 32.0-36.0 [facility] ([place] Comment on above: Performed By: #### A DIFF, MD WILLIAMW, BMP, GFR, CBC, ANEU #### [place] [phone] MCV (RBC) [Entitic vol] 84.8 fL Normal 80.0-99.0 [facility] ([place] Comment on above: Performed By: #### A DIFF, WILLIAM, W, BMP, GFR, CBC, ANEU #### [place] [phone] Platelet 324 10 3/mcL Normal 150-450 [facility] ([place] Comment on above: Performed By: #### A WILLIAM SPAULDING MDW, BMP, GFR, CBC, ANEU #### [place] [address] Platelet mean volume (Bld) [Entitic vol] 8.3 fL Normal 6.6-10.5 [facility] ([place] Comment on above: Performed By: #### A WILLIAM SPAULDING MDW, BMP, GFR, CBC, ANEU #### [place] [address] RBC 5.32 10 6/mcL High 4.10-5.30 [facility] ([place] Comment on above: Performed By: #### A WILLIAM SPAULDING MDW, BMP, GFR, CBC, ANEU #### [place] [address] WBC 17.9 10 3/mcL High 4.5-10.8 [facility] ([place] Comment on above: Performed By: #### A WILLIAM SPAULDING MDW, BMP, GFR, CBC, ANEU #### [place] [address] CVFLURVon 04-08-2023 FLU A PCR Negative Normal Negative [facility] ([place] Comment on above: Result Comment: Note s Performed By: #### C VFLURV #### [place] [address] FLU B PCR Negative Normal Negative [facility] ([place] Comment on above: Result Comment: Note s Performed By: #### C VFLURV #### [place] [address] RSV PCR Negative Normal Negative [facility] ([place]) Comment on above: Result Comment: Note s Performed By: #### C VFLURV #### [place] [address] SARS-CoV-2 (COVID-19) RNA WES+probe Ql (Unsp spec) Positive Abnormal Negative [facility] ([place]) Comment on above: Result Comment: This organism causes a reportable disease. Infection Control has been notified. Results have been reported to the [place]. Notes 64370 This test has been authorized by FDA [...] results. Performed By: #### C VFLURV #### [place] [address] LABORATORYOrdered By: SYSTEM SYSTEM on 04-08-2023 Basophils [...] 10^3/mcL AH Workflow SS Eosinophils/100 WBC (Bld) 1.1 % Normal 0.0 - 6.0 % Workflow SS Erythrocyte distribution width (RBC) [Ratio] 15.6 % High 11.5 - 15.5 % Workflow SS GFR/1.73 sq M.predicted among blacks MDRD (S/P/Bld) [Vol rate/Area] ml/min/1.73sqm Invalid Interpretation Code [facility] Comment on above: Interpretive Data: GFR Population [...] (S/P/Bld) [Vol rate/Area] ml/min/1.73sqm Invalid Interpretation Code [facility] Comment on above: Interpretive Data: GFR Population [...] 154 mg/dL High 70 - 110 mg/dL ADM Hematocrit (Bld) [Volume fraction] 45.1 % Normal 34.0 - 46.0 % Workflow SS Hemoglobin (Bld) [Mass/Vol] 14.8 G/dL [...] 2.54 ng/L Normal 0.00 - 34.00 ng/L AH ADM SS Urea nitrogen [Mass/Vol] 12.0 mg/dL Normal 8.0 - 22.0 mg/dL AH ADM SS Urea nitrogen/Creatinine [Mass ratio] 19.0 ratio Normal 10.0 - 22.0 ratio AH ADM SS WBC (Bld) [#/Vol] 17.9 103/mcL [...] Comment on above: Result Comment: [place] s [id number] SARS-CoV-2 (COVID-19) RNA WES+probe Ql (Resp) Positive 3, 4 *ABN* (04/08/23 6:41 AM) Invalid Interpretation Code Negative AH Auto [facility]Sero SS Comment on above: Result Comment: This organism causes a reportable disease. Infection Control has been notified. Results have been reported to the [facility]. Notes 60476 Interpretive Data: T his test has been [...] I High Sensitivity 2.54 ng/L Normal 0.00-34.00 [facility] ([place]) Comment on above: Performed By: #### A DIFF, WILLIAM, ANA, BMP, GFR, CBC, ANEU #### [address] [address] XR CHEST 1 VIEWon 04-08-2023 XR CHEST [...] 04/08/2023 7:15:50 AM Ordering Provider: XIMENA ANDREWS [facility] ([place]) 03-16-2023 36 Was given a message that patient called in to see when we can schedule surgery. I called patient back to discuss the need for repeating items. Patient didn't answer and the voice mail box is full so I couldn't leave a message. [facility] 03-08-2023 36 Filing patient chart . Patient has had no recent activity in program, has told me she cannot stop smoking marijuana. Was told she would check into getting a card in September 2022. Will wait for patient to reach out as she will have many items needing updated if she resumes program. [facility] 3602-16-2023 36 Lvm to see if still interested in surgical program [facility] CT HEAD OR BRAIN W/O FRANKLIN Bryan [...] 11/22/2022 12:31:58 PM Ordering Provider: SANTHOSH BOYD [facility]) CT SPINE CERVICAL W/O CATINA Schuster 11-22-2022 [...] 11/22/2022 12:40:33 PM Ordering Provider: SANTHOSH BOYD [facility] [place] HBV surface Ag Ser Qlon 05-0 HBV surface Ag Ql (S) Negative Normal Negative [facility] Comment on above: Order Comment: Speci men Type: BLOOD SPECIMEN Ordering Facility: [facility] Address: [address] [place] [address], [place] [address] Performed By: #### 5 195-3, 02967-2, 88148-6 #### [facility] CLIA [id number] [address] [place] [address] [place] HCV Ab Ser Qlon 3 HCV Ab Ql (S) Negative Normal Negative [facility] Comment on above: Order Comment: Speci men Type: BLOOD SPECIMEN Ordering Facility: [facility] Address: [address] [place] [address], [place] [address] Result Comment: The result suggests no evidence of active infection with Hepatitis C virus. Should recent infection be suspected, repeat testing may be considered 4-6 weeks after this draw. Performed By: #### 5 195-3, 02038-8, 51868-1 #### [facility] CLIA [id number] [address] [place] [address] [place] HIV 1+2 Ab IA Qlon 3 HIV 1 and 2 Ab IA.rapid Nom Normal [facility] Comment on above: Order Comment: Speci men Type: BLOOD SPECIMEN Ordering Facility: [facility] Address: [address] [place] [address], [place] [address] Result Comment: Test not indicated. Performed By: #### 5 195-3, 45411-9, 28376-8 #### [facility] CLIA [id number] [address] [place] [address] [place] HIV 1+2 Ab+HIV1 p24 Ag IA Ql Non-Reactive Normal Nonreactive [facility] Comment on above: Order Comment: Speci men Type: BLOOD SPECIMEN Ordering Facility: [facility] Address: [address] [place] [address], [place] [address] Performed By: #### 5 195-3, 41913-0, 78737-0 #### [facility] CLIA [id number] [address] [place] [address] [place] HIVINT Normal [facility] Comment on above: Order Comment: Speci men Type: BLOOD SPECIMEN Ordering Facility: [facility] Address: [address] [place] [address] Result Comment: No e vidence of HIV-1 or HIV-2 infection. Should recent infection be suspected, repeat testing may be considered 2-3 weeks after this draw. [place] Rev. Code 3701.243(E): This information has been [...] or diagnoses. Performed By: #### 5 195-3, 18349-5, 23438-0 #### [facility] CLIA [id number] [address] [place] [address] [place] HSV PCR, MISCELLANEOUS SPECI MEN TYPESon 06-22-2022 HERPES SIMPLEX VIRUS SOURCE Serum Normal [facility] Comment on above: Order Comment: Speci men Type: BLOOD SPECIMEN Ordering Facility: [facility] Address: [address] [place] [address] Performed By: #### P CRHSV #### [facility] CLIA [id number] [address] [place] [address] HSV 1 SUBTYPE BY PCR Not detected [facility] Comment on above: Order Comment: Speci men Type: BLOOD SPECIMEN Ordering Facility: [facility] Address: [address] [place] [address] Performed By: #### P CRHSV #### [facility] CLIA [id number] [address] [place] [address] HSV 2 SUBTYPE BY PCR Not detected [facility] Comment on above: Order Comment: Speci men Type: BLOOD SPECIMEN Ordering Facility: [facility] Address: [address] [place] [address] Result Comment: INTE RPRETIVE INFORMATION: HSV-1 and HSV-2 Subtype by PCR A negative result does not rule out the presence of PCR inhibitors in the patient specimen or test-specific nucleic acid in concentrations below the level of detection by this test. This test was developed and its performance characteristics determined by [employer]. It has not been cleared or approved by the [place] Food and Drug Administration. This test was performed in a CLIA certified laboratory and is intended for clinical purposes. Performed by [facility], [address] [place] [address] [email or web address], Serenity Lucas MD, PHD, Lab. Director Performed By: #### P CRHSV #### [facility] CLIA [id number] [address] [place] [address] RPR Ser Qlon 06-22-2022 Reagin Ab RPR Ql (S) Non-Reactive Normal Nonreactive C [facility] Comment on above: Order Comment: Speci men Type: BLOOD SPECIMEN Ordering Facility: [facility] Address: [address] [place] [address] Result Comment: Rapi d plasma reagin (RPR) test detects non-treponemal antibodies. RPR may be reactive in a variety of infectious and non-infectious conditions. Correlation with clinical picture and with treponemal antibody results is required for final interpretation. Performed By: #### 2 0507-0 #### [facility] CLIA [id number] [address] [place] [address] [place] HPV W/GENOTYPE THIN PREPon 0 06-21-2022 HPV 16 Ag Ql (Unsp spec) Negative Normal Negative for HPV DNA high risk type 16 by PCR [facility] Comment on above: Order Comment: Speci men Type: FLUID SPECIMEN Ordering Facility: [facility] Address: [address] [place] [address] Performed By: #### H PVHRT #### [facility] CLIA [id number] [address] [place] [address] [place] HPV 18 Ag Ql (Unsp spec) Negative Normal Negative for HPV DNA high risk type 18 by PCR [facility] Comment on above: Order Comment: Speci men Type: FLUID SPECIMEN Ordering Facility: [facility] Address: [address] [place] [address] Performed By: #### H PVHRT #### [facility] CLIA [id number] [address] [place] [address] [place] HPV 31+33+35+39+45+51+52+ 56+58+59+66+68 DNA WES+probe Ql (Cvx) Negative for HPV DNA high risk types: 31,33,35,39,45,51,52,56 ,58,59,66,68 by PCR. Normal Negative for HPV DNA high risk types: 31,33,35,39,4 5,51,52,56,58 ,59,66,68 by PCR. [facility] Comment on above: Order Comment: Speci men Type: FLUID SPECIMEN Ordering Facility: [facility] Address: [address] [place] [address] Performed By: #### H PVHRT #### [facility] CLIA [id number] [address] [place] [address] [place] PAP TESTon 06-21-2022 CASE REPORT Normal [facility] Comment on above: Order Comment: Speci men Type: FLUID SPECIMEN Ordering Facility: [facility] Address: [address] [place] [address] Result Comment: Gyne cologic Cytology Report Case: [id number] Authorizing Provider: Rocío Lyon CNP Collected: 06/21/2022 02:00 PM Ordering Location: [facility] Received: 06/23/2022 03:05 PM First Screen: Danya Smith, CT, ASCP Specimen: Pap Test, ThinPrep, Cervix Performed By: #### L [id number] #### [facility] CLIA [id number] [address] [place] [address] [place] CLINICAL HISTORY, CYTOLOGY, COOPERATIVE MANAGER Routine Exam Normal [facility] Comment on above: Order Comment: Speci men Type: FLUID SPECIMEN Ordering Facility: [facility] Address: [address] [place] [address], [place] [address] Performed By: #### L [id number] #### [facility] CLIA [id number] [address] [place] [address] STATES [place] [facility] CYTOLOGY INTERPRETATION PAP Normal [facility] Comment on above: Order Comment: Speci men Type: FLUID SPECIMEN Ordering Facility: [facility] Address: [address] [place] [address] Result Comment: Nega tive for Intraepithelial lesion or malignancy. Performed By: #### L [id number] #### [facility] CLIA [id number] [address] [place] [address] FINAL DIAGNOSIS A - Cervix Normal [facility] Comment on above: Order Comment: Speci men Type: FLUID SPECIMEN Ordering Facility: [facility] Address: [address] [place] [address] Result Comment: Sati sfactory for interpretation Negative for Intraepithelial lesion or malignancy. Predominance of coccobacilli consistent with shift in vaginal shereen Performed By: #### L [id number] #### [facility] CLIA [id number] [address] [place] [address] [place] FINAL PERFORMING LAB Normal [facility] Comment on above: Order Comment: Speci men Type: FLUID SPECIMEN Ordering Facility: [facility] Address: [address] [place] [address] Result Comment: Tech nical component, freight booker screening performed at [facility], [address] [place] [address] CLIA# [id number] Diagnostic interpretation performed at [facility], [address] [place] [address] CLIA# [id number] Moth Proofer: Yrn Zamora M.D. Performed By: #### L [id number] #### [facility] CLIA [id number] [facility] [place] [address] [place] HPV REFLEX Auto HPV Normal [facility] Comment on above: Order Comment: Speci men Type: FLUID SPECIMEN Ordering Facility: [facility] Address: [address] [place] [address] Performed By: #### L [id number] #### [facility] CLIA [id number] [address] [place] [address] [place] LMP 05/22/2022 Normal [facility] Comment on above: Order Comment: Speci men Type: FLUID SPECIMEN Ordering Facility: [facility] Address: [address] [place] [address] Performed By: #### L [id number] #### [facility] CLIA [id number] [address] [place] [address] [place] PAP DISCLAIMER COMMENT The Pap Smear is a screening test for cervical cancer. False negative results occur with all screening tests, emphasizing the need for rescreening at recommended intervals, and clinical correlation. Normal [facility] Comment on above: Order Comment: Speci men Type: FLUID SPECIMEN Ordering Facility: [facility] Address: [address] [place] [address] Performed By: #### L [id number] #### [facility] CLIA [id number] [address] [place] [address] [place] Office Visiton 04-08-2022 Follow-up visit [id number] Mansoor Carrasco i 1980 F Date Provider Department Center 04/08/2022 MEHRAN MOODY [facility] PUL None Family History Problem Relation Age of Onset Hypertension Mother Family Status - Relation Status Age at Mother Alive Father Alive Level of Service:93240 [place] OFFICE/OUTPATIENT NEW MODERATE MDM 45-59 MINUTES Reason for Visit and Comments: New Patient [542] Pre-op Exam [289136] Sleep Apnea [348] [facility] Progress Noteon 04-08-2022 Progress Note [facility]- Pulmonary and Sleep Medicine NEW PATIENT VISIT-PULMONARY 04/08/2022 REFERRING PHYSICIAN: Otilio Cheng, IRENE - BATCHMAKER [address] [facility] [address] [place] [address] CHIEF COMPLAINT/REASON FOR REFERRAL: Chief Complaint Patient [...] witnessed apneas, hypertension, BMI greater than 35) [place] Sleepiness Scale How likely are you to [...] pain, kn (more content not included)... [facility] 36on 03-26-2022 36 DOS 03/26/2022 @ 10:40 GWENDOLYN w / Dr. Brumfield. Informed pt's preparations for surgery in [place], answered all questions. [facility] Laboratory - Chemistry and C hemistry - challengeOrdered By: Miya Cowart on 03-26-2022 Beta HCG ( test) Ql Negative Negative [facility] Comment on above: Please note: Very di lute urine specimens, as indicated by a low specific gravity, may not contain passenger relations representative levels of hCG. If is still suspected, a first morning urine specimen should be collected 48 hours later and tested. Beta HCG ( test) Ql (U) is the most common reason for HCG in urine, although choriocarcinoma, hydatidiform mole, and certain nontrophoblastic malignancies also result in detectable urinary HCG levels. Sensitivity = 20mIU/mL. [facility] No Panel InformationOrdered By: Miya Cowart on 03-26-2022 [facility] 36on 03-25-2022 36 Authorization for Testing Initiated. Company Name & Number Contacted for Auth: [employer] Name of Foundry Melt Supervisor: ONLINE PORTAL Name of Procedure: EGD W/BX Cpt Code: 38396 Diagnosis Code: DYSPEPSIA Location of Procedure: [facility] Is Auth Required: NO Call Reference #: NA Pending Case #: NA Clinical Reviewer: MALLY Additional Info if given: NA Approved Case reference: NA Date Range for Approved Auth: NA [facility] 36on 03-22-2022 36 Pt read [employer] message. Pt to follow up with PCP regarding TSH, lipids. Pt to add 500 mcg vitamin B12 every day and 4,000 international units vitamin D every day. Med list updated. Will recheck levels once pt is established. [facility] 36 Noted thank you. Normal [facility] 36 NICOTINE RESULT: Component Ref Range & Units 6 d ago NICOTINE, BLOOD ng/mL <2 COTININE, BLOOD ng/mL 16 5-DT-RCHCIZHJ, BLOOD ng/mL 4 Comment: Spoke to pt. She quit nicotine 25 days ago, but during that time would still have a cigarette on occasion. She is also exposed to a lot of second hand smoke. Reviewed importance of cessation. Advised to contact PCP for potential meds to help w nicotine cessation. Will need another level in 4 weeks. Voiced understanding. [facility] ECG 12 lead - CLINIC PERFORM EDon 03-22-2022 Sinus Rhythm Low voltage in precordial leads. ABNORMAL [facility] Office Visiton 03-22-2022 Follow-up visit [id number] Mansoor Carrasco i 1980 F Date Provider Department Center 03/22/2022 [id number]-BQNIAMSERENITY WATTERS [facility] D[facility]W [facility] [address] Family History Problem Relation Age of Onset Hypertension Mother Family Status - Relation Status Age at Mother Alive Father Alive Level of Service:44807 [place] OFFICE/OUTPATIENT NEW LOW MDM 30-44 MINUTES Reason for Visit and Comments: New Patient [542] Cardiac Clearance [882] - Bariatric clearance-Dr Brumfield [facility] PATINSon 03-22-2022 PATINS Follow up with PCP about your blood pressure Low risk for surgery [facility] Progress Noteon 03-22-2022 Progress Note Agree with weight lo ss efforts [facility] Progress Note Poorly controlled. Advised to follow up with PCP office, consider increasing her hydrochlorothiazide/lis inopril medication with lab follow up - Discussed lifestyle changes, smoking cessation, weight loss [facility] Progress Note [facility] [address] [facility] [address] Dept: [phone] Dept Loc: [phone] Visit type: New patient Reason for Visit: New Patient and Cardiac Clearance (Bariatric clearance-Dr Brumfield) Assessment and Plan 1. Pre-op examination Assessment & Plan: Pre-Operative Risk assessment using 2014 ACC/AHA guidelines Emergent procedure No Active Cardiac Condition none (decompensated HF, Arrhythmia, IA <3 weeks, severe valve disease) Risk Level [...] Date DILATION AND CURETTAGE OF UTERUS 2011 [facility] THYROIDECTOMY 2009 [facility] Family History Problem Relation Name Age of [...] of Cardiovascular Disease, Division of Heart Failure [facility] Heart and Vascular Universal 9:53 AM 03/22/22 [facility] US Abdomenon 02-17-2022 Normal sonographic appearance of the gallbladder. Fatty infiltration of the liver. Suboptimal visualization of the distal pancreas due to overlying bowel gas. Small left renal cyst. Report Dictated on Electronically Signed By: Serenity Cadet Electronically Signed Date/Time: 02/17/2022 11:57 AM [facility] RADIOLOGY SYSTEM Patient Name: MARIELLE CARRASCO Exam Date/Time: [...] of the IVC and aorta are unremarkable. [facility] RADIOLOGY SYSTEM Serenity Cadet MD - 02/17/2022 Patient Name: [id number] Exam Date/Time: 02/17/2022 09:59 Procedure: US ABDOMEN [...] Electronically Signed Date/Time: 02/17/2022 11:57 AM EST [employer] [facility] Radiology Study observation (narrative) [facility] US AbdomenOrdered By: Yovani Cadet on 02-17-2022 [employer] XR Abdomen and RF Gastrointe stinal tract upper W contrast Paul 02-17-2022 Unremarkable UGI series. Report Dictated on Electronically Signed By: Len Lane Electronically Signed Date/Time: 02/17/2022 2:37 PM EST [employer] SYSTEM Patient Name: MARIELLE CARRASCO Exam Date/Time: [...] stomach. The visualized proximal jejunum is unremarkable. [facility] Len Lane MD - 02/17/2022 Patient Name: [...] Electronically Signed Date/Time: 02/17/2022 2:37 PM EST [facility] Radiology Study observation (narrative) [employer] XR Abdomen and RF Gastrointe stinal tract upper W contrast POOrdered By: Len Lane on 02-17-2022 [employer] Work Phone: Free T4on 03-08-2019 Free T4 [Mass/Vol] 0.24 ng/dL Low 0.93-1.7 Replaced By [facility] Comment on above: Performed By: #### L 304.0140, L304.0162 #### [facility] [address] [place] [address] TSHon 03-08-2019 TSH Qn 30.85 uIU/mL High 0.27-4.20 Replaced By [facility] Comment on above: Performed By: #### L 304.0140, L304.0162 #### [facility] [address] [place] [address] Vital Signs Date Time Vital Sign Value Performing Clinician Facility 05-01-2023 01:09-0500 Diastolic Blood Pressure Non-Invasive 104 mm[Hg] GHISLAINE JOHNSON MD [facility] 05-01-2023 01:09-0500 Heart rate 100 /min GHISLAINE JOHNSON MD [facility] 05-01-2023 01:09-0500 Respiratory rate 20 /min GHISLAINE JOHNSON MD [facility] 05-01-2023 01:09-0500 Systolic Blood Pressure Non-Invasive 157 mm[Hg] GHISLAINE JOHNSON MD [facility] 05-01-2023 00:09-0500 Body weight 166.9 kg GHISLAINE JOHNSON MD [address] [place] [address] 04-30-2023 18:20-0500 Diastolic Blood Pressure Non-Invasive 88 mm[Hg] GHISLAINE JOHNSON MD [address] [place] [address] 04-30-2023 18:20-0500 Heart rate 74 /min GHISLAINE JOHNSON MD [address] [place] [address] 04-30-2023 18:20-0500 Respiratory rate 17 /min GHISLAINE JOHNSON MD [address] [place] [address] 04-30-2023 18:20-0500 Systolic Blood Pressure Non-Invasive 164 mm[Hg] GHISLAINE JOHNSON MD [facility] 04-30-2023 17:25-0500 Diastolic Blood Pressure Non-Invasive 114 mm[Hg] GHISLAINE JOHNSON MD [address] [place] [address] 04-30-2023 17:25-0500 Heart rate 95 /min GHISLAINE JOHNSON MD [address] [place] [address] 04-30-2023 17:25-0500 Respiratory rate 20 /min GHISLAINE JOHNSON MD [address] [place] [address] 04-30-2023 17:25-0500 Systolic Blood Pressure Non-Invasive 160 mm[Hg] GHISLAINE JOHNSON MD [address] [place] [address] 04-30-2023 17:11-0500 Body temperature 97.52 [degF] GHISLAINE JOHNSON MD [address] [place] [address] 04-30-2023 17:11-0500 Heart rate 89 /min GHISLAINE JOHNSON MD [address] [place] [address] 04-08-2023 06:32-0500 Body temperature 97.34 [degF] LEONID MAYORGA MD [facility] 04-08-2023 06:32-0500 Body weight 166.8 kg LEONID MAYORGA MD [facility] 04-08-2023 06:32-0500 Diastolic Blood Pressure Non-Invasive 110 mm[Hg] LEONID MAYORGA MD [facility] 04-08-2023 06:32-0500 Heart rate 103 /min LEONID MAYORGA MD [facility] 04-08-2023 06:32-0500 Respiratory rate 20 /min LEONID MAYORGA MD [facility] 04-08-2023 06:32-0500 Systolic Blood Pressure Non-Invasive 162 mm[Hg] LEONID MAYORGA MD [facility] 11-22-2022 11:46-0400 Body temperature 98.06 [degF] DR KEMAL REYES MD [facility] 11-22-2022 11:46-0400 Diastolic Blood Pressure Non-Invasive [address] KEMAL REYES MD [facility] 11-22-2022 11:46-0400 Heart rate 88 /min DR KEMAL REYES MD [facility] 11-22-2022 11:46-0400 Respiratory rate 18 /min DR KEMAL REYES MD [facility] 11-22-2022 11:46-0400 Systolic Blood Pressure Non-Invasive [address] KEMAL REYES MD [facility] 04-08-2022 10:19-0500 Body height 162.6 cm Mehran Bush MD Work Phone: [facility] [facility] 04-08-2022 10:19-0500 Body mass index (BMI) [Ratio] 61.42 kg/m2 Mehran Bush MD Work Phone: [facility] 04-08-2022 10:19-0500 Body weight 162.39 kg Mehran Bush MD Work Phone: [facility] 04-08-2022 10:19-0500 Diastolic blood pressure 68 mm[Hg] Mehran Bush MD Work Phone: [facility] 04-08-2022 10:19-0500 Heart rate 98 /min Mehran Bush MD Work Phone: [facility] 04-08-2022 10:19-0500 Respiratory rate 14 /min Mehran Bush MD Work Phone: [facility] 04-08-2022 10:19-0500 SaO2% (BldA) [Mass fraction] 97 % Mehran Bush MD Work Phone: [facility] Comment on above: RA 04-08-2022 10:19-0500 Systolic blood pressure 122 mm[Hg] Mehran Bush MD Work Phone: [facility] 03-26-2022 13:09-0500 Diastolic blood pressure 77 mm[Hg] Gonsalo Brumfield MD Work Phone: [facility] 03-26-2022 13:09-0500 Heart rate 81 /min Gonsalo Brumfield MD Work Phone: [facility] 03-26-2022 13:09-0500 Respiratory rate 16 /min Gonsalo Brumfield MD Work Phone: [facility] 03-26-2022 13:09-0500 SaO2% (BldA) [Mass fraction] 100 % Gonsalo Brumfield MD Work Phone: [facility] 03-26-2022 13:09-0500 Systolic blood pressure 122 mm[Hg] Gonsalo Brumfield MD Work Phone: [facility] 03-26-2022 12:49-0500 Body temperature 98.8 [degF] Gonsalo Brumfield MD Work Phone: [facility] 03-26-2022 12:18-0500 Body height 162.6 cm Gonsalo Brumfield MD Work Phone: [employer] [facility] 03-26-2022 12:18-0500 Body mass index (BMI) [Ratio] 60.76 kg/m2 Gonsalo Brumfield MD Work Phone: [employer] [facility] 03-26-2022 12:18-0500 Body weight 160.57 kg Gonsalo Brumfield MD Work Phone: [facility] 03-22-2022 09:16-0500 Body height 162.6 cm Serenity Watters MD Work Phone: [employer] [facility] 03-22-2022 09:16-0500 Body mass index (BMI) [Ratio] 61.28 kg/m2 Serenity Watters MD Work Phone: [employer] [facility] 03-22-2022 09:16-0500 Body weight 161.93 kg Serenity Watters MD Work Phone: [employer] [facility] 03-22-2022 09:16-0500 Diastolic blood pressure 62 mm[Hg] Serenity Watters MD Work Phone: [employer] [facility] 03-22-2022 09:16-0500 Heart rate 84 /min Serenity Watters MD Work Phone: [employer] [facility] 03-22-2022 09:16-0500 SaO2% (BldA) [Mass fraction] 97 % Serenity Watters MD Work Phone: [facility] 03-22-2022 09:16-0500 Systolic blood pressure 168 mm[Hg] Serenity Watters MD Work Phone: [facility] 11-08-2021 11:48-0400 Body temperature 98.24 [degF] ROSE MARY BEST MD [facility] 11-08-2021 11:48-0400 Diastolic blood pressure 98 mm[Hg] ROSE MARY BEST MD [facility] 11-08-2021 11:48-0400 Heart rate 99 /min ROSE MARY BEST MD [facility] 11-08-2021 11:48-0400 Respiratory rate 18 /min ROSE MARY BEST MD [facility] 11-08-2021 11:48-0400 Systolic blood pressure 137 mm[Hg] ROSE MARY BEST MD [facility] Encounters Encounter Date Encounter Type Care Provider Facility Start: 11-01-2024 ambulatory Mariel Tran Facility :[facility] Start: 10-29-2024 ambulatory Angie Bib VSC Faci lity:[facility] Start: 10-16-2024 End: 10-16-2024 ambulatory Angie Bib VSC Facility:[facility] Start: 04-21-2024 End: 04-21-2024 Emergency department patient visit Too Perez Facility:[facility] Start: 01-23-2024 End: 01-23-2024 Emergency department patient visit Gonsalocathleen Niño Facility:[facility] Start: 01-03-2024 End: 01-03-2024 ambulatory Angie Bib VSC Facility:[facility] Start: 12-27-2023 End: 12-27-2023 Emergency department patient visit No Primary Care Physician Facility:[facility] Start: 11-06-2023 End: 11-06-2023 Emergency department patient visit No Primary Care Physician Facility:[facility] Start: 04-30-2023 End: 05-01-2023 Emergency department patient visit PATIENT UNSURE PHYSICIAN Facility:A Start: 04-30-2023 End: 05-01-2023 Emergency department patient visit GHISLAINE JOHNSON MD [facility] Start: 04-08-2023 End: 04-08-2023 Emergency department patient visit NONE PHYSICIAN Facility:A Start: 04-08-2023 End: 04-08-2023 Emergency department patient visit LEONID MAYORGA MD [facility] Start: 11-22-2022 End: 11-22-2022 Emergency department patient visit DR KEMAL REYES MD Facility:A Start: 11-22-2022 End: 11-22-2022 Emergency department patient visit DR KEMAL REYES MD [facility] Start: 04-08-2022 End: 04-08-2022 ambulatory [facility] Start: 04-08-2022 End: 04-08-2022 Encounter for preprocedural laboratory examination MEHRAN BUSH [facility] Start: 04-08-2022 End: 04-08-2022 Office outpatient new 45 minutes Mehran Bush MD Work Phone: [facility] Comment on above: TRANG (obstructive sle ep apnea) (Primary Dx); Pre-diabetes; Morbid obesity due to excess calories (HCC); GERD without esophagitis; Pre-operative laboratory examination; Shortness of breath; Tobacco use disorder Start: 04-08-2022 End: 04-08-2022 Patient encounter status Mehran Bush MD [facility] Start: 03-26-2022 End: 03-26-2022 ambulatory [facility] Start: 03-26-2022 End: 03-26-2022 Subsequent hospital visit by physician Gonsalo Brumfield MD Work Phone: [facility] Comment on above: Dyspepsia Start: 03-22-2022 Telephone encounter Otilio cotter MACHINIST MATE - BATCHMAKER Work Phone: [facility] Comment on above: Results Start: 03-22-2022 End: 03-22-2022 ambulatory OTILIO Unruly [facility] Start: 03-22-2022 End: 03-22-2022 Office outpatient new 30 minutes Serenity Watters MD Work Phone: [facility] Comment on above: Pre-op examination ( Primary Dx); Morbid obesity due to excess calories (HCC); Primary hypertension Start: 03-22-2022 End: 03-22-2022 Preprocedural examination done Serenity Watters MD Work Phone: [facility] Work Phone: Start: 03-17-2022 Telephone encounter Scarlett Ronald fragoso RD Work Phone: [facility] Comment on above: Abnormal Lab (Low vi tamin D, low normal vitamin B12, elevated TSH, abnormal lipid panel) Start: 03-16-2022 Telephone encounter Carly Driscoll [facility] Comment on above: OTHER Start: 03-15-2022 Telephone encounter Gonsalo wheat MD Work Phone: [facility] Comment on above: Appointment Request Start: 02-22-2022 ambulatory Radha ECKERT Work Phone: [facility] Start: 01-22-2022 Documentation procedure Cristal driscoll [facility] Comment on above: Test Scheduling (EGD ) Start: 01-22-2022 Patient encounter status Otilio Tolliver Skylar MACHINIST MATE - BATCHMAKER Work Phone: [facility] Start: 01-22-2022 Telephone encounter Otilio Tolliver Alberta cotter MACHINIST MATE - BATCHMAKER Work Phone: [facility] Comment on above: OTHER (INITIAL SCHED ULING-NEW Epic ) Start: 12-23-[address] [facility] Start: 12-22-[address] [facility] Start: 12-07-2021 ambulatory UNKNOWN PROVIDER [facility] Start: 11-08-2021 End: 11-08-2021 Emergency department patient visit ROSE MARY BEST MD [facility] Start: 11-06-2021 ambulatory PCP No [facility] Start: 10-21-2021 ambulatory PCP No [facility] Start: 10-21-2021 End: 10-21-2021 Subsequent hospital visit by physician An Jacobson MD Work Phone: [facility] Start: 08-21-2021 ambulatory PCP No [facility] Start: 08-12-2021 ambulatory PCP No [facility] Start: 08-12-2021 ambulatory [facility] Start: 08-12-2021 ambulatory [facility] Start: 07-15-2021 ambulatory An Kavon [facility] Start: 07-15-2021 End: 07-15-2021 Subsequent hospital visit by physician An Jacobson MD Work Phone: [facility] Start: 06-17-2021 ambulatory An Kavon [facility] Start: 06-17-2021 End: 06-17-2021 Subsequent hospital visit by physician An Jacobson MD Work Phone: [facility] Start: 05-15-2021 ambulatory [facility]avon [facility] Start: 04-17-2021 ambulatory [facility]avon [facility] Start: 03-13-2021 ambulatory PCP No [facility] Start: 02-11-2021 ambulatory PCP No [facility] Start: 02-06-2021 ambulatory UNKNOWN PROVIDER [facility] Start: 01-14-2021 ambulatory UNKNOWN PROVIDER [facility] Start: 12-30-2020 ambulatory PCP No [facility] Start: 12-30-2020 End: 12-30-2020 Subsequent hospital visit by physician Gonsalo Brumfield MD Work Phone: [facility] Procedures Date Procedure Procedure Detail Performing Clinician Start: 06-21-2022 Microscopic observat ion [Identifier] in Cervix by Cyto stain Otilio Cheng APRN - BATCHMAKER Work Phone: Start: 03-26-2022 Urine test visual color cmprsn meths Gonsalo Brumfield MD Work Phone: Start: 03-22-2022 Ecg routine ecg w/le ast 12 lds w/i&r Serenity Watters MD Work Phone: Start: 03-16-2022 Lipid 1996 panel - S annette or Plasma Cristal Warren CENTRAL CONTROL ROOM OPERATOR Start: 03-16-2022 Thyrotropin [Units/v olume] in Serum or Plasma Cristal aWrren CENTRAL CONTROL ROOM OPERATOR Start: 12-24-2021 Adult depression scr eening assessment Otilio Cheng MACHINIST MATE - BATCHMAKER Work Phone: None (qualifier value) LAURA BEST MD Plan of Treatment Date Care Activity Detail Author Start: 2040 RSV Immunization aged 60 or older (1 - 1-dose 60+ series) RSV Immunization aged 60 or older (1 - 1-dose 60+ series) [facility] Start: 2030 Zoster Vaccines (1 of 2) Zoster Vaccines (1 of 2) [facility] Start: 03-16-2027 Lipid panel Lipid Panel [facility] Start: 06-21-2025 Screening for malignant neoplasm of cervix [facility] Start: 03-16-2025 Diabetes mellitus screening Diabetes Screening [facility] Start: 05-15-2024 DTaP/Tdap/Td vaccine (2 - Td or Tdap) DTaP/Tdap/Td vaccine (2 - Td or Tdap) [facility] Start: 03-16-2023 Thyroid stimulating hormone measurement TSH Level [facility] Start: 12-24-2022 Depression Screening Depression Screening [facility] Start: 10-22-2022 Influenza vaccination Influenza Vaccine (#1) [facility] Start: 04-20-2022 End: 03-22-2023 Nicotine, Blood Nicotine, Blood Lab Routine Nicotine use Expected: 04/20/2022 (Approximate), Expires: 03/22/2023 [facility] Work Phone: Comment on above: Expected: 04/20/2022 (Approximate), Expi res: 03/22/2023 Start: 04-08-2022 End: 04-08-2023 Complete PFT pre and post bronchodilator Complete PFT pre and post bronchodilator PFT Routine Tobacco use disorder Expected: 04/08/2022 (Approximate), Expires: 04/08/2023 [facility] Work Phone: Comment on above: Expected: 04/08/2022 (Approximate), Expi res: 04/08/2023 Start: 04-08-2022 End: 04-08-2023 Polysomnography [facility] Routine TRANG (obstructive sleep apnea) Expected: 04/08/2022 (Approximate), Expires: 04/08/2023 [facility] Comment on above: Expected: 04/08/2022 (Approximate), Expi res: 04/08/2023 Start: 04-08-2022 End: 04-08-2022 Patient encounter procedure 04/08/2022 Office Visit Pulmonology Mehran Bush MD [address] [place] [address] [facility] Start: 03-26-2022 End: 03-26-2022 Admission to same day surgery center 03/26/2022 Surgery Gastroenterology Gonsalo Brumfield MD [address] [place] [address] EGD WITH BIOPSY [59830 (CPT )] [facility] Comment on above: EGD WITH BIOPSY [31524 (CPT )] Start: 03-26-2022 End: 03-26-2022 Egd transoral biopsy single/multiple [facility] G[facility] Start: 03-26-2022 Subsequent hospital visit by physician 03/26/2022 Hospital Encounter Gastroenterology Gonsalo Brumfield MD [address] [place] [address] [facility] Start: 03-22-2022 End: 03-22-2022 Patient encounter procedure 03/22/2022 Office Visit Cardiology Serenity Watters MD [address] [place] [address] [facility] Start: 02-26-2022 End: 02-26-2022 Admission to same day surgery center 02/26/2022 Surgery Gastroenterology Gonsalo Brumfield MD [address] [place] [address] EGD WITH BIOPSY [40710 (CPT )] [facility] Comment on above: EGD WITH BIOPSY [56754 (CPT )] Start: 02-26-2022 End: 02-26-2022 Egd transoral biopsy single/multiple EGD WITH BIOPSY Dyspepsia 02/26/2022 1:30 PM EST [facility] Start: 02-26-2022 Subsequent hospital visit by physician 02/26/2022 Hospital Encounter Gastroenterology Gonsalo Brumfield MD [address] [place], [place] [id number] [facility] Start: 02-26-2022 End: 02-26-2022 Patient encounter procedure 02/26/2022 Office Visit Pulmonology Mehran Bush MD [address] [place] [address] [facility] Start: 01-25-2022 End: 01-22-2023 25-hydroxyvitamin D3 [Mass/volume] in Serum or Plasma Vitamin D 25 hydroxy Lab Routine Pre-diabetes Morbid obesity due to excess calories (HCC) GERD without esophagitis Pre-operative laboratory examination Expected: 01/25/2022, Expires: 01/22/2023 [facility] Comment on above: Expected: 01/25/2022, Expires: 3 Start: 01-25-2022 End: 01-22-2023 CBC panel - Blood by Automated count CBC Lab Routine Pre-diabetes Morbid obesity due to excess calories (HCC) GERD without esophagitis Pre-operative laboratory examination Expected: 01/25/2022, Expires: 01/22/2023 [facility] Comment on above: Expected: 01/25/2022, Expires: 3 Start: 01-25-2022 End: 01-22-2023 Cobalamin (Vitamin B12) [Mass/volume] in Serum or Plasma Vitamin B12 Lab Routine Pre-diabetes Morbid obesity due to excess calories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 03-26-2022 History and physical note [...] Date DILATION AND CURETTAGE OF UTERUS 2011 [facility] THYROIDECTOMY 2008 [facility] PFMHx: Family History Problem Relation Name Age [...] proceed with plan. documented in this encounter [facility] 03-22-2022 Telephone encounter Note Pt read [employer] message. Pt to follow up with PCP regarding TSH, lipids. Pt to add 500 mcg vitamin B12 every day and 4,000 international units vitamin D every day. Med list updated. Will recheck levels once pt is established. [facility] 03-22-2022 Miscellaneous Notes Pt read [employer] message. Pt to follow up with PCP regarding TSH, lipids. Pt to add 500 mcg vitamin B12 every day and 4,000 international units vitamin D every day. Med list updated. Will recheck levels once pt is established. Vitamin B12: 272 Vitamin D: 14 (L) Lipids, TSH - PCP ----- Message from Otilio Cheng APRN - BATCHMAKER sent at 03/16/2022 8:34 PM EST ----- Vit d. Defer tsh and cholpanel to pcp please. documented in this encounter [facility] 03-22-2022 Note Pre-Operative Risk a ssessment using 2014 ACC/AHA guidelines Emergent procedure No Active Cardiac Condition none (decompensated HF, Arrhythmia, IA <3 weeks, severe valve disease) Risk Level [...] complication that no one has 0% risk. [facility] 03-22-2022 Telephone encounter Note Noted thank you. [facility] 03-22-2022 Miscellaneous Notes Noted thank you. NICOTINE RESULT: Component Ref Range & Units 6 d ago NICOTINE, BLOOD ng/mL <2 COTININE, BLOOD ng/mL 16 [id number], BLOOD ng/mL 4 Comment: Spoke to pt. [...] weeks. Voiced understanding. documented in this encounter [facility] 03-22-2022 Evaluation + Plan note Associated Problem(s): Pre-op examination Pre-Operative Risk assessment using 2014 ACC/AHA guidelines Emergent procedure No Active Cardiac Condition none (decompensated HF, Arrhythmia, IA <3 weeks, severe valve disease) Risk Level [...] complication that no one has 0% risk. [facility] 03-22-2022 Evaluation + Plan note Associated Problem(s): Morbid obesity due to excess calories (HCC) Agree with weight loss efforts [facility] 03-22-2022 Miscellaneous Notes Associated Problem(s): Pre-op examination Pre-Operative Risk assessment using 2014 ACC/AHA guidelines Emergent procedure No Active Cardiac Condition none (decompensated HF, Arrhythmia, IA <3 weeks, severe valve disease) Risk Level [...] cessation, weight loss documented in this encounter [facility] 03-22-2022 Evaluation + Plan note Associated Problem(s): HTN (hypertension) Poorly controlled. Advised to follow up with PCP office, consider increasing her hydrochlorothiazide/lisinopril medication with lab follow up - Discussed lifestyle changes, smoking cessation, weight loss [facility] 03-22-2022 Telephone encounter Note NICOTINE RESULT: Component Ref Range & Units 6 d ago NICOTINE, BLOOD ng/mL <2 COTININE, BLOOD ng/mL 16 [id number], BLOOD ng/mL 4 Comment: Spoke to pt. She quit nicotine 25 days ago, but during that time would still have a cigarette on occasion. She is also exposed to a lot of second hand smoke. Reviewed importance of cessation. Advised to contact PCP for potential meds to help w nicotine cessation. Will need another level in 4 weeks. Voiced understanding. [facility] Work Phone: 03-22-2022 History of Presen t illness Narrative Images from the original note were not included. [facility] [address] [facility] [address] Dept: [phone] Dept Loc: [phone] Visit type: New patient Reason for Visit: New Patient and Cardiac Clearance (Bariatric clearance-Dr Brumfield) Assessment and Plan 1. Pre-op examination Assessment & Plan: Pre-Operative Risk assessment using 2014 ACC/AHA guidelines Emergent procedure No Active Cardiac Condition none (decompensated HF, Arrhythmia, IA <3 weeks, severe valve disease) Risk Level [...] Date DILATION AND CURETTAGE OF UTERUS 2011 [facility] THYROIDECTOMY 2008 [facility] Family History Problem Relation Name Age of [...] of Cardiovascular Disease, Division of Heart Failure [facility] Universal 9:53 AM 03/22/22 documented in this encounter [facility] 03-22-2022 Instructions Serenity Watters MD - 03/22/2022 9:00 AM EST Follow up with PCP about your blood pressure Low risk for surgery documented in this encounter [facility] 03-17-2022 Telephone encounter Note Vitamin B12: 272 Vitamin D: 14 (L) Lipids, TSH - PCP [facility] 03-17-2022 Telephone encounter Note ----- Message from Otilio Cheng APRN - BATCHMAKER sent at 03/16/2022 8:34 PM EST ----- Vit d. Defer tsh and cholpanel to pcp please. [facility] 03-16-2022 Telephone encounter Note Pt scheduled Tuesday03/26/22 at 10:40 [facility] 03-16-2022 Miscellaneous Notes Pt scheduled Tuesday03/26/22 at 10:40 [facility] Patient called in wanting to reschedule her EGD that was on 02/26/[address] Brumfield as she did not have a ride that day. DP documented in this encounter [facility] 03-16-2022 Telephone encounter Note Patient called in wanting to reschedule her EGD that was on 02/26/[address] Brumfield as she did not have a ride that day. DP [facility] 03-15-2022 Telephone encounter Note Name of caller: Marielle Contact phone number: [phone] Relationship to Patient: patient Provider: [facility] Practice: [facility] Chief Complaint/Reason for Call: Pt. Needs a call back to reschedule surgery appointment. Best time of day caller can be reached: Any Patient advised that office/PCP has 24-48 business hours to return their call: No [facility] 03-15-2022 Miscellaneous Notes Name of caller: Marielle Contact phone number: [phone] Relationship to Patient: patient Provider: [facility] Practice: [facility] Chief Complaint/Reason for Call: Pt. Needs a call back to reschedule surgery appointment. Best time of day caller can be reached: Any Patient advised that office/PCP has 24-48 business hours to return their call: No documented in this encounter [facility] 01-22-2022 History of Presen t illness Narrative ENDOSCOPY ORDERS To be scheduled with: Dr. Brumfield Patient is: Pre-op/Pre-Bariatric Surgery CPT code: EGD with biopsy- CPT 79802 Diagnosis: Dyspepsia- K30 If pre-op, Diet & Exercise Requirements are, and started/scheduled on : 6 months FINISHED Home O2: No Known Difficult Intubation: No Pt scheduled 02/26/21 1:00 pm [facility] [facility] Printed No auth per Care source Pt rescheduled 03/26/22 at [facility] Pt also wanted to tell me about some bloodwork with off the chart numbers. Advised patient to call your office directly but wanted to note that in here as well Printed. Lab values were drawn today and all have not resulted at this time documented in this encounter [employer] 01-22-2022 Telephone encounter Note Signed. [facility] [employer] Work Phone: 11-08-2021 Hospital Discharg e instructions [...] blood pressure monitors at most pharmacies. The [place] [employer] recommends the following guidelines for [...] face You have problems speaking or seeing [phone] [employer]. [address] [place] [address]. All rights reserved. This information is not [...] or as directed by your healthcare provider [phone] [employer]. [address] [place] [address]. All rights reserved. This information is not intended as a substitute for professional medical care. Always follow your healthcare professional's instructions. Follow Up Care 11/08/2021 11:41:33 With:ANDREEA REYES Address: [address] [place] [address] [phone] Business (1) When:2-4 days Comments:Schedule appointment as soon as possibleReturn to ED if symptoms worsenFollow up for recheck, blood pressure and possible rheumatologic labs.Return for any signs of infection. Range of motion daily but avoid active use x 2 days. Use 2 citrucel tabs 2x/day if using hydrocodone With:NONE PHYSICIAN Address:Unknown When:2-4 days [facility] 11-08-2021 Emergency department Discharge summary Discharge Instructions Thank you for allowing [facility] to assist you with your healthcare needs. [...] citrucel tabs 2x/day if using hydrocodone Where: [address] [place] [address] [phone] Business (1) Follow Up with NONE PHYSICIAN [...] blood pressure monitors at most pharmacies. The [place] [employer] recommends the following guidelines for [...] You have problems speaking or seeing [employer]. [address] [place] [address]. All rights reserved. This information is not [...] as directed by your healthcare provider [employer]. [address] [place] [address]. All rights reserved. This information is not intended as a substitute for professional medical care. Always follow your healthcare professional's instructions. Additional Information VACCINATE! IT SAVES LIVES! Members of the community who have not yet received the COVID-19 vaccine and would like to receive it can visit one of [facility] vaccine clinics. There are many vaccine clinic locations within the [facility]. For locations and available times, please visit [email or web address]. It is important to note that some COVID mobile vaccine clinics are held outdoors and may be canceled in rainy or stormy conditions. To learn more about pediatric vaccinations (ages 5-11), we invite you to visit the [facility] webpage. [email or web address] To learn more about the COVID-19 vaccine, we invite you to visit the [facility] website for a list of frequently asked questions. [email or web address] [email or web address] [facility] Patient Portal Access Instructions: Stay connected with your healthcare team and access your personal medical information anytime with the [facility] Patient Portal. If you would like a full copy of your medical records please contact the [facility] Medical Records Department Tuesday through Tuesday between 8a.m. and 4:30p.m. Please follow the directions below to access the portal: 1.Access the email account you provided upon registration to the [facility].2.Look for an invitation email from [facility].3.Open the email and access the invitation link: Accept Invitation to [facility]4.Fill in the required hatch to create your account. Sign into [email or web address] with your username and password that you [...] you will allow to register on the [facility] Patient Portal for access to your information. You can also access the [facility] Patient Portal on the [employer]. Simply click on Health Records under Health Data and then click on the [employer] logo. HOW TO SAFELY DISPOSE OF PRESCRIPTION [...] Call your local pharmacy or go to [email or web address] to find one close to you.3.Make use of household items: Use cat litter or old coffee grounds to dispose medications if other options are not available. Mix your drugs with these household products, seal them in an airtight container and throw it into the garbage. Call [facility]: [phone] to be sure your drugs can be [...] aware that I should contact my doctor. 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 Signature: Date/Time: Relationship to Patient: ____ Witness Name/Signature: Date/Time: [facility] 11-08-2021 Note ORIGINAL EXAMINATION: THREE [...] 11/08/2021 12:25:22 PM Ordering Provider: ROSE MARY BEST [facility] 11-08-2021 Note ORIGINAL EXAMINATION: THREE [...] 11/08/2021 12:25:22 PM Ordering Provider: ROSE MARY BEST [facility] Evaluation + Plan note No data available for this section [facility] Evaluation note Diagnosis Gastroesophageal reflux disease with [...] Pre-procedural laboratory examination documented in this encounter [facility] HealthEvaluation note* Diagnosis Gastroesophageal reflux disease with [...] Pre-procedural laboratory examination [facility]* Diagnosis Pre-op examination- Primary Morbid obesity due to excess calories (HCC) Primary hypertension Unspecified essential hypertension Dyspepsia Dyspepsia and other specified disorders of function of stomach [facility] Diagnosis Dyspepsia Dyspepsia and other specified disorders of function of stomach documented [facility]* Diagnosis TRANG (obstructive sleep apnea)- Primary Obstructive sleep apnea (adult) (pediatric) Pre-diabetes Other abnormal glucose Morbid obesity due to excess calories (HCC) GERD without esophagitis Esophageal reflux Pre-operative laboratory examination Pre-procedural laboratory examination Shortness of breath Tobacco use disorder [facility]* Diagnosis Nicotine use- Primary [facility] Dis[facility] instructions No data available for this section [facility] Hospital Discharge instructions* Attachments The following attachments cannot be sent through Care Everywhere. * Upper GI Endoscopy Discharge Instructions ([place]) [facility] No data available for this section [facility] Reason for referral (narrative)* Consultation (Elective) - Closed Specialty Diagnoses / Procedures Referred By Amrita rios Referred To Contact Cardiology Diagnoses Pre-diabetes Morbid obesity due to excess calories (HCC) GERD without esophagitis Pre-operative laboratory examination Procedures [place] OFFICE/OUTPATIENT NEW HIGH MDM 60-74 MINUTES Otilio Cheng MACHINIST MATE - BATCHMAKER [address] [place] [address] [facility] [address] [place] [place] [address] Referral ID Status Reason Start Date Expiration Date V isits Requested Visits Authorized [id number] Closed Specialty Services Required 01/22/2022 07/21/2022 1 1 * Consultation (Routine) - Closed Specialty Diagnoses / Procedures Referred By Amrita rios Referred To Contact Pulmonary Disease / Pulmonology Diagnoses Pre-diabetes Morbid obesity due to excess calories (HCC) GERD without esophagitis Pre-operative laboratory examination Procedures [place] OFFICE/OUTPATIENT NEW HIGH [facility] 60-74 MINUTES Otilio Cheng MACHINIST MATE - BATCHMAKER [address] [place] [address] [facility] [address] [place] [address] Referral ID Status Reason Start Date Expiration Date V isits Requested Visits Authorized [id number] Closed Specialty Services Required 01/22/2022 07/21/2022 1 [...] Referral Specialty Diagnoses / Procedures Referred By Contac t Referred To Contact Sleep Medicine Diagnoses TRANG (obstructive sleep apnea) Procedures Polysomnography Mehran Bush MD [address] [place] [address] Referral ID Status Reason Start Date Expiration Date V isits Requested Visits Authorized [id number] Pending Review 04/08/2022 10/05/2022 1 1 Specialty Diagnoses / Procedures Referred By Contac t Referred To Contact Diagnoses Tobacco use disorder Procedures Complete PFT pre and post bronchodilator Mehran Bush MD [address] [place] [address] Referral ID Status Reason Start Date Expiration Date V isits Requested Visits Authorized [id number] Incomplete 04/08/2022 10/05/2022 1 1 Additional Source Comments INFORMATION SOURCE (unrecogn ized section and content) DATE CREATED AUTHOR 03/19/2019 Replaced By [facility] DATE CREATED AUTHOR AUTHOR'S ORGANIZ ATION 11/21/2021 [facility] DATE CREATED AUTHOR AUTHOR'S ORGANIZ ATION 12/12/2021 [facility] DATE CREATED AUTHOR AUTHOR'S ORGANIZ ATION 06/26/2022 [facility] DATE CREATED AUTHOR AUTHOR'S ORGANIZ ATION 03/18/2023 [facility] DATE CREATED AUTHOR AUTHOR'S ORGANIZ ATION 05/19/2023 [facility] ([place]) DATE CREATED AUTHOR AUTHOR'S ORGANIZ ATION 11/04/2024 [facility] Care Teams (unrecognized sec tion and content) Resource Agent Relationship Specialty Start Date End Date Alton Cuevas [address] [place] [address] PCP - General 02/04/21 Resource Agent Relationship Specialty Start Date End Date Alton Cuevas [address] [place] [address] PCP - General 02/04/21 Resource Agent Relationship Specialty Start Date End Date Alton Cuevas [address] [place] [address] PCP - General 02/04/21 Resource Agent Relationship Specialty Start Date End Date Alton Cuevas [address] [address] PCP - General 02/04/21 Resource Agent Relationship Specialty Start Date End Date Alton Cuevas [address] [place] [address] PCP - General 02/04/21 Resource Agent Relationship Specialty Start Date End Date Alton Cuevas [address] [place] [address] PCP - General 02/04/21 Resource Agent Relationship Specialty Start Date End Date Alton Cuevas [address] [place] [address] PCP - General 02/04/21 Resource Agent Relationship Specialty Start Date End Date Alton Cuevas [address] [place] [address] PCP - General 02/04/21 Resource Agent Relationship Specialty Start Date End Date Alton Cuevas [address] [place] [address] PCP - General 02/04/21 Resource Agent Relationship Specialty Start Date End Date Alton Cuevas [address] [place] [address] PCP - General 02/04/21 Resource Agent Relationship Specialty Start Date End Date Alton Cuevas [address] [place] [address] PCP - General 02/04/21 Resource Agent Relationship Specialty Start Date End Date Alton Cuevas [address] [address] PCP - General 02/04/21 Resource Agent Relationship Specialty Start Date End Date Alton Cuevas [address] [address] PCP - General 02/04/21 Reason for Visit [...] GERD without esophagitis Pre-operative laboratory examination Procedures [place] OFFICE/OUTPATIENT NEW HIGH MDM 60-74 MINUTES Otilio Cheng, MACHINIST MATE - BATCHMAKER [address] [facility] [address] [place] [address] [facility] [address] [place] [place] [address] Referral ID Status Reason Start Date Expiration Date V isits Requested Visits Authorized [id number] Closed Specialty Services Required 01/22/2022 07/21/2022 1 1 Reason Onset Date Comments Abnormal Lab 03/17/2022 Low vitamin D, l ow normal vitamin B12, elevated TSH, abnormal lipid panel Specialty Diagnoses / Procedures Referred By Amrita rios Referred To Contact Diagnoses Dyspepsia Dyspepsia [R10.13] Procedures [place] EGD TRANSORAL BIOPSY SINGLE/MULTIPLE EGD WITH BIOPSY Gonsalo Brumfield MD [address] [place] [address] [facility] Endoscopy [address] [place] [address] Referral ID Status Reason Start Date Expiration Date Visits Re quested Visits Authorized [id number] 1 1 Reason Comments New Patient Pre-op Exam Sleep Apnea Specialty Diagnoses / Procedures Referred By Contac t Referred To Contact Pulmonary Disease / Pulmonology Diagnoses Pre-diabetes Morbid obesity due to excess calories (HCC) GERD without esophagitis Pre-operative laboratory examination Procedures [place] OFFICE/OUTPATIENT NEW HIGH MDM 60-74 MINUTES Otilio Cheng, MACHINIST MATE - BATCHMAKER [address] [place] [address] [facility] [address] [place] [address] Referral ID Status Reason Start Date Expiration Date Visits Requested Visits Authorized [id number] Pending Review Specialty Services Required 01/22/2022 07/21/2022 1 1 Reason Onset Date Comments Results 03/22/2022 Continuous Active and Recently Administ ered Medications (unrecognized section and content) Medication Order 03/24/2022 03/25/2022 03/26/2022 sodium chloride 0.9 % infusion 50 mL/hr, IntraVENous, Continuous, Starting on Tue03/26/22 at 1145, Preprocedure 1217 (New Bag - Prov ider: Sohan Galarza, RN)1300 (Stopped - Provider: Laverne Cordova RN) [...] BE BASED ON THE PRIMARY CLINICAL RECORDS. [employer] provides no warranty or guarantee of the accuracy or completeness of information in this document.
[2024-11-04 21:09] VITALS: BP 133/86; PULSE 82; RESP 17; O2SAT 100
[2024-11-04 21:09] LABS: Hematocrit 40.0 % (37-47); Hemoglobin 12.3 g/dL (12.0-15.0); Mean Corp Hgb Conc 30.8 g/dL (32-36); Mean Corpuscular Volume 83.3 fL (81-99); Mean Platelet Vol. 10.2 fl (6.2-12.0); Platelet Count 413 K/mm3 (150-450); RBC Distribution Width CV 14.4 % (11.6-14.6); RBC Distribution Width SD 43.6 fl (35.1-43.9); Red Blood Count 4.80 M/mm3 (4.2-5.4); White Blood Count 17.9 K/mm3 (4.4-11.0)
[2024-11-04 21:34] LABS: Anion Gap 13 (5-15); BUN 13 mg/dL (4-19); BUN/Creat Ratio 16.4 RATIO (10-20); Calcium,Total 9.2 mg/dL (7.6-11.0); Carbon Dioxide 22.8 mmol/L (21.0-32.0); Chloride 103 mmol/L (98-108); Estimated Creatinine Clearance 133.10 ml/min (50-250); Glucose 147 mg/dL (70-99); Potassium 3.6 mmol/L (3.3-5.1); Troponin T High Sensitivity < 6 ng/L (<=14)
[2024-11-04 21:54] VITALS: BP 127/76; PULSE 72; RESP 23; O2SAT 95
[2024-11-04 22:00] VITALS: BP 130/68; PULSE 73; RESP 19; O2SAT 93
[2024-11-04 23:02] LABS: Troponin T High Sens 2 HR < 6 ng/L (<=14)
[2024-11-04 23:18] VITALS: BP 111/69; PULSE 71; RESP 16; TEMP 36.7; O2SAT 97
== END 2024-11-04 23:24 | disposition home or self-care (01) ==
LOC: ED 20:57
PROVIDERS: Emergency Provider Emergency Medicine; PCP Family Medicine; Visit Provider Emergency Medicine
DX: R07.9 Chest pain, unspecified (principal); E11.9 Type 2 diabetes mellitus without complications; D72.829 Elevated white blood cell count, unspecified; I10 Essential (primary) hypertension; Z79.899 Other long term (current) drug therapy; F17.200 Nicotine dependence, unspecified, uncomplicated
CPT/HCPCS: 71045; 80048; 84484; 85027; 87631; 93005; 99284; A4216

== ENCOUNTER → 2024-12-17 | Outpatient (CLI) | payer MEDICAID, SELFPAY ==
[2024-12-17 14:04] LABS: Mucous, Urine 0 SEEN /hpf (<or=2+)
[2024-12-17 17:42] LABS: Hematocrit 39.8 % (37-47); Hemoglobin 12.2 g/dL (12.0-15.0); Immature Granulocytes Count 0.130 X10^3/uL (0.0-0.0); Mean Corp Hgb Conc 30.7 g/dL (32-36); Mean Corpuscular Volume 82.1 fL (81-99); Mean Platelet Vol. 10.1 fl (6.2-12.0); NRBC Flagged by Analyzer 0 % (0-5); Platelet Count 425 K/mm3 (150-450); RBC Distribution Width CV 13.9 % (11.6-14.6); RBC Distribution Width SD 41.0 fl (35.1-43.9); Red Blood Count 4.85 M/mm3 (4.2-5.4); White Blood Count 17.0 K/mm3 (4.4-11.0)
[2024-12-17 18:31] LABS: Color, Urine Yellow (Yellow); Glucose, Dipstick Normal (Normal); Ketone-Dipstick Negative (Negative); Leukocyte Esterase-Dipstick 25 /ul (Negative); Nitrite-Dipstick Negative (Negative); Occult Blood-Urine Negative /ul (Negative); Protein-Dipstick 15 mg/dl (Negative); Specific Gravity, Urine 1.020 (1.002-1.030); Urine Bilirubin Dipstick Negative (Negative)
[2024-12-17 18:41] LABS: Barbiturate Urine NEGATIVE (< 200 ng/mL); Benzodiazepine Urine NEGATIVE (< 200 ng/mL); PCP Urine NEGATIVE (< 25 ng/mL); THC Urine NEGATIVE (< 50 ng/mL)
[2024-12-17 18:44] LABS: CRP 41.50 mg/L (0.0-3.0); HIV Nonreactive (Nonreactive); Syphilis Antibodies Nonreactive (Nonreactive); Uric Acid 6.9 mg/dL (2.6-6.0)
[2024-12-17 19:29] LABS: Red Blood Cells-Urine 0 SEEN /hpf (0-5); Squamous Epithelial Cells - UA 0-5 SEEN /hpf (5-10)
[2024-12-19 03:07] LABS: HEPATITIS B SURFACE AG Negative (Negative); Hep C Antibodies Non Reactive (Non Reactive)
== END | disposition home or self-care (01) ==
LOC: LABSPEC 14:16 → VSLAB 14:27
PROVIDERS: PCP Family Medicine
DX: N39.0 Urinary tract infection, site not specified (principal); F19.10 Other psychoactive substance abuse, uncomplicated; R22.42 Localized swelling, mass and lump, left lower limb; Z13.1 Encounter for screening for diabetes mellitus; Z72.51 High risk heterosexual behavior
CPT/HCPCS: 36415; 80074; 80307; 81001; 83036; 84550; 85025; 85652; 86140; 86703; 86780; 87086; 87088; 87186; 87491; 87591; 87661

== ENCOUNTER → 2024-12-19 | Outpatient (CLI) | payer MEDICAID, SELFPAY ==
[2024-12-19 15:15] LABS: AST(SGOT) 20 U/L (<=31); Alanine Aminotransfer ALT/SGPT 15 U/L (<=34); Albumin, Serum 3.7 g/dL (3.5-5.0); Alkaline Phosphatase 98 U/L (35-104); Anion Gap 13 (5-15); BUN 16 mg/dL (4-19); BUN/Creat Ratio 26.7 RATIO (10-20); Calcium,Total 9.2 mg/dL (7.6-11.0); Carbon Dioxide 21.9 mmol/L (21.0-32.0); Chloride 104 mmol/L (98-108); Globulin 3.1 g/dL (2.2-4.2); Glucose 130 mg/dL (70-99); Hepatitis B Surface Antigen Nonreactive (Nonreactive); Potassium 4.5 mmol/L (3.3-5.1)
== END | disposition home or self-care (01) ==
LOC: VSLAB 11:59
PROVIDERS: PCP Family Medicine; Referring Provider Family Medicine; Visit Provider Family Medicine
DX: R76.89 Other specified abnormal immunological findings in serum (principal); N39.0 Urinary tract infection, site not specified; E03.9 Hypothyroidism, unspecified
CPT/HCPCS: 36415; 80053; 84443; 86706; 87340

== ENCOUNTER → 2024-12-20 | Outpatient (CLI) | payer MEDICAID, SELFPAY | END | disposition home or self-care (01) | LOC: SL 09:35 | PROVIDERS: PCP Family Medicine | DX: G47.10 Hypersomnia, unspecified (principal) | CPT/HCPCS: 95806 ==

== ENCOUNTER → 2025-01-30 | Outpatient (CLI) | payer MEDICAID, SELFPAY ==
--- OUTSIDE RECORDS SUMMARY | 2025-01-30 19:56 | XMS RPT_ITS | CCD ---
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 [facility] Care Team Providers Care Medical Imaging Technologist Name Role Phone Unavailable Primary Care Provider UnavailAlton Burgess Primary Care Provider [phone] PHYSICIAN, NONE Primary Care Physician Unavailab le [...] Referring Unavailable No, PCP Primary Care Unavailable Gonsalo Brumfield Attending Unavailable PROVIDER, UNKNOWN Referring Unavailable No, [...] Primary Care Unavailable PROVIDER, UNKNOWN Referring Unavailable Truro, Gonsalo Attending Unavailable PROVIDER, UNKNOWN Referring Unavailable Truro, Gonsalo Attending Unavailable No, PCP Primary Care Unavailable PROVIDER, UNKNOWN Referring Unavailable Truro, Gonsalo Attending Unavailable No, PCP Primary Care Unavailable Alton Cuevas Primary Care Provider Alton Cuevas Primary Care Provider [phone] BRIDLE, OTILIO R Referring Unavailable ALTON CUEVAS Primary Care Unavailable SERENITY WATTERS Attending Unavailable ALTON CUEVAS Primary Care Unavailable MEHRAN BUSH Attending Unavailable BRIDLE, OTILIO R Referring Unavailable ALTON CUEVAS Primary Care Unavailable THONY, GONSALO Admitting Unavailable THONY, GONSAOL Attending Unavailable PHYSICIAN, PATIENT UNSURE Primary Care Physician Unavailable PHYSICIAN, PATIENT UNSURE Primary Care GHISLAINE Rene MD Attending Unavailable PHYSICIAN, NONE Primary Care Unavailable XIMENA ANDREWS PA-C Attending Unavailnicole REYES MD, DR KEMAL Mccarty Attending Unabeth rudolph PHYSICIAN, NONE Primary Care Unavailable Bib VSC, Angie Primary Care Unavailable Mariel Tran Attending Unavailable Too Perez Attending Unavailable Bib VSC, Angie Primary Care Unavailable Bib VSC, Angie Primary Care Unavailable Bib VSC, Angie Attending Unavailable Bib VSC, Angie Referring Unavailable Beam VSC, Zebulun Attending Unavailable Bib VSC, Angie Primary Care Unavailable Beam VSC, Zebulun Attending Unavailable Beam VSC, Zebulun Referring Unavailable Bib VSC, Angie Primary Care Unavailable Bib VSC, Angie Primary Care Unavailable Bib VSC, Angie Attending Unavailable Bib VSC, Angie Primary Care Unavailable Beam VSC, Zebulun Attending Unavailable Bib VSC, Angie Primary Care Unavailable Gonsalo Niño Attending Unavailable Tay Hinton Attending Unavailable Care Physician, No Primary Primary Care Unava ilable Bib VSC, Angie Primary Care Unavailable Idris Brown Attending Unavailable Bib VSC, Angie Referring Unavailable Bib VSC, Angie Primary Care Unavailable Bib VSC, Angie Attending Unavailable Bib VSC, Angie Primary Care Unavailable Bib VSC, Angie Attending Unavailable Allergies Allergy Classification Reported Allergen(s) Allergy Type Date of Onset Reaction(s) Facility (1 source) Manda albicans allergenic extract Drug Allergy 11-04-2024 [facility] Repository (1 source) walnut Drug allergy (disorder) 11-04-2024 [facility] Medications Current Medications Medication Drug [...] 04/18/2021 Active take 1 tablet by dhruv once daily lisinopril-hydroCHLOROthiazide (PRINZIDE ;ZESTORETIC) 10-12.5 MG [...] [Essential (primary) hypertension] Onset: 12-30-2020 12-30-2020 Chronic Immunizations and screening for infectious disease (1 source) Other specified abnormal immunological findings in serum; Translations: [Other specified abnormal immunological findings in serum] Onset: 12-20-2024 Episodic Nonspecific chest pain (1 source) Chest pain, unspecified; Translations: [Chest pain, unspecified] Onset: 11-08-2024 Episodic Other non-traumatic joint disorders (1 source) Joint [...] Translations: [Obstructive sleep apnea (adult) (pediatric)] Chronic Residual codes; unclassified (1 source) Hypersomnia, unspecified; Translations: [Hypersomnia, unspecified] Onset: 12-20-2024 Chronic Sprains and strains (1 source) Cervical spine sprain; Translations: [Sprain of ligaments of cervical spine, initial encounter] Onset: 11-22-2022 Episodic Substance-related disorders (3 sources) Nicotine dependence, unspecified, uncomplicated; Translations: [Tobacco user] Onset: 04-08-2022 Chronic Thyroid disorders (20 sources) Hypothyroidism; Translations: [Hypothyroidism, unspecified] Onset: 12-30-2020 12-30-2020 Chronic Urinary tract infections (1 source) Urinary tract infection, site not specified; Translations: [Urinary tract infection, site not specified] Onset: 12-20-2024 Episodic Past or Other Problems Problem Classification Problem Date Documented Da te Episodic/Chronic Abdominal pain (5 sources) Epigastric pain; Translations: [Indigestion] Onset: 03-26-2022 Episodic Diabetes mellitus without complication (20 sources) Prediabetes; Translations: [Prediabetes] Onset: 12-30-2020 12-30-2020 Episodic Other lower respiratory disease (2 sources) Shortness of breath; Translations: [Shortness of breath] Onset: 04-08-2022 Episodic Other lower respiratory disease (1 source) Dyspnea; Translations: [Shortness of breath] Episodic Other upper respiratory infections (1 source) Acute upper respiratory infection, unspecified; Translations: [Acute upper respiratory infection, unspecified] Onset: 02-23-2024 Episodic Residual codes; unclassified (1 source) Nicotine user; Translations: [Tobacco use] Episodic Results Test Name Value Interpretation Reference Range Facility Comprehensive Metabolic Prof [facility] 12-19-2024 Albumin [Mass/Vol] 3.7 g/dL Normal 3.5-5.0 [facility] Comment on above: Performed By: #### L 500.2500, L100.0100, L501.4020 #### [facility] [address] [place], [address] Albumin/Globulin [Mass ratio] 1.2 {ratio} Normal 0.9-2.4 [facility] Comment on above: Performed By: #### L 500.2500, L100.0100, L501.4020 #### [facility] [address] [place], [address] ALK PHOS 98 U/L Normal 35-104 [facility] Comment on above: Performed By: #### L 500.2500, L100.0100, L501.4020 #### [facility] [address] [place], [address] ALT [Catalytic activity/Vol] 15 U/L Normal <=34 [facility] Comment on above: Performed By: #### L 500.2500, L100.0100, L501.4020 #### [facility] [address] [place], [address] AST [Catalytic activity/Vol] 20 U/L Normal <=31 [facility] Comment on above: Performed By: #### L 500.2500, L100.0100, L501.4020 #### [facility] [address] [place], [address] Bilirubin [Mass/Vol] 0.51 mg/dL Normal 0.00-1.30 [facility] Comment on above: Performed By: #### L 500.2500, L100.0100, L501.4020 #### [facility] [address] [place], [address] BUN/CRE 26.7 RATIO High 10-20 [facility] Comment on above: Performed By: #### L 500.2500, L100.0100, L501.4020 #### [facility] [address] [place], [address] Calcium [Mass/Vol] 9.2 mg/dL Normal 7.6-11.0 [facility] Comment on above: Performed By: #### L 500.2500, L100.0100, L501.4020 #### [facility] [address] [place], [address] Chloride [Moles/Vol] 104 mmol/L Normal 98-108 [facility] Comment on above: Performed By: #### L 500.2500, L100.0100, L501.4020 #### [facility] [address] [place], [address] CO2 [Moles/Vol] 21.9 mmol/L Normal 21.0-32.0 [facility] Comment on above: Performed By: #### L 500.2500, L100.0100, L501.4020 #### [facility] [address] [place], [address] Creatinine [Mass/Vol] 0.59 mg/dL Low 0.70-1.20 [facility] Comment on above: Performed By: #### L 500.2500, L100.0100, L501.4020 #### [facility] [address] [place], [address] GAP 13 Normal 5-15 [facility] Comment on above: Performed By: #### L 500.2500, L100.0100, L501.4020 #### [facility] [address] [place], [address] GFR/1.73 sq M.predicted among non-blacks MDRD (S/P/Bld) [Vol rate/Area] 114 mL/min/{1.73_m2} Normal >60 [facility] Comment on above: Result Comment: mL/m in/1.73m2 CKD-EPI Creatinine Equation (2020) Performed By: #### L 500.2500, L100.0100, L501.4020 #### [facility] [address] [place], [address] Globulin (S) [Mass/Vol] 3.1 g/dL Normal 2.2-4.2 [facility] Comment on above: Performed By: #### L 500.2500, L100.0100, L501.4020 #### [facility] [address] [place], [address] Glucose [Mass/Vol] 130 mg/dL High 70-99 [facility] Comment on above: Performed By: #### L 500.2500, L100.0100, L501.4020 #### [facility] [address] [place], [address] Potassium [Moles/Vol] 4.5 mmol/L Normal 3.3-5.1 [facility] Comment on above: Performed By: #### L 500.2500, L100.0100, L501.4020 #### [facility] [address] [place], [address] Sodium [Moles/Vol] 138 mmol/L Normal 133-145 [facility] Comment on above: Performed By: #### L 500.2500, L100.0100, L501.4020 #### [facility] [address] [place], [address] T PROT 6.9 g/dL Normal 5.9-8.4 [facility] Comment on above: Performed By: #### L 500.2500, L100.0100, L501.4020 #### [facility] [address] [place], [address] Urea nitrogen [Mass/Vol] 16 mg/dL Normal 4-19 [facility] Comment on above: Performed By: #### L 500.2500, L100.0100, L501.4020 #### [facility] [address] [place], [address] Hepatitis B Surface Antibody on 12-19-2024 HEP B Surf Ab REAC Normal [facility] Comment on above: Result Comment: <8.5 mIU/mL: Non-Reactive 8.5<= x <11.5 mIU/mL: Indeterminate >=11.5 mIU/mL: Reactive Non Reactive: Inconsistent with immunity less than <10 mIU/mL Reactive: Consistent with immunity greater than or equal to 10 mIU/mL Performed By: #### L 500.2500, L100.0100, L501.4020 #### [facility] [address] [place], [address] Hepatitis Panel Acuteon 10-2 COMMENT Comment Normal . [facility] Comment on above: Result Comment: Not infected with HCV unless early or acute infection is suspected (which may be delayed in an immunocompromised individual), or other evidence exists to indicate HCV infection. Performed at: - [facility] [id number] Vessel Scrapper: Addy Hidalgo PhD, Phone: [phone] Performed By: #### L 500.2500, L100.0100, L501.4020 #### [facility] [address] [place], [address] HEP B CORE,IgM Positive Abnormal Negative [facility] Comment on above: Performed By: #### L 500.2500, L100.0100, L501.4020 #### [facility] [address] [place], [address] HEP B SURF AG Negative Normal Negative [facility] Comment on above: Performed By: #### L 500.2500, L100.0100, L501.4020 #### [facility] [address] [place], [address] HEP C VIRUS AB Non-Reactive Normal Non Reactive [facility] Comment on above: Performed By: #### L 500.2500, L100.0100, L501.4020 #### [facility] [address] [place], [address] HEPATITIS A-IgM Negative Normal Negative [facility] Comment on above: Result Comment: A ne gative anti-HAV IgM result suggests no recent or current HAV infection. Performed By: #### L 500.2500, L100.0100, L501.4020 #### [facility] [address] [place], [address] L3890.6102on 12-19-2024 HEP B Surf Ag Non-Reactive Normal Nonreactive [facility] Comment on above: Result Comment: Reac tive: Presumptive evidence of HBV. Repeatedly reactive samples must be confirmed using a neutralization test ([employer] HBsAg Confirmatory Test) Non-Reactive: HBsAg not detected; does not exclude the possibility of exposure to HBV Performed By: #### L 500.2500, L100.0100, L501.4020 #### [facility] [address] [place], [address] Thyroid Stim Hormone (TSH)on 12-19-2024 TSH 4.800 uIU/mL High 0.300-4.200 [facility] Comment on above: Performed By: #### L 500.2500, L100.0100, L501.4020 #### [facility] [address] [place], [place], [id number] Urine Cultureon 12-19-2024 URC Presumptive E. coli [place] Count 80,000-100,000 Presumptive E. coli: REACTION Ampicillin Islt ANTON >=32 Ampicillin+Sulbac Islt ANTON >=32 R Cefepime Islt ANTON <=0.12 S cefTRIAXone Islt ANTON <=0.25 S Ciprofloxacin Islt ANTON <=0.06 S B-Lactamase Extended Susc Islt NEG Gentamicin Islt ANTON <=1 S levoFLOXacin Islt ANTON <=0.12 S Meropenem Islt ANTON <=0.25 S Nitrofurantoin Islt ANTON <=16 S Pip+Tazo Islt ANTON <=4 S TMP SMX Islt ANTON <=20 S Normal [facility] Comment on above: Performed By: #### M 100.2200, L400.0001 #### [facility] [address] [place], [address] CBC W/Diff, Automatedon 11-22 Absolute Lymph 3.26 X10 3/uL Normal 0.83-4.51 [facility] Comment on above: Performed By: #### L 3000.0375, L505.5000, L100.0100, M8200.2203, L501.1400, L501.6710, L509.8002, L101.9900, M8200.3000, L3890.6006, L501.9985 #### [facility] [address] [place], [address] Absolute Neut 12.4 X10 3/uL High 2.0-7.7 [facility] Comment on above: Performed By: #### L 3000.0375, L505.5000, L100.0100, M8200.2203, L501.1400, L501.6710, L509.8002, L101.9900, M8200.3000, L3890.6006, L501.9985 #### [facility] [address] [place], [address] (865) Basophils/100 WBC (Bld) 0.7 % Normal 0-1 [facility] Comment on above: Performed By: #### L 3000.0375, L505.5000, L100.0100, M8200.2203, L501.1400, L501.6710, L509.8002, L101.9900, M8200.3000, L3890.6006, L501.9985 #### [facility] [address] [place], [place], [id number] (060) Eosinophils/100 WBC (Bld) 1.6 % Normal 0-5 [facility] Comment on above: Performed By: #### L 3000.0375, L505.5000, L100.0100, M8200.2203, L501.1400, L501.6710, L509.8002, L101.9900, M8200.3000, L3890.6006, L501.9985 #### [facility] [address] [place], [address] (106) Erythrocyte distribution width (RBC) [Ratio] 13.9 % Normal 11.6-14.6 [facility] Comment on above: Performed By: #### L 3000.0375, L505.5000, L100.0100, M8200.2203, L501.1400, L501.6710, L509.8002, L101.9900, M8200.3000, L3890.6006, L501.9985 #### [facility] [address] [facility] [place], [address] Hematocrit (Bld) [Volume fraction] 39.8 % Normal 37-47 [facility] Comment on above: Performed By: #### L 3000.0375, L505.5000, L100.0100, M8200.2203, L501.1400, L501.6710, L509.8002, L101.9900, M8200.3000, L3890.6006, L501.9985 #### [facility] [address] [place], [address] Hemoglobin (Bld) [Mass/Vol] 12.2 g/dL Normal 12.0-15.0 [facility] Comment on above: Performed By: #### L 3000.0375, L505.5000, L100.0100, M8200.2203, L501.1400, L501.6710, L509.8002, L101.9900, M8200.3000, L3890.6006, L501.9985 #### [facility] [address] [facility] [place], [address] IG% 0.800 Normal 0.0-0.9 [facility] Comment on above: Result Comment: IG% - Immature Granulocytes (promyelocytes, myelocytes and metamyelocytes) > 1% indicates that a LEFT SHIFT is Present. Performed By: #### L 3000.0375, L505.5000, L100.0100, M8200.2203, L501.1400, L501.6710, L509.8002, L101.9900, M8200.3000, L3890.6006, L501.9985 #### [facility] [address] [facility] [place], [address] Lymphocytes/100 WBC (Bld) 19.1 % Normal 19-41 [facility] Comment on above: Performed By: #### L 3000.0375, L505.5000, L100.0100, M8200.2203, L501.1400, L501.6710, L509.8002, L101.9900, M8200.3000, L3890.6006, L501.9985 #### [facility] [address] [place], [address] MCH (RBC) [Entitic mass] 25.2 pg Low 27.0-32.0 [facility] Comment on above: Performed By: #### L 3000.0375, L505.5000, L100.0100, M8200.2203, L501.1400, L501.6710, L509.8002, L101.9900, M8200.3000, L3890.6006, L501.9985 #### [facility] [address] [place], [address] MCHC (RBC) [Mass/Vol] 30.7 g/dL Low 32-36 [facility] Comment on above: Performed By: #### L 3000.0375, L505.5000, L100.0100, M8200.2203, L501.1400, L501.6710, L509.8002, L101.9900, M8200.3000, L3890.6006, L501.9985 #### [facility] [address] [place], [address] MCV (RBC) [Entitic vol] 82.1 fL Normal 81-99 [facility] Comment on above: Performed By: #### L 3000.0375, L505.5000, L100.0100, M8200.2203, L501.1400, L501.6710, L509.8002, L101.9900, M8200.3000, L3890.6006, L501.9985 #### [facility] [address] [place], [address] Monocytes/100 WBC (Bld) 4.8 % Normal 0-10 [facility] Comment on above: Performed By: #### L 3000.0375, L505.5000, L100.0100, M8200.2203, L501.1400, L501.6710, L509.8002, L101.9900, M8200.3000, L3890.6006, L501.9985 #### [facility] [address] [facility] [place], [place], [phone] (118 Neutrophils/100 WBC (Bld) 73.0 % High 47-70 [facility] Comment on above: Performed By: #### L 3000.0375, L505.5000, L100.0100, M8200.2203, L501.1400, L501.6710, L509.8002, L101.9900, M8200.3000, L3890.6006, L501.9985 #### [facility] [address] [facility] [place], [address] Nucleated RBC (Bld) [#/Vol] 0 10*3/uL Normal 0-5 [facility] Comment on above: Performed By: #### L 3000.0375, L505.5000, L100.0100, M8200.2203, L501.1400, L501.6710, L509.8002, L101.9900, M8200.3000, L3890.6006, L501.9985 #### [facility] [address] [facility] [place], [address] Platelet mean volume (Bld) [Entitic vol] 10.1 fL Normal 6.2-12.0 [facility] Comment on above: Performed By: #### L 3000.0375, L505.5000, L100.0100, M8200.2203, L501.1400, L501.6710, L509.8002, L101.9900, M8200.3000, L3890.6006, L501.9985 #### [facility] [address] [facility] [place], [address] Platelets (Bld) [#/Vol] 425 10*3/uL Normal 150-450 [facility] Comment on above: Performed By: #### L 3000.0375, L505.5000, L100.0100, M8200.2203, L501.1400, L501.6710, L509.8002, L101.9900, M8200.3000, L3890.6006, L501.9985 #### [facility] [address] [facility] [place], [address] RBC (Bld) [#/Vol] 4.85 10*6/uL Normal 4.2-5.4 [facility] Comment on above: Performed By: #### L 3000.0375, L505.5000, L100.0100, M8200.2203, L501.1400, L501.6710, L509.8002, L101.9900, M8200.3000, L3890.6006, L501.9985 #### [facility] [address] [facility] [place] [place], [address] RDW SD 41.0 fl Normal 35.1-43.9 [facility] Comment on above: Performed By: #### L 3000.0375, L505.5000, L100.0100, M8200.2203, L501.1400, L501.6710, L509.8002, L101.9900, M8200.3000, L3890.6006, L501.9985 #### [facility] [address] [place], [address] WBC (Bld) [#/Vol] 17.0 10*3/uL High 4.4-11.0 [facility] Comment on above: Performed By: #### L 3000.0375, L505.5000, L100.0100, M8200.2203, L501.1400, L501.6710, L509.8002, L101.9900, M8200.3000, L3890.6006, L501.9985 #### [facility] [address] [place], [address] CRPon 12-17-2024 C-REACTIVE PROT 41.50 mg/L High 0.0-3.0 [facility] Comment on above: Performed By: #### L 500.2500, L100.0100, L501.4020 #### [facility] [address] [place], [address] Erythrocyte Sed Rateon 12-17 SED RATE 48 mm/hr High 0-30 [facility] Comment on above: Performed By: #### L 3000.0375, L505.5000, L100.0100, M8200.2203, L501.1400, L501.6710, L509.8002, L101.9900, M8200.3000, L3890.6006, L501.9985 #### [facility] [address] [place], [address] HIVon 12-17-2024 HIV Non-Reactive Normal Nonreactive [facility] Comment on above: Result Comment: Non- Reactive Reactive Repeatedly reactive samples must be confirmed according to CDC recommended confirmatory algorithms. The subresults for either HIVAG or AHIV can be used as an aid in the selection of the confirmation algorithm for reactive samples. Send out specimens with Reactive results to [facility] for confirmation. Order the HIV antibody detection and differentiation: [id number] Performed By: #### L 500.2500, L100.0100, L501.4020 #### [facility] [address] [place], [address] Hemoglobin A1con 12-17-2024 HbA1c (Bld) [Mass fraction] 6.4 % High <=5.6 [facility] Comment on above: Result Comment: Norm al < 5.7 % Prediabetic 5.7 - 6.4 % Diabetic >or= 6.5 % Please note range changes. Performed By: #### L 3000.0375, L505.5000, L100.0100, M8200.2203, L501.1400, L501.6710, L509.8002, L101.9900, M8200.3000, L3890.6006, L501.9985 #### [facility] [address] [place], [address] M8200.2203on 12-17-2024 M8200.2203 Pending Chlamydia Trachomatis PCR NEGATIVE for Chlamydia trachomatis N. gonorrhoeae PCR Negative for N. gonorrhoeae Normal [facility] Comment on above: Performed By: #### L 500.2500, L100.0100, L501.4020 #### [facility] [address] [place], [address] M8200.3000on 12-17-2024 M8200.3000 Pending Trichomonas Vag DNA PCR Negative for Trichomonas vaginalis Normal [facility] Comment on above: Performed By: #### L 500.2500, L100.0100, L501.4020 #### [facility] [address] [place], [address] Syphilis Antibodieson 2024 Syphilis Abs Non-Reactive Normal Nonreactive [facility] Comment on above: Performed By: #### L 500.2500, L100.0100, L501.4020 #### [facility] [address] [place], [address] Uric Acidon 12-17-2024 URIC 6.9 mg/dL High 2.6-6.0 [facility] Comment on above: Result Comment: The drugs N-Acetylcysteine and Metamizole may falsely depress this assay. Performed By: #### L 500.2500, L100.0100, L501.4020 #### [facility] [address] [place], [address] Urinalysis, Completeon 12-17 BACTERIA 2+ /hpf Normal None Seen [facility] Comment on above: Order Comment: CLEAN CATCH Performed By: #### M 100.2200, L400.0001 #### [facility] [address] [place], [address] EPI,SQUAMOUS 0-5 SEEN Normal 5-10 [facility] Comment on above: Order Comment: CLEAN CATCH Performed By: #### M 100.2200, L400.0001 #### [facility] [address] [place], [address] RBC 0 SEEN Normal 0-5 [facility] Comment on above: Order Comment: CLEAN CATCH Performed By: #### M 100.2200, L400.0001 #### [facility] [address] [place], [address] WBC 50-100 SEEN Normal 0-5 [facility] Comment on above: Order Comment: CLEAN CATCH Performed By: #### M 100.2200, L400.0001 #### [facility] [address] [place], [address] Mucus Ql (Urine sed) 0 SEEN Normal [facility] Comment on above: Order Comment: CLEAN CATCH Performed By: #### M 100.2200, L400.0001 #### [facility] [address] [place], [address] Urine Drug Screen (VISTA)on 12-17-2024 AMPHETAMINES Negative Normal <1000 ng/mL [facility] Comment on above: Order Comment: MEDTO X Performed By: #### L 3000.0375, L505.5000, L100.0100, M8200.2203, L501.1400, L501.6710, L509.8002, L101.9900, M8200.3000, L3890.6006, L501.9985 #### [facility] [address] [place], [address] BARBITIURATES Negative Normal < 200 ng/mL [facility] Comment on above: Order Comment: MEDTO X Performed By: #### L 3000.0375, L505.5000, L100.0100, M8200.2203, L501.1400, L501.6710, L509.8002, L101.9900, M8200.3000, L3890.6006, L501.9985 #### [facility] [address] [place], [place], [address] BENZODIAZIPINE Negative Normal < 200 ng/mL [facility] Comment on above: Order Comment: MEDTO X Performed By: #### L 3000.0375, L505.5000, L100.0100, M8200.2203, L501.1400, L501.6710, L509.8002, L101.9900, M8200.3000, L3890.6006, L501.9985 #### [facility] [address] [place], [place], [id number] BUP Ur Drug Scr Negative Normal < 200 ng/mL [facility] Comment on above: Order Comment: MEDTO X Performed By: #### L 3000.0375, L505.5000, L100.0100, M8200.2203, L501.1400, L501.6710, L509.8002, L101.9900, M8200.3000, L3890.6006, L501.9985 #### [facility] [address] [place], [place], [address] COCAINE Negative Normal < 300 ng/mL [facility] Comment on above: Order Comment: MEDTO X Performed By: #### L 3000.0375, L505.5000, L100.0100, M8200.2203, L501.1400, L501.6710, L509.8002, L101.9900, M8200.3000, L3890.6006, L501.9985 #### [facility] [address] [place], [place], [address] Fentanyl Negative Normal <5 ng/mL [facility] Comment on above: Order Comment: MEDTO X Result Comment: CONF IRMATORY TESTING FOR ALL POSITIVE URINE DRUG SCREEN RESULTS WILL ONLY BE SENT OUT UPON PHYSICIAN ORDER. Sukhdeep Pro Urine Drug Screen methods provide only preliminary analytical test results. A more specific alternate chemical method must be used in order to obtain a confirmed analytical result. Gas chromatography/mass spectrometery (GC/MS) is the preferred confirmatory method. Clinical consideration and professional judgement should be applied to any drug of abuse test result, particularly when preliminary positive results are used. Urine TCA testing must be ordered separately. Use test mnemonic: UTCA Performed By: #### L 3000.0375, L505.5000, L100.0100, M8200.2203, L501.1400, L501.6710, L509.8002, L101.9900, M8200.3000, L3890.6006, L501.9985 #### [facility] [address] [facility] [place], [address] METHADONE Negative Normal < 300 ng/mL [facility] Comment on above: Order Comment: MEDTO X Performed By: #### L 3000.0375, L505.5000, L100.0100, M8200.2203, L501.1400, L501.6710, L509.8002, L101.9900, M8200.3000, L3890.6006, L501.9985 #### [facility] [address] [place], [address] OPIATES Negative Normal < 300 ng/mL [facility] Comment on above: Order Comment: MEDTO X Performed By: #### L 3000.0375, L505.5000, L100.0100, M8200.2203, L501.1400, L501.6710, L509.8002, L101.9900, M8200.3000, L3890.6006, L501.9985 #### [facility] [address] [place], [address] OXYCODONE Negative Normal < 100 ng/mL [facility] Comment on above: Order Comment: MEDTO X Performed By: #### L 3000.0375, L505.5000, L100.0100, M8200.2203, L501.1400, L501.6710, L509.8002, L101.9900, M8200.3000, L3890.6006, L501.9985 #### [facility] [address] [place], [place], [address] PCP Negative Normal < 25 ng/mL [facility] Comment on above: Order Comment: MEDTO X Performed By: #### L 3000.0375, L505.5000, L100.0100, M8200.2203, L501.1400, L501.6710, L509.8002, L101.9900, M8200.3000, L3890.6006, L501.9985 #### [facility] [address] [place], [place], [address] THC Negative Normal < 50 ng/mL [facility]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 above: Performed By: #### L 500.2500, L100.0100, L501.4020 #### [facility] [address] [place], [address] VISTA UDS PH 5 Normal [facility] Comment on above: Performed By: #### L 500.2500, L100.0100, L501.4020 #### [facility] [address] [place], [address] CVFLURVon 05-01-2023 FLU A PCR Negative Normal Negative [facility]) Comment on above: Result Comment: [place] [id number] Performed By: #### Mishel CALLE #### [place] [address] [place] [address] FLU B PCR Negative Normal Negative [facility] ([place]) Comment on above: Result Comment: [place] s [id number] Performed By: #### Mishel VALVERDEU #### [facility] [address] [place] [address] RSV PCR Negative Normal Negative [facility]) Comment on above: Result Comment: [place] s [id number] Performed By: #### Mishel VALVERDEU #### [place] [address] [place] [address] SARS-CoV-2 (COVID-19) RNA WES+probe Ql (Unsp spec) Negative Normal Negative [facility]) Comment on above: Result Comment: Note s [id number] This test has been authorized by FDA [...] results. Performed By: #### D RUGU #### [place] [address] DRUGSon 05-01-2023 Acetaminophen [Mass/Vol] ug/mL Low 10.0-20.0 [facility] ([place]) Comment on above: Performed By: #### D RUGS ####[place] [address] Ethanol Level <10.0 Normal [facility] ([place]) Comment on above: Performed By: #### D RUGS ####[place] [address] Salicylate Lvl (ds) <3.0 Low 10.0-25.0 [facility] ([place]) Comment on above: Performed By: #### Mishel RUGS ####[place] [address] Serum Drugs screened: See Below Normal [facility] ([place]) Comment on above: Result Comment: This drug screen is a presumptive screening only. No confirmation will be performed unless requested. Drugs included in the ER serum drug screen are: Threshold Ethanol 10.0 mg/dL Salicylate 2.0 mg/dl Acetaminophen 2.0 mcg/mL Testing has been performed FOR MEDICAL PURPOSES ONLY. Performed By: #### D RUGS ####[place] [address] .Auto Diffon 04-30-2023 Basophil, Absolute 0.2 10 3/mcL Normal 0.0-0.3 [facility] ([place]) Comment on above: Performed By: #### C MP, ANEU, LIP, CBC, MDW, GFR, ADIFF ####[address] [address] Basophils/100 WBC (Bld) 1.2 % Normal 0.0-2.5 [facility] ([place]) Comment on above: Performed By: #### C MP, ANEU, LIP, CBC, MDW, GFR, ADIFF ####[address] [address] Eosinophil, Absolute 0.2 10 3/mcL Normal 0.0-0.7 [facility] ([place]) Comment on above: Performed By: #### C MP, ANEU, LIP, CBC, MDW, GFR, ADIFF ####[address] [address] Eosinophils/100 WBC (Bld) 1.4 % Normal 0.0-6.0 [facility] ([place]) Comment on above: Performed By: #### C MP, ANEU, LIP, CBC, MDW, GFR, ADIFF ####[address] [address] Lymphocyte, Absolute 2.9 10 3/mcL Normal 0.9-4.3 [facility] ([place]) Comment on above: Performed By: #### C MP, ANEU, LIP, CBC, MDW, GFR, ADIFF ####[address] [address] Lymphocytes/100 WBC (Bld) 21.5 % Normal 20.0-40.0 [facility] ([place]) Comment on above: Performed By: #### C MP, ANEU, LIP, CBC, MDW, GFR, ADIFF ####[address] [address] Monocyte, Absolute 0.9 10 3/mcL Normal 0.1-1.4 [facility] ([place]) Comment on above: Performed By: #### C MP, ANEU, LIP, CBC, MDW, GFR, ADIFF ####[address] [address] Monocytes/100 WBC (Bld) 6.4 % Normal 2.0-13.0 [facility] ([place]) Comment on above: Performed By: #### C MP, ANEU, LIP, CBC, MDW, GFR, ADIFF ####[address] [address] Neutrophils/100 WBC (Bld) 69.5 % Normal 50.0-75.0 [facility] ([place]) Comment on above: Performed By: #### C MP, ANEU, LIP, CBC, MDW, GFR, ADIFF ####[address] [address] .GFRon 04-30-2023 GFR >60 Normal [facility] ([place]) Comment on above: Result Comment: GFR Population [...] MP, ANEU, LIP, CBC, MDW, GFR, ADIFF ####[address] [address] GFR Non- >60 Normal [facility] ([place]) Comment on above: Result Comment: GFR Population [...] MP, ANEU, LIP, CBC, MDW, GFR, ADIFF ####[place] [address] .MDWon 04-30-2023 Monocyte Distribution Width 17.44 Normal 0.00-20.00 [facility] ([place]) Comment on above: Result Comment: For ED adult patients suspected of sepsis, MDW<=20.0 does not rule out sepsis or risk of sepsis Performed By: #### C MP, ANEU, LIP, CBC, MDW, GFR, ADIFF ####[place] [address] .NEUABSon 04-30-2023 Neutrophil, Absolute 9.5 10 3/mcL High 2.3-8.1 [facility] ([place]) Comment on above: Performed By: #### C MP, ANEU, LIP, CBC, MDW, GFR, ADIFF ####[place] [address] CBCon 04-30-2023 Erythrocyte distribution width (RBC) [Ratio] 15.5 % Normal 11.5-15.5 [facility] ([place]) Comment on above: Performed By: #### C MP, ANEU, LIP, CBC, MDW, GFR, ADIFF ####[place] [address] Hematocrit (Bld) [Volume fraction] 41.9 % Normal 34.0-46.0 [facility] ([place]) Comment on above: Performed By: #### C MP, ANEU, LIP, CBC, MDW, GFR, ADIFF ####[place] [address] Hgb 13.6 G/dL Normal 12.0-16.0 [facility] ([place]) Comment on above: Performed By: #### C MP, ANEU, LIP, CBC, MDW, GFR, ADIFF ####[place] [address] MCH (RBC) [Entitic mass] 28.2 pg Normal 27.0-33.0 [facility] ([place]) Comment on above: Performed By: #### C MP, ANEU, LIP, CBC, MDW, GFR, ADIFF ####[place] [address] MCHC 32.6 G/dL Normal 32.0-36.0 [facility] ([place]) Comment on above: Performed By: #### C MP, ANEU, LIP, CBC, MDW, GFR, ADIFF ####[place] [address] MCV (RBC) [Entitic vol] 86.6 fL Normal 80.0-99.0 [facility] ([place]) Comment on above: Performed By: #### C MP, ANEU, LIP, CBC, MDW, GFR, ADIFF ####[place] [address] Platelet 342 10 3/mcL Normal 150-450 [facility] ([place]) Comment on above: Performed By: #### C MP, ANEU, LIP, CBC, MDW, GFR, ADIFF ####[place] [address] Platelet mean volume (Bld) [Entitic vol] 8.5 fL Normal 6.6-10.5 [facility] ([place]) Comment on above: Performed By: #### C MP, ANEU, LIP, CBC, MDW, GFR, ADIFF ####[place] [address] RBC 4.84 10 6/mcL Normal 4.10-5.30 [facility] ([place]) Comment on above: Performed By: #### C MP, ANEU, LIP, CBC, MDW, GFR, ADIFF ####[place] [address] WBC 13.7 10 3/mcL High 4.5-10.8 [facility] ([place]) Comment on above: Performed By: #### C MP, ANEU, LIP, CBC, MDW, GFR, ADIFF ####[place] [address] CMPon 04-30-2023 Albumin Level 3.7 G/dL Normal 3.2-4.8 [facility] ([place]) Comment on above: Performed By: #### C MP, ANEU, LIP, CBC, MDW, GFR, ADIFF ####[address] [address] Albumin/Globulin [Mass ratio] 1.1 {ratio} Normal 0.9-1.6 [facility] ([place]) Comment on above: Performed By: #### C MP, ANEU, LIP, CBC, MDW, GFR, ADIFF ####[address] [address] ALP [Catalytic activity/Vol] 90 U/L Normal 38-126 [facility] ([place]) Comment on above: Performed By: #### C MP, ANEU, LIP, CBC, MDW, GFR, ADIFF ####[address] [address] ALT [Catalytic activity/Vol] 65 U/L High 10-49 [facility] ([place]) Comment on above: Performed By: #### C MP, ANEU, LIP, CBC, MDW, GFR, ADIFF ####[address] [address] AST [Catalytic activity/Vol] 61 U/L High 8-34 [facility] ([place]) Comment on above: Performed By: #### C MP, ANEU, LIP, CBC, MDW, GFR, ADIFF ####[address] [address] Bili Total 0.80 mg/dL Normal 0.20-1.20 [facility] ([place]) Comment on above: Result Comment: Use of this assay is not recommended for patients undergoing treatment with eltrombopag due to the potential for falsely elevated results. Performed By: #### C MP, ANEU, LIP, CBC, MDW, GFR, ADIFF ####[address] [address] BUN/Creatinine Ratio 10.7 ratio Normal 10.0-22.0 [facility] ([place]) Comment on above: Performed By: #### C MP, ANEU, LIP, CBC, MDW, GFR, ADIFF ####[place] [address] Calcium [Mass/Vol] 9.3 mg/dL Normal 8.7-10.4 [facility] ([place]) Comment on above: Performed By: #### C MP, ANEU, LIP, CBC, MDW, GFR, ADIFF ####[place] [address] Chloride [Moles/Vol] 105 mmol/L Normal 98-110 [facility] ([place]) Comment on above: Performed By: #### C MP, ANEU, LIP, CBC, MDW, GFR, ADIFF ####[place] [id number] CO2 [Moles/Vol] 30 mmol/L Normal 22-32 [facility] ([place]) Comment on above: Performed By: #### C MP, ANEU, LIP, CBC, MDW, GFR, ADIFF ####[place] [address] Creatinine [Mass/Vol] 0.75 mg/dL Normal 0.50-1.20 Count includes the [facility] ([place]) Comment on above: Performed By: #### C MP, ANEU, LIP, CBC, MDW, GFR, ADIFF ####[place] [address] Electrolyte Balance 6.0 mEq/L Normal 4.0-15.0 [facility] ([place]) Comment on above: Performed By: #### C MP, ANEU, LIP, CBC, MDW, GFR, ADIFF ####[place] [address] Globulin 3.3 G/dL Normal 1.5-3.8 [facility] ([place]) Comment on above: Performed By: #### C MP, ANEU, LIP, CBC, MDW, GFR, ADIFF ####[place] [address] Glucose [Mass/Vol] 107 mg/dL Normal 70-110 [facility] ([place]) Comment on above: Performed By: #### C MP, ANEU, LIP, CBC, MDW, GFR, ADIFF ####[place] [id number] Potassium [Moles/Vol] 3.6 mmol/L Normal 3.5-5.0 Count includes the [facility] ([place]) Comment on above: Performed By: #### C MP, ANEU, LIP, CBC, MDW, GFR, ADIFF ####[address] [address] Sodium [Moles/Vol] 141 mmol/L Normal 136-145 [facility] ([place]) Comment on above: Performed By: #### C MP, ANEU, LIP, CBC, MDW, GFR, ADIFF ####[place] [id number] Total Protein 7.0 G/dL Normal 5.7-8.2 [facility] ([place]) Comment on above: Result Comment: No te - New Reference Range in effect 19 Performed By: #### C MP, ANEU, LIP, CBC, MDW, GFR, ADIFF ####[place] [address] Urea nitrogen [Mass/Vol] 8.0 mg/dL Normal 8.0-22.0 [facility] ([place]) Comment on above: Performed By: #### C MP, ANEU, LIP, CBC, MDW, GFR, ADIFF ####[place] [address] DRUGUon 04-30-2023 Amphetamine (u) Positive Abnormal Negative [facility] ([place]) Comment on above: Performed By: #### Mishel CALLE #### [place] [id number] Cannabinoid (u) Positive Abnormal Negative [facility] ([place]) Comment on above: Performed By: #### Mishel CALEL #### [place] [id number] Barbiturate (u) Negative Normal Negative [facility] ([place]) Comment on above: Performed By: #### Mishel CALLE #### [place] [id number] Benzodiazepine (u) Negative Normal Negative [facility] ([place]) Comment on above: Performed By: #### D RUGU #### [address] [address] Cocaine Ql (U) Negative Normal Negative [facility] ([place]) Comment on above: Performed By: #### D RUGU #### [address] [address] Fentanyl (u) Negative Normal Negative [facility] ([place]) Comment on above: Result Comment: Test ing has been performed FOR MEDICAL PURPOSES ONLY. Performed By: #### D RUGU #### [address] [address] Methadone Ql (U) Negative Normal Negative [facility] ([place]) Comment on above: Performed By: #### Mishel RUGU #### [address] [address] Opiate (u) Negative Normal Negative [facility] ([place]) Comment on above: Performed By: #### Mishel RUGU #### [address] [address] Oxycodone (u) Negative Normal Negative [facility] ([place]) Comment on above: Result Comment: Test ing has been performed FOR MEDICAL PURPOSES ONLY. Performed By: #### Mishel RUGU #### [address] [address] PCP (u) Negative Normal Negative [facility] ([place]) Comment on above: Performed By: #### Mishel RUGU #### [address] [address] Propoxyphene (u) Negative Normal Negative [facility] ([place]) Comment on above: Performed By: #### D RUGU #### [address] [address] U pH Drug Scrn 7.0 Normal 5.0-8.0 [facility] ([place]) Comment on above: Performed By: #### Mishel RUGU #### [address] [address] Urine Drugs screened: See Below Normal Count includes the [facility] ([place]) Comment on above: Result Comment: This drug [...] ONLY. Performed By: #### D RUGU #### [place] [address] LABORATORYOrdered By: Sawyer Cohen on 04-30-2023 Acetaminophen [...] Comment on above: Result Comment: [place] [id number] FLUBV RNA WES+probe Ql (Resp) Negative 12 (04/30/23 9:22 PM) Normal Negative AH Auto Viro/Sero SS Comment on above: [place]: [place] [id number] RSV PCR Negative 13 (04/30/23 9:22 PM) Normal Negative [facility] Auto Viro/Sero SS Comment on above: Result Comment: [place] [id number] SARS-CoV-2 (COVID-19) RNA WES+probe Ql (Resp) Negative 9, 10 (04/30/23 9:22 PM) Normal Negative AH Auto Viro/Sero SS Comment on above: Result Comment: [place] [id number] Interpretive Data: T his test has been [...] See Below 8 (04/30/23 7:42 PM) Normal AH Chemistry S Comment on [...] 0.80 mg/dL Normal 0.20 - 1.20 mg/dL AH ADM SS Comment on above: Interpretive [...] 3.3 G/dL Normal 1.5 - 3.8 G/dL AH ADM SS Glucose [Mass/Vol] 107 mg/dL Normal 70 - 110 mg/dL AH ADM SS Hematocrit (Bld) [Volume fraction] 41.9 % Normal 34.0 - 46.0 % AH Workflow SS Hemoglobin (Bld) [Mass/Vol] 13.6 G/dL Normal 12.0 - 16.0 G/dL AH Workflow SS Lipase [Catalytic activity/Vol] 33 U/L Normal 12 - 53 U/L ADM SS Comment on above: Interpretive Data: * *Note - New Reference Range in effect 19 Lymphocytes (Bld) [#/Vol] 2.9 103/mcL Normal 0.9 - 4.3 10^3/mcL AH Workflow SS Lymphocytes/100 WBC (Bld) 21.5 % Normal 20.0 - 40.0 % AH Workflow SS MCH (RBC) [Entitic mass] 28.2 pg Normal 27.0 - 33.0 pg AH Workflow SS MCHC 32.6 G/dL Normal 32.0 - 36.0 G/dL AH Workflow SS MCV (RBC) [Entitic vol] 86.6 fL Normal 80.0 - 99.0 fL AH Workflow SS Monocyte distribution width Auto (Bld) [Entitic vol] 17.44 1 Normal 0.00 - 20.00 Workflow SS Comment on above: Result Comment: [...] test) Ql (U) Negative (04/30/23 5:57 PM) [facility] Work Phone: LABORATORYOrdered By: Gene Espinoza [...] [Mass/Vol] Negative (04/30/23 5:41 PM) Normal Neg-Trace Auto Urine SS Ketones Ql (U) Negative Normal Neg-Trace Auto Urine SS UA Leuk Est Negative [...] 04-30-2023 Lipase Level 33 U/L Normal 12-53 [facility] ([place]) Comment on above: Result Comment: No te - New Reference Range in effect 19 Performed By: #### C MP, ANEU, LIP, CBC, MDW, GFR, ADIFF ####[address] [address] UAon 04-30-2023 Color (U) Yellow Normal [facility] ([place]) Comment on above: Performed By: #### U A ####[address] [address] Glucose (U) [Mass/Vol] Negative Normal Negative [facility] ([place]) Comment on above: Performed By: #### U A ####[address] [address] Ketones Ql (U) Negative Normal Neg-Trace [facility] ([place]) Comment on above: Performed By: #### U A ####[address] [address] UA Appear Clear Normal Clear [facility] ([place]) Comment on above: Performed By: #### U A ####[address] [address] UA Blood Negative Normal Neg-Trace [facility] ([place]) Comment on above: Performed By: #### U A ####[place] [address] UA Leuk Est Negative Normal Negative [facility] ([place]) Comment on above: Performed By: #### U A ####[place] [address] UA Nitrite Negative Normal Negative [facility] ([place]) Comment on above: Performed By: #### U A ####[place] [address] UA pH 7.0 Normal 5.0 - 8.0 [facility] ([place]) Comment on above: Performed By: #### U A ####[place] [address] UA Protein Negative Normal Negative [facility] ([place]) Comment on above: Performed By: #### U A ####[place] [address] UA Spec Grav 1.015 Normal 1.006-1.029 [facility] ([place]) Comment on above: Performed By: #### U A ####[place] [address] UA Specimen Type Not Given Normal [facility] ([place]) Comment on above: Performed By: #### U A ####[place] [address] UA Urobilinogen 1.0 E.U./dL Normal 0.2-1.0 [facility] ([place]) Comment on above: Performed By: #### U A ####[place] [address] Urobilinogen (U) [Mass/Vol] Negative Normal Neg-Trace [facility] ([place]) Comment on above: Performed By: #### U A ####[place] [address] .Auto Diffon 04-08-2023 Basophil, Absolute 0.1 10 3/mcL Normal 0.0-0.3 [facility] ([place]) Comment on above: Performed By: #### A DIFF, TROPHS, MDW, BMP, GFR, CBC, ANEU #### [address] [address] Basophils/100 WBC (Bld) 0.7 % Normal 0.0-2.5 [facility] ([place]) Comment on above: Performed By: #### A DIFF, SPEEDYS, MDW, BMP, GFR, CBC, ANEU #### [address] [address] Eosinophil, Absolute 0.2 10 3/mcL Normal 0.0-0.7 [facility] ([place]) Comment on above: Performed By: #### A DIFF, TROPHS, MDW, BMP, GFR, CBC, ANEU #### [address] [address] Eosinophils/100 WBC (Bld) 1.1 % Normal 0.0-6.0 [facility] ([place]) Comment on above: Performed By: #### A DIFF, WILLIAM, W, BMP, GFR, CBC, ANEU #### [address] [address] Lymphocyte, Absolute 2.8 10 3/mcL Normal 0.9-4.3 [facility] ([place]) Comment on above: Performed By: #### A DIFF, WILLIAM, W, BMP, GFR, CBC, ANEU #### [address] [address] Lymphocytes/100 WBC (Bld) 15.8 % Low 20.0-40.0 [facility] ([place]) Comment on above: Performed By: #### A DIFF, WILLIAM, W, BMP, GFR, CBC, ANEU #### [address] [address] Monocyte, Absolute 0.8 10 3/mcL Normal 0.1-1.4 [facility] ([place]) Comment on above: Performed By: #### A DIFF, TROPHS, MDW, BMP, GFR, CBC, ANEU #### [address] [address] Monocytes/100 WBC (Bld) 4.3 % Normal 2.0-13.0 [facility] ([place]) Comment on above: Performed By: #### A WILLIAM SPAULDING MDW, BMP, GFR, CBC, ANEU #### [address] [address] Neutrophils/100 WBC (Bld) 78.1 % High 50.0-75.0 [facility] ([place]) Comment on above: Performed By: #### A WILLIAM SPAULDING MDW, BMP, GFR, CBC, ANEU #### [address] [address] .GFRon 04-08-2023 GFR >60 Normal [facility] ([place]) Comment on above: Result Comment: GFR Population [...] WILLIAM SPAULDING MDW, BMP, GFR, CBC, ANEU ####[address] [address] GFR Non- >60 Normal [facility] ([place]) Comment on above: Result Comment: GFR Population [...] mL/min/1.73 square meters Performed By: #### A DIFFWILLIAM MDW, BMP, GFR, CBC, ANEU ####[address] [address] .MDWon 04-08-2023 Monocyte Distribution Width 18.88 Normal 0.00-20.00 [facility] ([place]) Comment on above: Result Comment: For ED adult patients suspected of sepsis, MDW<=20.0 does not rule out sepsis or risk of sepsis Performed By: #### A DIFF, MD WILLIAMW, BMP, GFR, CBC, ANEU #### [address] [address] .NEUABSon 04-08-2023 Neutrophil, Absolute 14.0 10 3/mcL High 2.3-8.1 A [facility] ([place]) Comment on above: Performed By: #### A CHELLY, ANA THOMAS, BMP, GFR, CBC, ANEU #### [place] [address] BMPon 04-08-2023 BUN/Creatinine Ratio 19.0 ratio Normal 10.0-22.0 [facility] ([place]) Comment on above: Performed By: #### A WILLIAM SPAULDING MDW, BMP, GFR, CBC, ANEU #### [place] [address] Calcium [Mass/Vol] 8.9 mg/dL Normal 8.7-10.4 [facility] ([place]) Comment on above: Performed By: #### A WILLIAM SPALUDING MDW, BMP, GFR, CBC, ANEU #### [place] [address] Chloride [Moles/Vol] 106 mmol/L Normal 98-110 [facility] ([place]) Comment on above: Performed By: #### A WILLIAM SPAULDING MDW, BMP, GFR, CBC, ANEU #### [place] [address] CO2 [Moles/Vol] 26 mmol/L Normal 22-32 [facility] ([place]) Comment on above: Performed By: #### A DIFFWILLIAM MDW, BMP, GFR, CBC, ANEU #### [address] [address] Creatinine [Mass/Vol] 0.63 mg/dL Normal 0.50-1.20 Count includes the [facility] ([place]) Comment on above: Performed By: #### A WILLIAM SPAULDING MDW, BMP, GFR, CBC, ANEU #### [address] [address] Electrolyte Balance 5.0 mEq/L Normal 4.0-15.0 [facility] ([place]) Comment on above: Performed By: #### A WILLIAM SPAULDING MDW, BMP, GFR, CBC, ANEU #### [address] [address] Glucose [Mass/Vol] 154 mg/dL High 70-110 [facility] ([place]) Comment on above: Performed By: #### A WILLIAM SPAULDING MDW, BMP, GFR, CBC, ANEU #### [place] [id number] Potassium [Moles/Vol] 4.2 mmol/L Normal 3.5-5.0 Count includes the [facility] ([place]) Comment on above: Result Comment: Spec imen slightly hemolyzed. Performed By: #### A WILLIAM SPAULDING MDW, BMP, GFR, CBC, ANEU #### [address] [address] Sodium [Moles/Vol] 137 mmol/L Normal 136-145 [facility] ([place]) Comment on above: Performed By: #### A WILLIAM SPAULDING MDW, BMP, GFR, CBC, ANEU #### [address] [address] Urea nitrogen [Mass/Vol] 12.0 mg/dL Normal 8.0-22.0 [facility] ([place]) Comment on above: Performed By: #### A WILLIAM SPAULDING MDW, BMP, GFR, CBC, ANEU #### [address] [address] CBCon 04-08-2023 Erythrocyte distribution width (RBC) [Ratio] 15.6 % High 11.5-15.5 [facility] ([place]) Comment on above: Performed By: #### A DIFF, ANA THOMAS, BMP, GFR, CBC, ANEU #### [place] [address] Hematocrit (Bld) [Volume fraction] 45.1 % Normal 34.0-46.0 [facility] ([place]) Comment on above: Performed By: #### A DIFF, MD WILLIAMW, BMP, GFR, CBC, ANEU #### [place] [address] Hgb 14.8 G/dL Normal 12.0-16.0 [facility] ([place]) Comment on above: Performed By: #### A DIFF, MD WILLIAMW, BMP, GFR, CBC, ANEU #### [place] [address] MCH (RBC) [Entitic mass] 27.8 pg Normal 27.0-33.0 [facility] ([place]) Comment on above: Performed By: #### A DIFF, WILLIAM, W, BMP, GFR, CBC, ANEU #### [place] [address] MCHC 32.8 G/dL Normal 32.0-36.0 [facility] ([place]) Comment on above: Performed By: #### A DIFF, MD WILLIAMW, BMP, GFR, CBC, ANEU #### [place] [address] MCV (RBC) [Entitic vol] 84.8 fL Normal 80.0-99.0 [facility] ([place]) Comment on above: Performed By: #### A DIFF, WILLIAM, W, BMP, GFR, CBC, ANEU #### [place] [id number] Platelet 324 10 3/mcL Normal 150-450 [facility] ([place]) Comment on above: Performed By: #### A DIFF, WILLIAM, W, BMP, GFR, CBC, ANEU #### [place] [address] Platelet mean volume (Bld) [Entitic vol] 8.3 fL Normal 6.6-10.5 [facility] ([place]) Comment on above: Performed By: #### A WILLIAM SPAULDING MDW, BMP, GFR, CBC, ANEU #### [place] [address] RBC 5.32 10 6/mcL High 4.10-5.30 [facility] ([place]) Comment on above: Performed By: #### A WILLIAM SPAULDING MDW, BMP, GFR, CBC, ANEU #### [place] [address] WBC 17.9 10 3/mcL High 4.5-10.8 [facility] ([place]) Comment on above: Performed By: #### A WILLIAM SPAULDING MDW, BMP, GFR, CBC, ANEU #### [place] [address] CVFLURVon 04-08-2023 FLU A PCR Negative Normal Negative [facility] ([place]) Comment on above: Result Comment: Note s Performed By: #### C VFLURV #### [place] [address] FLU B PCR Negative Normal Negative [facility] ([place]) Comment on above: Result Comment: Note s Performed By: #### C VFLURV #### [place] [address] RSV PCR Negative Normal Negative [facility] ([place]) Comment on above: Result Comment: [place] [id number] Performed By: #### C VFLURV #### [place] [address] SARS-CoV-2 (COVID-19) RNA WES+probe Ql (Unsp spec) Positive Abnormal Negative [facility] ([place]) Comment on above: Result Comment: This organism causes a reportable disease. Infection Control has been notified. Results have been reported to the [facility]. Notes [address] This test has been authorized by FDA [...] inaccurate positive results. Performed By: #### C LURV #### [place] [address] LABORATORYOrdered By: SYSTEM SYSTEM on 04-08-2023 Basophils (Bld) [#/Vol] 0.1 103/mcL Normal 0.0 - 0.3 10^3/mcL Workflow SS Basophils/100 WBC (Bld) 0.7 % Normal 0.0 - 2.5 % AH Workflow SS Calcium [Mass/Vol] 8.9 mg/dL Normal 8.7 - 10. 4 mg/dL ADM SS Chloride [Moles/Vol] 106 mmol/L Normal 98 - 11 0 mEq/L ADM SS CO2 [Moles/Vol] 26 mmol/L Normal 22 - 32 mEq/L ADM SS Creatinine [Mass/Vol] 0.63 mg/dL Normal 0.50 - 1.20 mg/dL ADM SS Electrolyte Balance 5.0 mEq/L Normal 4.0 - 15 .0 mEq/L ADM SS Eosinophils (Bld) [#/Vol] 0.2 103/mcL Normal 0.0 - 0.7 10^3/mcL AH Workflow SS Eosinophils/100 WBC (Bld) 1.1 % Normal 0.0 - 6.0 % AH Workflow SS Erythrocyte distribution width (RBC) [Ratio] 15.6 % High 11.5 - 15.5 % AH Workflow SS GFR/1.73 sq M.predicted among blacks [...] (S/P/Bld) [Vol rate/Area] ml/min/1.73sqm Invalid Interpretation Code [facility] Comment on above: Interpretive Data: GFR Population [...] mg/dL High 70 - 110 mg/dL ADM SS Hematocrit (Bld) [Volume fraction] 45.1 % Normal 34.0 - 46.0 % Workflow SS Hemoglobin (Bld) [Mass/Vol] 14.8 G/dL Normal 12.0 - 16.0 G/dL Workflow SS Lymphocytes (Bld) [#/Vol] 2.8 103/mcL Normal 0.9 - 4.3 10^3/mcL Workflow SS Lymphocytes/100 WBC (Bld) 15.8 % Low 20.0 - 40.0 % Workflow SS MCH (RBC) [Entitic mass] 27.8 [...] 10^3/mcL AH Workflow SS LABORATORYOrdered By: Bharati Paudeon on 04-08-2023 FLUAV RNA WES+probe Ql (Resp) Negative 5 (04/08/23 6:41 AM) Normal Negative AH Auto Viro/Sero SS Comment on above: Result Comment: [place] [id number] FLUBV RNA WES+probe Ql (Resp) Negative 6 (04/08/23 6:41 AM) Normal Negative AH Auto Viro/Sero SS Comment on above: [place] Comment: [place] [id number] RSV PCR Negative 7 (04/08/23 6:41 AM) Normal Negative AH Auto Viro/Sero SS Comment on above: Result Comment: [place] s [address] SARS-CoV-2 (COVID-19) RNA WES+probe Ql (Resp) Positive 3, 4 *ABN* (04/08/23 6:41 AM) Invalid Interpretation Code Negative AH Auto Viro/Sero SS Comment on above: Result Comment: This organism causes a reportable disease. Infection Control has been notified. Results have been reported to the [facility]. Notes [address] Interpretive Data: T his test has been [...] I High Sensitivity 2.54 ng/L Normal 0.00-34.00 [facility] ([place]) Comment on above: Performed By: #### A WILLIAM SPAULDING MDW, BMP, GFR, CBC, ANEU #### [address] [address] XR CHEST 1 VIEWon 04-08-2023 XR CHEST [...] 04/08/2023 7:15:50 AM Ordering Provider: XIMENA ANDREWS [facility] ([place]) 36on 03-16-2023 36 Was given a message that patient called in to see when we can schedule surgery. I called patient back to discuss the need for repeating items. Patient didn't answer and the voice mail box is full so I couldn't leave a message. [facility] 36on 03-08-2023 36 Filing patient chart . Patient has had no recent activity in program, has told me she cannot stop smoking marijuana. Was told she would check into getting a card in September 2022. Will wait for patient to reach out as she will have many items needing updated if she resumes program. [facility] 36on 02-16-2023 36 Lvm to see if still interested in surgical program [facility] CT HEAD OR BRAIN W/O CONTRAS Ton 11-22-2022 CT HEAD OR BRAIN W/O CONTRAST [...] 11/22/2022 12:31:58 PM Ordering Provider: SANTHOSH BOYD [facility] ([place]) CT SPINE CERVICAL W/O CONTRA Mariely 11-22-2022 CT SPINE CERVICAL W/O CONTRAST ORIGINAL [...] 11/22/2022 12:40:33 PM Ordering Provider: SANTHOSH BOYD [facility] ([place]) HBV surface Ag Ser Qlon 05-0 HBV surface Ag Ql (S) Negative Normal Negative [facility] Comment on above: Order Comment: Speci men Type: BLOOD SPECIMEN Ordering Facility: [facility] Address: [address] [place], [place] [id number] Performed By: #### 5 195-3, 70457-3, 25340-2 #### [facility] CLIA [id number] [address] [place], [place] [id number] [place] HCV Ab Ser Qlon 3 HCV Ab Ql (S) Negative Normal Negative [facility] Comment on above: Order Comment: Speci men Type: BLOOD SPECIMEN Ordering Facility: [facility] Address: [address] [place] [address] Result Comment: The result suggests no evidence of active infection with Hepatitis C virus. Should recent infection be suspected, repeat testing may be considered 4-6 weeks after this draw. Performed By: #### 5 195-3, 75482-7, 27707-0 #### [facility] CLIA [id number] [address] [place] [address] [place] HIV 1+2 Ab IA Qlon 3 HIV 1 and [address] Nom Normal [facility] Comment on above: Order Comment: Speci men Type: BLOOD SPECIMEN Ordering Facility: [facility] Address: [address] [place] [address] Result Comment: Test not indicated. Performed By: #### 5 195-3, 01380-5, 32721-6 #### [facility] CLIA [id number] [facility] [place] [address] [place] HIV 1+2 Ab+HIV1 p24 Ag IA Ql Non-Reactive Normal Nonreactive [facility] Comment on above: Order Comment: Speci men Type: BLOOD SPECIMEN Ordering Facility: [facility] Address: [address] [place] [address] Performed By: #### 5 195-3, 17840-8, 08652-6 #### [facility] CLIA [id number] [address] [place] [address] [place] HIVINT Normal [facility] Comment on above: Order Comment: Speci men Type: BLOOD SPECIMEN Ordering Facility: [facility] Address: [address] [place] [address] Result Comment: No e vidence of HIV-1 or HIV-2 infection. Should recent infection be suspected, repeat testing may be considered 2-3 weeks after this draw. [place] Rev. Code 3701.243(E): This information has been [...] or diagnoses. Performed By: #### 5 195-3, 65073-8, 65126-0 #### [facility] CLIA [id number] [address] [place] [address] [place] HSV PCR, MISCELLANEOUS SPECI MEN TYPESon 06-22-2022 HERPES SIMPLEX VIRUS SOURCE Serum Normal [facility] Comment on above: Order Comment: Speci men Type: BLOOD SPECIMEN Ordering Facility: [facility] Address: [address] [place] [address] Performed By: #### P CRHSV #### [facility] CLIA [id number] [address] [place] [address] HSV 1 SUBTYPE BY PCR Not detected Normal [facility] Comment on above: Order Comment: Speci men Type: BLOOD SPECIMEN Ordering Facility: [facility] Address: [address] [place] [address] Performed By: #### P CRHSV #### [facility] CLIA [id number] [address] [place] [address] HSV 2 SUBTYPE BY PCR Not detected Normal [facility] Comment on above: Order Comment: Speci men Type: BLOOD SPECIMEN Ordering Facility: [facility] Address: [address] [place] [address] Result Comment: INTE RPRETIVE INFORMATION: HSV-1 and HSV-2 Subtype by PCR A negative result does not rule out the presence of PCR inhibitors in the patient specimen or test-specific nucleic acid in concentrations below the level of detection by this test. This test was developed and its performance characteristics determined by [facility]. It has not been cleared or approved by the [place] Food and Drug Administration. This test was performed in a CLIA certified laboratory and is intended for clinical purposes. Performed by [facility], [address] [place] [address] [email or web address], Serenity Lucas MD, PHD, Lab. Director Performed By: #### P CRHSV #### [facility] CLIA [id number] [address] [place] [address] RPR Ser Qlon 06-22-2022 Reagin Ab RPR Ql (S) Non-Reactive Normal Nonreactive C [facility] Comment on above: Order Comment: Speci men Type: BLOOD SPECIMEN Ordering Facility: [facility] Address: [address] [place] [id number] Result Comment: Rapi d plasma reagin (RPR) test detects non-treponemal antibodies. RPR may be reactive in a variety of infectious and non-infectious conditions. Correlation with clinical picture and with treponemal antibody results is required for final interpretation. Performed By: #### 2 [id number] #### [facility] CLIA [id number] [address] [place] [address] [place] HPV W/GENOTYPE THIN PREPon 0 06-21-2022 HPV 16 Ag Ql (Unsp spec) Negative Normal Negative for HPV DNA high risk type [address] [facility] Comment on above: Order Comment: Speci men Type: FLUID SPECIMEN Ordering Facility: [facility] Address: [address] [place] [address] Performed By: #### H PVHRT #### [facility] CLIA [id number] [address] [place] [address] [place] HPV 18 Ag Ql (Unsp spec) Negative Normal Negative for HPV DNA high risk type [address] [facility] Comment on above: Order Comment: Speci men Type: FLUID SPECIMEN Ordering Facility: [facility] Address: [address] [place] [address] Performed By: #### H PVHRT #### [facility] CLIA [id number] [address] [place] [address] [place] HPV 31+33+35+39+45+51+52+ 56+58+59+66+68 DNA WES+probe Ql (Cvx) Negative for HPV DNA high risk types: 31,33,35,39,45,51,52,56 ,58,59,66,68 by PCR. Normal Negative for HPV DNA high risk types: 31,33,35,39,4 5,51,52,56,58 ,59,66,[address] [facility] Comment on above: Order Comment: Speci men Type: FLUID SPECIMEN Ordering Facility: [facility] Address: [address] [place] [address] Performed By: #### H PVHRT #### [facility] CLIA [id number] [address] [place] [address] [place] PAP TESTon 06-21-[address] [facility] Comment on above: Order Comment: Speci men Type: FLUID SPECIMEN Ordering Facility: [facility] Address: [address] [place] [address], [place] [address] Result Comment: Gyne cologic Cytology Report Case: [id number] Authorizing Provider: Rocío Lyon CNP Collected: 06/21/2022 02:00 PM Ordering Location: [facility] Received: 06/23/2022 03:05 PM First Screen: Danya Mcphersona, CT, ASCP Specimen: Pap Test, ThinPrep, Cervix Performed By: #### L [id number] #### [facility] CLIA [id number] [address] [place] [address] [place] CLINICAL HISTORY, CYTOLOGY, PRINCIPAL PRODUCT MANAGER Routine Exam Normal [facility] Comment on above: Order Comment: Speci men Type: FLUID SPECIMEN Ordering Facility: [facility] Address: [address] [place] [address], [place] [address] Performed By: #### L [id number] #### [facility] CLIA [id number] [address] [place] [address] [place] CYTOLOGY INTERPRETATION PAP Normal [facility] Comment on above: Order Comment: Speci men Type: FLUID SPECIMEN Ordering Facility: [facility] Address: [address] [place] [address], [place] [address] Result Comment: Nega tive for Intraepithelial lesion or malignancy. Performed By: #### L [id number] #### [facility] CLIA [id number] [address] [place] [address] [place] FINAL DIAGNOSIS A - Cervix Normal [facility] Comment on above: Order Comment: Speci men Type: FLUID SPECIMEN Ordering Facility: [facility] Address: [address] [place] [address] Result Comment: Sati sfactory for interpretation Negative for Intraepithelial lesion or malignancy. Predominance of coccobacilli consistent with shift in vaginal shereen Performed By: #### L [id number] #### [facility] CLIA [id number] [address] [place] [address] [place] FINAL PERFORMING LAB Normal [facility] Comment on above: Order Comment: Speci men Type: FLUID SPECIMEN Ordering Facility: [facility] Address: [address] [place] [address] Result Comment: Tech nical component, hospital pharmacy technician screening performed at [facility], [facility] [place] [facility] [address] CLIA# [id number] Diagnostic interpretation performed at [facility], [address] [facility] [place] [address] CLIA# [id number] Cadd Technician: Yrn Zamora M.D. Performed By: #### L [id number] #### [facility] CLIA [id number] [address] [place] [address] [place] HPV REFLEX Auto HPV Normal [facility] Comment on above: Order Comment: Speci men Type: FLUID SPECIMEN Ordering Facility: [facility] Address: [address] [place] [address] Performed By: #### L [id number] #### [facility] CLIA [id number] [address] [place], [place] [id number] [place] LMP 05/22/[address] [facility] Comment on above: Order Comment: Speci men Type: FLUID SPECIMEN Ordering Facility: [facility] Address: [address] [place] [address] Performed By: #### L [id number] #### [facility] CLIA [id number] [address] [place] [address] PAP DISCLAIMER COMMENT The Pap Smear is a screening test for cervical cancer. False negative results occur with all screening tests, emphasizing the need for rescreening at recommended intervals, and clinical correlation. Normal [facility] Comment on above: Order Comment: Speci men Type: FLUID SPECIMEN Ordering Facility: [facility] Address: [address] [place] [address] Performed By: #### L [id number] #### [facility] CLIA [id number] [address] [place] [address] Office Visiton 04-08-2022 Follow-up visit [id number] Mansoor Carrasco i 1980 F Date Provider Department Center 04/08/2022 [id number]-[id number] [facility] PUL None Family History Problem Relation Age of Onset Hypertension Mother Family Status - Relation Status Age at Mother Alive Father Alive Level of Service:06298 [place] OFFICE/OUTPATIENT NEW MODERATE MDM 45-59 MINUTES Reason for Visit and Comments: New Patient [542] Pre-op Exam [552737] Sleep Apnea [348] Normal [facility] Progress Noteon 04-08-2022 Progress Note MG- Pulmonary and Sleep Medicine NEW PATIENT VISIT-PULMONARY 04/08/2022 REFERRING PHYSICIAN: Otilio Cheng, SANDBLAST OR SHOTBLAST 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 [employer] [address] [facility] [address] [place] [address] CHIEF COMPLAINT/REASON FOR REFERRAL: Chief Complaint Patient [...] witnessed apneas, hypertension, BMI greater than 35) Edison Sleepiness Scale How likely are you to [...] pain, kn (more content not included)... Normal [facility] 36on 03-26-2022 36 DOS 03/26/2022 @ 10:40 GWENDOLYN w / Dr. Brumfield. Informed pt's preparations for surgery in [place], answered all questions. Normal [facility] Laboratory - Chemistry and C hemistry - challengeOrdered By: Miya Cowart on 03-26-2022 Beta HCG ( test) Ql Negative Negative [facility] Comment on above: Please note: Very di lute urine specimens, as indicated by a low specific gravity, may not contain parts representative levels of hCG. If is still suspected, a first morning urine specimen should be collected 48 hours later and tested. Beta HCG ( test) Ql (U) is the most common reason for HCG in urine, although choriocarcinoma, hydatidiform mole, and certain nontrophoblastic malignancies also result in detectable urinary HCG levels. Sensitivity = 20mIU/mL. [facility] No Panel InformationOrdered By: Miya Cowart on 03-26-2022 [facility] 36on 03-25-2022 36 Authorization for Testing Initiated. Company Name & Number Contacted for Auth: [employer] Name of Television Newscast Director: ONLINE PORTAL Name of Procedure: EGD W/BX Cpt Code: 78683 Diagnosis Code: DYSPEPSIA Location of Procedure: [facility] Is Auth Required: NO Call Reference #: NA Pending Case #: MALLY Clinical Reviewer: MALLY Additional Info if given: NA Approved Case reference: NA Date Range for Approved Auth: NA Normal [facility] 36on 03-22-2022 36 Pt read [employer] message. Pt to follow up with PCP regarding TSH, lipids. Pt to add 500 mcg vitamin B12 every day and 4,000 international units vitamin D every day. Med list updated. Will recheck levels once pt is established. Normal [facility] 36 Noted thank you. Normal [facility] 36 NICOTINE RESULT: Component Ref Range & Units 6 d ago NICOTINE, BLOOD ng/mL <2 COTININE, BLOOD ng/mL 16 [id number], BLOOD ng/mL 4 Comment: Spoke to pt. She quit nicotine 25 days ago, but during that time would still have a cigarette on occasion. She is also exposed to a lot of second hand smoke. Reviewed importance of cessation. Advised to contact PCP for potential meds to help w nicotine cessation. Will need another level in 4 weeks. Voiced understanding. Normal [facility] ECG 12 lead - CLINIC PERFORM EDon 03-22-2022 Sinus Rhythm Low voltage in precordial leads. ABNORMAL [facility] Office Visiton 03-22-2022 Follow-up visit [id number] Mansoor Carrasco i 1980 F Date Provider Department Center 03/22/2022 [id number]-TZOUDYSERENITY [facility] DREW [facility] [address] Family History Problem Relation Age of Onset Hypertension Mother Family Status - Relation Status Age at Mother Alive Father Alive Level of Service:11861 [place] OFFICE/OUTPATIENT NEW LOW MDM 30-44 MINUTES Reason for Visit and Comments: New Patient [542] Cardiac Clearance [882] - Bariatric clearance-Dr Brumfield [facility] PATINSon 03-22-2022 PATINS Follow up with PCP about your blood pressure Low risk for surgery Normal [facility] Progress Noteon 03-22-2022 Progress Note Agree with weight lo ss efforts Normal [facility] Progress Note Poorly controlled. Advised to follow up with PCP office, consider increasing her hydrochlorothiazide/lis inopril medication with lab follow up - Discussed lifestyle changes, smoking cessation, weight loss Normal [facility] Progress Note [facility] [address] [facility] [address] Dept: [phone] Dept Loc: [phone] Visit type: New patient Reason for Visit: New Patient and Cardiac Clearance (Bariatric clearance-Dr Brumfield) Assessment and Plan 1. Pre-op examination Assessment & Plan: Pre-Operative Risk assessment using 2014 ACC/AHA guidelines Emergent procedure No Active Cardiac Condition none (decompensated HF, Arrhythmia, AK <3 weeks, severe valve disease) Risk Level [...] Date DILATION AND CURETTAGE OF UTERUS 2011 [facility] THYROIDECTOMY 2008 [facility] Family History Problem Relation Name Age [...] of Cardiovascular Disease, Division of Heart Failure [facility] [place] 9:53 AM 03/22/22 Normal [facility] US Abdomenon 02-17-2022 Normal sonographic appearance of the gallbladder. Fatty infiltration of the liver. Suboptimal visualization of the distal pancreas due to overlying bowel gas. Small left renal cyst. Report Dictated on Electronically Signed By: Serenity Cadet Electronically Signed Date/Time: 02/17/2022 11:57 AM [facility] RAD[facility]Y [id number] Exam Date/Time: 02/17/2022 09:59 Procedure: US ABDOMEN [...] the IVC and aorta are unremarkable. [facility] RADIOLOGY SYSTEM Serenity Cadet MD - 02/17/2022 [...] Electronically Signed Date/Time: 02/17/2022 11:57 AM EST [facility] Radiology Study observation (narrative) [facility] US AbdomenOrdered By: Yovani Cadet on 02-17-2022 [facility] XR Abdomen and RF Gastrointe stinal tract upper W contrast Paul 02-17-2022 Unremarkable UGI series. Report Dictated on Electronically Signed By: Len Lane Electronically Signed Date/Time: 02/17/2022 2:37 PM EST [facility] Patient Name: MARIELLE CARRASCO Exam Date/Time: 02/17/2022 [...] stomach. The visualized proximal jejunum is unremarkable. [facility] Len Lane MD - 02/17/2022 Patient Name: [...] Electronically Signed Date/Time: 02/17/2022 2:37 PM EST [facility] Radiology Study observation (narrative) [facility] XR Abdomen and RF Gastrointe stinal tract upper W contrast POOrdered By: Len Lane on 02-17-2022 [facility] Work Phone: Free T4on 03-08-2019 Free T4 [Mass/Vol] 0.24 ng/dL Low 0.93-1.7 [facility] Comment on above: Performed By: #### L 304.0140, L304.0162 #### [facility] - LAB[facility]ATORY [address] [place] [address] TSHon 03-08-2019 TSH Qn 30.85 uIU/mL High 0.27-4.20 [facility] Comment on above: Performed By: #### L 304.0140, L304.0162 #### [facility] [address] [place] [address] Vital Signs Date Time Vital Sign Value Performing Clinician Facility 05-01-2023 01:09-0500 Diastolic Blood Pressure Non-Invasive 104 mm[Hg] GHISLAINE JOHNSON MD [facility] 05-01-2023 01:09-0500 Heart rate 100 /min GHISLAINE JOHNSON MD [facility] 05-01-2023 01:09-0500 Respiratory rate 20 /min GHISLAINE JOHNSON MD [facility] 05-01-2023 01:09-0500 Systolic Blood Pressure Non-Invasive 157 mm[Hg] GHISLAINE JOHNSON MD [facility] 05-01-2023 00:09-0500 Body weight 166.9 kg GHISLAINE JOHNSON MD [facility] 04-30-2023 18:20-0500 Diastolic Blood Pressure Non-Invasive 88 mm[Hg] GHISLAINE JOHNSON MD [facility] 04-30-2023 18:20-0500 Heart rate 74 /min GHISLAINE JOHNSON MD [facility] 04-30-2023 18:20-0500 Respiratory rate 17 /min GHISLAINE JOHNSON MD [facility] 04-30-2023 18:20-0500 Systolic Blood Pressure Non-Invasive 164 mm[Hg] GHISLAINE JOHNSON MD [facility] 04-30-2023 17:25-0500 Diastolic Blood Pressure Non-Invasive 114 mm[Hg] GHISLAINE JOHNSON MD [facility] 04-30-2023 17:25-0500 Heart rate 95 /min GHISLAINE JOHNSON MD [facility] 04-30-2023 17:25-0500 Respiratory rate 20 /min GHISLAINE JOHNSON MD [facility] 04-30-2023 17:25-0500 Systolic Blood Pressure Non-Invasive 160 mm[Hg] GHISLAINE JOHNSON MD [facility] 04-30-2023 17:11-0500 Body temperature 97.52 [degF] GHISLAINE JOHNSON MD [facility] 04-30-2023 17:11-0500 Heart rate 89 /min GHISLAINE JOHNSON MD [facility] 04-08-2023 06:32-0500 Body temperature 97.34 [degF] LEONID MAYORGA MD [facility] 04-08-2023 06:32-0500 Body weight 166.8 kg LEONID MAYORGA MD [facility] 04-08-2023 06:32-0500 Diastolic Blood Pressure Non-Invasive 110 mm[Hg] LEONID MAYORGA MD [facility] 04-08-2023 06:32-0500 Heart rate 103 /min LEONID MAYORGA MD [facility] 04-08-2023 06:32-0500 Respiratory rate 20 /min LEONID MAYORGA MD [facility] 04-08-2023 06:32-0500 Systolic Blood Pressure Non-Invasive 162 mm[Hg] LEONID MAYORGA MD [facility] 11-22-2022 11:46-0400 Body temperature 98.06 [degF] DR KEMAL REYES MD [facility] 11-22-2022 11:46-0400 Diastolic Blood Pressure Non-Invasive [address] KEMAL REYES MD [facility] 11-22-2022 11:46-0400 Heart rate 88 /min DR KEMAL REYES MD [facility] 11-22-2022 11:46-0400 Respiratory rate 18 /min DR KEMAL REYES MD [facility] 11-22-2022 11:46-0400 Systolic Blood Pressure Non-Invasive [address] KEMAL REYES MD [facility] 04-08-2022 10:19-0500 Body height 162.6 cm Mehran Bush MD Work Phone: [facility] 04-08-2022 10:19-0500 Body mass index (BMI) [Ratio] 61.42 kg/m2 Mehran Bush MD Work Phone: [facility] 04-08-2022 10:19-0500 Body weight 162.39 kg Mehran Bush MD Work Phone: [facility] 04-08-2022 10:19-0500 Diastolic blood pressure 68 mm[Hg] Mehran Bush MD Work Phone: [facility] 04-08-2022 10:19-0500 Heart rate 98 /min Mehran Bush MD Work Phone: [facility] 04-08-2022 10:19-0500 Respiratory rate 14 /min Mehran Bush MD Work Phone: [facility] 04-08-2022 10:19-0500 SaO2% (BldA) [Mass fraction] 97 % Mehran Bush MD Work Phone: [facility] Comment on above: RA 04-08-2022 10:19-0500 Systolic blood pressure 122 mm[Hg] Mehran Bush MD Work Phone: [facility] 03-26-2022 13:09-0500 Diastolic blood pressure 77 mm[Hg] Gonsalo Brumfield MD Work Phone: [facility] 03-26-2022 13:09-0500 Heart rate 81 /min Gonsalo Brumfield MD Work Phone: [facility] 03-26-2022 13:09-0500 Respiratory rate 16 /min Gonsalo Brumfield MD Work Phone: [facility] 03-26-2022 13:09-0500 SaO2% (BldA) [Mass fraction] 100 % Gonsalo Brumfield MD Work Phone: [facility] 03-26-2022 13:09-0500 Systolic blood pressure 122 mm[Hg] Gonsalo Brumfield MD Work Phone: [facility] 03-26-2022 12:49-0500 Body temperature 98.8 [degF] Gonsalo Brumfield MD Work Phone: [facility] 03-26-2022 12:18-0500 Body height 162.6 cm Gonsalo Brumfield MD Work Phone: [facility] 03-26-2022 12:18-0500 Body mass index (BMI) [Ratio] 60.76 kg/m2 Gonsalo Brumfield MD Work Phone: [facility] 03-26-2022 12:18-0500 Body weight 160.57 kg Gonsalo Brumfield MD Work Phone: [facility] 03-22-2022 09:16-0500 Body height 162.6 cm Serenity Watters MD Work Phone: [facility] 03-22-2022 09:16-0500 Body mass index (BMI) [Ratio] 61.28 kg/m2 Serenity Watters MD Work Phone: [facility] 03-22-2022 09:16-0500 Body weight 161.93 kg Serenity Watters MD Work Phone: [facility] 03-22-2022 09:16-0500 Diastolic blood pressure 62 mm[Hg] Serenity Watters MD Work Phone: [facility] 03-22-2022 09:16-0500 Heart rate 84 /min Serenity Watters MD Work Phone: [facility] 03-22-2022 09:16-0500 SaO2% (BldA) [Mass fraction] 97 % Serenity Watters MD Work Phone: [facility] 03-22-2022 09:16-0500 Systolic blood pressure 168 mm[Hg] Serenity Watters MD Work Phone: [facility] 11-08-2021 11:48-0400 Body temperature 98.24 [degF] ROSE MARY BEST MD [facility] 11-08-2021 11:48-0400 Diastolic blood pressure 98 mm[Hg] ROSE MARY BEST MD [facility] 11-08-2021 11:48-0400 Heart rate 99 /min ROSE MARY BEST MD [facility] 11-08-2021 11:48-0400 Respiratory rate 18 /min ROSE MARY BEST MD [facility] 11-08-2021 11:48-0400 Systolic blood pressure 137 mm[Hg] ROSE MARY BEST MD [facility] Encounters Encounter Date Encounter Type Care Provider Facility Start: 12-20-2024 ambulatory Angie Bib VSC Faci lity:[facility] Start: 12-19-2024 ambulatory Angie Bib VSC Faci lity:[facility] Start: 12-17-2024 ambulatory Zebulun Beam VSC Facili ty:[facility] Start: 11-04-2024 End: 11-04-2024 Emergency department patient visit Angie Mccartney VSC Facility:[facility] Start: 11-01-2024 ambulatory Angie Bib VSC Faci lity:[facility] Start: 10-29-2024 ambulatory Angie Bib VSC Faci lity:[facility] Start: 10-16-2024 End: 10-16-2024 ambulatory Angie Bib VSC Facility:[facility] Start: 04-21-2024 End: 04-21-2024 Emergency department patient visit Too Perez Facility:[facility] Start: 01-23-2024 End: 01-23-2024 Emergency department patient visit Angie Mccartney VSC Facility:[facility] Start: 01-03-2024 End: 01-03-2024 ambulatory Angie Sharper VSC Facility:[facility] Start: 12-27-2023 End: 12-27-2023 Emergency department patient visit Tay Hinton Facility:[facility] Start: 04-30-2023 End: 05-01-2023 Emergency department patient visit PATIENT UNSURE PHYSICIAN Facility:A Start: 04-30-2023 End: 05-01-2023 Emergency department patient visit GHISLAINE JOHNSON MD [facility] Start: 04-08-2023 End: 04-08-2023 Emergency department patient visit NONE PHYSICIAN Facility:A Start: 04-08-2023 End: 04-08-2023 Emergency department patient visit LEONID MAYORGA MD [facility] Start: 11-22-2022 End: 11-22-2022 Emergency department patient visit DR KEMAL REYES MD Facility:A Start: 11-22-2022 End: 11-22-2022 Emergency department patient visit DR KEMAL REYES MD [facility] Start: 04-08-2022 End: 04-08-2022 ambulatory [facility] Start: 04-08-2022 End: 04-08-2022 Encounter for preprocedural laboratory examination [facility] Start: 04-08-2022 End: 04-08-2022 Office outpatient new 45 minutes Mehran Bush MD Work Phone: [facility] Comment on above: TRANG (obstructive sle ep apnea) (Primary Dx); Pre-diabetes; Morbid obesity due to excess calories (HCC); GERD without esophagitis; Pre-operative laboratory examination; Shortness of breath; Tobacco use disorder Start: 04-08-2022 End: 04-08-2022 Patient encounter status Mehran Bush MD Work Phone: [facility] Start: 03-26-2022 End: 03-26-2022 ambulatory [facility] Start: 03-26-2022 End: 03-26-2022 Subsequent hospital visit by physician Gonsalo Brumfield MD Work Phone: [facility] End[facility] Comment on above: Dyspepsia Start: 03-22-2022 Telephone encounter Otilio cotter SANDBLAST OR SHOTBLAST 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 [employer] Work Phone: [facility] [place] Comment on above: Results Start: 03-22-2022 End: 03-22-2022 ambulatory OTILIO R BRIDLE [facility] Start: 03-22-2022 End: 03-22-2022 Office outpatient new 30 minutes Serenity Watters MD Work Phone: [facility] Comment on above: Pre-op examination ( Primary Dx); Morbid obesity due to excess calories (HCC); Primary hypertension Start: 03-22-2022 End: 03-22-2022 Preprocedural examination done Serenity Watters MD Work Phone: [facility] Work Phone: Start: 03-17-2022 Telephone encounter Scarlett Ronald fragoso RD Work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 [address] [address] PCP - General 02/04/21 Medical Imaging Technologist Relationship Specialty Start Date End Date Alton Cuevas [address] [address] PCP - General 02/04/21 Medical Imaging Technologist Relationship Specialty Start Date End Date Alton Cuevas [address] [address] PCP - General 02/04/21 Medical Imaging Technologist Relationship Specialty Start Date End Date Camryn Cuevas Em [address] [address] PCP - General 02/04/21 Medical Imaging Technologist Relationship Specialty Start Date End Date Consuelo [address] [id number] PCP - General 02/04/21 Medical Imaging Technologist Relationship Specialty Start Date End Date [facility] [address] [id number] PCP - General 02/04/21 Medical Imaging Technologist Relationship Specialty Start Date End Date Cuevas [address] [id number] PCP - General 02/04/21 Reason for Visit [...] GERD without esophagitis Pre-operative laboratory examination Procedures IA OFFICE/OUTPATIENT NEW HIGH MDM 60-74 MINUTES Otilio Cheng R, SANDBLAST OR SHOTBLAST 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 [employer] [address] [facility] [address] [place] [address] [facility] Cf Card [address] [place] [address] Referral ID Status Reason Start Date Expiration Date V isits Requested Visits Authorized [id number] Closed Specialty Services Required 01/22/2022 07/21/2022 1 1 Reason Onset Date Comments Abnormal Lab 03/17/2022 Low vitamin D, l ow normal vitamin B12, elevated TSH, abnormal lipid panel Specialty Diagnoses / Procedures Referred By Amrita rios Referred To Contact Diagnoses Dyspepsia Dyspepsia [R10.13] Procedures IA EGD TRANSORAL BIOPSY SINGLE/MULTIPLE EGD WITH BIOPSY Gonsalo Brumfield MD [address] [place] [address] [facility] [address] [place] [address] Referral ID Status Reason Start Date Expiration Date Visits Re quested Visits Authorized [id number] 1 1 Reason Comments New Patient Pre-op Exam Sleep Apnea Specialty Diagnoses / Procedures Referred By Amrita rios Referred To Contact Pulmonary Disease / Pulmonology Diagnoses Pre-diabetes Morbid obesity due to excess calories (HCC) GERD without esophagitis Pre-operative laboratory examination Procedures IA OFFICE/OUTPATIENT NEW HIGH MDM 60-74 MINUTES Otilio Cheng, SANDBLAST OR SHOTBLAST 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 [employer] [address] [place] [address] [facility] [address] [place] [address] Referral ID Status Reason Start Date Expiration Date Visits Requested Visits Authorized [id number] Pending Review Specialty Services Required 01/22/2022 07/21/2022 [...] BE BASED ON THE PRIMARY CLINICAL RECORDS. [employer] [facility]. provides no warranty or guarantee of the accuracy or completeness of information in this document.
== END | disposition home or self-care (01) ==
PROVIDERS: Referring Provider Nurse Practitioner Family; Visit Provider Nurse Practitioner Family
DX: G47.33 Obstructive sleep apnea (adult) (pediatric) (principal)
CPT/HCPCS: 95811